=== PATIENT | male | born 1940 | race Caucasian/White ===

== ENCOUNTER → 2016-09-12 | Outpatient (CLI) | payer OTHER, BC ==
[~2016-09-12] MED LIST: ALBUAER19 INH; AMLO-110 PO; ATEN50TA8 PO; DUTA0.5C PO; SULF1TAB92 PO; TAMS0.4C38 PO
== END | disposition home or self-care (01) ==
LOC: C.RC 09:34
PROVIDERS: ATTEND Internal Medicine
DX: J44.9 Chronic obstructive pulmonary disease, unspecified (principal); R06.00 Dyspnea, unspecified

== ENCOUNTER 2019-12-26 13:04 | Inpatient (IN) ==
[~2019-12-26 13:04] MED LIST changes: -ALBUAER19 INH; -AMLO-110 PO; -ATEN50TA8 PO; -DUTA0.5C PO; +OPTIRAY 320 125ml IV PRN; -SULF1TAB92 PO; -TAMS0.4C38 PO
--- NOTE | 2019-12-26 13:06 | Emergency Department Note ---
Impression & Plan Brain TIA, COPD with hypoxia, Stenosis of both internal carotid arteries ED Provider Note NAME: EDNA BRANHAM AGE: 79 SEX: M : 1940 ARRIVES VIA: Ambulance INFORMANT: Patient, ED PROVIDER(S): Ángel Grijalva MD Chief Complaint: Confusion, left-sided deficits HPI: I did receive a medical command call prehospital due to the concern for change in mentation as well as left-sided facial droop. The patient was having difficulty with follow commands and paramedics did think that the patient did have some left upper extremity left lower extremity weakness. The patient did have some associated dysarthria. The patient was mildly hypoxic and placed on oxygen. Last known well was approximately 1140. The patient currently denies any chest pains or shortness of breath. No recent concern for COVID. The patient does use oxygen at home. The patient feels as though his speech is appropriate. Patient believes his symptoms have improved since earlier. They are no longer as persistent. Patient last smoked 3 to 4 years ago. ROS: See HPI for pertinent positives and negatives. A total of 10 systems were reviewed and otherwise negative. Past medical history: See below Surgical history: See below Social history: See below Physical Exam: GENERAL: Well appearing, well nourished, NAD, non-toxic. EYE EXAM: Normal conjunctiva. PERRL, no anisocoria and EOM's grossly intact w/o pain. NECK: Supple, no nuchal rigidity, no adenopathy, non-tender. No signs of meningismus. LUNGS: Clear to auscultation. Normal chest wall mechanics. HEART: NSR, no MRG. ABDOMEN: Abdomen soft, non-tender, normo-active bowel sounds, no masses, no rebound or guarding. BACK: No CVA TTP. SKIN: No rashes and no bruising. UPPER EXTREMITIES: Upper extremities are grossly normal. LOWER EXTREMITIES: Grossly normal, no edema. NEURO EXAM: A&O x3, cranial nerves II-XII grossly intact, normal speech, moves all 4 extremities on command w/o issue. Good finger to nose, no drift, no sensory deficits. Differential diagnoses: Infection, dehydration, metabolic abnormality, hypo/hyperglycemia, electrolyte disturbance, anemia, hypoxia, cardiac sources, intracerebral event, toxicologic, neurologic, as well as other pathologies. Course: Patient was seen and evaluated the bedside. Full history physical exam was performed. EKG: Indication: CVA symptoms Atrial sensed V paced rhythm, rate of 66, left axis deviation, left bundle branch block pattern. Imaging Studies: Radiology results as stated below per my review in the radiologist's interpretation: HEAD CT NONCONTRAST CT DOSE: HISTORY: Stroke symptoms. Left-sided facial droop. TECHNIQUE: Multiaxial CT images of the head were performed without the use of intravenous contrast. Automated exposure control was utilized for this study. A dose lowering technique was utilized adhering to the principles of ALARA. Comparison: None. Findings: The paranasal sinuses and mastoid air cells are clear. The calvarium and skull base are intact. There is no mass, hematoma, midline shift, acute infarct. White matter hypodensity is nonspecific but suggestive of microvascular ischemic change. The ventricles and sulci demonstrate mild age-related involutional changes. 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 Impression: No acute intracranial abnormality. 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 ACT 112: Negative or not required by law. Electronically signed by: Gene Grider M.D. 12/26/2019 1:18 PM Dictated: 12/26/19 1315 Transcribed: 12/26/19 1315 HEAD & NECK CTA HISTORY: Left-sided facial droop. Stroke evaluation TECHNIQUE: Multiaxial CT images of the head were performed following the intravenous administration of contrast to evaluate the major cerebral vessels. Multiaxial CT images of the neck were also performed following the intravenous administration of contrast to evaluate the major cervical vessels. Maximum intensity projection images were also obtained. A dose lowering technique was utilized adhering to the principles of ALARA. COMPARISON: None. FINDINGS: The bilateral distal vertebral arteries and basilar artery are widely patent. Persistent right posterior circulation considered to be a normal variant. The bilateral MCAs and test lab technician are patent. Focal 2 cm segment of diminished perfusion/narrowing within the mid right A2 segment best seen on image 94. However, no vascular occlusion identified. The left ACAs widely patent. Suggestion of a 2 mm aneurysm at the left supraclinoid ICA. The major dural venous sinuses appear patent. Focal area of 60% stenosis seen within the left carotid siphon best seen on image 53. The aortic arch and proximal great vessels are widely patent. Bilateral vertebral arteries and bilateral common carotid arteries are patent. Left-sided pacemaker wires are noted. Advanced emphysema. Severe right and moderate left plaque within the bilateral carotid bifurcations. There is a focal area of high- grade/critical stenosis of greater than 90% within the proximal right internal carotid artery/bulb. This is best seen on image 224. There is also a focal intraluminal soft plaque within the proximal right internal carotid artery which measures 4 mm. The mid to distal right internal carotid artery is patent. Focal area of 75% stenosis within the proximal left internal carotid artery/carotid bulb. This is best seen image 222. The mid to distal left internal carotid artery is patent. IMPRESSION: 1. Focal 2 cm segment of diminished perfusion/narrowing within the mid right A2. However, no vascular occlusion identified. 2. Focal area of 60% stenosis within the left carotid siphon. 3. 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 4. There is a focal area of high-grade/critical stenosis of greater than 90% within the proximal right internal carotid artery/bulb. There is an associated focal intraluminal soft plaque within the proximal right internal carotid artery which measures 4 mm. 5. Focal area of 75% stenosis at the proximal left internal carotid artery/carotid bulb. ACT 112: Negative or not required by law. Electronically signed by: Gene Grider M.D. 12/26/2019 1:31 PM Dictated: 12/26/19 1319 Transcribed: 12/26/19 1319 Cardiac monitoring: An order was placed for continuous cardiac monitoring. The monitor shows a rate of 68 with paced rhythm. MDM: Patient does present with concern for left-sided deficits. They have since resolved upon presentation. The patient's initial CT the head did show some old left infarct. The patient CT angios of the head neck do show an area of decreased perfusion at the right A2 but there is no vascular occlusion identified. The patient also does have evidence of stenosis at the left carotid possible 2 mm aneurysm of the left supraclinoid ICA as well as 90% proximal internal carotid bulb artery stenosis. Patient was placed on a small amount of oxygen given that the patient does have COPD does use oxygen at home and was in the high 80s. I did speak with tele-stroke even as the patient symptoms had resolved the patient does have some high-grade stenosis as well as some diminished perfusion and narrowing at the right A2 segment. Dr. Pulido telestroke neurology at [facility] was stating that the A2 segment would likely be too distal for any endovascular intervention. Discussed that there would need to be discussion about risk benefits of any sort of intervention with the patient's right ICA stenosis. She also recommended an aspirin and Plavix load which were ordered. He did receive this. I did speak the on-call hospitalist Dr. Neff and I spoke with Marisol Rowland. Patient was admitted to the [facility] service. Critical Care: I have personally spent 50 minutes of critical care time in direct management of this patient. This includes bedside care, interpretation of diagnostic studies, and testing, discussion with consultants, patient, and family members, and other require inpatient management activities. This 50 minutes is in excess of all separately billable procedures. Past Med/Surg History Medical History BPH (benign prostatic hyperplasia) Complete heart block (Acute) s/p dual-chamber pacemaker. (2/2 lyme disease). COPD (chronic obstructive pulmonary disease) Hx of Lyme disease Hypertension Pacemaker 2014 ([employer]) SECONDARY TO COMPLETE HEART BLOCK/SSS; LAST CHECK 02/04/18 Psoriasis Surgical History Hx of colonoscopy S/P cardiac pacemaker procedure 2014 ([employer]) SECONDARY TO COMPLETE HEART BLOCK/SSS; LAST CHECK 02/04/18 Social History Preferred Language: Yoruba Communication Ability: Effective Senior Mechanical Technician Required: No Beliefs That Will Affect Care: None Current Living Situation: Spouse Feels Safe at Home: Yes Smoking Status: Former smoker Cigarettes Per Day: 20 ; Hx Alcohol Use: No Hx Substance Use: No Allergies Allergies Allergy/AdvReac Type Severity Reaction Status Date / Time No Known Allergies Allergy Verified 12/26/19 13:43 Home Meds Home Medications Medication Instructions Recorded Confirmed amlodipine [Norvasc] 5 mg PO QAM 03/20/18 12/26/19 atenolol [Tenormin] 50 mg PO QAM 03/20/18 12/26/19 Previous Rx's Medication Instructions Recorded dutasteride 0.5 mg capsule 0.5 mg PO QPM #90 cap 02/01/19 tamsulosin 0.4 mg capsule 0.4 mg PO QPM #90 cap 11/01/19 Results & Data (ED) Vital Signs Vital Signs - 24 hr 12/26/19 13:26 12/26/19 13:27 12/26/19 13:32 Temperature 36.6 C Temperature Source Oral Pulse Rate 70 68 Pulse Rate from SpO2 Sensor 68 Pulse Rhythm Regular Pulse Strength Normal Respiratory Rate 22 Respiratory Effort / Characteristics Non-Labored Spontaneous Respiratory Depth Normal Respiratory Pattern Regular Blood Pressure 138/86 169/84 H Blood Pressure Mean 103 126 Pulse Oximetry 88 L 95 98 Oxygen Delivery Method Room Air Nasal Cannula Nasal Cannula Nasal Cannula Oxygen Flow Rate 0 1 1 Sepsis Recent Fever Within 48 Hours No Sepsis New/Unexplained Change in Mental Status No Sepsis Action Taken by Nursing No Action Required Oxygen Flow Rate - Titration 1 Pulse Oximetry Post Tiitration 97 12/26/19 13:46 12/26/19 14:02 12/26/19 14:16 Temperature Temperature Source Pulse Rate 67 67 66 Pulse Rate from SpO2 Sensor 67 67 66 Pulse Rhythm Pulse Strength Respiratory Rate Respiratory Effort / Characteristics Respiratory Depth Respiratory Pattern Blood Pressure 144/87 H 167/74 H 175/77 H Blood Pressure Mean 120 112 83 Pulse Oximetry 97 96 96 Oxygen Delivery Method Nasal Cannula Nasal Cannula Nasal Cannula Oxygen Flow Rate 1 1 1 Sepsis Recent Fever Within 48 Hours Sepsis New/Unexplained Change in Mental Status Sepsis Action Taken by Nursing Oxygen Flow Rate - Titration Pulse Oximetry Post Tiitration 12/26/19 14:31 Temperature Temperature Source Pulse Rate 66 Pulse Rate from SpO2 Sensor 67 Pulse Rhythm Pulse Strength Respiratory Rate 24 Respiratory Effort / Characteristics Respiratory Depth Respiratory Pattern Blood Pressure 175/83 H Blood Pressure Mean 119 Pulse Oximetry 97 Oxygen Delivery Method Nasal Cannula Oxygen Flow Rate 1 Sepsis Recent Fever Within 48 Hours Sepsis New/Unexplained Change in Mental Status Sepsis Action Taken by Nursing Oxygen Flow Rate - Titration Pulse Oximetry Post Tiitration Home Medications Current Medication List: was personally reviewed by me Laboratory Data Attestation: I reviewed the patient's lab results. Result diagrams: 12/26/19 13:26 12/26/19 13:26 Lab Results 12/26/19 12/26/19 12/26/19 Range/Units 13:25 13:26 13:26 WBC 9.18 (4.8-10.8) K/uL RBC 4.54 L (4.7-6.1) M/uL Hgb 14.3 (14.0-18.0) g/dL Hct 42.8 (42-52) % MCV 94.3 (80-100) fL MCH 31.5 (25-34) pg MCHC 33.4 (32-36) g/dL RDW Std Deviation 50.1 H (36.4-46.3) fL RDW Coeff of Anni 14.6 H (11.5-14.5) % Plt Count 232 (130-400) K/uL MPV 9.8 (7.4-10.4) fL Immature Gran % (Auto) 0.1 % Neut % (Auto) 75.2 % Lymph % (Auto) 7.0 % Pike % (Auto) 16.4 % Eos % (Auto) 1.1 % Baso % (Auto) 0.2 % Neut # (Auto) 6.90 H (1.4-6.5) K/uL Lymph # (Auto) 0.64 L (1.2-3.4) K/uL Pike # (Auto) 1.51 H (0.11-0.59) K/uL Eos # (Auto) 0.10 (0-0.5) K/uL Baso # (Auto) 0.02 (0-0.2) K/uL Immature Gran # (Auto) 0.01 (0.00-0.02) K/uL PT (9.0-12.0) Seconds INR (0.9-1.1) APTT (21.0-31.0) Seconds PTT Ratio Sodium (136-145) mmol/L Potassium (3.5-5.1) mmol/L Chloride (98-107) mmol/L Carbon Dioxide (21-32) mmol/L Anion Gap (3-11) BUN (7-18) mg/dl Creatinine (0.6-1.4) mg/dl Est Cr Clr Drug Dosing ml/min Est GFR ( Amer) Est GFR (Non-Af Amer) BUN/Creatinine Ratio (10-20) Glucose (70-99) mg/dl POC Glucose 98 (70-99) mg/dl Calcium (8.5-10.1) mg/dl Magnesium (1.8-2.4) mg/dl Total Bilirubin (0.2-1) mg/dl AST (15-37) U/L ALT (12-78) U/L Alkaline Phosphatase (45-117) U/L Troponin I (0-0.045) ng/ml Total Protein (6.4-8.2) gm/dl Albumin (3.4-5.0) gm/dl Globulin (2.5-4.0) gm/dl Albumin/Globulin Ratio (0.9-2) Blood Type O Positive Antibody Screen NEGATIVE 12/26/19 12/26/19 Range/Units 13:26 13:26 WBC (4.8-10.8) K/uL RBC (4.7-6.1) M/uL Hgb (14.0-18.0) g/dL Hct (42-52) % MCV (80-100) fL MCH (25-34) pg MCHC (32-36) g/dL RDW Std Deviation (36.4-46.3) fL RDW Coeff of Anni (11.5-14.5) % Plt Count (130-400) K/uL MPV (7.4-10.4) fL Immature Gran % (Auto) % Neut % (Auto) % Lymph % (Auto) % Pike % (Auto) % Eos % (Auto) % Baso % (Auto) % Neut # (Auto) (1.4-6.5) K/uL Lymph # (Auto) (1.2-3.4) K/uL Pike # (Auto) (0.11-0.59) K/uL Eos # (Auto) (0-0.5) K/uL Baso # (Auto) (0-0.2) K/uL Immature Gran # (Auto) (0.00-0.02) K/uL PT 11.0 (9.0-12.0) Seconds INR 1.0 (0.9-1.1) APTT 31.4 H (21.0-31.0) Seconds PTT Ratio 1.1 Sodium 133 L (136-145) mmol/L Potassium 5.0 (3.5-5.1) mmol/L Chloride 96 L (98-107) mmol/L Carbon Dioxide 30 (21-32) mmol/L Anion Gap 7.0 (3-11) BUN 22 H (7-18) mg/dl Creatinine 1.30 (0.6-1.4) mg/dl Est Cr Clr Drug Dosing 39.8 ml/min Est GFR ( Amer) 59.3 Est GFR (Non-Af Amer) 51.2 BUN/Creatinine Ratio 17.2 (10-20) Glucose 106 H (70-99) mg/dl POC Glucose (70-99) mg/dl Calcium 8.9 (8.5-10.1) mg/dl Magnesium 2.1 (1.8-2.4) mg/dl Total Bilirubin 1.3 H (0.2-1) mg/dl AST 21 (15-37) U/L ALT 15 (12-78) U/L Alkaline Phosphatase 88 (45-117) U/L Troponin I 0.034 (0-0.045) ng/ml Total Protein 7.0 (6.4-8.2) gm/dl Albumin 3.2 L (3.4-5.0) gm/dl Globulin 3.8 (2.5-4.0) gm/dl Albumin/Globulin Ratio 0.9 (0.9-2) Blood Type Antibody Screen Administered Medications Ioversol (Optiray 320 125ml) 118 ml IV ONCE PRN PRN Reason: Interaction Checking Stop: 12/30/19 13:03 Last Admin: 12/26/19 13:05 Dose: 118 ml Documented by: [id number] Discontinued Medications Aspirin (Aspirin) 324 mg PO NOW STA Stop: 12/26/19 14:03 Last Admin: 12/26/19 14:13 Dose: 324 mg Documented by: [id number] Clopidogrel Bisulfate (Plavix) 300 mg PO NOW STA Stop: 12/26/19 14:03 Last Admin: 12/26/19 14:13 Dose: 300 mg Documented by: [id number] Discharge Plan Visit Data Chief Complaint: Stroke Alert Stated Complaint: Stroke Alert ED Provider: Ángel Grijalva Discharge Problem: Brain TIA, COPD with hypoxia, Stenosis of both internal carotid arteries Forms Stand Alone Forms: [employer] [facility] Prescriptions Prescriptions: No Action tamsulosin [Flomax] 0.4 mg capsule 0.4 mg PO QPM Qty: 90 RF: 3 dutasteride [Avodart] 0.5 mg capsule 0.5 mg PO QPM Qty: 90 RF: 3 amlodipine [Norvasc] 5 mg Tablet 5 mg PO QAM RF: 0 atenolol [Tenormin] 50 mg Tablet 50 mg PO QAM RF: 0
--- NOTE | 2019-12-26 13:20 | CT Scan Report ---
HEAD CT NONCONTRAST CT DOSE: HISTORY: Stroke symptoms. Left-sided facial droop. TECHNIQUE: Multiaxial CT images of the head were performed without the use of intravenous contrast. A utomated exposure control was utilized for this study. A dose lowering technique was utilized adheri ng to the principles of ALARA. Comparison: None. Findings: The paranasal sinuses and mastoid air cells are clear. The calvarium and skull base are int act. There is no mass, hematoma, midline shift, acute infarct. White matter hypodensity is nonspecifi c but suggestive of microvascular ischemic change. The ventricles and sulci demonstrate mild age-rela josé miguel involutional changes. 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 Impression: No acute intracranial abnormality. 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 ACT 112: Negative or not required by law. Electronically signed by: Gene Grider M.D. 12/26/2019 1:18 PM
--- NOTE | 2019-12-26 13:32 | CT Scan Report ---
HEAD & NECK CTA HISTORY: Left-sided facial droop. Stroke evaluation TECHNIQUE: Multiaxial CT images of the head were performed following the intravenous administration o f contrast to evaluate the major cerebral vessels. Multiaxial CT images of the neck were also perform ed following the intravenous administration of contrast to evaluate the major cervical vessels. Maxim um intensity projection images were also obtained. A dose lowering technique was utilized adhering to the principles of ALARA. COMPARISON: None. FINDINGS: The bilateral distal vertebral arteries and basilar artery are widely patent. Persistent right sample prep technician ior circulation considered to be a normal variant. The bilateral MCAs and die cutter operator are patent. Foca l 2 cm segment of diminished perfusion/narrowing within the mid right A2 segment best seen on image 9 4. However, no vascular occlusion identified. The left ACAs widely patent. Suggestion of a 2 mm aneur ysm at the left supraclinoid ICA. The major dural venous sinuses appear patent. Focal area of 60% jacy nosis seen within the left carotid siphon best seen on image 53. The aortic arch and proximal great vessels are widely patent. Bilateral vertebral arteries and bila teral common carotid arteries are patent. Left-sided pacemaker wires are noted. Advanced emphysema. S evere right and moderate left plaque within the bilateral carotid bifurcations. There is a focal area of high-grade/critical stenosis of greater than 90% within the proximal right internal carotid arter y/bulb. This is best seen on image 224. There is also a focal intraluminal soft plaque within the pro ximal right internal carotid artery which measures 4 mm. The mid to distal right internal carotid art smiley is patent. Focal area of 75% stenosis within the proximal left internal carotid artery/carotid bu lb. This is best seen image 222. The mid to distal left internal carotid artery is patent. IMPRESSION: 1. Focal 2 cm segment of diminished perfusion/narrowing within the mid right A2. However, no vascular occlusion identified. 2. Focal area of 60% stenosis within the left carotid siphon. 3. 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 4. There is a focal area of high-grade/critical stenosis of greater than 90% within the proximal righ t internal carotid artery/bulb. There is an associated focal intraluminal soft plaque within the prox imal right internal carotid artery which measures 4 mm. 5. Focal area of 75% stenosis at the proximal left internal carotid artery/carotid bulb. ACT 112: Negative or not required by law. Electronically signed by: Gene Grider M.D. 12/26/2019 1:31 PM
--- NOTE | 2019-12-26 13:32 | CT Scan Report ---
HEAD & NECK CTA HISTORY: Left-sided facial droop. Stroke evaluation TECHNIQUE: Multiaxial CT images of the head were performed following the intravenous administration o f contrast to evaluate the major cerebral vessels. Multiaxial CT images of the neck were also perform ed following the intravenous administration of contrast to evaluate the major cervical vessels. Maxim um intensity projection images were also obtained. A dose lowering technique was utilized adhering to the principles of ALARA. COMPARISON: None. FINDINGS: The bilateral distal vertebral arteries and basilar artery are widely patent. Persistent right manager of selection and assessment ior circulation considered to be a normal variant. The bilateral MCAs and customer care associate are patent. Foca l 2 cm segment of diminished perfusion/narrowing within the mid right A2 segment best seen on image 9 4. However, no vascular occlusion identified. The left ACAs widely patent. Suggestion of a 2 mm aneur ysm at the left supraclinoid ICA. The major dural venous sinuses appear patent. Focal area of 60% jacy nosis seen within the left carotid siphon best seen on image 53. The aortic arch and proximal great vessels are widely patent. Bilateral vertebral arteries and bila teral common carotid arteries are patent. Left-sided pacemaker wires are noted. Advanced emphysema. S evere right and moderate left plaque within the bilateral carotid bifurcations. There is a focal area of high-grade/critical stenosis of greater than 90% within the proximal right internal carotid arter y/bulb. This is best seen on image 224. There is also a focal intraluminal soft plaque within the pro ximal right internal carotid artery which measures 4 mm. The mid to distal right internal carotid art smiley is patent. Focal area of 75% stenosis within the proximal left internal carotid artery/carotid bu lb. This is best seen image 222. The mid to distal left internal carotid artery is patent. IMPRESSION: 1. Focal 2 cm segment of diminished perfusion/narrowing within the mid right A2. However, no vascular occlusion identified. 2. Focal area of 60% stenosis within the left carotid siphon. 3. 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 4. There is a focal area of high-grade/critical stenosis of greater than 90% within the proximal righ t internal carotid artery/bulb. There is an associated focal intraluminal soft plaque within the prox imal right internal carotid artery which measures 4 mm. 5. Focal area of 75% stenosis at the proximal left internal carotid artery/carotid bulb. ACT 112: Negative or not required by law. Electronically signed by: Gene Grider M.D. 12/26/2019 1:31 PM
[2019-12-26 13:38] LABS: Basophils # (auto) 0.02 K/uL (0-0.2); Basophils % (auto) 0.2 %; Eosinophils % (auto) 1.1 %; Hematocrit (blood only) 42.8 % (42-52); Hemoglobin 14.3 g/dL (14.0-18.0); Immature Granulocytes # (auto) 0.01 K/uL (0.00-0.02); Immature Granulocytes % (auto) 0.1 %; Lymphocytes # (auto) 0.64 K/uL (1.2-3.4); Mean Corpuscular Hemoglobin 31.5 pg (25-34); Mean Corpuscular Hgb Conc 33.4 g/dL (32-36); Mean Corpuscular Volume 94.3 fL (80-100); Mean Platelet Volume 9.8 fL (7.4-10.4); Monocytes # (auto) 1.51 K/uL (0.11-0.59); Monocytes % (auto) 16.4 %; Neutrophils % (auto) 75.2 %; Platelet Count 232 K/uL (130-400); RDW Coefficient of Variation 14.6 % (11.5-14.5); RDW Standard Deviation 50.1 fL (36.4-46.3); Red Blood Count 4.54 M/uL (4.7-6.1); White Blood Count 9.18 K/uL (4.8-10.8)
[2019-12-26 13:51] LABS: Partial Thromboplastin Ratio 1.1; Partial Thromboplastin Time 31.4 Seconds (21.0-31.0)
[2019-12-26 13:57] LABS: Albumin Level 3.2 gm/dl (3.4-5.0); BUN Creatinine Ratio 17.2 (10-20); Calcium 8.9 mg/dl (8.5-10.1); Creatinine Clr Calc Pharmacy 39.8 ml/min; Est GFR (African American) 59.3; Est GFR (Non-African American) 51.2; Magnesium 2.1 mg/dl (1.8-2.4)
[2019-12-26 14:01] LABS: Albumin Globulin Ratio 0.9 (0.9-2); Bilirubin,Total 1.3 mg/dl (0.2-1); Globulin 3.8 gm/dl (2.5-4.0); Troponin I 0.034 ng/ml (0-0.045)
[2019-12-26] MEDS ORDERED: ASPIRIN CHEW 324 MG PO STA (14:02)
[2019-12-26] MEDS ORDERED: CLOPIDOGREL BISULFATE 300 MG TAB PO STA (14:02)
[2019-12-26] MEDS ORDERED: MAGNESIUM HYDROXIDE SUSP 30 ML UDC PO PRN (14:38)
[2019-12-26] MEDS ORDERED: POLYETHYLENE (MIRALAX) 17 GM PACK PO PRN (14:38)
[2019-12-26] MEDS ORDERED: ALUMINUM/MAGNESIUM SUSP 30 ML UDC PO PRN (14:38)
[2019-12-26] MEDS ORDERED: ACETAMINOPHEN 325 MG TAB PO PRN (14:38)
[2019-12-26] MEDS ORDERED: ONDANSETRON INJ 2 MG/ML 2 ML VIAL IV PRN (14:38)
[2019-12-26] MEDS ORDERED: SODIUM CHLORIDE 0.9% 1000ML 1,000 ML IV SCH (15:00)
--- NOTE | 2019-12-26 15:51 | History & Physical Report ---
Date of Service December 26, 2019 Assessment & Plan (1) Brain TIA: This is an 79-year-old male with PMH of hypertension, CKD 3, COPD, chronic respiratory failure with hypoxia requiring oxygen at bedtime, BPH and other medical problems listed below who presents with strokelike symptoms beginning yesterday. -Left-sided weakness and dysarthria that have since resolved -CT head without acute intracranial abnormality. CTA head/neck with focal area of high-grade/critical stenosis of greater than 90% within the proximal R ICA/bulb, focal intraluminal soft plaque within the proximal R ICA which measures 4 mm and focal area of 75% stenosis at the proximal left internal carotid artery/carotid bulb -Echo with bubble study pending, pacemaker interrogation pending -Initiated dual antiplatelet therapy with aspirin and Plavix. Initiating statin as well -Neuro checks, PT, OT, speech therapy evaluations -Routine neurology consult (2) Stenosis of both internal carotid arteries: CTA head and neck with evidence of high-grade stenosis of 90% in R ICA and 75% stenosis in L ICA -Routine consult for vascular surgery in case of future intervention (3) COPD with hypoxia: Continue Symbicort, supplemental O2 at bedtime and as needed during day- patient unsure about home oxygen amount, titrate as needed (4) HTN (hypertension): Allow for permissive hypertension for cerebral perfusion in setting of possible ischemic event -Intervene for BP greater than 220/110 -Holding home amlodipine and atenolol for now (5) 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 S/p pacemaker placement (6) BPH (benign prostatic hyperplasia): Continue Avodart. Holding tamsulosin due to possible s/e of hypotension (7) CKD (chronic kidney disease), stage III: Kidney function at baseline. Monitor with daily BMP DVT Ppx: SQ heparin Code status: FULL PCP: Beatriz Dispo: Admit to med tele. Plan to return home once medically stable. Patient seen in collaboration with Dr. Villegas. Please see addendum. History of Present Illness Primary Care Provider: Tyrel Henderson MD This is an 79-year-old male with PMH of hypertension, CKD 3, COPD, chronic respiratory failure with hypoxia requiring oxygen at bedtime, BPH and other medical problems listed below who presents with strokelike symptoms beginning yesterday. Patient reports feeling weak and lightheaded yesterday afternoon and lowered himself to the ground. Required 's help to get him in the pad and she noted that his left side seemed weaker than the right at that time. Symptoms resolved and patient felt that he was in normal state of health this morning. Ate breakfast and ambulated without issue. Then around 11:45 AM, patient noted left-sided weakness and instability, leaning onto dining room chair before falling onto the carpeted ground on his side. Son noted left-sided facial droop at this time along with left-sided weakness. Also noticed slight slurring of speech. No issue swallowing. EMS was called and patient was brought in as a stroke alert. Symptoms seem to resolve in route to ED. Margaret tele-stroke was consulted who recommend dual antiplatelet therapy and further work-up. Allergies Allergy/AdvReac Type Severity Reaction Status Date / Time No Known Allergies Allergy Verified 12/26/19 13:43 Home Medications Home Medications Medication Instructions Recorded Confirmed Type amlodipine [Norvasc] 5 mg PO QAM 03/20/18 12/26/19 History atenolol [Tenormin] 50 mg PO QAM 03/20/18 12/26/19 History dutasteride 0.5 mg capsule 0.5 mg PO QPM #90 cap 02/01/19 12/26/19 Rx tamsulosin 0.4 mg capsule 0.4 mg PO QPM #90 cap 11/01/19 12/26/19 Rx Past Med/Surg History Medical History BPH (benign prostatic hyperplasia) CKD (chronic kidney disease), stage III Complete heart block (Acute) s/p dual-chamber pacemaker. (2/2 lyme disease). COPD (chronic obstructive pulmonary disease) Hx of Lyme disease Hypertension Pacemaker 2014 ([employer]) SECONDARY TO COMPLETE HEART BLOCK/SSS; LAST CHECK 02/04/18 Psoriasis Surgical History Hx of colonoscopy S/P cardiac pacemaker procedure 2014 ([employer]) SECONDARY TO COMPLETE HEART BLOCK/SSS; LAST CHECK 02/04/18 Family History Other Cancer Social History Preferred Language: Nigerian Communication Ability: Effective Histology Technician Required: No Beliefs That Will Affect Care: None marital status: Current Living Situation: Spouse Other Information That Helps Us Care for You: No Feels Safe at Home: Yes Safety Concerns: Feels Safe At This Time Smoking Status: Former smoker Tobacco Type: cigarettes ; Cigarettes Per Day: 1 ; Do You Dip or Chew Tobacco: No ; Second Hand Exposure: No ; Tobacco Cessation Education Requested by Patient: No Hx Alcohol Use: No Hx Substance Use: No Review of Systems Review of Systems: At least ten systems reviewed and negative except as noted in the HPI. Physical Exam Physical Exam: General Appearance: WD/WN, vitals as above, chronically ill appearing, sitting up in bed, pleasant, conversing easily Head: normocephalic, atraumatic Eyes: normal inspection, PERRL, conjunctivae normal, anicteric sclerae ENT: external ear and nose normal, oropharynx normal Neck: trachea midline, no thyromegaly, normal visual inspection Respiratory: normal respiratory effort, lungs clear to auscultation, no wheeze, rales, rhonchi. Normal insp/exp effort, no accessory muscle use Cardiovascular: regular rate, rhythm, no murmur, normal peripheral pulses. Vessels: no JVD or carotid bruit Chest: normal inspection of chest Abdomen/GI: normal bowel sounds, soft, nontender, no hepatosplenomegaly Extremities/Musculoskeletal: no cyanosis or clubbing, extremities motor strength 5/5 Neurologic: PERRL, EOMI, accommodation nl, ? small L sided facial droop, no dysarthria, CN's II-XI intact bilaterally and moves all extremities, slow unsteady gait Psychiatric: A+Ox3, anxious Skin: no rashes, normal color, warm/dry. + L arm skin tear, bandaged Results & Data Results & Data ([facility]) Vital Signs (Past 12 Hours) Vital Signs Temp Pulse Resp BP Pulse Ox 12/26/19 14:31 66 24 175/83 H 97 12/26/19 14:16 66 175/77 H 96 12/26/19 14:02 67 167/74 H 96 12/26/19 13:46 67 144/87 H 97 12/26/19 13:32 68 169/84 H 98 12/26/19 13:27 36.6 C 70 22 138/86 95 12/26/19 13:26 88 L Laboratory Results Short CBC 12/26/19 Range/Units 13:26 WBC 9.18 (4.8-10.8) K/uL Hgb 14.3 (14.0-18.0) g/dL Hct 42.8 (42-52) % Plt Count 232 (130-400) K/uL BMP 12/26/19 13:26 Sodium 133 L Potassium 5.0 Chloride 96 L Carbon Dioxide 30 BUN 22 H Creatinine 1.30 Glucose 106 H Calcium 8.9 Cardiac Enzymes 12/26/19 Range/Units 13:26 Troponin I 0.034 (0-0.045) ng/ml Liver Function 12/26/19 Range/Units 13:26 Total Bilirubin 1.3 H (0.2-1) mg/dl AST 21 (15-37) U/L ALT 15 (12-78) U/L Alkaline Phosphatase 88 (45-117) U/L Albumin 3.2 L (3.4-5.0) gm/dl Diagnostic Findings CT head: Impression: No acute intracranial abnormality. 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 CTA head: IMPRESSION: 1. Focal 2 cm segment of diminished perfusion/narrowing within the mid right A2. However, no vascular occlusion identified. 2. Focal area of 60% stenosis within the left carotid siphon. 3. 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 4. There is a focal area of high-grade/critical stenosis of greater than 90% within the proximal right internal carotid artery/bulb. There is an associated focal intraluminal soft plaque within the proximal right internal carotid artery which measures 4 mm. 5. Focal area of 75% stenosis at the proximal left internal carotid artery/carotid bulb. CTA neck: IMPRESSION: 1. Focal 2 cm segment of diminished perfusion/narrowing within the mid right A2. However, no vascular occlusion identified. 2. Focal area of 60% stenosis within the left carotid siphon. 3. 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 4. There is a focal area of high-grade/critical stenosis of greater than 90% within the proximal right internal carotid artery/bulb. There is an associated focal intraluminal soft plaque within the proximal right internal carotid artery which measures 4 mm. 5. Focal area of 75% stenosis at the proximal left internal carotid artery/carotid bulb. ECG Findings: + paced rhythm and + prolonged QT Code Status & VTE Plan VTE Prophylaxis Plan VTE Prophylaxis will be ordered: Yes Supervising Physician Co-Signing Physician Notes ATTENDING ADDENDUM : pt seen and examined , care co-ordinated with Marisol Rowland PA-C this is a 79 yo Male presented with brief episode of left sided weakness , left facial droop dysarthia symptoms has resolved after arrival to ER 'stroke alert ' was called , pt is not a candidate for tPA -symptoms has resolved CTA of neck shows carotid artery disease MRI of brain could no be done , as pt has a pacemaker recommends Dual antiplatelets with Aspirin /Plavix pt is admitted to tele floor added statin neurology eval requested ECHO for complete stroke work up vascular surgery consult for recommendation of carotid artery disease with stroke like symptoms please refer to further documentation by Marisol WISE- for discussion of other chronic issues Sugey villegas MD
[2019-12-26] MEDS ORDERED: PHARMACIST DISCHARGE MED REC CONSULT PRN (16:34)
[2019-12-26] MEDS: ATORVASTATIN 40 MG TAB PO SCH (17:05)
--- NOTE | 2019-12-26 20:40 | Electrocardiogram Report ---
Test Reason : Blood Pressure : / mmHG Vent. Rate : 066 BPM Atrial Rate : 066 BPM P-R Int : 216 ms QRS Dur : 116 ms QT Int : 450 ms P-R-T Axes : 080 -83 079 degrees QTc Int : 471 ms Poor data quality, interpretation may be adversely affected Atrial-sensed ventricular-paced rhythm with prolonged AV conduction Abnormal ECG When compared with ECG of 26-JUL-2014 16:19, Vent. rate has increased BY 6 BPM Confirmed by Bronson Hernandez ([id number]) on 12/26/2019 8:39:51 PM Referred By: REFERRED SELF Confirmed By:Larry Hernandez
[2019-12-26] MEDS: HEPARIN SOD 5,000 UNIT/0.5 ML VIAL SQ SCH (20:45)
[2019-12-26] MEDS: DUTASTERIDE: ORDER AWAITING ACTION SCH (23:25)
[2019-12-27] MEDS: HEPARIN SOD 5,000 UNIT/0.5 ML VIAL SQ SCH ×3 (05:47→21:53)
[2019-12-27 06:15] LABS: Hematocrit (blood only) 44.3 % (42-52); Hemoglobin 14.5 g/dL (14.0-18.0); Mean Corpuscular Hemoglobin 31.3 pg (25-34); Mean Corpuscular Hgb Conc 32.7 g/dL (32-36); Mean Corpuscular Volume 95.7 fL (80-100); Mean Platelet Volume 10.1 fL (7.4-10.4); Platelet Count 247 K/uL (130-400); RDW Coefficient of Variation 14.8 % (11.5-14.5); Red Blood Count 4.63 M/uL (4.7-6.1); White Blood Count 8.56 K/uL (4.8-10.8)
[2019-12-27 06:59] LABS: BUN Creatinine Ratio 22.2 (10-20); Calcium 8.4 mg/dl (8.5-10.1); Creatinine Clr Calc Pharmacy 40.8 ml/min; Est GFR (African American) 66.7; Est GFR (Non-African American) 57.5; Potassium 4.2 mmol/L (3.5-5.1)
[2019-12-27 07:27] LABS: Estimated Average Glucose 126 mg/dl
[2019-12-27] MEDS: DUTASTERIDE: ORDER AWAITING ACTION SCH ×2 (07:41→15:47)
[2019-12-27] MEDS: ASPIRIN 81 MG ECTAB PO SCH (07:41)
[2019-12-27] MEDS: ATORVASTATIN 40 MG TAB PO SCH (07:41)
[2019-12-27] MEDS: CLOPIDOGREL BISULFATE 75 MG TAB PO SCH (07:41)
--- NOTE | 2019-12-27 07:46 | Hospitalist Progress Note ---
Date of Service December 27, 2019 Assessment & Plan (1) Brain TIA: This is an 79-year-old male with PMH of hypertension, CKD III, COPD, chronic respiratory failure with hypoxia requiring oxygen at bedtime, BPH and other medical problems listed below who presents with strokelike symptoms beginning yesterday. -Left-sided weakness and dysarthria that have since resolved -CT head without acute intracranial abnormality. CTA head/neck with focal area of high-grade/critical stenosis of greater than 90% within the proximal R ICA/bulb, focal intraluminal soft plaque within the proximal R ICA which measures 4 mm and focal area of 75% stenosis at the proximal left internal carotid artery/carotid bulb -Echo with bubble study pending, pacemaker interrogation pending -Continue dual antiplatelet therapy with aspirin and Plavix. Initiating statin as well -Neuro checks, PT, OT, speech therapy evaluations -Routine neurology consult (2) Stenosis of both internal carotid arteries: CTA head and neck with evidence of high-grade stenosis of 90% in R ICA and 75% stenosis in L ICA -Seen by vascular surgery in case of future intervention today with tentative plans for R CEA on Friday -Plan to continue dual antiplatelet therapy (3) COPD with hypoxia: Continue Symbicort, supplemental O2 at bedtime and as needed during day- patient unsure about home oxygen amount, titrate as needed (4) HTN (hypertension): Allow for permissive hypertension for cerebral perfusion in setting of possible ischemic event -Intervene for BP greater than 220/110 -Holding home amlodipine and atenolol for now (5) 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 S/p pacemaker placement (6) BPH (benign prostatic hyperplasia): Continue Avodart. Holding tamsulosin due to possible s/e of hypotension (7) CKD (chronic kidney disease), stage III: Kidney function at baseline. Monitor with daily BMP DVT Ppx: SQ heparin Code status: FULL PCP: Beatriz Dispo: Admit to [facility]. Plan to return home once medically stable. Patient seen in collaboration with Dr. Hong. Please see addendum. Admission and Anticipated Discharge Date Admission Date: December 26, 2019 Supervising Physician Co-Signing Physician Notes ROS-No Headache, No Visual Changes, No Nausea, No Vomiting, No Fever, No Chills, No Neck Pain or Stiffness, No Chest Pain, No Palpitations, No SOB, No JOHNSON, No Cough, No Sputum, No Wheezing, No Abdominal Pain, No Diarrhea, No Hematemesis, No Hemoptysis, No Unexpected Weight Loss, No Flank pain, No Melena, No Hematochezia, No Frequency, No Urgency, No Burning, No Hematuria, No Rashes, No Diaphoresis. Appetite is Normal Physical Exam Gen-AAO x 3, NAD, Afebrile Head-NCAT, EOMI, PERRLA, Anicteric Sclera, No Posterior Pharyngeal Erythema Neck-Supple, No JVD, No Thyromegaly, No Masses, No LAD, No Bruits Lungs-Clear to Auscultation Bilaterally, No Rales, No Rhonchi, No Wheezing, No Crepitus Chest-No S4, +S1, +S2, No S3, No Murmurs, No Rubs, No Gallops, No Ectopy Abdomen-Soft, Bowel Sounds Present, Non Tender, Non Distended, No Hepatomegaly, No Splenomegaly, No Palpable Masses, No Rebound, No Rigidity, No Guarding Musculoskeletal-Full Range of Motion Bilaterally, No CVAT Extremities-No Cyanosis, No Clubbing, No Edema Nuero-Cranial Nerves II-XII grossly intact, Motor WNL, DTRs WNL, Strength WNL, Non Focal Psych-Normal Mood Subjective Seen and examined in 252-1. Feeling well today. Denies any left sided weakness or dysarthria. No fever, chills, headache, lightheadedness, visual changes, chest pain, SOB, nausea, vomiting, abdominal pain, dysuria, diarrhea or constipation. Review of Systems Review of Systems: At least ten systems reviewed and negative except as noted in the HPI. Physical Exam Physical Exam: General Appearance: WD/WN, vitals as above, chronically ill appearing, sitting up in bed, pleasant, conversing easily Head: normocephalic, atraumatic Eyes: normal inspection, PERRL, conjunctivae normal, anicteric sclerae ENT: external ear and nose normal, oropharynx normal Neck: trachea midline, no thyromegaly, normal visual inspection Respiratory: normal respiratory effort, lungs clear to auscultation, no wheeze, rales, rhonchi. Normal insp/exp effort, no accessory muscle use Cardiovascular: regular rate, rhythm, no murmur, normal peripheral pulses. Vessels: no JVD or carotid bruit Chest: normal inspection of chest Abdomen/GI: normal bowel sounds, soft, nontender, no hepatosplenomegaly Extremities/Musculoskeletal: no cyanosis or clubbing, extremities motor strength 5/5 Neurologic: PERRL, EOMI, accommodation nl, no dysarthria, CN's II-XI intact bilaterally and moves all extremities, slow unsteady gait Psychiatric: A+Ox3, anxious Skin: no rashes, normal color, warm/dry. + L arm skin tear, bandaged Results & Data Results & Data ([facility]) Vital Signs (Past 12 Hours) Vital Signs Temp Pulse Pulse Resp BP Pulse Ox 12/27/19 07:41 36.7 C 76 18 174/76 H 94 12/27/19 04:00 36.5 C 70 18 161/84 H 95 12/27/19 00:44 77 12/26/19 22:00 36.6 C 78 20 132/74 98 Laboratory Results Short CBC 12/26/19 12/27/19 Range/Units 13:26 05:28 WBC 9.18 8.56 (4.8-10.8) K/uL Hgb 14.3 14.5 (14.0-18.0) g/dL Hct 42.8 44.3 (42-52) % Plt Count 232 247 (130-400) K/uL BMP 12/26/19 12/27/19 13:26 05:28 Sodium 133 L 137 Potassium 5.0 4.2 D Chloride 96 L 103 Carbon Dioxide 30 28 BUN 22 H 26 H Creatinine 1.30 1.18 Glucose 106 H 81 Calcium 8.9 8.4 L Cardiac Enzymes 12/26/19 Range/Units 13:26 Troponin I 0.034 (0-0.045) ng/ml Liver Function 12/26/19 Range/Units 13:26 Total Bilirubin 1.3 H (0.2-1) mg/dl AST 21 (15-37) U/L ALT 15 (12-78) U/L Alkaline Phosphatase 88 (45-117) U/L Albumin 3.2 L (3.4-5.0) gm/dl
--- NOTE | 2019-12-27 09:48 | Consultation ---
Date of Consultation December 27, 2019 Assessment & Plan (1) Stenosis of both internal carotid arteries: Pt with high grade stenosis of BL ICA, right worse than left. Pt also seen by Dr Mercedes today. Unsure whether symptomatic, since pt denies unilateral sx, however, his consistently indicated L sided weakness after the falls at home per previous notes. All sx resolved presently and pt is noted to be somewhat frail and would have some increased risk of complications d/t severe COPD. Will make decision regarding appropriateness for R CEA after eval by neurology, but tentatively planning for R CEA on FRIDAY. Patient was seen, examined, and chart reviewed. Agree with exam and treatment plan of the Vascular PA. History of Present Illness Reason for Consultation: Bl ICA stenosis, R hemispheric TIA Attending Physician: Vel Hong DO History of Present Illness 79 yo m with multiple medical problems, including CKD, BPH, COPD on oxygen, sick sinus syndrome s/p pacemaker, HTN, admitted with L sided weakness/possible TIA, seen in consultation today for BL ICA stenosis noted on neck CTA. Pt states he had 2 episodes of falling at home d/t BL leg weakness over approx 24 hrs, and his family made him come to ED. Per previous notes, his indicated the pt had slight weakness of L side of body after his first fall, but was significantly weaker on L after second fall. She also noted some dysarthria. Pt himself does not remember this and describes his weakness as being both legs and that they felt a little numb, but this all resolved. Pt denies similar episodes in past. Deneis ROY, recent illness, dizziness, chest pain, palpitations, SOb more than usual, abd pain, N/V, rest pain, claudication, other complaints. CTA neck demonstrates 99% stenosis of R ICA and 80% stenosis of l ICA. Allergies Allergy/AdvReac Type Severity Reaction Status Date / Time No Known Allergies Allergy Verified 12/26/19 13:43 Home Medications Home Medications Medication Instructions Recorded Confirmed Type amlodipine [Norvasc] 5 mg PO QAM 03/20/18 12/26/19 History atenolol [Tenormin] 50 mg PO QAM 03/20/18 12/26/19 History dutasteride 0.5 mg capsule 0.5 mg PO QPM #90 cap 02/01/19 12/26/19 Rx tamsulosin 0.4 mg capsule 0.4 mg PO QPM #90 cap 11/01/19 12/26/19 Rx Patient History Medical History BPH (benign prostatic hyperplasia) CKD (chronic kidney disease), stage III Complete heart block (Acute) s/p dual-chamber pacemaker. (2/2 lyme disease). COPD (chronic obstructive pulmonary disease) Hx of Lyme disease Hypertension Pacemaker 2014 ([employer]) SECONDARY TO COMPLETE HEART BLOCK/SSS; LAST CHECK 02/04/18 Psoriasis Surgical History Hx of colonoscopy S/P cardiac pacemaker procedure 2014 ([employer]) SECONDARY TO COMPLETE HEART BLOCK/SSS; LAST CHECK 02/04/18 Family History Other Cancer Social History Preferred Language: Puerto Rican Communication Ability: Effective Head Swamper Required: No Beliefs That Will Affect Care: None marital status: Current Living Situation: Spouse Other Information That Helps Us Care for You: No Feels Safe at Home: Yes Safety Concerns: Feels Safe At This Time Smoking Status: Former smoker Tobacco Type: cigarettes ; Cigarettes Per Day: 1 ; Do You Dip or Chew Tobacco: No ; Second Hand Exposure: No ; Tobacco Cessation Education Requested by Patient: No Hx Alcohol Use: No Hx Substance Use: No Review of Systems Review of Systems: All systems reviewed & are unremarkable except as noted in HPI & below Physical Exam Constitutional: WD/WN, vitals as above + frail appearing, cooperative and comfortable; not in distress Eyes: PERRL, conjunctivae normal, anicteric sclerae ENMT: Ears: no hearing impairment and no external ear abnormality Nose: no external nose abnormality Neck: normal visual inspection Respiratory: able to speak in complete sentences Auscultation: + diminished lung sounds and + wheezes Cardiovascular: Rate/Rhythm: regular rate and regular rhythm Vessels: femoral pulses present, posterior tibial pulses present (RLE nonpalpable, LLE +1), dorsalis pedis pulses present (Nonpalpable BLE), brachial pulses present and radial pulses present; + abnormal peripheral pulses Extremities: normal capillary refill; no edema Gastrointestinal (Abdomen): normal bowel sounds, soft, nontender, no hepatosplenomegaly Musculoskeletal: no cyanosis or clubbing, extremities motor strength 5/5 Skin: no rashes, warm and dry Neurologic: moves all extremities and awake; no focal motor deficits and not confused Psychiatric: A+Ox3, euthymic affect Results & Data Vital Signs (Past 12 Hours) Vital Signs Temp Pulse Pulse Resp BP Pulse Ox 12/27/19 07:41 36.7 C 76 18 174/76 H 94 12/27/19 04:00 36.5 C 70 18 161/84 H 95 12/27/19 00:44 77 12/26/19 22:00 36.6 C 78 20 132/74 98
[2019-12-27 10:31] LABS: Appearance Urine Clear (Clear); Bilirubin Urine Negative (Negative); Blood Urine Negative (Negative); Color Urine Yellow; Glucose Urine UA Negative (Negative); Ketones Urine 1+ (Negative); Leukocyte Esterase Urine Negative (Negative); Nitrite Urine Negative (Negative); Protein Urine Negative (Negative); Specific Gravity Urine 1.034 (1.000-1.030); Urobilinogen Urine Negative (Negative)
--- NOTE | 2019-12-27 10:48 | XCELERA ---
[id number]
[2019-12-27] MEDS: FLUTICASONE/VILANTEROL 100/25MCG 14 PUFFS/INHALER INH SCH (15:46)
--- NOTE | 2019-12-27 22:33 | Consultation Report ---
DATE OF CONSULTATION: 12/27/2019 HISTORY OF PRESENT ILLNESS: The patient is an 79-year-old right-handed male who was in his usual state of health. He had 2 episodes, one on Friday and Friday, he stood up and felt bilateral lower extremity weakness and fell without injury. He felt this might be related to low blood oxygen, although he does not routinely use oxygen. He may have been mildly pale at that time. He felt markedly improved relatively rapidly and returned to normal in 2 or 3 hours. The following day, he had a similar episode where he stood quickly, felt bilateral lower extremity weakness, fell to the floor and was thought to have a left facial droop, and by the report of the medical record, he has right-sided weakness. Symptoms lasted less than a half an hour. The patient has a permanent pacemaker and cannot have MRI imaging. CT showed no acute abnormality. CT white matter hypodensity is nonspecific but consistent with microvascular ischemic changes. 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 CTA of head and neck, which I reviewed, showed a focal 2 cm segment of diminished perfusion in the right A2 segment. No occlusion was noted. Focal area of 60% stenosis in the left carotid siphon, possible 2 mm aneurysm in the left supraclinoid ICA. High-grade critical stenosis of greater than 90% within the proximal right internal carotid artery bulb. There is an associated focal intraluminal soft plaque within the proximal right internal carotid, which measures 4 mm. 75% stenosis in the proximal left internal carotid bulb. Echocardiogram revealed a technically difficult study, mild left ventricular hypertrophy. Sigmoid septum. EF of 60%-65%, no regional wall motion abnormalities, mild mitral regurg, trace tricuspid regurg. Atrial size is normal. Interatrial septum is intact with no evidence of ASD. Great vessels; no obvious dissection. EKG: Atrial-sensed ventricular-paced rhythm with prolonged AV conduction. White count, H and H, platelet count were unremarkable. PT, PTT unremarkable. Sodium 133, BUN 22/1.3, glucose 106. Hemoglobin A1c 6, total bilirubin 1.3, LDL 131. 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 ALLERGIES: None. HOME MEDICINES: Amlodipine, atenolol, dutasteride/tamsulosin. PAST SURGICAL HISTORY: Pacemaker. FAMILY HISTORY: Cancer. No history of stroke. SOCIAL HISTORY: Former smoker, does not drink alcohol. PHYSICAL EXAMINATION: VITAL SIGNS: On admission, blood pressure has been mildly elevated. Most recent 36.5, 77, 20, no right/left confusion are noted. No neglect or denial is noted. Naming is adequate. The patient is oriented. NECK: No carotid bruits are noted. HEART: No heart murmurs appreciable. Heart has regular rate and rhythm. NEUROLOGIC: Pupils are equal, round and reactive to light. Optic nerves are difficult to visualize. There are normal jeffrey. There is no visual extinction. No facial asymmetry. Speech and language are normal. Tongue is midline. Motor 5/5, no drift. Normal rapid alternating movements. Symmetric reflexes. Downgoing toes. [id number]-[id number] is tremulous. Vbjc-au-wust is normal. Intact light touch bilaterally and temperature bilaterally. No double simultaneous extinction. IMPRESSION AND PLAN: 1. This patient noted with standing 2 episodes, the first of which included generalized weakness, the second of which included left hemiparesis. The differential includes a primary transient ischemic attack affecting the right internal carotid or hypoperfusion related to orthostasis with selective stenosis of the right internal carotid artery. By history, the right internal carotid artery stenosis of greater than 90% is symptomatic. Antiplatelet therapy, dual unlesscontraindicated by possible vascular surgery, for 21 days with aspirin and Plavix and then aspirin alone. Statin with goal LDL of 70 or less. Evaluation of mild elevation of blood sugar. Consider orthostatic blood pressures and Zio patch as an outpatient. 2. 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 Recommend vascular surgery consultation as an outpatient. We will follow with you. NITZA
[2019-12-28] MEDS: DUTASTERIDE: ORDER AWAITING ACTION SCH ×4 (00:14→22:07)
[2019-12-28] MEDS: HEPARIN SOD 5,000 UNIT/0.5 ML VIAL SQ SCH ×3 (05:36→22:07)
[2019-12-28 06:10] LABS: Hematocrit (blood only) 39.2 % (42-52); Hemoglobin 13.1 g/dL (14.0-18.0); Mean Corpuscular Hemoglobin 31.5 pg (25-34); Mean Corpuscular Hgb Conc 33.4 g/dL (32-36); Mean Corpuscular Volume 94.2 fL (80-100); Mean Platelet Volume 10.1 fL (7.4-10.4); Platelet Count 211 K/uL (130-400); RDW Coefficient of Variation 14.5 % (11.5-14.5); RDW Standard Deviation 49.7 fL (36.4-46.3); Red Blood Count 4.16 M/uL (4.7-6.1); White Blood Count 7.51 K/uL (4.8-10.8)
[2019-12-28 06:49] LABS: BUN Creatinine Ratio 24.2 (10-20); Calcium 8.7 mg/dl (8.5-10.1); Creatinine Clr Calc Pharmacy 49.1 ml/min; Est GFR (African American) 83.5; Potassium 4.2 mmol/L (3.5-5.1)
[2019-12-28] MEDS: ASPIRIN 81 MG ECTAB PO SCH (07:24)
[2019-12-28] MEDS: CLOPIDOGREL BISULFATE 75 MG TAB PO SCH (07:24)
[2019-12-28] MEDS: ATORVASTATIN 40 MG TAB PO SCH (07:24)
[2019-12-28] MEDS: FLUTICASONE/VILANTEROL 100/25MCG 14 PUFFS/INHALER INH SCH (07:24)
--- NOTE | 2019-12-28 09:54 | Hospitalist Progress Note ---
Date of Service December 28, 2019 Assessment & Plan (1) Brain TIA: This is an 79-year-old male with PMH of hypertension, CKD III, COPD, chronic respiratory failure with hypoxia requiring oxygen at bedtime, BPH and other medical problems listed below who presents with strokelike symptoms beginning yesterday. -Left-sided weakness and dysarthria that have since resolved -CT head without acute intracranial abnormality. CTA head/neck with focal area of high-grade/critical stenosis of greater than 90% within the proximal R ICA/bulb, focal intraluminal soft plaque within the proximal R ICA which measures 4 mm and focal area of 75% stenosis at the proximal left internal carotid artery/carotid bulb -Echo with bubble study pending, pacemaker interrogation pending -Continue dual antiplatelet therapy with aspirin and Plavix. Initiating statin as well -Neuro checks, PT, OT, speech therapy evaluations -Routine neurology consult (2) Stenosis of both internal carotid arteries: CTA head and neck with evidence of high-grade stenosis of 90% in R ICA and 75% stenosis in L ICA -Seen by vascular surgery, tentative plans for R CEA on Thursday 12/28 -Plan to continue dual antiplatelet therapy (3) COPD with hypoxia: Continue Symbicort, supplemental O2 at bedtime and as needed during day- patient unsure about home oxygen amount, titrate as needed (4) HTN (hypertension): Allow for permissive hypertension for cerebral perfusion in setting of possible ischemic event -Intervene for BP greater than 220/110 -Holding home amlodipine and atenolol for now (5) 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 S/p pacemaker placement (6) BPH (benign prostatic hyperplasia): Continue Avodart. Holding tamsulosin due to possible s/e of hypotension (7) CKD (chronic kidney disease), stage III: Kidney function at baseline. Monitor with daily BMP DVT Ppx: SQ heparin Code status: FULL PCP: Beatriz Dispo: tele. Plan to return home once medically stable. ROS-No Headache, No Visual Changes, No Nausea, No Vomiting, No Fever, No Chills, No Neck Pain or Stiffness, No Chest Pain, No Palpitations, No SOB, No JOHNSON, No Cough, No Sputum, No Wheezing, No Abdominal Pain, No Diarrhea, No Hematemesis, No Hemoptysis, No Unexpected Weight Loss, No Flank pain, No Melena, No Hematochezia, No Frequency, No Urgency, No Burning, No Hematuria, No Rashes, No Diaphoresis. Appetite is Normal Physical Exam Gen-AAO x 3, NAD, Afebrile Head-NCAT, EOMI, PERRLA, Anicteric Sclera, No Posterior Pharyngeal Erythema Neck-Supple, No JVD, No Thyromegaly, No Masses, No LAD, +Bruit Lungs-Clear to Auscultation Bilaterally, No Rales, No Rhonchi, No Wheezing, No Crepitus Chest-No S4, +S1, +S2, No S3, No Murmurs, No Rubs, No Gallops, No Ectopy Abdomen-Soft, Bowel Sounds Present, Non Tender, Non Distended, No Hepatomegaly, No Splenomegaly, No Palpable Masses, No Rebound, No Rigidity, No Guarding Musculoskeletal-Full Range of Motion Bilaterally, No CVAT Extremities-No Cyanosis, No Clubbing, No Edema Nuero-Cranial Nerves II-XII grossly intact, Motor WNL, DTRs WNL, Strength WNL, Non Focal Psych-Normal Mood Admission and Anticipated Discharge Date Admission Date: December 26, 2019 Results & Data Results & Data ([facility]) Vital Signs (Past 12 Hours) Vital Signs Temp Pulse Resp BP Pulse Ox 12/28/19 07:00 36.7 C 85 16 144/75 H 91 12/28/19 03:28 36.4 C L 77 18 146/74 H 94 12/27/19 23:00 36.5 C 74 20 125/67 92
--- NOTE | 2019-12-28 10:06 | Anesthesiology Consultation ---
Date of Service December 28, 2019 Assessment & Plan (1) Encounter for pre-operative examination: COVID assessment: Travel/history reviewed. The patient is low risk. Routine COVID preop testing was not performed. 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 Surgery Operation Date: 12/29/19 10:00 Proposed Procedures p Right Carotid Endarterectomy - Gregorio Mercedes MD Height/Weight Height: 5 ft 6 in Weight: 57.6 kg Allergies Allergy/AdvReac Type Severity Reaction Status Date / Time No Known Allergies Allergy Verified 12/26/19 13:43 Medications Home Medications Medication Instructions Recorded Confirmed Last Taken amlodipine [Norvasc] 5 mg PO QAM 03/20/18 12/26/19 12/26/19 atenolol [Tenormin] 50 mg PO QAM 03/20/18 12/26/19 12/26/19 dutasteride 0.5 mg capsule 0.5 mg PO QPM #90 cap 02/01/19 12/26/19 12/25/19 tamsulosin 0.4 mg capsule 0.4 mg PO QPM #90 cap 11/01/19 12/26/19 12/25/19 Active Medications Generic Name Dose Route Start Last Admin Trade Name Freq PRN Reason Stop Dose Admin Aspirin 81 mg 12/27/19 09:00 12/28/19 07:24 Ecotrin Ectab PO 01/26/20 08:59 81 mg QAM TRESSA Administration Atorvastatin Calcium 40 mg 12/26/19 16:34 12/28/19 07:24 Lipitor PO 01/25/20 16:33 40 mg QAM TRESSA Administration Clopidogrel Bisulfate 75 mg 12/27/19 09:00 12/28/19 07:24 Plavix PO 01/26/20 08:59 75 mg QAM TRESSA Administration Fluticasone/Vilanterol 1 puffs 12/27/19 16:00 12/28/19 07:24 Breo Ellipta 100/25 Mcg Inh INH 01/26/20 15:59 1 puffs DAILY TRESSA Administration Heparin Sodium (Porcine) 5,000 units 12/26/19 22:00 12/28/19 05:36 Heparin Sodium (Porcine) SQ 01/25/20 21:59 5,000 units Q8 TRESSA Administration Miscellaneous 1 ea 12/27/19 00:00 12/28/19 07:24 Order Awaiting Action N/A 01/26/20 00:00 Not Given QS TRESSA Past Medical History Medical History BPH (benign prostatic hyperplasia) CKD (chronic kidney disease), stage III Complete heart block (Acute) s/p dual-chamber pacemaker. (2/2 lyme disease). COPD (chronic obstructive pulmonary disease) Hx of Lyme disease Hypertension Pacemaker 2014 ([employer]) SECONDARY TO COMPLETE HEART BLOCK/SSS; LAST CHECK 02/04/18 Psoriasis Past Family History Family History Other Cancer Past Surgical History Surgical History Hx of colonoscopy S/P cardiac pacemaker procedure 2014 ([employer]) SECONDARY TO COMPLETE HEART BLOCK/SSS; LAST CHECK 02/04/18 Social History Smoking Status: Former smoker tobacco type: cigarettes Smoking cigarettes per day: 1 Do You Dip or Chew Tobacco: No Hx Alcohol Use: No Hx Substance Use: No substance use type: does not use Physical Exam Vital Signs Last Vital Signs Temp 98.1 F 12/28/19 07:00 Pulse 85 12/28/19 07:00 Resp 16 12/28/19 07:00 BP 144/75 H 12/28/19 07:00 Pulse Ox 91 12/28/19 07:00 Testing Laboratory Results 12/28/19 05:11 12/28/19 05:11 PT 11.0 Seconds (9.0-12.0) 12/26/19 13:26 INR 1.0 (0.9-1.1) 12/26/19 13:26 APTT 31.4 Seconds (21.0-31.0) H 12/26/19 13:26 Hemoglobin A1c 6.0 % (4.5-5.6) H 12/26/19 13:26 Urine Color Yellow 12/27/19 10:20 Urine Appearance Clear (Clear) 12/27/19 10:20 Urine pH 5.0 (4.5-7.5) 12/27/19 10:20 Ur Specific [place] 1.034 (1.000-1.030) H 12/27/19 10:20 Urine Protein Negative (Negative) 12/27/19 10:20 Urine Glucose (UA) Negative (Negative) 12/27/19 10:20 Urine Ketones 1+ (Negative) H 12/27/19 10:20 Urine Nitrite Negative (Negative) 12/27/19 10:20 Ur Leukocyte Esterase Negative (Negative) 12/27/19 10:20 Blood Type O Positive 12/26/19 13:26 Antibody Screen NEGATIVE 12/26/19 13:26 Electrocardiogram Date: 12/26/19 Atrial-sensed ventricular-paced rhythm with prolonged AV conduction, rate 66 bpm Abnormal ECG When compared with ECG of 26-JUL-2014 16:19, Vent. rate has increased BY 6 BPM Confirmed by Bronson Hernandez ([id number]) on 12/26/2019 8:39:51 PM Chest X-Ray Date: 12/07/18 FINDINGS: PA and lateral chest radiographs are compared to study dated 10/31/2016. A 2-lead cardiac pacemaker is unchanged in position and partially up stairs the left apex. The heart is mildly enlarged and there is atherosclerotic calcification of the thoracic aorta. The pulmonary vasculature is noncongested. Emphysema and chronic interstitial thickening are similar to previous. No airspace consolidation or pleural effusion is identified. There is bibasilar scarring/atelectasis. There is an indeterminant 1.5 mm density projecting over the lower thoracic spine on the lateral view. There is no pneumothorax. The skeletal structures are osteopenic. The bony thorax appears intact. IMPRESSION: 1. Cardiomegaly and cardiac pacemaker. There is no radiographic evidence of congestive failure. 2. Emphysema. 3. There is an indeterminant 1.5 cm nodular density projecting over the lower thoracic spinal on the lateral view. This could represent artifact/superimposed shadows. Correlation with a dedicated chest CT is recommended for further assessment and to exclude underlying pulmonary lesion. Echocardiogram Date: 12/27/19 Compared with 07/25/2014 study, probably no significant change LV is normal in size Mild concentric LVH The basal septum is thickened and angulated consistent with sigmoid septum EF 60-65% LV systolic function is normal No regional wall motion abnormalities There is mild MR There is trace TR RVSP is normal Other Testing Neck CTA 12/26/19 FINDINGS: The bilateral distal vertebral arteries and basilar artery are widely patent. Persistent right posterior circulation considered to be a normal variant. The bilateral MCAs and industrial energy engineer are patent. Focal 2 cm segment of diminished perfusion/narrowing within the mid right A2 segment best seen on image 94. However, no vascular occlusion identified. The left ACAs widely patent. Suggestion of a 2 mm aneurysm at the left supraclinoid ICA. The major dural venous sinuses appear patent. Focal area of 60% stenosis seen within the left carotid siphon best seen on image 53. The aortic arch and proximal great vessels are widely patent. Bilateral vertebral arteries and bilateral common carotid arteries are patent. Left-sided pacemaker wires are noted. Advanced emphysema. Severe right and moderate left plaque within the bilateral carotid bifurcations. There is a focal area of high- grade/critical stenosis of greater than 90% within the proximal right internal carotid artery/bulb. This is best seen on image 224. There is also a focal intraluminal soft plaque within the proximal right internal carotid artery which measures 4 mm. The mid to distal right internal carotid artery is patent. Focal area of 75% stenosis within the proximal left internal carotid artery/carotid bulb. This is best seen image 222. The mid to distal left internal carotid artery is patent. IMPRESSION: 1. Focal 2 cm segment of diminished perfusion/narrowing within the mid right A2. However, no vascular occlusion identified. 2. Focal area of 60% stenosis within the left carotid siphon. 3. 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 4. There is a focal area of high-grade/critical stenosis of greater than 90% within the proximal right internal carotid artery/bulb. There is an associated focal intraluminal soft plaque within the proximal right internal carotid artery which measures 4 mm. 5. Focal area of 75% stenosis at the proximal left internal carotid artery/carotid bulb.
--- NOTE | 2019-12-28 10:35 | Surgery Progress Note ---
Date of Service December 28, 2019 Assessment & Plan (1) Symptomatic stenosis of right carotid artery: This point recommended right carotid endarterectomy. I have discussed the risks options and benefits of the procedure with the patient. The patient understands the risks options and benefits and agrees to the procedure. This will be done tomorrow around 11 AM. Subjective Patient without complaints. He denies any weakness or sensory deficits in his upper or lower extremities. Physical Exam Constitutional: WD/WN, vitals as above Neurologic: No changes in neuro exam. He has normal motor function of the upper and lower extremities. Results & Data Vital Signs (Past 12 Hours) Vital Signs Temp Pulse Resp BP Pulse Ox 12/28/19 07:00 36.7 C 85 16 144/75 H 91 12/28/19 03:28 36.4 C L 77 18 146/74 H 94 12/27/19 23:00 36.5 C 74 20 125/67 92
--- NOTE | 2019-12-28 17:35 | Progress Notes ---
DATE: 12/28/2019 SUBJECTIVE: I am seeing the patient in followup of an episode of generalized weakness and then an episode of left hemiparesis. His CTA of the head and neck showed a 90% or greater stenosis of the right internal carotid, a 75% stenosis of the left internal carotid and a possible 2 mm aneurysm of the left supraclinoid ICA. The patient has not had any recurrent events. He is scheduled to have a right carotid surgery tomorrow. PHYSICAL EXAMINATION: VITAL SIGNS: 36.5 _131/67, 88, 91%. NEUROLOGIC: The patient is awake and alert, normal speech and language. Affect appropriate. No right/left confusion. Normal visual spatial relationships. Normal extraocular motility, visual jeffrey and facial symmetry. Symmetric strength in the upper and lowers. [id number]-gr-kwpy is tremulous. [id number]-[id number] is normal. IMPRESSION: 1. Symptomatic right internal carotid stenosis. Agree with Vascular Surgery intervention provided. The patient has appropriate Cardiology consultation. Antiplatelet therapy at present per Vascular Surgery. Risk factor modification including treatment with statin with a goal LDL of 70 or less. 2. 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 PLAN: Recommend Vascular Interventional Neurosurgery consultation post discharge. Likely they will recommend followup CT periodically and no intervention due to small size. I explained this to the patient. NITZA
[2019-12-28] MEDS ORDERED: LORazepam 0.5 MG TAB PO STA (22:41)
[2019-12-29] MEDS: HEPARIN SOD 5,000 UNIT/0.5 ML VIAL SQ SCH ×3 (05:38→21:02)
[2019-12-29] MEDS ORDERED: CEFAZOLIN 1000MG 1,000 MG/7.5 ML SYR IV SCH (06:00)
[2019-12-29] MEDS: DUTASTERIDE: ORDER AWAITING ACTION SCH ×2 (07:33→16:46)
[2019-12-29] MEDS: FLUTICASONE/VILANTEROL 100/25MCG 14 PUFFS/INHALER INH SCH (07:34)
[2019-12-29] MEDS: ASPIRIN 81 MG ECTAB PO SCH (07:35)
[2019-12-29] MEDS: ATORVASTATIN 40 MG TAB PO SCH (07:35)
[2019-12-29] MEDS: CLOPIDOGREL BISULFATE 75 MG TAB PO SCH (07:35)
[2019-12-29 08:28] LABS: Hematocrit (blood only) 43.3 % (42-52); Hemoglobin 14.2 g/dL (14.0-18.0); Mean Corpuscular Hemoglobin 31.2 pg (25-34); Mean Corpuscular Hgb Conc 32.8 g/dL (32-36); Mean Corpuscular Volume 95.2 fL (80-100); Mean Platelet Volume 9.8 fL (7.4-10.4); Platelet Count 264 K/uL (130-400); RDW Coefficient of Variation 14.4 % (11.5-14.5); RDW Standard Deviation 50.1 fL (36.4-46.3); Red Blood Count 4.55 M/uL (4.7-6.1); White Blood Count 9.78 K/uL (4.8-10.8)
[2019-12-29 08:50] LABS: Prothrombin Time 10.7 Seconds (9.0-12.0)
[2019-12-29 09:03] LABS: BUN Creatinine Ratio 17.9 (10-20); Creatinine Clr Calc Pharmacy 41.1 ml/min; Est GFR (African American) 69.5; Potassium 3.9 mmol/L (3.5-5.1)
[2019-12-29] MEDS ORDERED: ONDANSETRON INJ 2 MG/ML 2 ML VIAL IV PRN ×2 (11:51→17:56)
[2019-12-29] MEDS ORDERED: fentaNYL citrate 100 MCG/2 ML VIAL IV PRN (11:51)
[2019-12-29] MEDS ORDERED: FLUMAZENIL 0.1 MG/1 ML 10 ML VIAL IV PRN (11:51)
[2019-12-29] MEDS ORDERED: NALOXONE HCL 0.4 MG/1 ML VIAL/CARP IV PRN (11:51)
[2019-12-29] MEDS ORDERED: ePHEDrine sulfate 50 MG/ML AMP IV PRN (11:51)
[2019-12-29] MEDS ORDERED: LABETALOL HCL IV 5 MG/ML 20ML IV PRN (11:51)
[2019-12-29] MEDS ORDERED: PROMETHAZINE HCL 12.5 MG in SODIUM CHLORIDE 0.9% 50 ML IV PRN (11:51)
[2019-12-29] MEDS ORDERED: ATROPINE SULFATE 0.1 MG/ML 10ML SYR IV PRN (11:51)
--- NOTE | 2019-12-29 12:18 | History & Physical Bridge Note ---
Date of Service December 29, 2019 History & Physical Bridge Note Patient for a right carotid endarterectomy today. I have discussed the risks options and benefits of the procedure with the patient. The patient understands the risks options and benefits and agrees to the procedure. I have examined the patient, reviewed the History & Physical and in the interval since the performance of the History & Physical I have noted the following changes of clinical significance: no changes noted
[2019-12-29] MEDS ORDERED: EPINEPHrine INJ 1 MG/ML AMP ONE (12:24)
[2019-12-29] MEDS ORDERED: HEPARIN (PORCINE) 1000 UNIT/ML 10 ML (CATH LAB USE ONLY) ONE (12:24)
[2019-12-29] MEDS ORDERED: THROMBIN FOR SOLN 20000 UNIT KIT ONE (12:25)
[2019-12-29] MEDS ORDERED: BUPIVACAINE 0.5 % 5 MG/1 ML MPF 30ML VIAL ONE (12:25)
[2019-12-29] MEDS ORDERED: LIDOCAINE HCL 1% 20 ML VIAL ONE (12:25)
[2019-12-29] MEDS ORDERED: CEFAZOLIN 250 MG/ML 1 GM VIAL ONE (12:25)
[2019-12-29] MEDS ORDERED: GELATIN SPONGE SZ 100 ONE (12:25)
[2019-12-29] MEDS ORDERED: ONDANSETRON INJ 2 MG/ML 2 ML VIAL ONE (12:29)
[2019-12-29] MEDS ORDERED: LIDOCAINE HCL 2% 2 ML VIAL/AMP(20MG/ML) INFIL ONE (12:29)
[2019-12-29] MEDS ORDERED: fentaNYL citrate 100 MCG/2 ML VIAL ONE ×2 (12:29→15:35)
[2019-12-29] MEDS ORDERED: PROPOFOL IV EMULSION 10 MG/ML 20 ML VIAL IV ONE (12:29)
[2019-12-29] MEDS ORDERED: CISATRACURIUM BESYLATE IV SOLN 2 MG/ML 10 ML VIAL IV ONE (12:29)
[2019-12-29] MEDS ORDERED: PHENYLEPHRINE HCL 10 MG/ML VIAL ONE (12:29)
--- NOTE | 2019-12-29 14:41 | Hospitalist Progress Note ---
Date of Service December 29, 2019 Assessment & Plan (1) Brain TIA: This is an 79-year-old male with PMH of hypertension, CKD III, COPD, chronic respiratory failure with hypoxia requiring oxygen at bedtime, BPH and other medical problems listed below who presents with strokelike symptoms beginning day prior to admission. -Left-sided weakness and dysarthria that have since resolved -CT head without acute intracranial abnormality. CTA head/neck with focal area of high-grade/critical stenosis of greater than 90% within the proximal R ICA/bulb, focal intraluminal soft plaque within the proximal R ICA which measures 4 mm and focal area of 75% stenosis at the proximal left internal carotid artery/carotid bulb -Echo with bubble study ordered, no ASD. pacemaker interrogation ordered -Continue dual antiplatelet therapy with aspirin and Plavix. Initiating statin as well -Neuro checks, PT, OT, speech therapy evaluations -Routine neurology consult - Per neuro: 1. Symptomatic right internal carotid stenosis. Agree with Vascular Surgery intervention provided. Antiplatelet therapy, dual for 21 days with aspirin and Plavix and then aspirin alone. Statin with goal LDL of 70 or less. Consider Zio patch as an outpatient. Antiplatelet therapy at present per Vascular Surgery. Risk factor modification including treatment with statin with a goal LDL of 70 or less. 2. 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 Recommend Vascular Interventional Neurosurgery consultation post discharge. Likely they will recommend followup CT periodically and no intervention due to small size. (2) Stenosis of both internal carotid arteries: CTA head and neck with evidence of high-grade stenosis of 90% in R ICA and 75% stenosis in L ICA -Seen by vascular surgery, now s/p R CEA on 12/29/[address] 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 S/p pacemaker placement (6) BPH (benign prostatic hyperplasia): Continue Avodart. Holding tamsulosin due to possible s/e of hypotension (7) CKD (chronic kidney disease), stage III: Kidney function at baseline. Monitor with daily BMP DVT Ppx: SQ heparin Code status: FULL PCP: Beatriz Dispo: ICU. Plan to likely return home once medically stable. Admission and Anticipated Discharge Date Admission Date: December 26, 2019 Subjective Pt seen after R CEA today. He is lying in bed in NAD. Denies any chest pain, or shortness of breath, nausea, abd. pain. Has some R neck pain. Review of Systems Review of Systems: All systems reviewed & are unremarkable except as noted in HPI & below Constitutional: no fever and no chills Respiratory: no cough and no dyspnea Cardiovascular: no chest pain and no palpitations Gastrointestinal: no abdominal pain and no vomiting Physical Exam Physical Exam: General Appearance: WD/WN, frail elderly male lying in bed, in NAD Head: normocephalic, atraumatic Eyes: normal inspection, PERRL, conjunctivae normal, anicteric sclerae ENT: external ear and nose normal, oropharynx normal Neck: R surg. incision w/ ecchymosis Respiratory: normal respiratory effort, lungs clear to auscultation, no wheeze, rales, rhonchi. Normal insp/exp effort, no accessory muscle use Cardiovascular: regular rate, rhythm, no murmur, normal peripheral pulses Chest: normal inspection of chest Abdomen/GI: normal bowel sounds, soft, nontender, nondistended Extremities/Musculoskeletal: no cyanosis or clubbing, extremities motor strength 5/5 Neurologic: awake and alert, answers most questions appropriately, PERRL, EOMI, no dysarthria, moves all extremities Skin: no rashes, normal color, warm/dry. + L arm skin tear, bandaged Results & Data Results & Data ([facility]) Vital Signs (Past 12 Hours) Vital Signs Temp Pulse Pulse Resp BP Pulse Ox 12/29/19 11:16 36.9 C 90 18 154/91 H 94 12/29/19 08:00 60 12/29/19 07:37 36.8 C 72 20 152/73 H 96 12/29/19 04:00 36.8 C 66 18 127/67 96 Laboratory Results 12/29/19 12/29/19 12/29/19 Range/Units 08:09 08:09 08:09 WBC 9.78 (4.8-10.8) K/uL RBC 4.55 L (4.7-6.1) M/uL Hgb 14.2 (14.0-18.0) g/dL Hct 43.3 (42-52) % MCV 95.2 (80-100) fL MCH 31.2 (25-34) pg MCHC 32.8 (32-36) g/dL RDW Std Deviation 50.1 H (36.4-46.3) fL RDW Coeff of Anni 14.4 (11.5-14.5) % Plt Count 264 (130-400) K/uL MPV 9.8 (7.4-10.4) fL PT 10.7 (9.0-12.0) Seconds INR 1.0 (0.9-1.1) Sodium 136 (136-145) mmol/L Potassium 3.9 (3.5-5.1) mmol/L Chloride 101 (98-107) mmol/L Carbon Dioxide 29 (21-32) mmol/L Anion Gap 6.0 (3-11) BUN 20 H (7-18) mg/dl Creatinine 1.14 (0.6-1.4) mg/dl Est Cr Clr Drug Dosing 41.1 ml/min Est GFR ( Amer) 69.5 Est GFR (Non-Af Amer) 60.0 BUN/Creatinine Ratio 17.9 (10-20) Glucose 92 (70-99) mg/dl Calcium 9.0 (8.5-10.1) mg/dl Medications Administered Current Inpatient Medications Acetaminophen (Tylenol) 650 mg PO Q4H PRN PRN Reason: Pain or Fever Stop: 01/25/20 14:37 Al Hydrox/Mg Hydrox/Simethicone (Maalox) 15 ml PO Q4H PRN PRN Reason: Dyspepsia Stop: 01/25/20 14:37 Aspirin (Ecotrin Ectab) 81 mg PO [facility] Stop: 01/26/20 08:59 Last Admin: 12/29/19 07:35 Dose: 81 mg Documented by: Atorvastatin Calcium (Lipitor) 40 mg PO [facility] Stop: 01/25/20 16:33 Last Admin: 12/29/19 07:35 Dose: 40 mg Documented by: Atropine Sulfate (Atropine Sulfate) 0.5 mg IV Q1M PRN PRN Reason: PACU Use-HR<40 &/or Bradycardi Stop: 12/29/19 19:51 Clopidogrel Bisulfate (Plavix) 75 mg PO QAM TRESSA Stop: 01/26/20 08:59 Last Admin: 12/29/19 07:35 Dose: 75 mg Documented by: Ephedrine Sulfate (Ephedrine Sulfate) 5 mg IV Q5M PRN PRN Reason: PACU Use Only-SBP<90 mmHg Stop: 12/29/19 19:51 Fentanyl Citrate (Fentanyl Citrate) 25 mcg IV Q5M PRN PRN Reason: PACU Use Only-Pain Stop: 12/29/19 19:51 Flumazenil (Romazicon) 0.2 mg IV Q2M PRN PRN Reason: PACU Use Only-Benzo Reversal Stop: 12/29/19 19:51 Fluticasone/Vilanterol (Breo Ellipta 100/25 Mcg Inh) 1 puffs INH DAILY [facility] Stop: 01/26/20 15:59 Last Admin: 12/29/19 07:34 Dose: 1 puffs Documented by: Heparin Sodium (Porcine) (Heparin Sodium (Porcine)) 5,000 units SQ Q8 TRESSA Stop: 01/25/20 21:59 Last Admin: 12/29/19 05:38 Dose: Not Given Documented by: Cefazolin Sodium (Ancef 1000mg) 1,000 mg in 7.5 mls @ 2.5 mls/min IV PREOP TRESSA; Protocol Stop: 12/30/19 05:59 Last Admin: 12/29/19 13:10 Dose: 2.5 mls/min Documented by: Promethazine HCl 12.5 mg/ (Sodium Chloride) 50.5 mls @ 204 mls/hr IV ONCE PRN PRN Reason: PACU Use Only-Nausea/Vomiting Stop: 12/29/19 19:51 Labetalol HCl (Normodyne) 5 mg IV Q5M PRN PRN Reason: PACU Use-SBP>160 or DBP>100 Stop: 12/29/19 19:52 Magnesium Hydroxide (Milk Of Magnesia) 30 ml PO Q12H PRN PRN Reason: Constipation Stop: 01/25/20 14:37 Miscellaneous (Order Awaiting Action) 1 ea N/A QS [facility] Stop: 01/26/20 00:00 Last Admin: 12/29/19 07:33 Dose: Not Given Documented by: Miscellaneous Information (Pharmacist Discharge Med Rec Consult) 1 ea N/A UD PRN PRN Reason: Consult Stop: 01/25/20 16:33 Naloxone HCl (Narcan) 0.2 mg IV Q2M PRN PRN Reason: PACU Use Only-Opiate Reversal Stop: 12/29/19 19:51 Ondansetron HCl (Zofran) 4 mg IV Q6H PRN PRN Reason: Nausea Stop: 01/25/20 14:37 Ondansetron HCl (Zofran) 4 mg IV ONCE PRN PRN Reason: PACU Use Only-Nausea/Vomiting Stop: 12/29/19 19:51 Polyethylene Glycol (Miralax Powder Packet) 17 gm PO DAILY PRN PRN Reason: Constipation Stop: 01/25/20 14:37
[2019-12-29] MEDS ORDERED: HEPARIN SOD (PORCINE) 1000 UNIT/ML 10 ML VIAL ONE (14:49)
[2019-12-29] MEDS ORDERED: GLYCOPYRROLATE 0.2 MG/ML VIAL ONE (14:56)
[2019-12-29] MEDS ORDERED: NEOSTIGMINE METHYLSULFATE 5 MG/5 ML SYR ONE (14:56)
[2019-12-29] MEDS ORDERED: PROTAMINE SULFATE 10 MG/ML 5 ML VIAL ONE (15:52)
--- NOTE | 2019-12-29 16:12 | Operative Report ---
Post Operative Report Pre & Post Diagnosis Operation Date: 12/29/19 10:00 Pre-Op Diagnosis: Symptomatic stenosis of right carotid artery Post-Op Diagnosis: Symptomatic stenosis of right carotid artery I identified the patient and participated in the time-out.: Yes Procedure Operation Date: 12/29/19 10:00 Actual Procedures p Right Carotid Endarterectomy with Patch(Right) - Gregorio Mercedes MD Surgeon Gregorio Mercedes MD Pododermatologist MD Tanika Delacruz,PAC Estimated Blood Loss 250 Findings Consistent with Post-Op Diagnosis Specimens plaque Anesthesia Type General Complications none Disposition Accompanied Patient To Recovery: No Disposition: Recovery Room Indications This is an 79 year old male with severe stenosis of the right internal carotid artery with a recent TIA. R CEA was recommended. I have discussed the risks options and benefits of the procedure with the patient. The patient understands the risks options and benefits and agrees to the procedure. Description of Procedure The patient was taken to the operating room and placed in supine position. After general anesthesia was accomplished the right side of the neck was prepped and draped in a sterile manner. The patient was identified and a timeout performed. A longitudinal neck incision was then made coursing along the medial border of the sternocleidomastoid muscle. The incision was taken down through the platysmal layer. The facial vein was identified, ligated, and divided. The common carotid artery was then seen. It was dissected free down to the omohyoid muscle. The dissection was carried upward until the external carotid artery and superior thyroid artery was seen. The superior thyroid artery was slung with a 2-0 silk suture. The external carotid was slung with a red rubber vessel loop. Next the dissection was carried up along the internal carotid artery. This was carried upward to beyond the area of narrowing. The hypoglossal nerve was seen and preserved. The patient was heparinized. After adequate heparinization was accomplished, the internal, external, and common carotid arteries were clamped. A longitudinal arteriotomy was started on the common carotid artery and extended upward along the internal carotid artery to a point beyond the area of narrowing. There was fresh cloth with intraplaque hemorrhage into the plaque of the internal carotid artery origin causing approximately >95% narrowing. A Doppler shunt was then placed in the internal, followed by the common carotid artery and held in place with Iker clamps. There was good back bleeding seen from the internal carotid artery. The endarterectomy was then started in the appropriate plane on the common carotid artery. This was carried upward and the external carotid was everted and endarterectomized. The endarterectomy was then carried up along the internal carotid artery till a nice feathering breakoff point was accomplished beyond the end of the plaque. The endarterectomy was then carried down further on the common carotid artery. At end of the arteriotomy, the plaque was then transected. Under loop magnification, all loose debris and flaps werer removed. There is no distal flap seen at the end of the endarterectomy site. The arteriotomy then closed using an Accuseal patch and a running CV 6 [place] suture. This was done in the usual vascular fashion. Prior to completing the closure, the doppler shunt was removed and the internal and common carotid arteries were reclamped. Backbleeding and forward bleeding was allowed to occur. The flow surface was irrigated with heparinized saline. The final few sutures were then placed and securely tied. Clamps were then removed off the external and common carotid arteries. The clamp was then removed the internal carotid artery. Good distal flow was seen. Adequate hemostasis was seen of the patch. The wound was inspected and adequate hemostasis was obtained. The wound was irrigated with antibiotic solution. It was then closed with a running 3-0 Vicryl suture for the platysmal layer and a 4-0 subcuticular Vicryl suture for the skin edges. Dermabond was used for dressing. The patient left the operation room in satisfactory condition and tolerated the procedure well. All needle and sponge counts were correct at the end of the procedure. Jodi Levine Pac assisted due to lack of resident availability and was necessary for prepping, draping, retraction, wound closure defects, subQ and skin closure and was necessary for the case. I attest to the content of the Intraoperative Record and any orders documented therein. Any exceptions are noted below.
--- NOTE | 2019-12-29 17:32 | Anesthesiology Progress Note ---
Date of Service December 29, 2019 Anesthesia Post Procedure Vital Signs Vital Signs: Temp Pulse Pulse Pulse Resp BP Pulse Ox 12/29/19 17:25 85 16 125/60 95 12/29/19 17:15 86 18 120/77 95 12/29/19 17:05 85 20 119/74 98 12/29/19 16:55 97 H 16 136/86 98 12/29/19 16:48 36 C L 105 H 18 136/108 H 94 12/29/19 11:16 36.9 C 90 18 154/91 H 94 12/29/19 08:00 60 12/29/19 07:37 36.8 C 72 20 152/73 H 96 12/29/19 04:00 36.8 C 66 18 127/67 96 12/28/19 23:52 36.9 C 89 18 161/77 H 97 12/28/19 22:20 89 12/28/19 19:14 37.2 C 78 20 129/69 97 Transfer of Care Handoff Completed per policy Notes Mental Status: alert / awake / arousable Patient Amnestic to Procedure: Yes Nausea / Vomiting: adequately controlled Pain: adequately controlled Airway Patency, RR, SpO2: stable & adequate BP & HR: stable & adequate Hydration State: stable & adequate Anesthetic Complications: no major complications apparent
[2019-12-29] MEDS ORDERED: OXYCODONE/ACETAMINOPHEN 5mg/325mg TAB PO PRN (17:56)
[2019-12-29] MEDS: D5W AND 1/2NSS 1,000 ML IV SCH (18:32)
[2019-12-29] MEDS: MoRPHine SULFATE 4 MG/ML 1 ML CARP\\VIAL IV PRN ×2 (18:32→22:49)
[2019-12-29 19:23] LABS: Basophils # (auto) 0.01 K/uL (0-0.2); Basophils % (auto) 0.1 %; Eosinophils # (auto) 0.05 K/uL (0-0.5); Eosinophils % (auto) 0.4 %; Hemoglobin 11.2 g/dL (14.0-18.0); Immature Granulocytes # (auto) 0.03 K/uL (0.00-0.02); Immature Granulocytes % (auto) 0.2 %; Lymphocytes # (auto) 1.11 K/uL (1.2-3.4); Lymphocytes % (auto) 8.7 %; Mean Corpuscular Hemoglobin 31.1 pg (25-34); Mean Corpuscular Hgb Conc 32.9 g/dL (32-36); Mean Corpuscular Volume 94.4 fL (80-100); Mean Platelet Volume 9.4 fL (7.4-10.4); Monocytes # (auto) 0.88 K/uL (0.11-0.59); Monocytes % (auto) 6.9 %; Neutrophils # (auto) 10.69 K/uL (1.4-6.5); Neutrophils % (auto) 83.7 %; Platelet Count 224 K/uL (130-400); RDW Coefficient of Variation 14.3 % (11.5-14.5); RDW Standard Deviation 49.5 fL (36.4-46.3); White Blood Count 12.77 K/uL (4.8-10.8)
--- NOTE | 2019-12-29 19:36 | Critical Care Consultation ---
Date of Consultation December 29, 2019 Assessment & Plan (1) Admitted to intensive care unit: Reason Critically Ill: 79-year-old male status post RIGHT-sided carotid endarterectomy requiring close hemodynamic monitoring status post surgical intervention. NEURO - * CAM ICU: NEGATIVE * Recent TIA * Monitor closely for any neurological changes status post carotid endarterectomy. CARDIAC/VASCULAR - * Coronary artery disease, hypertension, complete heart block * Continue home medications as tolerated. * Monitor on telemetry. RESPIRATORY - * COPD: * Home nebs as needed. GI/NUTRITION - * AHA diet. * Progress diet as tolerated. RENAL/LYTES - * CKD 3 with no significant electrolyte derangements. - * History of BPH. ENDO - * No history of diabetes or thyroid disease. * BSGs per unit protocol. ISS --> gtt per unit policy. HEME - * Stable H&H. ID - * No concerns for infectious ideology at this point. LINES/IV ACCESS - * PIVs x2 DVT PROPHYLAXIS - * Will defer to vascular surgery. Appears to be on DAPT status post TIA. * SCDs Thank you for allowing us to participate in the care of this patient. Please refer to my attending physician's documentation for any further recommendations. (2) S/P carotid endarterectomy: (3) Symptomatic stenosis of right carotid artery: (4) CKD (chronic kidney disease), stage III: (5) Stenosis of both internal carotid arteries: (6) COPD with hypoxia: (7) Brain TIA: (8) HTN (hypertension): History of Present Illness Attending Physician: Karlo Baldwin MD History of Present Illness Patient is an 79-year-old male with a significant past medical history of complete heart block status post pacemaker placement, hypertension, COPD, BPH, and CKD 3. Patient presented to the emergency department after a fall with LEFT-sided hemiparesis. Patient had complete resolve symptoms. He was admitted to this facility where he was found to have bilateral carotid stenosis RIGHT greater than left. He underwent evaluation by vascular surgery and felt appropriate for LEFT carotid endarterectomy. He had an uneventful surgical intervention yesterday with minimal EBL. Upon evaluation in the ICU, the patient is awake, alert, and oriented. He complains of some mild discomfort to the site of the incision. Otherwise, he denies any headaches, dizziness, lightheadedness, blurry vision, double vision, slurred speech, facial droop, unilateral weakness/numbness, chest pain, palpitations, shortness of breath, nausea, or vomiting. Allergies Allergy/AdvReac Type Severity Reaction Status Date / Time No Known Allergies Allergy Verified 12/26/19 13:43 Home Medications Home Medications Medication Instructions Recorded Confirmed Type amlodipine [Norvasc] 5 mg PO QAM 03/20/18 12/26/19 History atenolol [Tenormin] 50 mg PO QAM 03/20/18 12/26/19 History dutasteride 0.5 mg capsule 0.5 mg PO QPM #90 cap 02/01/19 12/26/19 Rx tamsulosin 0.4 mg capsule 0.4 mg PO QPM #90 cap 11/01/19 12/26/19 Rx Patient History Medical History BPH (benign prostatic hyperplasia) CKD (chronic kidney disease), stage III Complete heart block (Acute) s/p dual-chamber pacemaker. (2/2 lyme disease). COPD (chronic obstructive pulmonary disease) Hx of Lyme disease Hypertension Pacemaker 2014 ([employer]) SECONDARY TO COMPLETE HEART BLOCK/SSS; Psoriasis Surgical History Hx of colonoscopy S/P cardiac pacemaker procedure 2014 ([employer]) SECONDARY TO COMPLETE HEART BLOCK/SSS; LAST CHECK 02/04/18 Family History Other Cancer Social History Preferred Language: French Communication Ability: Effective Painter Spray Required: No Beliefs That Will Affect Care: None marital status: Current Living Situation: Spouse Other Information That Helps Us Care for You: No Feels Safe at Home: Yes Safety Concerns: Feels Safe At This Time Smoking Status: Former smoker (AGES 20-77) Tobacco Type: cigarettes ; Cigarettes Per Day: 20 ; Do You Dip or Chew Tobacco: No ; Second Hand Exposure: No ; Tobacco Cessation Education Requested by Patient: No Hx Alcohol Use: No Hx Substance Use: No Review of Systems Review of Systems: A complete 10 point review of systems was reviewed with the patient with pertinent positives and negatives as per history of present illness. All else were negative. Physical Exam Physical Exam: VITAL SIGNS - Vital signs and nursing notes were reviewed. GENERAL - 79-year-old male appearing his stated age who is in no acute distress. Communicates well with provider and answers questions appropriately. SKIN - Without rashes. HEAD - NC/AT. EYES - PERRL with EOMI bilaterally. Sclera anicteric. Palpebral conjunctiva pink and moist with no injection noted. EARS - No deformities of external structures noted on gross examination bilaterally. NOSE - Midline and without cyanosis. No epistaxis or purulent drainage noted. MOUTH/OROPHARYNX - Without perioral cyanosis. Buccal mucosa pink and moist and without leukoplakia. Tongue midline with equal elevation of palate bilaterally. NECK - Neck with FROM. Surgical incision site noted to the RIGHT sided neck. No edema or hematoma appreciated. LUNGS - Chest wall symmetric without accessory muscle use, intercostals retractions, or central cyanosis. Normal vesicular breath sounds CTA B/L. No wheezes, rales, or rhonchi appreciated. CARDIAC - RRR with S1/S2. No murmur, rubs, or gallops appreciated. ABDOMEN - Abdominal contour flat without pulsations or visible masses. BS normoactive all four quadrants. No tenderness, palpable masses, hepatosplenomegaly, or ascites noted. EXTREMITIES - No clubbing or peripheral cyanosis. No pretibial edema present. +3/5 radial and dorsalis pedis pulses palpated throughout. +5/5 strength noted in UE/LE bilaterally. NEUROLOGIC - Cranial nerves II through XII grossly intact. Sensory intact to light touch throughout. PSYCH - A&Ox3 and cooperates fully with examiner. Pt is very pleasant and interacts well with examiner. Results & Data Results & Data ([facility]) Vital Signs (Past 12 Hours) Vital Signs Temp Pulse Pulse Pulse Resp BP BP 12/29/19 19:01 97 H 21 12/29/19 19:00 103 H 17 117/67 12/29/19 18:45 96 H 20 123/63 12/29/19 18:31 36.4 C L 92 H 15 12/29/19 18:30 92 H 17 116/54 L 12/29/19 18:16 87 19 12/29/19 18:15 36.5 C 88 20 119/55 L 12/29/19 18:01 86 18 12/29/19 18:00 36.4 C L 86 14 123/56 L 12/29/19 17:54 84 21 126/57 L 12/29/19 17:46 36.4 C L 115/56 L 12/29/19 17:35 36.4 C L 83 15 125/64 12/29/19 17:25 85 16 125/60 12/29/19 17:15 86 18 120/77 12/29/19 17:05 85 20 119/74 12/29/19 16:55 97 H 16 136/86 12/29/19 16:48 36 C L 105 H 18 136/108 H 12/29/19 11:16 36.9 C 90 18 154/91 H 12/29/19 10:45 98 H 12/29/19 10:30 99 H 12/29/19 10:15 99 H 12/29/19 10:00 100 H 12/29/19 09:45 91 H 12/29/19 09:30 99 H 12/29/19 09:15 97 H 12/29/19 09:00 97 H 12/29/19 08:45 94 H 12/29/19 08:30 99 H 12/29/19 08:15 94 H 12/29/19 08:00 123 H 12/29/19 07:45 108 H 12/29/19 07:37 36.8 C 72 20 152/73 H Pulse Ox 12/29/19 19:01 92 12/29/19 19:00 93 12/29/19 18:45 93 12/29/19 18:31 92 12/29/19 18:30 92 12/29/19 18:16 94 12/29/19 18:15 94 12/29/19 18:01 93 12/29/19 18:00 93 12/29/19 17:54 92 12/29/19 17:46 91 12/29/19 17:35 96 12/29/19 17:25 95 12/29/19 17:15 95 12/29/19 17:05 98 12/29/19 16:55 98 12/29/19 16:48 94 12/29/19 11:16 94 12/29/19 10:45 12/29/19 10:30 12/29/19 10:15 12/29/19 10:00 12/29/19 09:45 12/29/19 09:30 12/29/19 09:15 12/29/19 09:00 12/29/19 08:45 12/29/19 08:30 12/29/19 08:15 12/29/19 08:00 12/29/19 07:45 12/29/19 07:37 96 Coding Level of Care Code 45787 Inpt Consult Level 5 Diagnoses Admitted to intensive care unit Z78.9 S/P carotid endarterectomy Z98.890 Symptomatic stenosis of right carotid artery I65.21 CKD (chronic kidney disease), stage III N18.3 Stenosis of both internal carotid arteries I65.23 COPD with hypoxia J44.9; R09.02 Brain TIA G45.9 HTN (hypertension) I10 Time Spent (min) 35
[2019-12-29] MEDS: CEFAZOLIN 1000MG 1,000 MG/7.5 ML SYR IV SCH (21:02)
[2019-12-30] MEDS: DUTASTERIDE: ORDER AWAITING ACTION SCH ×2 (00:52→10:23)
[2019-12-30] MEDS: D5W AND 1/2NSS 1,000 ML IV SCH (03:32)
[2019-12-30 04:44] LABS: Basophils # (auto) 0.02 K/uL (0-0.2); Basophils % (auto) 0.2 %; Eosinophils # (auto) 0.11 K/uL (0-0.5); Eosinophils % (auto) 1.3 %; Hematocrit (blood only) 31.8 % (42-52); Hemoglobin 10.7 g/dL (14.0-18.0); Immature Granulocytes # (auto) 0.01 K/uL (0.00-0.02); Immature Granulocytes % (auto) 0.1 %; Lymphocytes # (auto) 0.47 K/uL (1.2-3.4); Lymphocytes % (auto) 5.7 %; Mean Corpuscular Hemoglobin 31.8 pg (25-34); Mean Corpuscular Hgb Conc 33.6 g/dL (32-36); Mean Corpuscular Volume 94.4 fL (80-100); Mean Platelet Volume 9.9 fL (7.4-10.4); Monocytes # (auto) 1.57 K/uL (0.11-0.59); Neutrophils # (auto) 6.09 K/uL (1.4-6.5); Neutrophils % (auto) 73.7 %; Platelet Count 226 K/uL (130-400); RDW Coefficient of Variation 14.4 % (11.5-14.5); RDW Standard Deviation 49.7 fL (36.4-46.3); Red Blood Count 3.37 M/uL (4.7-6.1); White Blood Count 8.27 K/uL (4.8-10.8)
[2019-12-30 05:12] LABS: BUN Creatinine Ratio 15.7 (10-20); Creatinine Clr Calc Pharmacy 41.5 ml/min; Est GFR (African American) 70.3; Est GFR (Non-African American) 60.6; Magnesium 1.7 mg/dl (1.8-2.4); Phosphorus 2.8 mg/dl (2.5-4.9)
[2019-12-30] MEDS: CEFAZOLIN 1000MG 1,000 MG/7.5 ML SYR IV SCH (06:05)
[2019-12-30] MEDS: HEPARIN SOD 5,000 UNIT/0.5 ML VIAL SQ SCH ×3 (06:06→20:39)
[2019-12-30] MEDS ORDERED: MAGNESIUM SULFATE / D5W 1 GM/100 ML BAG IV ONE (06:15)
--- NOTE | 2019-12-30 06:24 | Hospitalist Progress Note ---
Date of Service December 30, 2019 Assessment & Plan (1) Brain TIA: This is an 79-year-old male with PMH of hypertension, CKD III, COPD, chronic respiratory failure with hypoxia requiring oxygen at bedtime, BPH and other medical problems listed below who presents with strokelike symptoms beginning day prior to admission. -Left-sided weakness and dysarthria that have since resolved -CT head without acute intracranial abnormality. CTA head/neck with focal area of high-grade/critical stenosis of greater than 90% within the proximal R ICA/bulb, focal intraluminal soft plaque within the proximal R ICA which measures 4 mm and focal area of 75% stenosis at the proximal left internal carotid artery/carotid bulb -Echo with bubble study ordered, no ASD. pacemaker interrogation ordered -Continue dual antiplatelet therapy with aspirin and Plavix. Initiating statin as well -Neuro checks, PT, OT, speech therapy evaluations -Routine neurology consult - Per neuro: 1. Symptomatic right internal carotid stenosis. Agree with Vascular Surgery intervention provided. Antiplatelet therapy, dual for 21 days with aspirin and Plavix and then aspirin alone. Statin with goal LDL of 70 or less. Consider Zio patch as an outpatient. Antiplatelet therapy at present per Vascular Surgery. Risk factor modification including treatment with statin with a goal LDL of 70 or less. 2. 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 Recommend Vascular Interventional Neurosurgery consultation post discharge. Likely they will recommend followup CT periodically and no intervention due to small size. (2) Stenosis of both internal carotid arteries: CTA head and neck with evidence of high-grade stenosis of 90% in R ICA and 75% stenosis in L ICA -Seen by vascular surgery, now s/p R CEA on 12/29/[address] 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 S/p pacemaker placement (6) BPH (benign prostatic hyperplasia): Continue Avodart. Holding tamsulosin due to possible s/e of hypotension - resume on dc (7) CKD (chronic kidney disease), stage III: Kidney function at baseline. Monitor with daily BMP DVT Ppx: SQ heparin Code status: FULL PCP: Beatriz Dispo: ICU. Plan to likely return home once medically stable. Admission and Anticipated Discharge Date Admission Date: December 26, 2019 Subjective Patient is postoperative day 1 from a right carotid endarterectomy. He has no complaints other than some tenderness over the right side of his neck. He has no difficulty swallowing. He denies any neuro deficits. He is currently comfortable, denies any fevers, chills, chest pain, shortness of breath, abdominal pain, nausea or vomiting. Using supplemental oxygen 2 to 3 L. Contacted patient's , she states he is on chronic supplemental oxygen at home for several years due to COPD. She is not sure how much he is using at home. Per pulmonary/critical care recommendations, patient was switched from atenolol to metoprolol. PT OT pending. Review of Systems Review of Systems: All systems reviewed & are unremarkable except as noted in HPI & below Constitutional: no fever and no chills Respiratory: no cough and no dyspnea Cardiovascular: no chest pain and no palpitations Gastrointestinal: no abdominal pain, no nausea and no vomiting Physical Exam Physical Exam: General Appearance: WD/WN, frail elderly male lying in bed, in NAD, on 2-3L of suppl O2 Head: normocephalic, atraumatic Eyes: normal inspection, PERRL, conjunctivae normal, anicteric sclerae ENT: external ear and nose normal, oropharynx normal Neck: R surg. incision w/ ecchymosis Respiratory: normal respiratory effort, lungs clear to auscultation, no wheeze, rales, rhonchi. Normal insp/exp effort, no accessory muscle use Cardiovascular: regular rate, rhythm, no murmur, normal peripheral pulses Chest: normal inspection of chest Abdomen/GI: normal bowel sounds, soft, nontender, nondistended Extremities/Musculoskeletal: no cyanosis or clubbing, extremities motor strength 5/5 Neurologic: awake and alert, answers most questions appropriately, PERRL, EOMI, no dysarthria, moves all extremities Skin: no rashes, normal color, warm/dry. + L arm skin tear, bandaged Results & Data Results & Data ([facility]) Vital Signs (Past 12 Hours) Vital Signs Temp Pulse Resp BP Pulse Ox 12/30/19 03:00 87 23 99 12/30/19 02:01 73 13 12/30/19 02:00 69 13 104/57 L 12/30/19 01:00 72 12 103/51 L 12/30/19 00:02 74 14 12/30/19 00:00 74 12 99/54 L 12/29/19 23:01 84 15 12/29/19 23:00 81 15 118/58 L 12/29/19 22:01 82 16 96 12/29/19 22:00 79 15 107/56 L 96 12/29/19 21:01 92 H 20 106/60 93 12/29/19 21:00 90 17 94 12/29/19 20:30 101 H 22 94 12/29/19 20:01 104 H 18 119/58 L 91 12/29/19 20:00 99 H 25 H 92 12/29/19 19:45 105 H 23 94 12/29/19 19:31 105 H 27 H 126/59 L 92 12/29/19 19:30 105 H 28 H 93 12/29/19 19:15 100 H 16 128/75 91 12/29/19 19:01 97 H 21 92 12/29/19 19:00 103 H 17 117/67 93 12/29/19 18:45 96 H 20 123/63 93 12/29/19 18:31 36.4 C L 92 H 15 92 12/29/19 18:30 92 H 17 116/54 L 92 Laboratory Results 12/30/19 12/30/19 12/29/19 Range/Units 04:19 04:19 19:25 WBC 8.27 (4.8-10.8) K/uL RBC 3.37 L (4.7-6.1) M/uL Hgb 10.7 L (14.0-18.0) g/dL Hct 31.8 L (42-52) % MCV 94.4 (80-100) fL MCH 31.8 (25-34) pg MCHC 33.6 (32-36) g/dL RDW Std Deviation 49.7 H (36.4-46.3) fL RDW Coeff of Anni 14.4 (11.5-14.5) % Plt Count 226 (130-400) K/uL MPV 9.9 (7.4-10.4) fL Immature Gran % (Auto) 0.1 Neut % (Auto) 73.7 Lymph % (Auto) 5.7 Montague % (Auto) 19.0 Eos % (Auto) 1.3 Baso % (Auto) 0.2 Neut # (Auto) 6.09 Lymph # (Auto) 0.47 L [place] # (Auto) 1.57 H Eos # (Auto) 0.11 Baso # (Auto) 0.02 Immature Gran # (Auto) 0.01 Absolute Nucleated RBC Nucleated RBC % (auto) Neutrophils % (Manual) Band Neutrophils % Lymphocytes % (Manual) Prolymphocyte % Reactive Lymphs % (Man) Monocytes % (Manual) Eosinophils % (Manual) Basophils % (Manual) Metamyelocytes % (Man) Myelocytes % (Man) Promyelocytes % (Man) Blast Cells % (Manual) Plasma Cell % (Manual) Other Cells % Nucleated RBC % Neutrophils # (Manual) Band Neutrophils # Total Absolute Neuts Lymphocytes # (Manual) Prolymphocyte # Reactive Lymphs # Total Abs Lymphocytes Monocytes # (Manual) Eosinophils # (Manual) Basophils # (Manual) Metamyelocytes # (Man) Myelocytes # (Manual) Promyelocytes # (Man) Blast Cells # (Man) Plasma Cell # (Manual) Other Cells # Nucleated RBCs # (Man) Hypersegmented Neuts Hyposegmented Neuts Hypogranular Neuts Large Granular Lymphs # Lrg Granular Lymphs Hairy Cells Smudge Cells Toxic Granulation Toxic Vacuolation Dohle Bodies Delvin Rods Platelet Estimate Hypogranular Platelets Clumped Platelets Giant Platelets Platelet Satelliting RBC Morphology Polychromasia Hypochromasia Poikilocytosis Basophilic Stippling Anisocytosis Microcytosis Macrocytosis Spherocytes Pappenheimer Bodies Sickle Cells Target Cells Tear Drop Cells Ovalocytes Stomatocytes Coelho-Winston Bodies Echinocytes Acanthocytes (Spur) Rouleaux RBC Agglutinates Schistocytes RBC Morph Comment Sezary Cell PT (9.0-12.0) Seconds INR (0.9-1.1) Activ Coag Time Kaolin (94-140) SECONDS Sodium 136 (136-145) mmol/L Potassium 4.0 (3.5-5.1) mmol/L Chloride 105 (98-107) mmol/L Carbon Dioxide 29 (21-32) mmol/L Anion Gap 2.0 L (3-11) BUN 18 (7-18) mg/dl Creatinine 1.13 (0.6-1.4) mg/dl Est Cr Clr Drug Dosing 41.5 ml/min Est GFR ( Amer) 70.3 Est GFR (Non-Af Amer) 60.6 BUN/Creatinine Ratio 15.7 (10-20) Glucose 96 (70-99) mg/dl POC Glucose 155 H (70-99) mg/dl Calcium 8.0 L (8.5-10.1) mg/dl Phosphorus 2.8 (2.5-4.9) mg/dl Magnesium 1.7 L (1.8-2.4) mg/dl 12/29/19 12/29/19 12/29/19 Range/Units 19:10 18:08 15:43 WBC 12.77 H Cancelled (4.8-10.8) K/uL RBC 3.60 L Cancelled (4.7-6.1) M/uL Hgb 11.2 L D Cancelled (14.0-18.0) g/dL Hct 34.0 L Cancelled (42-52) % MCV 94.4 Cancelled (80-100) fL MCH 31.1 Cancelled (25-34) pg MCHC 32.9 Cancelled (32-36) g/dL RDW Std Deviation 49.5 H Cancelled (36.4-46.3) fL RDW Coeff of Anni 14.3 Cancelled (11.5-14.5) % Plt Count 224 Cancelled (130-400) K/uL MPV 9.4 Cancelled (7.4-10.4) fL Immature Gran % (Auto) 0.2 Cancelled Neut % (Auto) 83.7 Cancelled Lymph % (Auto) 8.7 Cancelled Montague % (Auto) 6.9 Cancelled Eos % (Auto) 0.4 Cancelled Baso % (Auto) 0.1 Cancelled Neut # (Auto) 10.69 H Cancelled Lymph # (Auto) 1.11 L Cancelled [place] # (Auto) 0.88 H Cancelled Eos # (Auto) 0.05 Cancelled Baso # (Auto) 0.01 Cancelled Immature Gran # (Auto) 0.03 H Cancelled Absolute Nucleated RBC Cancelled Nucleated RBC % (auto) Cancelled Neutrophils % (Manual) Cancelled Band Neutrophils % Cancelled Lymphocytes % (Manual) Cancelled Prolymphocyte % Cancelled Reactive Lymphs % (Man) Cancelled Monocytes % (Manual) Cancelled Eosinophils % (Manual) Cancelled Basophils % (Manual) Cancelled Metamyelocytes % (Man) Cancelled Myelocytes % (Man) Cancelled Promyelocytes % (Man) Cancelled Blast Cells % (Manual) Cancelled Plasma Cell % (Manual) Cancelled Other Cells % Cancelled Nucleated RBC % Cancelled Neutrophils # (Manual) Cancelled Band Neutrophils # Cancelled Total Absolute Neuts Cancelled Lymphocytes # (Manual) Cancelled Prolymphocyte # Cancelled Reactive Lymphs # Cancelled Total Abs Lymphocytes Cancelled Monocytes # (Manual) Cancelled Eosinophils # (Manual) Cancelled Basophils # (Manual) Cancelled Metamyelocytes # (Man) Cancelled Myelocytes # (Manual) Cancelled Promyelocytes # (Man) Cancelled Blast Cells # (Man) Cancelled Plasma Cell # (Manual) Cancelled Other Cells # Cancelled Nucleated RBCs # (Man) Cancelled Hypersegmented Neuts Cancelled Hyposegmented Neuts Cancelled Hypogranular Neuts Cancelled Large Granular Lymphs Cancelled # Lrg Granular Lymphs Cancelled Hairy Cells Cancelled Smudge Cells Cancelled Toxic Granulation Cancelled Toxic Vacuolation Cancelled Dohle Bodies Cancelled Delvin Rods Cancelled Platelet Estimate Cancelled Hypogranular Platelets Cancelled Clumped Platelets Cancelled Giant Platelets Cancelled Platelet Satelliting Cancelled RBC Morphology Cancelled Polychromasia Cancelled Hypochromasia Cancelled Poikilocytosis Cancelled Basophilic Stippling Cancelled Anisocytosis Cancelled Microcytosis Cancelled Macrocytosis Cancelled Spherocytes Cancelled Pappenheimer Bodies Cancelled Sickle Cells Cancelled Target Cells Cancelled Tear Drop Cells Cancelled Ovalocytes Cancelled Stomatocytes Cancelled Coelho-Winston Bodies Cancelled Echinocytes Cancelled Acanthocytes (Spur) Cancelled Rouleaux Cancelled RBC Agglutinates Cancelled Schistocytes Cancelled RBC Morph Comment Cancelled Sezary Cell Cancelled PT (9.0-12.0) Seconds INR (0.9-1.1) Activ Coag Time Kaolin 153 H (94-140) SECONDS Sodium (136-145) mmol/L Potassium (3.5-5.1) mmol/L Chloride (98-107) mmol/L Carbon Dioxide (21-32) mmol/L Anion Gap (3-11) BUN (7-18) mg/dl Creatinine (0.6-1.4) mg/dl Est Cr Clr Drug Dosing ml/min Est GFR ( Amer) Est GFR (Non-Af Amer) BUN/Creatinine Ratio (10-20) Glucose (70-99) mg/dl POC Glucose (70-99) mg/dl Calcium (8.5-10.1) mg/dl Phosphorus (2.5-4.9) mg/dl Magnesium (1.8-2.4) mg/dl 12/29/19 12/29/19 12/29/19 Range/Units 08:09 08:09 08:09 WBC 9.78 (4.8-10.8) K/uL RBC 4.55 L (4.7-6.1) M/uL Hgb 14.2 (14.0-18.0) g/dL Hct 43.3 (42-52) % MCV 95.2 (80-100) fL MCH 31.2 (25-34) pg MCHC 32.8 (32-36) g/dL RDW Std Deviation 50.1 H (36.4-46.3) fL RDW Coeff of Anni 14.4 (11.5-14.5) % Plt Count 264 (130-400) K/uL MPV 9.8 (7.4-10.4) fL Immature Gran % (Auto) Neut % (Auto) Lymph % (Auto) [place] % (Auto) Eos % (Auto) Baso % (Auto) Neut # (Auto) Lymph # (Auto) [place] # (Auto) Eos # (Auto) Baso # (Auto) Immature Gran # (Auto) Absolute Nucleated RBC Nucleated RBC % (auto) Neutrophils % (Manual) Band Neutrophils % Lymphocytes % (Manual) Prolymphocyte % Reactive Lymphs % (Man) Monocytes % (Manual) Eosinophils % (Manual) Basophils % (Manual) Metamyelocytes % (Man) Myelocytes % (Man) Promyelocytes % (Man) Blast Cells % (Manual) Plasma Cell % (Manual) Other Cells % Nucleated RBC % Neutrophils # (Manual) Band Neutrophils # Total Absolute Neuts Lymphocytes # (Manual) Prolymphocyte # Reactive Lymphs # Total Abs Lymphocytes Monocytes # (Manual) Eosinophils # (Manual) Basophils # (Manual) Metamyelocytes # (Man) Myelocytes # (Manual) Promyelocytes # (Man) Blast Cells # (Man) Plasma Cell # (Manual) Other Cells # Nucleated RBCs # (Man) Hypersegmented Neuts Hyposegmented Neuts Hypogranular Neuts Large Granular Lymphs # Lrg Granular Lymphs Hairy Cells Smudge Cells Toxic Granulation Toxic Vacuolation Dohle Bodies Delvin Rods Platelet Estimate Hypogranular Platelets Clumped Platelets Giant Platelets Platelet Satelliting RBC Morphology Polychromasia Hypochromasia Poikilocytosis Basophilic Stippling Anisocytosis Microcytosis Macrocytosis Spherocytes Pappenheimer Bodies Sickle Cells Target Cells Tear Drop Cells Ovalocytes Stomatocytes Coelho-Winston Bodies Echinocytes Acanthocytes (Spur) Rouleaux RBC Agglutinates Schistocytes RBC Morph Comment Sezary Cell PT 10.7 (9.0-12.0) Seconds INR 1.0 (0.9-1.1) Activ Coag Time Kaolin (94-140) SECONDS Sodium 136 (136-145) mmol/L Potassium 3.9 (3.5-5.1) mmol/L Chloride 101 (98-107) mmol/L Carbon Dioxide 29 (21-32) mmol/L Anion Gap 6.0 (3-11) BUN 20 H (7-18) mg/dl Creatinine 1.14 (0.6-1.4) mg/dl Est Cr Clr Drug Dosing 41.1 ml/min Est GFR ( Amer) 69.5 Est GFR (Non-Af Amer) 60.0 BUN/Creatinine Ratio 17.9 (10-20) Glucose 92 (70-99) mg/dl POC Glucose (70-99) mg/dl Calcium 9.0 (8.5-10.1) mg/dl Phosphorus (2.5-4.9) mg/dl Magnesium (1.8-2.4) mg/dl Medications Administered Current Inpatient Medications Acetaminophen (Tylenol) 650 mg PO Q4H PRN PRN Reason: Pain or Fever Stop: 01/25/20 14:37 Al Hydrox/Mg Hydrox/Simethicone (Maalox) 15 ml PO Q4H PRN PRN Reason: Dyspepsia Stop: 01/25/20 14:37 Aspir[facility]) [facility] Stop: 01/26/20 08:59 Last Admin: 12/29/19 07:35 Dose: 81 mg Documented by: Atorvastatin Calcium (Lipitor) 40 mg PO QAM [facility] Stop: 01/25/20 16:33 Last Admin: 12/29/19 07:35 Dose: 40 mg Documented by: Clopidogrel [facility]ate (Plavix) [facility] [place] Stop: 01/26/20 08:59 Last Admin: 12/29/19 07:35 Dose: 75 mg Documented by: Fluticasone/Vilanterol (Breo Ellipta 100/25 Mcg Inh) 1 puffs INH DAILY [facility] Stop: 01/26/20 15:59 Last Admin: 12/29/19 07:34 Dose: 1 puffs Documented by: Heparin Sodium (Porcine) (Heparin Sodium (Porcine)) 5,000 units SQ Q8 [facility] Stop: 01/25/20 21:59 Last Admin: 12/30/19 06:06 Dose: 5,000 units Documented by: Dextrose/Sodium Chloride (D5w And 1/2nss) 1,000 mls @ 125 mls/hr IV .Q8H [facility] Stop: 01/28/20 17:55 Last Admin: 12/30/19 03:32 Dose: Not Given Documented by: Magnesium Sulfate/Dextrose (Magnesium Sulfate / D5w) 1 gm in 100 mls @ 50 ml s/hr IV ONE ONE Stop: 12/30/19 08:14 Magnesium Hydroxide (Milk Of Magnesia) 30 ml PO Q12H PRN PRN Reason: Constipation Stop: 01/25/20 14:37 Miscellaneous (Order Awaiting Action) 1 ea N/A QS [facility] Stop: 01/26/20 00:00 Last Admin: 12/30/19 00:52 Dose: Not Given Documented by: Miscellaneous Information (Pharmacist Discharge Med Rec Consult) 1 ea N/A UD PRN PRN Reason: Consult Stop: 01/25/20 16:33 Morphine Sulfate (Morphine Sulfate) 1 - 4 mg IV Q2H PRN PRN Reason: Severe Pain Stop: 01/12/20 17:55 Last Admin: 12/29/19 22:49 Dose: 2 mg Documented by: Ondansetron HCl (Zofran) 4 mg IV Q6H PRN PRN Reason: Nausea Stop: 01/25/20 14:37 Ondansetron HCl (Zofran) 4 mg IV ONE PRN PRN Reason: Nausea And Vomiting Stop: 01/28/20 17:55 Oxycodone/Acetaminophen (Percocet 5mg/325mg) 1 - 2 tab PO Q4H PRN PRN Reason: Moderate Pain Stop: 01/12/20 17:55 Last Admin: 12/29/19 21:00 Dose: 2 tab Documented by: Polyethylene Glycol (Miralax Powder Packet) 17 gm PO DAILY PRN PRN Reason: Constipation Stop: 01/25/20 14:37
--- NOTE | 2019-12-30 07:49 | Critical Care Progress Note ---
Date of Service December 30, 2019 Assessment & Plan (1) S/P carotid endarterectomy: Impression: 79-year-old male with symptomatic carotid stenosis status post carotid endarterectomy. He is doing well and being monitored in the ICU postoperatively. Recommendations: 1. Status post carotid endarterectomy: Management per vascular surgery. Currently on aspirin and Plavix. 2. Anemia: Slight drop in hemoglobin and hematocrit this morning. No signs of active bleeding. He is not symptomatic from this. Continue to monitor. No indication for transfusion currently. 3. COPD with hypoxemia: Continue supplemental oxygen titrated to keep saturations at or above 88%. He is not bronchospastic currently. Continue Breo and needed bronchodilators. 4. Chronic kidney disease: Serum creatinine is stable at baseline levels. Continue to follow. Electrolytes and acid-base status are adequate. 5. BPH: Continue outpatient medications. 6. Hypertension: Can likely restart his Norvasc and atenolol soon but will discuss with vascular surgery. He is slightly tachycardic which may reflect wit hdrawal from the atenolol. Given his chronic kidney disease, atenolol may not be an optimal medication will transition to metoprolol and start at 12.5 mg p.o. twice daily Disposition per vascular surgery. We will sign off once the patient leaves the ICU. (2) Admitted to intensive care unit: (3) CKD (chronic kidney disease), stage III: (4) COPD with hypoxia: Admission and Anticipated Discharge Date Admission Date: December 26, 2019 Subjective Patient seen and examined. EMR reviewed. Discussed with critical care RONAL overnight. Patient is doing well this morning. He sitting up in a chair eating breakfast. He does not report any chest pain palpitations or new neurological symptoms. He has some slight discomfort in his neck whenever he coughs but otherwise is doing well. Review of Systems Review of Systems: All systems reviewed & are unremarkable except as noted in HPI & below Physical Exam Constitutional: WD/WN, vitals as above Neck: trachea midline, no thyromegaly Respiratory: normal respiratory effort, lungs clear to auscultation Cardiovascular: RRR, no murmur, no edema Gastrointestinal (Abdomen): normal bowel sounds, soft, nontender, no hepatosplenomegaly Musculoskeletal: Extremities: extremities normal to inspection Skin: no rashes, warm and dry Neurologic: Nonfocal exam Lymphatic: no cervical lymphadenopathy Results & Data Results & Data ([facility]) Vital Signs (Past 12 Hours) Vital Signs Pulse Resp BP Pulse Ox 12/30/19 06:00 99 H 22 12/30/19 05:00 83 16 12/30/19 04:01 94 H 17 12/30/19 04:00 95 H 19 126/68 12/30/19 03:00 87 23 99 12/30/19 02:01 73 13 12/30/19 02:00 69 13 104/57 L 12/30/19 01:00 72 12 103/51 L 12/30/19 00:02 74 14 12/30/19 00:00 74 12 99/54 L 12/29/19 23:01 84 15 12/29/19 23:00 81 15 118/58 L 12/29/19 22:01 82 16 96 12/29/19 22:00 79 15 107/56 L 96 12/29/19 21:01 92 H 20 106/60 93 12/29/19 21:00 90 17 94 12/29/19 20:30 101 H 22 94 12/29/19 20:01 104 H 18 119/58 L 91 12/29/19 20:00 99 H 25 H 92 12/29/19 19:45 105 H 23 94 Laboratory Results 12/30/19 04:19 12/30/19 04:19 Diagnostic Findings No new imaging Coding Level of Care Code 91430 Subseq Hosp Care Lvl 3 Diagnoses S/P carotid endarterectomy Z98.890 Admitted to intensive care unit Z78.9 CKD (chronic kidney disease), stage III N18.3 COPD with hypoxia J44.9; R09.02 Time Spent (min) 36
[2019-12-30] MEDS: ATORVASTATIN 40 MG TAB PO SCH (08:20)
[2019-12-30] MEDS: FLUTICASONE/VILANTEROL 100/25MCG 14 PUFFS/INHALER INH SCH (08:20)
[2019-12-30] MEDS: CLOPIDOGREL BISULFATE 75 MG TAB PO SCH (08:20)
[2019-12-30] MEDS: ASPIRIN 81 MG ECTAB PO SCH (08:20)
[2019-12-30] MEDS ORDERED: METOPROLOL TARTRATE 25 MG TAB PO SCH (09:00)
[2019-12-30] MEDS ORDERED: ALBUT/IPRATROP 3MG/0.5MG NEB 3 ML VIAL NEB STA (11:17)
--- NOTE | 2019-12-30 13:13 | Surgery Progress Note ---
Date of Service December 30, 2019 Assessment & Plan (1) S/P carotid endarterectomy: Patient is doing well postoperatively. He has no neurological deficits. The incision is dry and clean. At this point he will continue his aspirin and Plavix. He can be discharged when cleared by the medical service for his pulmonary status. He will be transferred to PCU today. Subjective Patient is postoperative day 1 from a right carotid endarterectomy. He has no complaints other than some tenderness over the right side of his neck. He has no difficulty swallowing. He denies any neuro deficits. Physical Exam Constitutional: WD/WN, vitals as above ENMT: Tongue is midline Skin: + incision (Dry and clean with no hematoma) Neurologic: Intact motor and sensory function Psychiatric: Orientation: alert and oriented x 3 Results & Data Vital Signs (Past 12 Hours) Vital Signs Temp Pulse Pulse Resp BP Pulse Ox 12/30/19 12:05 98 H 12/30/19 12:00 89 22 122/63 91 12/30/19 11:23 95 H 16 99 12/30/19 11:15 102 H 23 155/86 H 94 12/30/19 11:10 96 12/30/19 11:00 77 L 12/30/19 10:00 98 H 18 137/70 93 12/30/19 09:00 93 H 14 141/70 H 93 12/30/19 08:41 110 H 24 152/71 H 91 12/30/19 08:00 36.7 C 106 H 23 89 L 12/30/19 06:00 99 H 22 12/30/19 05:00 83 16 12/30/19 04:01 94 H 17 12/30/19 04:00 95 H 19 126/68 12/30/19 03:00 87 23 99 12/30/19 02:01 73 13 12/30/19 02:00 69 13 104/57 L
[2019-12-30] MEDS: AMLODIPINE BESYLATE 5 MG TAB PO SCH (16:34)
--- NOTE | 2019-12-30 16:49 | Progress Notes ---
DATE: 12/30/2019 SUBJECTIVE: I am seeing Mr. Castillo in followup of a right hemisphere transient ischemic attack. He had greater than 95% stenosis of the right internal carotid and underwent an uncomplicated right carotid endarterectomy yesterday. He has not had any new neurologic symptoms. PHYSICAL EXAMINATION: VITAL SIGNS: 134/70, 102, 22, 36.7. GENERAL: The patient is awake and alert. NEUROLOGIC: Speech is mildly hoarse, but not dysarthric. There is normal extraocular motility, facial symmetry. There is no drift and equal lower extremity strength. Mild tremor with intention. IMPRESSION: 1. Right hemisphere transient ischemic attack. The patient is status post right carotid endarterectomy. Antiplatelet therapy per vascular surgery. 2. Left internal carotid stenosis of approximately 75%. Vascular surgery will follow that. The patient should be referred to me for followup post discharge.
[2019-12-30] MEDS ORDERED: LORazepam 0.5 MG TAB PO STA (20:28)
[2019-12-30] MEDS ORDERED: MELATONIN 3 MG TAB PO PRN (20:32)
[2019-12-30] MEDS ORDERED: LORazepam 0.5 MG TAB ONE (20:33)
[2019-12-30] MEDS: TAMSULOSIN HCL 0.4 MG CAP PO SCH (20:39)
[2019-12-30] MEDS: METOPROLOL TARTRATE 25 MG TAB PO SCH (20:39)
[2019-12-30] MEDS: FINASTERIDE 5 MG TAB PO SCH (20:40)
[2019-12-31] MEDS ORDERED: METOPROLOL TARTRATE 1 MG/ML VIAL IV PRN
[2019-12-31] MEDS: HEPARIN SOD 5,000 UNIT/0.5 ML VIAL SQ SCH ×3 (06:27→20:15)
[2019-12-31 06:43] LABS: Hematocrit (blood only) 31.7 % (42-52); Hemoglobin 10.6 g/dL (14.0-18.0); Mean Corpuscular Hemoglobin 31.6 pg (25-34); Mean Corpuscular Hgb Conc 33.4 g/dL (32-36); Mean Corpuscular Volume 94.6 fL (80-100); Platelet Count 238 K/uL (130-400); RDW Coefficient of Variation 14.4 % (11.5-14.5); RDW Standard Deviation 49.5 fL (36.4-46.3); Red Blood Count 3.35 M/uL (4.7-6.1); White Blood Count 12.51 K/uL (4.8-10.8)
[2019-12-31 07:17] LABS: BUN Creatinine Ratio 14.5 (10-20); Calcium 8.8 mg/dl (8.5-10.1); Est GFR (African American) 51.1; Est GFR (Non-African American) 44.1; Magnesium 2.1 mg/dl (1.8-2.4); Potassium 4.3 mmol/L (3.5-5.1)
[2019-12-31 07:18] LABS: Phosphorus 2.6 mg/dl (2.5-4.9)
--- NOTE | 2019-12-31 07:40 | Hospitalist Progress Note ---
Date of Service December 31, 2019 Assessment & Plan (1) Brain TIA: This is an 79-year-old male with PMH of hypertension, CKD III, COPD, chronic respiratory failure with hypoxia requiring oxygen at bedtime, BPH and other medical problems listed below who presents with strokelike symptoms beginning day prior to admission. -Left-sided weakness and dysarthria that have since resolved -CT head without acute intracranial abnormality. CTA head/neck with focal area of high-grade/critical stenosis of greater than 90% within the proximal R ICA/bulb, focal intraluminal soft plaque within the proximal R ICA which measures 4 mm and focal area of 75% stenosis at the proximal left internal carotid artery/carotid bulb -Echo with bubble study ordered, no ASD. pacemaker interrogation ordered -Continue dual antiplatelet therapy with aspirin and Plavix. Initiating statin as well -Neuro checks, PT, OT, speech therapy evaluations -Routine neurology consult - Per neuro: 1. Symptomatic right internal carotid stenosis. Agree with Vascular Surgery intervention provided. Antiplatelet therapy, dual for 21 days with aspirin and Plavix and then aspirin alone. Statin with goal LDL of 70 or less. Consider Zio patch as an outpatient. Antiplatelet therapy at present per Vascular Surgery. Risk factor modification including treatment with statin with a goal LDL of 70 or less. 2. 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 Recommend Vascular Interventional Neurosurgery consultation post discharge. Likely they will recommend followup CT periodically and no intervention due to small size. (2) Stenosis of both internal carotid arteries: CTA head and neck with evidence of high-grade stenosis of 90% in R ICA and 75% stenosis in L ICA -Seen by vascular surgery, now s/p R CEA on 12/29/[address] Mercedes -Plan to continue dual antiplatelet therapy (3) COPD with hypoxia: Continue Symbicort, supplemental O2 at bedtime and as needed during day- patient states he has been using suppl. of O2 via [place] for past several years (4) HTN (hypertension): Allow for permissive hypertension for cerebral perfusion in setting of possible ischemic event -Intervene for BP greater than 220/110 -Holding home amlodipine and atenolol on admission -Patient in ICU care after surgery, per critical care/primary recommendation, atenolol was switched to metoprolol -Amlodipine restarted due to hypertension HUDSON due to urinary retention Creatinine today 1.47 Patient retaining 600 to 800 cc for urine - Retention likely secondary to anesthesia, pain meds in the setting of BPH -Straight cath as needed, continue to monitor (5) 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 S/p pacemaker placement (6) BPH (benign prostatic hyperplasia): Continue Avodart. Cont. tamsulosin - resume on dc (7) CKD (chronic kidney disease), stage III: Kidney function at baseline. Monitor with daily BMP DVT Ppx: SQ heparin Code status: FULL PCP: [place] Dispo: Plan to likely return home once medically stable. Admission and Anticipated Discharge Date Admission Date: December 26, 2019 Subjective Patient is postoperative day 2 from a right carotid endarterectomy. PT OT evaluations, patient is safe to return home after discharge. Contacted patient's yesterday, she states pt is on chronic supplemental oxygen at home for several years due to COPD. She is not sure how much he is using at home. Per pulmonary/critical care recommendations, patient was switched from atenolol to metoprolol. Creatinine elevated today at 1.47, will give 500 cc of IV fluid, encourage p.o.fluid intake, will recheck BMP in the afternoon Discussed with nursing staff, patient retaining urine, 600 to 800 cc this AM. Required straight cath this a.m. Review of Systems Review of Systems: All systems reviewed & are unremarkable except as noted in HPI & below Constitutional: no fever and no chills Respiratory: no cough and no dyspnea Cardiovascular: no chest pain and no palpitations Gastrointestinal: no abdominal pain, no nausea and no vomiting Genitourinary: + difficulty urinating Physical Exam Physical Exam: General Appearance: WD/WN, frail elderly male lying in bed, in NAD, on 3 liters of O2 via [place] Head: normocephalic, atraumatic Eyes: normal inspection, PERRL, conjunctivae normal, anicteric sclerae ENT: external ear and nose normal, oropharynx normal Neck: R surg. incision w/ ecchymosis Respiratory: normal respiratory effort, lungs clear to auscultation, no wheeze, rales, rhonchi. Normal insp/exp effort, no accessory muscle use Cardiovascular: regular rate, rhythm, no murmur, normal peripheral pulses Chest: normal inspection of chest Abdomen/GI: normal bowel sounds, soft, nontender, nondistended Extremities/Musculoskeletal: no cyanosis or clubbing, extremities motor strength 5/5 Neurologic: awake and alert, answers most questions appropriately, PERRL, EOMI, no dysarthria, moves all extremities Skin: no rashes, normal color, warm/dry. + L arm skin tear, bandaged Results & Data Results & Data ([facility]) Vital Signs (Past 12 Hours) Vital Signs Temp Pulse Resp BP Pulse Ox 12/31/19 07:25 36.5 C 116 H 20 151/72 H 93 12/31/19 04:10 36.6 C 96 H 19 135/57 L 94 12/30/19 23:48 36.5 C 87 19 175/74 H 94 Laboratory Results 12/31/19 12/31/19 12/29/19 Range/Units 06:24 06:24 16:00 WBC 12.51 H (4.8-10.8) K/uL RBC 3.35 L (4.7-6.1) M/uL Hgb 10.6 L (14.0-18.0) g/dL Hct 31.7 L (42-52) % MCV 94.6 (80-100) fL MCH 31.6 (25-34) pg MCHC 33.4 (32-36) g/dL RDW Std Deviation 49.5 H (36.4-46.3) fL RDW Coeff of Anni 14.4 (11.5-14.5) % Plt Count 238 (130-400) K/uL MPV 10.0 (7.4-10.4) fL Sodium 136 (136-145) mmol/L Potassium 4.3 (3.5-5.1) mmol/L Chloride 104 (98-107) mmol/L Carbon Dioxide 28 (21-32) mmol/L Anion Gap 4.0 (3-11) BUN 21 H (7-18) mg/dl Creatinine 1.47 H D (0.6-1.4) mg/dl Est Cr Clr Drug Dosing 33.0 ml/min Est GFR ( Amer) 51.1 Est GFR (Non-Af Amer) 44.1 BUN/Creatinine Ratio 14.5 (10-20) Glucose 106 H (70-99) mg/dl Calcium 8.8 (8.5-10.1) mg/dl Phosphorus 2.6 (2.5-4.9) mg/dl Magnesium 2.1 (1.8-2.4) mg/dl Nasal Screen MRSA (PCR) Negative (Negative) Medications Administered Current Inpatient Medications Acetaminophen (Tylenol) 650 mg PO Q4H PRN PRN Reason: Pain or Fever Stop: 01/25/20 14:37 Last Admin: 12/30/19 08:18 Dose: 650 mg Documented by: Al Hydrox/Mg Hydrox/Simethicone (Maalox) 15 ml PO Q4H PRN PRN Reason: Dyspepsia Stop: 01/25/20 14:37 Amlodipine Besylate (Norvasc) 2.5 mg PO QAM [facility] Stop: 01/29/20 16:59 Last Admin: 12/30/19 16:34 Dose: 2.5 mg Documented by: Aspirin (Ecotrin Ectab) 81 mg PO QAM [facility] Stop: 01/26/20 08:59 Last Admin: 12/30/19 08:20 Dose: 81 mg Documented by: Atorvastatin Calcium (Lipitor) 40 mg PO QAM [facility] Stop: 01/25/20 16:33 Last Admin: 12/30/19 08:20 Dose: 40 mg Documented by: Clopidogrel Bisulfate (Plavix) 75 mg PO QAM [facility] Stop: 01/26/20 08:59 Last Admin: 12/30/19 08:20 Dose: 75 mg Documented by: Finasteride (Proscar) 5 mg PO HS [facility] Stop: 01/29/20 20:59 Last Admin: 12/30/19 20:40 Dose: 5 mg Documented by: Fluticasone/Vilanterol (Breo Ellipta 100/25 Mcg Inh) 1 puffs INH DAILY [facility] Stop: 01/26/20 15:59 Last Admin: 12/30/19 08:20 Dose: 1 puffs Documented by: Heparin Sodium (Porcine) (Heparin Sodium (Porcine)) 5,000 units SQ Q8 [facility] Stop: 01/25/20 21:59 Last Admin: 12/31/19 06:27 Dose: Not Given Documented by: Magnesium Hydroxide (Milk Of Magnesia) 30 ml PO Q12H PRN PRN Reason: Constipation Stop: 01/25/20 14:37 Melatonin (Melatonin) 3 mg PO HS PRN PRN Reason: Sleep Stop: 01/29/20 20:31 Metoprolol Tartrate (Lopressor) 2.5 mg IV Q4 PRN PRN Reason: see instructions Stop: 01/30/20 00:00 Metoprolol Tartrate (Lopressor) 12.5 mg PO BID TRESSA Stop: 01/29/20 20:29 Last Admin: 12/30/19 20:39 Dose: 12.5 mg Documented by: Miscellaneous Information (Pharmacist Discharge Med Rec Consult) 1 ea N/A UD PRN PRN Reason: Consult Stop: 01/25/20 16:33 Morphine Sulfate (Morphine Sulfate) 1 - 4 mg IV Q2H PRN PRN Reason: Severe Pain Stop: 01/12/20 17:55 Last Admin: 12/29/19 22:49 Dose: 2 mg Documented by: Ondansetron HCl (Zofran) 4 mg IV Q6H PRN PRN Reason: Nausea Stop: 01/25/20 14:37 Ondansetron HCl (Zofran) 4 mg IV ONE PRN PRN Reason: Nausea And Vomiting Stop: 01/28/20 17:55 Oxycodone/Acetaminophen (Percocet 5mg/325mg) 1 - 2 tab PO Q4H PRN PRN Reason: Moderate Pain Stop: 01/12/20 17:55 Last Admin: 12/29/19 21:00 Dose: 2 tab Documented by: Polyethylene Glycol (Miralax Powder Packet) 17 gm PO DAILY PRN PRN Reason: Constipation Stop: 01/25/20 14:37 Tamsulosin HCl (Flomax) 0.4 mg PO HS TRESSA Stop: 01/29/20 20:59 Last Admin: 12/30/19 20:39 Dose: 0.4 mg Documented by:
[2019-12-31] MEDS ORDERED: SODIUM CHLORIDE 0.9% 500 ML IV SCH (08:00)
[2019-12-31] MEDS: FLUTICASONE/VILANTEROL 100/25MCG 14 PUFFS/INHALER INH SCH (08:26)
[2019-12-31] MEDS: AMLODIPINE BESYLATE 5 MG TAB PO SCH (08:26)
[2019-12-31] MEDS: CLOPIDOGREL BISULFATE 75 MG TAB PO SCH (08:27)
[2019-12-31] MEDS: ASPIRIN 81 MG ECTAB PO SCH (08:27)
[2019-12-31] MEDS: METOPROLOL TARTRATE 25 MG TAB PO SCH ×2 (08:27→20:15)
[2019-12-31] MEDS: ATORVASTATIN 40 MG TAB PO SCH (08:28)
[2019-12-31 15:21] LABS: BUN Creatinine Ratio 14.8 (10-20); Calcium 8.4 mg/dl (8.5-10.1); Creatinine Clr Calc Pharmacy 39.8 ml/min; Est GFR (Non-African American) 55.3; Potassium 4.2 mmol/L (3.5-5.1)
[2019-12-31] MEDS: FINASTERIDE 5 MG TAB PO SCH (20:15)
[2019-12-31] MEDS: TAMSULOSIN HCL 0.4 MG CAP PO SCH (20:15)
[2020-01-01] MEDS: HEPARIN SOD 5,000 UNIT/0.5 ML VIAL SQ SCH (06:16)
[2020-01-01 06:34] LABS: BUN Creatinine Ratio 18.1 (10-20); Calcium 8.2 mg/dl (8.5-10.1); Creatinine Clr Calc Pharmacy 48.5 ml/min; Est GFR (African American) 82.4; Est GFR (Non-African American) 71.1; Potassium 4.1 mmol/L (3.5-5.1)
--- NOTE | 2020-01-01 07:53 | Hospitalist Progress Note ---
Date of Service January 01, 2020 Assessment & Plan (1) Brain TIA: This is an 79-year-old male with PMH of hypertension, CKD III, COPD, chronic respiratory failure with hypoxia requiring oxygen at bedtime, BPH and other medical problems listed below who presents with strokelike symptoms beginning day prior to admission. -Left-sided weakness and dysarthria that have since resolved -CT head without acute intracranial abnormality. CTA head/neck with focal area of high-grade/critical stenosis of greater than 90% within the proximal R ICA/bulb, focal intraluminal soft plaque within the proximal R ICA which measures 4 mm and focal area of 75% stenosis at the proximal left internal carotid artery/carotid bulb -Echo with bubble study ordered, no ASD. pacemaker interrogation obtained -Continue dual antiplatelet therapy with aspirin and Plavix. Initiating statin a s well -Neuro checks, PT, OT, speech therapy evaluations -Routine neurology consult - Per neuro: 1. Symptomatic right internal carotid stenosis. Agree with Vascular Surgery intervention provided. Antiplatelet therapy, dual for 21 days with aspirin and Plavix and then aspirin alone. Statin with goal LDL of 70 or less. Consider Zio patch as an outpatient. Antiplatelet therapy at present per Vascular Surgery. Risk factor modification including treatment with statin with a goal LDL of 70 or less. 2. 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 Recommend Vascular Interventional Neurosurgery consultation post discharge. Likely they will recommend followup CT periodically and no intervention due to small size. (2) Stenosis of both internal carotid arteries: CTA head and neck with evidence of high-grade stenosis of 90% in R ICA and 75% stenosis in L ICA -Seen by vascular surgery, now s/p R CEA on 12/29/[address] Mercedes -Plan to continue dual antiplatelet therapy (3) COPD with hypoxia: Continue Symbicort, supplemental O2 at bedtime and as needed during day- patient states he has been using suppl. of O2 via [place] for past several years (but does not have a portable oxygen/his portable oxygen is old) -2 step study done, patient will get a prescription for supplemental oxygen, 2 L/min via [place], with portability (4) HTN (hypertension): Allow for permissive hypertension for cerebral perfusion in setting of possible ischemic event -Intervene for BP greater than 220/110 -Holding home amlodipine and atenolol on admission -Patient in ICU care after surgery for 24 hrs, per critical care/primary recommendation, atenolol was switched to metoprolol -Amlodipine restarted due to hypertension HUDSON due to urinary retention Creatinine was 1.47, now resolved Patient retaining 600 to 800 cc for urine - Retention likely secondary to anesthesia, pain meds in the setting of BPH -Straight cath as needed, continue to monitor -Zepeda catheter placed yesterday afternoon -patient will be discharged with Zepeda catheter, will need voiding trial as outpatient (5) 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 S/p pacemaker placement (6) BPH (benign prostatic hyperplasia): Continue Avodart. Cont. tamsulosin - resume on dc (7) CKD (chronic kidney disease), stage III: Kidney function at baseline. Monitor with daily BMP DVT Ppx: SQ heparin Code status: FULL PCP: Beatriz Dispo: Plan to dc home. Admission and Anticipated Discharge Date Admission Date: December 26, 2019 Subjective Patient is postoperative day 3 from a right carotid endarterectomy. PT OT evaluations, patient is safe to return home after discharge. Per pulmonary/critical care recommendations, patient was switched from atenolol to metoprolol. Creatinine elevated at 1.47 yesterday, and patient was retaining urine, 600 to 800 cc. Zepeda catheter was placed in the afternoon. Creatinine normalized. Patient is using O2 at home, at night, and as needed during the day. Notified by nursing staff that patient does not have a portable O2. We will obtain a 2 step test now. Review of Systems Review of Systems: All systems reviewed & are unremarkable except as noted in HPI & below Constitutional: no fever and no chills Respiratory: no cough and no dyspnea Cardiovascular: no chest pain and no palpitations Gastrointestinal: no abdominal pain, no nausea and no vomiting Physical Exam Physical Exam: General Appearance: WD/WN, frail elderly male lying in bed, in NAD, on 3 liters of O2 via [place] Head: normocephalic, atraumatic Eyes: normal inspection, PERRL, conjunctivae normal, anicteric sclerae ENT: external ear and nose normal, oropharynx normal Neck: R surg. incision w/ ecchymosis Respiratory: normal respiratory effort, lungs clear to auscultation, no wheeze, rales, rhonchi. Normal insp/exp effort, no accessory muscle use Cardiovascular: regular but slightly tachycardic HR 100, no murmur, normal peripheral pulses Chest: normal inspection of chest Abdomen/GI: normal bowel sounds, soft, nontender, nondistended : Catheter inserted, drains blood-tinged urine Extremities/Musculoskeletal: no cyanosis or clubbing, extremities motor strength 5/5 Neurologic: awake and alert, answers most questions appropriately, PERRL, EOMI, no dysarthria, moves all extremities Skin: no rashes, normal color, warm/dry. + L arm skin tear, bandaged Results & Data Results & Data ([facility]) Vital Signs (Past 12 Hours) Vital Signs Temp Pulse Resp BP Pulse Ox 01/01/20 04:29 36.9 C 102 H 16 167/72 H 97 12/31/19 23:20 36.3 C L 87 20 152/72 H 96
[2020-01-01] MEDS: CLOPIDOGREL BISULFATE 75 MG TAB PO SCH (08:36)
[2020-01-01] MEDS: ATORVASTATIN 40 MG TAB PO SCH (08:37)
[2020-01-01] MEDS: FLUTICASONE/VILANTEROL 100/25MCG 14 PUFFS/INHALER INH SCH (08:37)
[2020-01-01] MEDS: ASPIRIN 81 MG ECTAB PO SCH (08:37)
[2020-01-01] MEDS ORDERED: AMLODIPINE BESYLATE 5 MG TAB PO SCH (09:00)
[2020-01-01] MEDS ORDERED: METOPROLOL TARTRATE 25 MG TAB PO SCH (09:00)
--- NOTE | 2020-01-01 11:38 | Discharge Summary ---
Date of Service January 01, 2020 Admission HPI Per Admitting Provider This is an 79-year-old male with PMH of hypertension, CKD 3, COPD, chronic respiratory failure with hypoxia requiring oxygen at bedtime, BPH and other medical problems listed below who presents with strokelike symptoms beginning yesterday. Patient reports feeling weak and lightheaded yesterday afternoon and lowered himself to the ground. Required 's help to get him in the pad and she noted that his left side seemed weaker than the right at that time. Symptoms resolved and patient felt that he was in normal state of health this morning. Ate breakfast and ambulated without issue. Then around 11:45 AM, patient noted left-sided weakness and instability, leaning onto dining room chair before falling onto the carpeted ground on his side. Son noted left-sided facial droop at this time along with left-sided weakness. Also noticed slight slurring of speech. No issue swallowing. EMS was called and patient was brought in as a stroke alert. Symptoms seem to resolve in route to ED. [facility] tele-stroke was consulted who recommend dual antiplatelet therapy and further work-up. Admission Exam Per Admitting Provider General Appearance: WD/WN, vitals as above, chronically ill appearing, sitting up in bed, pleasant, conversing easily Head: normocephalic, atraumatic Eyes: normal inspection, PERRL, conjunctivae normal, anicteric sclerae ENT: external ear and nose normal, oropharynx normal Neck: trachea midline, no thyromegaly, normal visual inspection Respiratory: normal respiratory effort, lungs clear to auscultation, no wheeze, rales, rhonchi. Normal insp/exp effort, no accessory muscle use Cardiovascular: regular rate, rhythm, no murmur, normal peripheral pulses. Vessels: no JVD or carotid bruit Chest: normal inspection of chest Abdomen/GI: normal bowel sounds, soft, nontender, no hepatosplenomegaly Extremities/Musculoskeletal: no cyanosis or clubbing, extremities motor strength 5/5 Neurologic: PERRL, EOMI, accommodation nl, ? small L sided facial droop, no dysarthria, CN's II-XI intact bilaterally and moves all extremities, slow unsteady gait Psychiatric: A+Ox3, anxious Skin: no rashes, normal color, warm/dry. + L arm skin tear, bandaged Principal Diagnosis Right hemispheric TIA Symptomatic carotid stenosis, now status post right HUDSON due to urinary retention, now with Zepeda catheter Chronic respiratory failure with hypoxia, due to COPD, patient requires continuous supplemental O2 Discharge Exam Vital signs: Temperature 36.9 c, blood pressure 154/88, pulse 76, respirations 18 General Appearance: WD/WN, frail elderly male lying in bed, in NAD, on 2 liters of O2 via NC Head: normocephalic, atraumatic Eyes: normal inspection, PERRL, conjunctivae normal, anicteric sclerae ENT: external ear and nose normal, oropharynx normal Neck: R surg. incision w/ ecchymosis Respiratory: normal respiratory effort, lungs clear to auscultation, no wheeze, rales, rhonchi. Normal insp/exp effort, no accessory muscle use Cardiovascular: RRR no murmur, normal peripheral pulses Chest: normal inspection of chest Abdomen/GI: normal bowel sounds, soft, nontender, nondistended : Catheter inserted, drains blood-tinged urine Extremities/Musculoskeletal: no cyanosis or clubbing, extremities motor strength 5/5 Neurologic: awake and alert, answers most questions appropriately, PERRL, EOMI, no dysarthria, moves all extremities Skin: no rashes, normal color, warm/dry. + L arm skin tear, bandaged Discharge Data Allergies Allergy/AdvReac Type Severity Reaction Status Date / Time No Known Allergies Allergy Verified 12/26/19 13:43 Consultations 12/26/19 14:19 ED Decision to Admit Stat 12/26/19 14:38 Consult Neurology Routine 12/26/19 14:40 Consult Case Management - Discharge Planning Routine 12/26/19 16:34 Consult Case Management - Discharge Planning Routine Consult Vascular Surgery Routine 12/29/19 17:56 Consult Rehabilitation Engineer Routine Procedures Performed Operation Date: 12/29/19 10:00 Actual Procedures p Right Carotid Endarterectomy with Patch(Right) - Gregorio Mercedes MD Ordered Studies 12/26/19 13:01 CT angio head w con Stat CT angio neck with con Stat IMPRESSION: 1. Focal 2 cm segment of diminished perfusion/narrowing within the mid right A2. However, no vascular occlusion identified. 2. Focal area of 60% stenosis within the left carotid siphon. 3. 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 4. There is a focal area of high-grade/critical stenosis of greater than 90% within the proximal right internal carotid artery/bulb. There is an associated focal intraluminal soft plaque within the proximal right internal carotid artery which measures 4 mm. 5. Focal area of 75% stenosis at the proximal left internal carotid artery/carotid bulb. CT head/brain wo con Stat Impression: No acute intracranial abnormality. 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 Hospital Course (1) Brain TIA: This is an 79-year-old male with PMH of hypertension, CKD III, COPD, chronic respiratory failure with hypoxia requiring oxygen at bedtime, BPH and other medical problems listed below who presents with strokelike symptoms beginning day prior to admission. -Left-sided weakness and dysarthria that have since resolved -CT head without acute intracranial abnormality. CTA head/neck with focal area of high-grade/critical stenosis of greater than 90% within the proximal R ICA/bulb, focal intraluminal soft plaque within the proximal R ICA which measures 4 mm and focal area of 75% stenosis at the proximal left internal carotid artery/carotid bulb -Echo with bubble study ordered, no ASD. pacemaker interrogation obtained -Continue dual antiplatelet therapy with aspirin and Plavix. Initiating statin a s well -Neuro checks, PT, OT, speech therapy evaluations -Routine neurology consult - Per neuro: 1. Symptomatic right internal carotid stenosis. Agree with Vascular Surgery intervention provided. Antiplatelet therapy, dual for 21 days with aspirin and Plavix and then aspirin alone. Statin with goal LDL of 70 or less. Consider Zio patch as an outpatient. Antiplatelet therapy at present per Vascular Surgery. Risk factor modification including treatment with statin with a goal LDL of 70 or less. 2. 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 Recommend Vascular Interventional Neurosurgery consultation post discharge. Likely they will recommend followup CT periodically and no intervention due to small size. (2) Stenosis of both internal carotid arteries: CTA head and neck with evidence of high-grade stenosis of 90% in R ICA and 75% stenosis in L ICA -Seen by vascular surgery, now s/p R CEA on 12/29/[address] Mercedes -Plan to continue dual antiplatelet therapy (3) COPD with hypoxia: Continue Symbicort, supplemental O2 at bedtime and as needed during day- patient states he has been using suppl. of O2 via NC for past several years (but does not have a portable oxygen/his portable oxygen is old) -2 step study done, patient will get a prescription for supplemental oxygen, 2 L/min via NC, with portability (4) HTN (hypertension): Allow for permissive hypertension for cerebral perfusion in setting of possible ischemic event -Intervene for BP greater than 220/110 -Holding home amlodipine and atenolol on admission -Patient in ICU care after surgery for 24 hrs, per critical care/primary recommendation, atenolol was switched to metoprolol -Amlodipine restarted due to hypertension HUDSON due to urinary retention Creatinine was 1.47, now resolved Patient retaining 600 to 800 cc for urine - Retention likely secondary to anesthesia, pain meds in the setting of BPH -Straight cath as needed, continue to monitor -Zepeda catheter placed yesterday afternoon -patient will be discharged with Zepeda catheter, will need voiding trial as outpatient (5) 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 S/p pacemaker placement (6) BPH (benign prostatic hyperplasia): Continue Avodart. Cont. tamsulosin - resume on dc (7) CKD (chronic kidney disease), stage III: Kidney function at baseline. Monitor with daily BMP DVT Ppx: SQ heparin Code status: FULL PCP: Beatriz Dispo: Plan to dc home. Total Time Total Time Spent Total Time Spent (In Minutes): 40 Total Time Includes: Examination of the Patient, Discharge Planning and Medication Reconciliation Discharge Plan Discharge Items Patient Disposition: Home - Self-Care Reason For Visit: STROKE LIKE SYMPTOMS/ TIA Discharge Diagnosis: Right hemispheric TIA Symptomatic carotid stenosis, now status post right carotid endarterectomy HUDSON due to urinary retention, now with Zepeda catheter Chronic respiratory failure with hypoxia, due to COPD, patient requires continuous supplemental O2 Activity: Per Instructions section Non-emergency contact: Primary Care Provider and Surgeon Call non-emergency contact if: you have any medication questions and your symptoms worsen Follow-up/Referrals: Tyrel Henderson MD [Primary Care Provider] - Diet: Heart Healthy Diet Texture: Easy to Chew Addtl Attending Provider Instructions: Follow-up with primary care doctor within 1 week. Take aspirin and Plavix for next 20 days, then continue only taking aspirin. Start taking atorvastatin. Continue taking amlodipine. It was recommended that atenolol is switched to metoprolol. Therefore stop atenolol, and take metoprolol 25 mg twice a day instead. Discussed this with your primary care provider. For pain you can take Tylenol 1000 mg 3 times a day, max daily dose 3000 mg. You will need voiding trial, removing Zepeda catheter as outpatient. If you have any questions regarding your surgery, or any issues with your incision, increased pain, swelling or bleeding or any unexpected drainage, contact Dr. Mercedes's office. Make sure you keep your incision dry and clean and follow-up with Dr. Mercedes as was discussed. Their office number is [phone] or [phone]. You need to use supplemental continuous oxygen, 2 L/min. Your goal saturation rate is 88-92%. You can check this with pulse oximeter. 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 Pending Studies at Discharge: No Stand-Alone Forms: Medications to Prevent Stroke, My [facility] [employer], Smoking Cessation Medications and DC Order Prescriptions: New clopidogrel 75 mg Tablet 75 mg PO QAM 20 Days Qty: 20 RF: 0 atorvastatin 40 mg Tablet 40 mg PO QAM 30 Days Qty: 30 RF: 0 metoprolol tartrate 25 mg Tablet 25 mg PO BID 30 Days Qty: 60 RF: 0 aspirin 81 mg Tablet,Delayed Release (Dr/Ec) 81 mg PO QAM 30 Days Qty: 30 RF: 0 acetaminophen 325 mg Tablet 650 mg PO Q4H PRN (Reason: pain) Qty: 20 RF: 0 Continued tamsulosin [Flomax] 0.4 mg capsule 0.4 mg PO QPM Qty: 90 RF: 3 dutasteride [Avodart] 0.5 mg capsule 0.5 mg PO QPM Qty: 90 RF: 3 amlodipine [Norvasc] 5 mg Tablet 5 mg PO QAM RF: 0 Discontinued atenolol [Tenormin] 50 mg Tablet 50 mg PO QAM RF: 0 Discharge Orders: Discharge Order (Routine); Ordered 01/01/20 Ordered By: Karlo Baldwin Admission Data Admit Date/Time: 12/26/19 14:38 Attending Provider: Karlo Baldwin Admit Provider: Sugey Villegas Primary Care Provider: Tyrel Henderson Other Providers: Vel Hong ; Sugey Villegas ; Bridget Maria ; Anuel Monteiro ; Bridget Valdes ; Gregorio Vences ; Gregorio Mercedes ; Bairon Hopper ; Jared Shaw ; Claude Martell ; Bill Luis ; Jose Lezama ; Barrie Negron ; Ja Sandoval
[2020-01-01] MEDS ORDERED: STROKE PATIENT DISCHARGE STA (11:53)
--- NOTE | 2020-01-01 12:01 | Pharmacy Report ---
Pharmacist Stroke Counseling - Date of Service January 01, 2020 - Scope: Pharmacy has been consulted to provide medication discharge counseling for this patient admitted with transient ischemic attack as per the Pharmacist Discharge Counseling for Stroke Patients Protocol. - Medications on Discharge: Home Medications Medication Instructions Recorded Confirmed amlodipine [Norvasc] 5 mg PO QAM 03/20/18 12/26/19 New Rx's Medication Instructions Recorded dutasteride 0.5 mg capsule 0.5 mg PO QPM #90 cap 02/01/19 tamsulosin 0.4 mg capsule 0.4 mg PO QPM #90 cap 11/01/19 aspirin 81 mg PO QAM 30 Days #30 tab 01/01/20 atorvastatin 40 mg PO QAM 30 Days #30 tab 01/01/20 clopidogrel 75 mg PO QAM 20 Days #20 tab 01/01/20 metoprolol tartrate 25 mg PO BID 30 Days #60 tab 01/01/20 - Action: The above medications, specifically ones for stroke treatment/prophylaxis, have been reviewed in detail with the patient and/or patient sales representative(s) prior to discharge. This includes indication, common adverse reactions, drug interactions, and medication administration. Medication counseling has been employed using the teach-back method to ensure understanding. - Outcome: The patient and/or patient sales representative(s) have demonstrated understanding of the medications. Additional comments: *Pt seemed confused and thought I was calling from [facility] after I told him I was a pharmacist from the hospital. *He asked if he should continue his Symbicort. I explained that it was not on the list of medications on discharge however he should ask his doctor. I also told him he should never stop any medication before talking to his doctor. Thank you for allowing pharmacy to be involved in the care of this patient. Please call [phone] with any additional questions
== END 2020-01-01 14:00 | disposition home or self-care (01) | DRG 38 ==
LOC: ED 13:04 → 2W 14:38 → SUATTDRO 14:38 → 2W 16:00 → 1E 12-29 16:04 → 2S 12-30 17:50

== ENCOUNTER 2023-09-23 10:41 | Inpatient (IN) ==
--- NOTE | 2023-09-23 10:55 | Emergency Department Note ---
Impression & Plan Edema, Cellulitis, HUDSON (acute kidney injury), Anemia ED Provider Note NAME: EDNA BRANHAM AGE: 83 SEX: M : 1940 ARRIVES VIA: Ambulance INFORMANT: Patient ED PROVIDER(S): Keenan Leary DO CHIEF COMPLAINT: swelling and redness of the left upper and left lower extremity HPI: Patient is an 83-year-old male with a past medical history of sick sinus syndrome, COPD, TIA, pacemaker, hypertension and complete heart block who presents to the ER for swelling and redness of his left lower extremity as well as his left upper extremity. This been going on for the past 5 days. He notes it is painful. He notes it has become red and erythematous. He thought it was psoriasis but does not believe that that is the case anymore. No dysuria, urgency, or frequency. No chest pain or shortness of breath. Chronically on 2 L nasal cannula. He has never had this before. ADDITIONAL HISTORY OBTAINED: Per HPI Chronic Medical/Social Conditions Affecting Care: Per HPI PAST MEDICAL HISTORY:See Below PAST SURGICAL HISTORY:See Below FAMILY HISTORY:See Below SOCIAL HISTORY:See Below HOME MEDICATIONS:See Below ALLERGIES:See Below VITALS:See Below PHYSICAL EXAMINATION: GENERAL: Sitting up in bed, alert, well appearing, well nourished, no distress, non-toxic EYE EXAM: normal conjunctiva. OROPHARYNX: no exudate, no erythema, lips, buccal mucosa, and tongue normal and mucous membranes are moist NECK: supple, no nuchal rigidity, no adenopathy, non-tender LUNGS: Clear to auscultation. Normal chest wall mechanics HEART: no murmurs, S1 normal and S2 normal ABDOMEN: abdomen soft, non-tender, normo-active bowel sounds, no masses, no rebound or guarding. UPPER EXTREMITIES: Erythema circumferentially of the left hand throughout the left forearm. Radial pulses 2 out of 4 bilaterally. LOWER EXTREMITIES: Left calf significantly larger than right calf with pitting edema and erythema tracking up to left thigh with multiple scratch uhghes and excoriation DP 2 out of 4.. NEURO EXAM: Normal sensorium, cranial nerves II-XII grossly intact, normal speech, no gross weakness of arms, no gross weakness of legs. MEDICAL DECISION MAKING: Patient is a 3-year-old male who presents ER for above-stated complaint. IV was established blood work is obtained. Labs show no significant leukocytosis. Mild anemia 12. Platelets were unremarkable. BMP with a mild HUDSON at 1.4. LFTs bilirubin was unremarkable. Troponin was negative. Lipase was normal. Patient had edema of the left upper and left lower extremity. Duplexes were negative. Patient was given IV Rocephin updated bedside discussed with the hospitalist admitted for further workup. Consults/Care Managements Discussions: Per MDM Triage Nursing notes reviewed. Limited review of prior medical records performed Vital Signs: reviewed and remarkable for no significant abnormalities chronically on 2 L nasal cannula Differential diagnosis: Cellulitis, abscess, MRSA infection, DVT, necrotizing fasciitis, dermatitis, drug eruption, allergic reaction, as well as other pathologies. ER treatment provided: See below Diagnostics interpreted by me include EKG and cardiac monitoring as listed below: -Cardiac Monitoring: An order was placed for continuous cardiac monitoring. The monitor shows a rate of 80 with 80 rhythm. -ECG: none -Laboratory studies:Interpreted by me as stated above in MDM and shown below. Imaging studies: Xrays: As interpreted by me: Portable AP upright 1 view of the chest shows no focal infiltrate CTs show: none Venous Doppler of the left upper and left lower extremity was unremarkable Procedures:none Critical Care: None Past Med/Surg History Medical History (Updated 09/23/23 @ 17:11 by Keenan Leary DO) Asymptomatic bilateral carotid artery stenosis AAA (abdominal aortic aneurysm) without rupture Urinary symptom or sign Chronic respiratory failure with hypoxia Pulmonary nodule seen on imaging study Stable 1 cm solid right lower lobe pulmonary nodule as well as stable indeterminate solid lobulated 19 mm anterior mediastinal soft tissue mass Urinary retention CKD (chronic kidney disease), stage III Dyspnea on exertion Patient chronically on supplemental oxygen Emphysema lung BPH (benign prostatic hyperplasia) Psoriasis COPD (chronic obstructive pulmonary disease) Hx of Lyme disease Pacemaker 2015 ([employer]) SECONDARY TO COMPLETE HEART BLOCK/SSS; Hypertension 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 Beliefs That Will Affect Care: None marital status: Current Living Situation: Spouse current occupational status: retired How many Children do You have: 2 How many Children do You have Comment: one son lives close and is able to assist with care, other son not involved Feels Safe at Home: Yes Diet: regular during the past year weight has: remained stable Assistive Devices: Glasses Allergies Allergies Allergy/AdvReac Type Severity Reaction Status Date / Time No Known Allergies Allergy Verified 09/23/23 14:24 Home Meds Home Medications Medication Instructions Recorded Confirmed amlodipine 5 mg tablet (Norvasc) 5 mg PO QAM 03/20/18 09/23/23 atorvastatin 40 mg tablet 40 mg PO QAM 10/22/22 09/23/23 guselkumab 100 mg/mL subcutaneous 100 mg subcut UD 10/22/22 09/23/23 syringe (Tremfya) losartan 25 mg tablet 25 mg PO QAM 10/22/22 09/23/23 albuterol sulfate 90 mcg/actuation 1 inh inhalation QID PRN Shortness 09/23/23 09/23/23 aerosol inhaler Of Breath Or Wheezing dutasteride 0.5 mg capsule 0.5 mg PO QPM 09/23/23 09/23/23 (Avodart) tamsulosin 0.4 mg capsule (Flomax) 0.4 mg PO QPM 09/23/23 09/23/23 Results & Data (ED) Vital Signs Vital Signs - 24 hr 09/23/23 11:03 09/23/23 11:03 09/23/23 12:11 Temperature 36.9 C Temperature Source Oral Pulse Rate 95 H 98 H Pulse Rate [Apical] Pulse Rhythm [Apical] Pulse Strength [Apical] Respiratory Rate 16 Respiratory Effort / Characteristics Respiratory Depth Respiratory Pattern Blood Pressure 114/95 Blood Pressure [Right Arm] Blood Pressure Mean 101 Blood Pressure Mean [Right Arm] Pulse Oximetry 96 97 Oxygen Delivery Method Nasal Cannula Room Air Oxygen Flow Rate 2 Sepsis Recent Fever Within 48 Hours No Sepsis New/Unexplained Change in Mental Status No Sepsis Action Taken by Nursing No Action Required 09/23/23 12:53 Temperature Temperature Source Pulse Rate Pulse Rate [Apical] 87 Pulse Rhythm [Apical] Regular Pulse Strength [Apical] Normal Respiratory Rate 19 Respiratory Effort / Characteristics Non-Labored Spontaneous Respiratory Depth Normal Respiratory Pattern Regular Blood Pressure Blood Pressure [Right Arm] 110/70 Blood Pressure Mean Blood Pressure Mean [Right Arm] 83 Pulse Oximetry 96 Oxygen Delivery Method Nasal Cannula Oxygen Flow Rate 2 Sepsis Recent Fever Within 48 Hours Sepsis New/Unexplained Change in Mental Status Sepsis Action Taken by Nursing Laboratory Data 09/23/23 11:00 09/23/23 11:00 Lab Results 09/23/23 Range/Units 11:00 WBC 8.92 (4.8-10.8) K/ul RBC 3.87 L (4.70-6.10) M/uL Hgb 12.0 L (14.0-18.0) g/dl Hct 37.9 L (42.0-52.0) % MCV 97.9 (80.0-100.0) fL MCH 31.0 (25.0-34.0) pg MCHC 31.7 L (32.0-36.0) g/dL RDW Std Deviation 52.4 H (36.4-46.3) fL RDW Coeff of Anni 14.6 H (11.5-14.5) % Plt Count 193 (130-400) K/uL MPV 10.5 (9.4-12.4) fL Immature Gran % (Auto) 0.3 % Neut % (Auto) 82.0 % Lymph % (Auto) 5.3 % [place] % (Auto) 11.1 % Eos % (Auto) 1.1 % Baso % (Auto) 0.2 % Neut # (Auto) 7.31 H (1.40-6.50) K/uL Lymph # (Auto) 0.47 L (1.20-3.40) K/uL [place] # (Auto) 0.99 H (0.11-0.59) K/uL Eos # (Auto) 0.10 (0.00-0.50) K/uL Baso # (Auto) 0.02 (0.00-0.20) K/uL Immature Gran # (Auto) 0.03 (0.01-0.20) K/uL Sodium 138 (136-145) mmol/L Potassium 4.6 (3.5-5.1) mmol/L Chloride 100 (98-107) mmol/L Carbon Dioxide 32 (21-32) mmol/L Anion Gap 6 (3-11) BUN 19 (6-23) mg/dl Creatinine 1.43 H (0.6-1.4) mg/dl Est Cr Clr Drug Dosing Not Reportable Est GFR ( Amer) 51.4 ml/min Est GFR (Non-Af Amer) 44.3 ml/min BUN/Creatinine Ratio 13.3 (10-20) Glucose 117 H (70-99(Fasting)) mg/dl Calcium 9.4 (8.6-10.3) mg/dl Total Bilirubin 1.1 H (0.2-1.0) mg/dl AST 17 (13-39) U/L ALT 7 (7-52) U/L Alkaline Phosphatase 88 (34-104) U/L Troponin I High Sens 13.8 (0-20) pg/ml B-Natriuretic Peptide 89 (0-100) pg/ml Total Protein 7.4 (6.0-8.3) gm/dl Albumin 4.1 (3.4-5.0) gm/dl Globulin 3.3 (2.5-4.0) gm/dl Albumin/Globulin Ratio 1.2 (0.9-2) Lipase 4 L (11-82) U/L Administered Medications Discontinued Medications Acetaminophen (Acetaminophen 500 Mg Tab) 1,000 mg PO ONE STA Stop: 09/23/23 15:01 Last Admin: 09/23/23 15:19 Dose: 1,000 mg Documented By: JENNIFER Ceftriaxone Sodium (Rocephin) 2,000 mg in 50 mls @ 100 mls/hr IV NOW STA Stop: 09/23/23 13:49 Last Infusion: 09/23/23 14:05 Dose: Infused Documented By: Admin: 09/23/23 13:32 Dose: 100 mls/hr Documented By: JENNIFER Tramadol HCl (Tramadol Hcl 50 Mg Tablet) 50 mg PO NOW STA Stop: 09/23/23 14:56 Last Admin: 09/23/23 15:19 Dose: 50 mg Documented By: JENNIFER Imaging Data Radiologist's Impression: Chest X-Ray 09/23/23 10:54 XR chest 1V portable CLINICAL HISTORY: Chest pain, nonspecific TECHNIQUE: Single frontal radiograph of the chest was obtained. Comparison: Comparison is made to chest radiograph 12/07/2018 FINDINGS: An implanted pacemaker is seen. Calcified aortic knob is seen. Emphysema is seen. Blunting of the left costophrenic angle is seen. IMPRESSION: Emphysema. Possible trace left pleural effusion. ACT 112: Negative or not required by law. Electronically signed by: Thaddeus Khoury M.D. 09/23/2023 11:39 AM Venous Doppler Study 09/23/23 10:54 US venous doppler LE LT CLINICAL HISTORY: swelling TECHNIQUE: Left lower extremity real-time compression venous ultrasound with Color Doppler imaging. Utilizing real-time ultrasonic imaging multiple real time high-resolution ultrasonic images with compression and noncompression maneuvers of the deep venous system in addition to color doppler imaging were performed from the common femoral vein through the proximal calf veins. COMPARISON: None available at the time of this dictation. FINDINGS/IMPRESSION: Currently there is normal compressibility of the deep venous system from the common femoral vein through the proximal calf veins. No superficial venous thrombosis is identified. Left groin lymph node measures 4.4 x 1.2 x 2.2 cm. It contains a benign-appearing fatty hilum. ACT 112: Negative or not required by law. Electronically signed by: Thaddeus Khoury M.D. 09/23/2023 1:03 PM Extremity Venous Study 09/23/23 10:55 LEFT UPPER EXTREMITY VENOUS DOPPLER ULTRASOUND CLINICAL HISTORY: Left upper extremity swelling. COMPARISON STUDY: No previous studies for comparison. TECHNIQUE: Sonography of the venous system of the left upper extremity was performed. FINDINGS: The left internal jugular, subclavian, axillary, brachial, radial, ulnar, cephalic and basilic veins were patent. No venous thrombus within the left upper extremity was noted. IMPRESSION: No venous thrombus within the left upper extremity. ACT 112: Negative or not required by law. Electronically signed by: Abdullahi Alvarez M.D. 09/23/2023 1:02 PM Discharge Plan Visit Data Chief Complaint: Swelling/Edema to Extremity ED Provider: Keenan Leary Discharge Problem: Edema, Cellulitis, HUDSON (acute kidney injury), Anemia Patient Disposition: Admitted As Inpatient Discharge Instructions Interventions: ED Discharge Assessment Last Done: 09/23/23 16:02 Discharge Problem: Edema Qualifiers: Edema type: unspecified Qualified Code(s): R60.9 - Edema, unspecified Cellulitis Qualifiers: Site of cellulitis: unspecified site Qualified Code(s): L03.90 - Cellulitis, unspecified Anemia Qualifiers: Anemia type: unspecified type Qualified Code(s): D64.9 - Anemia, unspecified
--- NOTE | 2023-09-23 11:41 | XRay Report ---
XR chest 1V portable CLINICAL HISTORY: Chest pain, nonspecific TECHNIQUE: Single frontal radiograph of the chest was obtained. Comparison: Comparison is made to chest radiograph 12/07/2018 FINDINGS: An implanted pacemaker is seen. Calcified aortic knob is seen. Emphysema is seen. Blunting of the lef t costophrenic angle is seen. IMPRESSION: Emphysema. Possible trace left pleural effusion. ACT 112: Negative or not required by law. Electronically signed by: Thaddeus Khoury M.D. 09/23/2023 11:39 AM
[2023-09-23 11:56] LABS: Basophils # (auto) 0.02 K/uL (0.00-0.20); Basophils % (auto) 0.2 %; Eosinophils % (auto) 1.1 %; Hematocrit (blood only) 37.9 % (42.0-52.0); Immature Granulocytes # (auto) 0.03 K/uL (0.01-0.20); Immature Granulocytes % (auto) 0.3 %; Lymphocytes # (auto) 0.47 K/uL (1.20-3.40); Lymphocytes % (auto) 5.3 %; Mean Corpuscular Hgb Conc 31.7 g/dL (32.0-36.0); Mean Corpuscular Volume 97.9 fL (80.0-100.0); Mean Platelet Volume 10.5 fL (9.4-12.4); Monocytes # (auto) 0.99 K/uL (0.11-0.59); Monocytes % (auto) 11.1 %; Neutrophils # (auto) 7.31 K/uL (1.40-6.50); Platelet Count 193 K/uL (130-400); RDW Coefficient of Variation 14.6 % (11.5-14.5); RDW Standard Deviation 52.4 fL (36.4-46.3); Red Blood Count 3.87 M/uL (4.70-6.10); White Blood Count 8.92 K/ul (4.8-10.8)
[2023-09-23 11:58] LABS: Alanine Aminotransferase 7 U/L (7-52); Albumin Globulin Ratio 1.2 (0.9-2); Albumin Level 4.1 gm/dl (3.4-5.0); Alkaline Phosphatase 88 U/L (34-104); Anion Gap 6 (3-11); Aspartate Aminotransferase 17 U/L (13-39); BUN Creatinine Ratio 13.3 (10-20); Bilirubin,Total 1.1 mg/dl (0.2-1.0); Blood Urea Nitrogen 19 mg/dl (6-23); Calcium 9.4 mg/dl (8.6-10.3); Carbon Dioxide 32 mmol/L (21-32); Chloride 100 mmol/L (98-107); Est GFR (African American) 51.4 ml/min; Est GFR (Non-African American) 44.3 ml/min; Globulin 3.3 gm/dl (2.5-4.0); Glucose 117 mg/dl (70-99(Fasting)); Lipase 4 U/L (11-82); Potassium 4.6 mmol/L (3.5-5.1); Sodium 138 mmol/L (136-145); Total Protein 7.4 gm/dl (6.0-8.3)
[2023-09-23 12:02] LABS: Troponin I High Sensitivity 13.8 pg/ml (0-20)
--- NOTE | 2023-09-23 13:04 | Ultrasound Report ---
LEFT UPPER EXTREMITY VENOUS DOPPLER ULTRASOUND CLINICAL HISTORY: Left upper extremity swelling. COMPARISON STUDY: No previous studies for comparison. TECHNIQUE: Sonography of the venous system of the left upper extremity was performed. FINDINGS: The left internal jugular, subclavian, axillary, brachial, radial, ulnar, cephalic and basi lic veins were patent. No venous thrombus within the left upper extremity was noted. IMPRESSION: No venous thrombus within the left upper extremity. ACT 112: Negative or not required by law. Electronically signed by: Abdullahi Alvarez M.D. 09/23/2023 1:02 PM
--- NOTE | 2023-09-23 13:05 | Ultrasound Report ---
US venous doppler LE LT CLINICAL HISTORY: swelling TECHNIQUE: Left lower extremity real-time compression venous ultrasound with Color Doppler imaging. U tilizing real-time ultrasonic imaging multiple real time high-resolution ultrasonic images with compr ession and noncompression maneuvers of the deep venous system in addition to color doppler imaging we re performed from the common femoral vein through the proximal calf veins. COMPARISON: None available at the time of this dictation. FINDINGS/IMPRESSION: Currently there is normal compressibility of the deep venous system from the common femoral vein thro ugh the proximal calf veins. No superficial venous thrombosis is identified. Left groin lymph node measures 4.4 x 1.2 x 2.2 cm. It contains a benign-appearing fatty hilum. ACT 112: Negative or not required by law. Electronically signed by: Thaddeus Khoury M.D. 09/23/2023 1:03 PM
--- NOTE | 2023-09-23 13:24 | Electrocardiogram Report ---
Test Reason : Blood Pressure : / mmHG Vent. Rate : 093 BPM Atrial Rate : 093 BPM P-R Int : 122 ms QRS Dur : 114 ms QT Int : 388 ms P-R-T Axes : 064 -58 102 degrees QTc Int : 482 ms Sinus rhythm with frequent AV dual-paced rhythm and Premature supraventricular complexes RSR' or QR pattern in V1 suggests right ventricular conduction delay Left anterior fascicular block Anteroseptal infarct , age undetermined Abnormal ECG When compared with ECG of 26-DEC-2019 13:17, Premature supraventricular complexes are now Present Vent. rate has increased BY 27 BPM Confirmed by Mathew Alarcon ([id number]) on 09/23/2023 1:24:00 PM Referred By: REFERRED SELF Confirmed By:Mathew Alarcon
[2023-09-23] MEDS: cefTRIAXone SODIUM 2,000 MG/50 ML BAG IV STA (13:32)
--- NOTE | 2023-09-23 14:27 | History & Physical Report ---
Date of Service September 23, 2023 Assessment & Plan (1) Cellulitis: Plan: Cont Rocephin and supportive pain control with Tylenol and tramadol. He has a rash that appears suspicious of a possible reaction, however, he denies any reason for this and reports no med changes at all. Denies OTC supplements, etc. He did take 's amoxicillin, however, that was just this morning. A reaction is possible, but less likely giving the timing that he is reporting. For now, cont the abx and monitor clinical improvement. (2) Psoriasis: Plan: chronic, significant plaques are present on hands, feet and extensor surfaces. Patient is on an interleukin inhibitor as outpatient per his photographic lithographer. He is due for his next infusion soon. Will cont efforts to treat superimposed cellulitis with abx and add topical clobetasol to extensor surface plaques twice daily. Recommend close followup with dermatology for further evaluation and additional treatments. Cont supportive care efforts/pain control efforts. (3) HUDSON (acute kidney injury): Plan: Uncertain cause, will hold losartan and give 2 bags IVF overnight . Repeat BMP in am. (4) Chronic respiratory failure with hypoxia: Plan: chronic, stable. Has underlying COPD. Cont supplemental oxygen which is at his baseline and albuterol PRN (5) Emphysema lung: Plan: chronic, would refer to PCP to consider starting regular inhaler therapy. stable. (6) Pulmonary nodule seen on imaging study: Plan: followup with imaging after discharge to ensure stability. (7) Cardiac pacemaker: Plan: per history (8) CKD (chronic kidney disease), stage III: Plan: chronic, stable. Cont to monitor BMP and renally dose all medications as needed. Avoid contrast as able. (9) BPH (benign prostatic hyperplasia): Plan: chronic, stable. Cont flomax and Avodart per home regimen. (10) HTN (hypertension): Plan: chronic, at goal. Hold losartan for now given elevated creatinine. Heparin Full Code Dispo-to floor. Can go home when pain in his feet resolves and he is back to ambulating at his baseline. I spent a total [id number] coordinating, documenting, and providing care for this patient excluding time spent in the performance of separately billed services Swetha Quiñones DO [facility] of Present Illness Chief Complaint: swelling/edema to extremity Primary Care Provider: Tyrel Henderson MD 83 yo M presents with acute left upper and lower extremity swelling and redness ongoing for the past 5 days. It is painful. He has a known history of psoriasis. He reports taking some of his 's amoxicillin this morning, and has no history of reactions to PCN in the past. He has a macular rash extending up into the medial left thigh and what appears to be a superimposed cellulitis on top of chronic psoriatic changes to the LLE and the LUE. He also has erythematous right foot with the beginning of what appears to be a rash and erythematous changes to his right hand with scaling. Denies dysuria, increased urinary frequency, chest pain, SOB. Denies fevers or chills. He is chronically on 2LPM nasal canula. Started on Rocephin in the ER. No evidence of sepsis. He is very uncomfortable because of the leg pain and reports that he is unable to stand on the leg which prompted his presentation today. Allergies Allergy/AdvReac Type Severity Reaction Status Date / Time No Known Allergies Allergy Verified 09/23/23 14:24 Home Medications Medication Instructions Recorded Confirmed Type amlodipine 5 mg tablet (Norvasc) 5 mg PO QAM 03/20/18 09/23/23 History atorvastatin 40 mg tablet 40 mg PO QAM 10/22/22 09/23/23 History guselkumab 100 mg/mL subcutaneous 100 mg subcut UD 10/22/22 09/23/23 History syringe (Tremfya) losartan 25 mg tablet 25 mg PO QAM 10/22/22 09/23/23 History albuterol sulfate 90 mcg/actuation 1 inh inhalation QID PRN Shortness 09/23/23 09/23/23 History aerosol inhaler Of Breath Or Wheezing dutasteride 0.5 mg capsule 0.5 mg PO QPM 09/23/23 09/23/23 History (Avodart) tamsulosin 0.4 mg capsule (Flomax) 0.4 mg PO QPM 09/23/23 09/23/23 History Past Med/Surg History Medical History Asymptomatic bilateral carotid artery stenosis AAA (abdominal aortic aneurysm) without rupture Urinary symptom or sign Chronic respiratory failure with hypoxia Pulmonary nodule seen on imaging study Stable 1 cm solid right lower lobe pulmonary nodule as well as stable indeterminate solid lobulated 19 mm anterior mediastinal soft tissue mass Urinary retention CKD (chronic kidney disease), stage III Dyspnea on exertion Patient chronically on supplemental oxygen Emphysema lung BPH (benign prostatic hyperplasia) Psoriasis COPD (chronic obstructive pulmonary disease) Hx of Lyme disease Pacemaker 2014 ([employer]) SECONDARY TO COMPLETE HEART BLOCK/SSS; Hypertension 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 Surgical History S/P cardiac pacemaker procedure 2014 ([employer]) SECONDARY TO COMPLETE HEART BLOCK/SSS; LAST CHECK 02/04/18 Hx of colonoscopy Family History Other Cancer Social History Smoking Status: Former smoker Tobacco Type: Cigarettes Age Started Using Tobacco: 18; Age Quit Using Tobacco: 75; packs per day: 1; Second Hand Exposure: No; Do You Dip or Chew Tobacco: No; Hx Alcohol Use: No Hx Substance Use: No Preferred Language: Mongolian Communication Ability: Effective Visual Impairment: No Limitations Hearing Ability: Normal Bodily Injury Adjuster Required: No Beliefs That Will Affect Care: None marital status: Current Living Situation: Spouse current occupational status: retired How many Children do You have: 2 How many Children do You have Comment: one son lives close and is able to assist with care, other son not involved Feels Safe at Home: Yes Diet: regular during the past year weight has: remained stable Assistive Devices: Denture - Upper, Denture - Lower and Oxygen - at Night Physical Exam Physical Exam: CONSTITUTIONAL: thin, elderly, vitals as above, generally appears uncomfor table. EYES: periorbital erythema is present, normal conjunctivae, no scleral icterus ENT: external ear and nose normal, MMM NECK: trachea midline RESPIRATORY: clear to auscultation bilaterally, no crackles, rales or wheezes, normal respiratory effort CARDIOVASCULAR: regular rate and rhythm, S1 and 2 heard without murmurs, gallops or rubs, no JVD, no peripheral edema CHEST: inspection of chest was normal GASTROINTESTINAL: soft, nontender, ND, no guarding MUSCULOSKELETAL: strength 5/5 throughout, head is normocephalic and atraumatic SKIN: warm and dry, scaly erythematous plaques on most extremity extensor surfaces and there is more severe confluent erythema on the distal LLE and distal LUE. THere is severe erythema and psoriatic involvement of the hands. There is a petechial rash extending up in to the medial thigh. LLE is very painful to touch. No swelling is present. There is warmth to LLE>RLE and LUE>RUE. NEUROLOGIC: CN 2-12 grossly intact, no sensory deficit, normal cognition, normal speech, no tremor PSYCHIATRIC: alert cooperative and oriented to person, place and time. Results & Data Results & Data Vital Signs (Past 12 Hours) Vital Signs Temp Pulse Pulse Resp BP BP Pulse Ox 09/23/23 12:53 87 19 110/70 96 09/23/23 12:11 97 09/23/23 11:03 98 H 09/23/23 11:03 36.9 C 95 H 16 114/95 96 O2 Del Method O2 Flow Rate 09/23/23 12:53 Nasal Cannula 2 09/23/23 12:11 Room Air 09/23/23 11:03 09/23/23 11:03 Nasal Cannula 2 Laboratory Results Short CBC 09/23/23 Range/Units 11:00 WBC 8.92 (4.8-10.8) K/ul Hgb 12.0 L (14.0-18.0) g/dl Hct 37.9 L (42.0-52.0) % Plt Count 193 (130-400) K/uL BMP 09/23/23 11:00 Sodium 138 Potassium 4.6 Chloride 100 Carbon Dioxide 32 BUN 19 Creatinine 1.43 H Glucose 117 H Calcium 9.4 Liver Function 09/23/23 Range/Units 11:00 Total Bilirubin 1.1 H (0.2-1.0) mg/dl AST 17 (13-39) U/L ALT 7 (7-52) U/L Alkaline Phosphatase 88 (34-104) U/L Albumin 4.1 (3.4-5.0) gm/dl Diagnostic Findings Chest X-Ray 09/23/23 10:54 XR chest 1V portable CLINICAL HISTORY: Chest pain, nonspecific TECHNIQUE: Single frontal radiograph of the chest was obtained. Comparison: Comparison is made to chest radiograph 12/07/2018 FINDINGS: An implanted pacemaker is seen. Calcified aortic knob is seen. Emphysema is seen. Blunting of the left costophrenic angle is seen. IMPRESSION: Emphysema. Possible trace left pleural effusion. ACT 112: Negative or not required by law. Electronically signed by: Thaddeus Khoury M.D. 09/23/2023 11:39 AM Venous Doppler Study 09/23/23 10:54 US venous doppler LE LT CLINICAL HISTORY: swelling TECHNIQUE: Left lower extremity real-time compression venous ultrasound with Color Doppler imaging. Utilizing real-time ultrasonic imaging multiple real time high-resolution ultrasonic images with compression and noncompression maneuvers of the deep venous system in addition to color doppler imaging were performed from the common femoral vein through the proximal calf veins. COMPARISON: None available at the time of this dictation. FINDINGS/IMPRESSION: Currently there is normal compressibility of the deep venous system from the common femoral vein through the proximal calf veins. No superficial venous thrombosis is identified. Left groin lymph node measures 4.4 x 1.2 x 2.2 cm. It contains a benign-appearing fatty hilum. ACT 112: Negative or not required by law. Electronically signed by: Thaddeus Khoury M.D. 09/23/2023 1:03 PM Extremity Venous Study 09/23/23 10:55 LEFT UPPER EXTREMITY VENOUS DOPPLER ULTRASOUND CLINICAL HISTORY: Left upper extremity swelling. COMPARISON STUDY: No previous studies for comparison. TECHNIQUE: Sonography of the venous system of the left upper extremity was performed. FINDINGS: The left internal jugular, subclavian, axillary, brachial, radial, ulnar, cephalic and basilic veins were patent. No venous thrombus within the left upper extremity was noted. IMPRESSION: No venous thrombus within the left upper extremity. ACT 112: Negative or not required by law. Electronically signed by: Abdullahi Alvarez M.D. 09/23/2023 1:02 PM Code Status & VTE Plan VTE Prophylaxis Plan VTE Prophylaxis will be ordered: Yes (10) HTN (hypertension) Hypertension type: essential hypertension Qualified Code(s): I10 - Essential (primary) hypertension
[2023-09-23] MEDS: ACETAMINOPHEN 500 MG TAB PO STA (15:19)
[2023-09-23] MEDS: traMADol HCL 50 MG TABLET PO STA (15:19)
[2023-09-23] MEDS ORDERED: ALBUTEROL HFA 8 GM INHALER INH PRN (16:36)
[2023-09-23] MEDS: SODIUM CHLORIDE 0.9% 1,000 ML IV SCH (18:26)
--- OUTSIDE RECORDS SUMMARY | 2023-09-23 19:47 | External Medical Summary | Summary of Care ---
Author Name Unknown Organization [facility] Address [address] [place] [address] Phone [phone] Care Team Providers Care Manager Of Pmo Name Role Phone Tyrel Henderson MD Primary Care Provider [phone]- [phone] Reason for Visit * Reason Onset Date Comments Advice 09/15/2023 Encounter Details Date Type Department Care Team (Late st Contact Info) Description 09/15/2023 Telephone Access Center, [address] *DO NOT REMOVE THIS DEPARTMENT* [place] [phone] Services, Scheduling [address] [place] [address] Advice Allergies No known active allergiesdocumented as of this encounter (statuses as of 09/17/2023) Medications Medication Sig Dispensed Refills Start Date End Date Status dutasteride (AVODART) 0.5 MG Capsule Take 1 Capsule by mouth in the morning. 0 11/08/2016 Active tamsulosin (FLOMAX) 0.4 MG Capsule Take 1 Capsule by mouth in the morning. 0 11/08/2016 Active Aspirin 81 MG Oral Tablet Delayed Release Take 1 Tablet by mouth in the morning. 0 Active Breztri Aerosphere 160-9-4.8 MCG/ACT Inhalation Aerosol (Pvvuodd-Ylbbmlxcupr-X ormoterol) Inhale by mouth. 0 Active levoFLOXacin 500 MG Oral Tablet (Levaquin) Take 1 Tablet by mouth daily. Rescue Kit 10 Tablet 3 07/11/2021 Active Atorvastatin Calcium 40 MG Oral Tablet (Lipitor) Take 1 Tablet by mouth in the morning. 90 Tablet 3 09/20/2022 Active Losartan Potassium 25 MG Oral Tablet (Cozaar) Take 1 Tablet by mouth in the morning. 90 Tablet 3 09/20/2022 Active amLODIPine Besylate 10 MG Oral Tablet (Norvasc) take 1 tablet by mouth once daily 90 Tablet 2 01/23/2023 Active Albuterol Sulfate HFA 108 (90 Base) MCG/ACT Inhalation Aerosol SolutionIndications:CO PD, group C, by GOLD 2017 classification ([facility]) Inhale 2 Puffs by mouth every 4 hours as needed for Wheezing or Dyspnea. 18 g 5 06/11/2023 Active Tremfya 100 MG/ML Subcutaneous Solution Prefilled Syringe (Guselkumab)Indication s:Psoriasis INJECT 1 SYRINGE UNDER THE SKIN EVERY 8 WEEKS. 1 mL 3 08/27/2023 Active documented as of this encounter (statuses as of 09/17/2023) Active Problems Problem Noted Date Diagnosed Date Chronic kidney disease, stage 3a 10/07/2022 Overview: Per CKD protocol Benign hypertension with stage 3a chronic kidney disease 09/09/2022 Overview: Per CKD protocol Psoriasis 02/13/2021 Pulmonary emphysema 02/13/2021 Asymptomatic bilateral carotid artery stenosis 0 02/13/2021 Abdominal aortic aneurysm (AAA) without rupture 02/13/2021 COPD, group C, by GOLD 2017 classification 01/09 Overview: Per COPD GOLD Classification Pulmonary nodule 01/21/2019 HTN, goal below 140/90 12/04/2016 BPH with obstruction/lower urinary tract symptom s 12/04/2016 S/P placement of cardiac pacemaker 12/04/2016 documented as of this encounter (statuses as of 09/17/2023) Resolved Problems Problem Noted Date Diagnosed Date Resolved Date Complete heart block 03/06/2018 019 Benign hypertension with chr onic kidney disease, stage III 07/28/2017 09/11/2022 Overview: Per CKD protocol Kidney disease, chronic, sta ge III (GFR 30-59 ml/min) 07/28/2017 02/14/2018 COPD, severity to be determined 12/04/2016 01/13/2020 Overview: Per COPD GOLD Classification H/o Lyme disease 12/04/2016 12/10/2016 documented as of this encounter (statuses as of 09/17/2023) Immunizations Name Administration Dates Next Due COVID-19 mRNA, LNP-s, No Pre serve, 2-Dose Series (Pfizer) 05/30/2021,09/08/2020,08/18/2020 Pneumococcal Conjugate Vacc, 13 Valent (Prevnar) 04/01/2017 Pneumococcal Polysaccharide PPV23 (Pneumovax) 02/23/2015 Season Influenza, Quad, PF, Adjuvanted, 65+ Yrs, IM (FLUAD) 04/22/2022,04/09/2021 Seasonal Influenza, PF, 6 M & above, IM , (FluLaval or Fluzone) 04/01/2017 Seasonal Influenza, Quadriva lent Hd (Fluzone Hd) 04/03/2023 Seasonal Influenza, Quadriva lent Hd, 65+ Yrs 03/15/2020 Seasonal Influenza, Quadriva lent, No Preserve, IM 03/05/2018 TD - Tetanus/Diptheria (ADULT) 02/23/2015 Zoster Vaccine Recombinant (Shingrix) 04/09/2021 ,02/06/2021 documented as of this encounter Social History Tobacco Use Types Packs/Day Years Used Date Smoking Tobacco: Former Smokeless Tobacco: Never Alcohol Use Standard Drinks/Week Comments No 0 (1 standard drink = 0.6 oz pur e alcohol) PHQ-2 Answer Date Recorded PHQ Adult Total Score 0 04/03/2023 Hunger Vital Sign Answer Date Recorded Worried About Running Out of Food in the Last Ye ar Never true 07/28/2019 Ran Out of Food in the Last Year Never true 07/28/2019 Sex and Gender Information Value Date Recorded Sex Assigned at Not on file Gender Identity Not on file Sexual Orientation Straight 05/17/2020 10 :27 AM EST Job Start Date Occupation Industry Not on file Not on file Not on file documented as of this encounter Miscellaneous Notes * Telephone Encounter - Tracy Vinson LPN - 09/15/2023 2:45 PM EDT Spoke to patient, there was a mis-communication on patient's end and insurance company end. Everything is straightened out and medication is being shipped out. He will indeed have the $5 co-pay. * Telephone Encounter - Kaylyn Gonzales OSA - 09/15/2023 10:26 AM EDT Pt's Michaelle calling about the Tremfya, pt got a prior-approval from the insurance about the costs for this. Michaelle is stating pt used to pay $5 for this. Pt would like to speak to someone about this. [facility] is the Pharmacy. Please assist. Cassie miranda documented in this encounter Plan of Treatment Upcoming Encounters Date Type Department Care Team (Late st Contact Info) Description 09/29/2023 8:00 AM EDT Laboratory Laboratory, [place] [address] [place] [phone] [facility] [address], [place] [id number] 10/03/2023 9:20 AM EDT Office Visit [facility], [place] [address] [place] [address] Tyrel Henderson MD [address], [place] [phone] 02/23/2024 9:00 AM EDT Office Visit Dermatology [place] [facility] [place] [address] [facility] [place] [address] Damien Jordan MD [address] [place] [address] Health Maintenance Due Date Last Done Comments Albumin/Creatinine Ratio 02/27/1958 Alpha-1 Antitrypsin 02/27/1958 DTaP,Tdap,and Td Vaccines (1 - Tdap) 02/24/2015 02/23/2015 *COPD SEVERITY VERIFIED BY PFT 12/08/2016 CKD PHOS USE SMARTSET 66500 08/20/202208/01, 02/13/2021, 01/21/2019, Additional history exists COVID-19 Vaccine ( season) 2023 05/30/2021, 09/08/2020, 08/18/2020 AAA Monitoring 07/09/2023 07/09/2022 CKD HGB USE SMARTSET 51967 08/29/202308/28, 08/27/2021, 08/27/2021, Additional history exists Depression Screening 04/03/2024 04/03/2023 O2 ASSESSMENT COMPLETED IN PAST YEAR FOR COPD 04/03/2024 04/03/2023 Pneumococcal Vaccine: 65+ Years Completed 04/01/2017, 02/23/2015 Zoster Vaccines Completed 04/09/2021, 02/06/2021 Influenza Vaccine (FLU shot) Completed 10/2022, 04/22/2022, 04/09/2021, Additional history exists GARDASIL-HPV IMMUNIZATION SERIES Aged Out No longer eligible based on patient's age to complete this topic Hepatitis B Aged Out No longer eligi ble based on patient's age to complete this topic MENINGOCOCCAL (MENACTRA/MENVEO) Aged Out No longer eligible based on patient's age to complete this topic documented as of this encounter Medical Devices Not on filedocumented as of this encounter Care Teams Manager Of Pmo Relationship Specialty Start Date End Date Tyrel Henderson MD [address] [place] [address] PCP - General Family Medicine 01/20/18 documented as of this encounter
--- OUTSIDE RECORDS SUMMARY | 2023-09-23 19:47 | External Medical Summary | Summary of Care ---
Author Name Unknown Organization [facility] Address [address] [facility] [place] [address] Phone [phone] Care Team Providers Care Lockstitch Pocket Setter Name Role Phone Tyrel Henderson MD Primary Care Provider [phone]- [phone] Reason for Visit * Reason Onset Date Comments Precert Approved 08/29/2023 Diomedes Encounter Details Date Type Department Care Team (Late st Contact Info) Description 08/29/2023 Telephone Dermatology [facility] [address] [place] [address] Damien Jordan MD [address] [place] [address] Precert Approved (Diomedes) Allergies No known active allergiesdocumented as of this encounter (statuses as of 09/04/2023) Medications Medication Sig Dispensed Refills Start Date [...] Active Breztri Aerosphere 160-9-4.8 MCG/ACT Inhalation Aerosol (Jpffzlu-Wvjmdfmaytj-Q ormoterol) Inhale by mouth. 0 Active levoFLOXacin [...] PD, group C, by GOLD 2017 classification ([facility]) Inhale 2 Puffs by mouth every 4 hours as needed for Wheezing or Dyspnea. 18 g 5 06/11/2023 Active Tremfya 100 MG/ML Subcutaneous Solution Prefilled Syringe (Guselkumab)Indication s:Psoriasis INJECT 1 SYRINGE UNDER THE SKIN EVERY 8 WEEKS. 1 mL 3 08/27/2023 Active documented as of this encounter (statuses as of 09/04/2023) Active Problems Problem Noted Date Diagnosed Date [...] as of this encounter (statuses as of 09/04/2023) Resolved Problems Problem Noted Date Diagnosed Date [...] as of this encounter (statuses as of 09/04/2023) Immunizations Name Administration Dates Next Due COVID-19 [...] encounter Miscellaneous Notes * Telephone Encounter - KarelTracy LPN - 08/29/2023 2:25 PM EST Dermatology Pre-Cert Request Medication/Disease State Information: Medication: Guselkumab (Tremfya) Maintenance 100mg/ml Syringe - 100mg every 8 weeks (Day Supply: 1mL per 56 day supply) Diagnosis (including ICD-10): Psoriasis - Psoriasis, unspecified L40.9 Site of Care: specialty medication - route to [id number]. Referral to pharmacist for: No Pharmacist involvement needed See corresponding visit note(s) for additional supporting clinical information. Office Information: Prescriber: Damien Jordan MD documented in this encounter Plan of Treatment Upcoming Encounters Date Type Department Care Team (Late st Contact Info) Description 09/29/2023 8:00 AM EDT Laboratory Laboratory, [place] [address] [place] [address] [facility] Laboratory [facility] [address] [place], [place] [phone] 10/03/2023 9:20 AM EDT Office Visit [facility] [address] [place] [address] Tyrel Henderson MD [address] [place] [address] 02/23/2024 9:00 AM EDT Office Visit Dermatology [facility] [address] [place] [address] Damien Jordan MD [address] [place] [address] Health Maintenance Due Date Last Done Comments Albumin/Creatinine Ratio [birth year]/27/1958 Alpha-1 Antitrypsin 02/27/1958 DTaP,Tdap,and Td Vaccines (1 - Tdap) 02/24/2015 02/23/2015 *COPD SEVERITY VERIFIED BY PFT 12/08/2016 CKD PHOS USE SMARTSET [id number] 08/20/2022 02/06/2021, 02/13/2021, 01/21/2019, Additional history exists COVID-19 Vaccine ( season) 2023 05/30/2021, 09/08/2020, 08/18/2020 AAA Monitoring 07/09/2023 07/09/2022 CKD HGB USE SMARTSET 37125 08/29/202308/28, 08/27/2021, 08/27/2021, Additional history exists Depression [...] filedocumented as of this encounter Care Teams Lockstitch Pocket Setter Relationship Specialty Start Date End Date Tyrel Henderson MD [address] [place], [place] [phone] PCP - General Family Medicine 01/20/18 documented as of this encounter
--- OUTSIDE RECORDS SUMMARY | 2023-09-23 19:48 | External Medical Summary | Summary of Care ---
Author Name Unknown Organization [facility] Address [address] [facility] [place] [address] Phone [phone] Care Team Providers Care Casing Soaker Name Role Phone Tyrel Henderson MD Primary Care Provider [phone]- [phone] Reason for Visit * Reason Onset Date Comments Precert Future 08/29/2023 Tremfya Encounter Details Date Type Department Care Team (Late st Contact Info) Description 08/29/2023 Telephone Dermatology [facility] [place] [address] [place] [address] Damien Jordan MD [address] [place] [address] Precert Future (Tremyuri) Allergies No known active allergiesdocumented as of [...] Active Breztri Aerosphere 160-9-4.8 MCG/ACT Inhalation Aerosol (Eazjvnf-Oywilcbhqbw-J ormoterol) Inhale by mouth. 0 Active levoFLOXacin [...] PD, group C, by GOLD 2017 classification ([facility]) Inhale 2 Puffs by mouth every [...] of Care: specialty medication - route to [id number]. Referral to pharmacist for: No Pharmacist involvement needed See corresponding visit note(s) for additional supporting clinical information. Office Information: Prescriber: Damien Jordan MD documented in this encounter Plan of Treatment Upcoming Encounters Date Type Department Care Team (Late st Contact Info) Description 09/29/2023 8:00 AM EDT Laboratory Laboratory, [place] [address] [place] [address] [facility] [address], [place] [phone] 10/03/2023 9:20 AM EDT Office Visit [facility] [address] [place] [address] Tyrel Henderson MD [address] [place] [address] 02/23/2024 9:00 AM EDT Office Visit Dermatology [facility] [address] [place] [address] Damien Jordan MD [address] [place] [address] Health Maintenance Due Date Last Done Comments Albumin/Creatinine Ratio 02[birth year]27/1958 Alpha-1 Antitrypsin 02/27/1958 DTaP,Tdap,and Td Vaccines (1 - Tdap) 02/24/2015 02/23/2015 *COPD SEVERITY VERIFIED BY PFT 12/08/2016 CKD PHOS USE SMARTSET [id number] 08/20/2022 02/06/2021, 02/13/2021, 01/21/2019, Additional history exists COVID-19 Vaccine ( season) 2023 05/30/2021, 09/08/2020, 08/18/2020 AAA Monitoring 07/09/2023 07/09/2022 CKD HGB USE SMARTSET 67568 08/29/202308/28, 08/27/2021, 08/27/2021, Additional history exists Depression [...] filedocumented as of this encounter Care Teams Casing Soaker Relationship Specialty Start Date End Date Tyrel Henderson MD [address], [place] [phone] PCP - General Family Medicine 01/20/18 documented as of this encounter
--- OUTSIDE RECORDS SUMMARY | 2023-09-23 19:48 | External Medical Summary | Summary of Care ---
Author Name Unknown Organization [facility] Address [address] [place] [address] Phone [phone] Care Team Providers Care Captain Of Guards Name Role Phone Tyrel Henderson MD Primary Care Provider [phone] Reason for Visit * Reason Onset Date Comments Precert Future 08/29/2023 Tremfya Encounter Details Date Type Department Care Team (Late st Contact Info) Description 08/29/2023 Telephone Dermatology [facility] [place] [address] [place] [address] Damien Jordan MD [address] [place] [address] Precert Future (Tremyuri) Allergies No known active allergiesdocumented as of this encounter (statuses as of 09/03/2023) Medications Medication Sig Dispensed Refills Start Date [...] Active Breztri Aerosphere 160-9-4.8 MCG/ACT Inhalation Aerosol (Qhvarnz-Jakfsnppmxx-P ormoterol) Inhale by mouth. 0 Active levoFLOXacin [...] PD, group C, by GOLD 2017 classification ([facility]) Inhale 2 Puffs by mouth every 4 hours as needed for Wheezing or Dyspnea. 18 g 5 06/11/2023 Active Tremfya 100 MG/ML Subcutaneous Solution Prefilled Syringe (Guselkumab)Indication s:Psoriasis INJECT 1 SYRINGE UNDER THE SKIN EVERY 8 WEEKS. 1 mL 3 08/27/2023 Active documented as of this encounter (statuses as of 09/03/2023) Active Problems Problem Noted Date Diagnosed Date [...] as of this encounter (statuses as of 09/03/2023) Resolved Problems Problem Noted Date Diagnosed Date [...] as of this encounter (statuses as of 09/03/2023) Immunizations Name Administration Dates Next Due COVID-19 [...] of Care: specialty medication - route to [id number]. Referral to pharmacist for: No Pharmacist involvement needed See corresponding visit note(s) for additional supporting clinical information. Office Information: Prescriber: Damien Jordan MD documented in this encounter Plan of Treatment Upcoming Encounters Date Type Department Care Team (Late st Contact Info) Description 09/29/2023 8:00 AM EDT Laboratory Laboratory, [place] [address] [place] [address] [facility] Laboratory [facility] [address], [place] [id number] 10/03/2023 9:20 AM EDT Office Visit [facility] [address] [place] [address] Tyrel Henderson MD [address] [place] [address] 02/23/2024 9:00 AM EDT Office Visit Dermatology [facility] [address] [place] [address] Damien Jordan MD [address] [place] [address] Health Maintenance Due Date Last Done Comments Albumin/Creatinine Ratio 02/27/1958 Alpha-1 Antitrypsin 02/27/1958 DTaP,Tdap,and Td Vaccines (1 - Tdap) 02/24/2015 02/23/2015 *COPD SEVERITY VERIFIED BY PFT 12/08/2016 CKD PHOS USE SMARTSET 18891 08/20/2022 02/06/2021, 02/13/2021, 01/21/2019, Additional history exists COVID-19 Vaccine ( season) 2023 05/30/2021, 09/08/2020, 08/18/2020 AAA Monitoring 07/09/2023 07/09/2022 CKD HGB USE SMARTSET 22576 08/29/202308/28, 08/27/2021, 08/27/2021, Additional history exists Depression [...] filedocumented as of this encounter Care Teams Captain Of Guards Relationship Specialty Start Date End Date Tyrel Henderson MD [address], [place] [id number] PCP - General Family Medicine 01/20/18 documented as of this encounter
[2023-09-23] MEDS: traMADol HCL 50 MG TABLET PO PRN (19:52)
[2023-09-23] MEDS: HEPARIN SOD 5,000 UNIT/0.5 ML VIAL SQ SCH (19:57)
[2023-09-23] MEDS: TAMSULOSIN HCL 0.4 MG CAP PO SCH (19:57)
[2023-09-23] MEDS: FINASTERIDE 5 MG TAB PO SCH (19:57)
[2023-09-23] MEDS: CLOBETASOL PROPIONATE 0.05% OINT 15 GM TUBE EXT SCH (19:57)
[2023-09-23] MEDS: ACETAMINOPHEN 500 MG TAB PO SCH (23:11)
[2023-09-24 03:51] LABS: Hematocrit (blood only) 32.5 % (42.0-52.0); Hemoglobin 10.4 g/dl (14.0-18.0); Mean Corpuscular Hemoglobin 31.2 pg (25.0-34.0); Mean Corpuscular Volume 97.6 fL (80.0-100.0); Mean Platelet Volume 10.2 fL (9.4-12.4); Platelet Count 169 K/uL (130-400); RDW Coefficient of Variation 14.4 % (11.5-14.5); RDW Standard Deviation 51.6 fL (36.4-46.3); Red Blood Count 3.33 M/uL (4.70-6.10); White Blood Count 7.81 K/ul (4.8-10.8)
[2023-09-24 04:07] LABS: BUN Creatinine Ratio 14.1 (10-20); Calcium 8.5 mg/dl (8.6-10.3); Creatinine Clr Calc Pharmacy 29.6 ml/min; Est GFR (African American) 48.9 ml/min; Est GFR (Non-African American) 42.2 ml/min; Potassium 4.3 mmol/L (3.5-5.1)
[2023-09-24] MEDS: amLODIPine BESYLATE 5 MG TAB PO SCH (08:15)
[2023-09-24] MEDS: ATORVASTATIN 40 MG TAB PO SCH (08:15)
[2023-09-24] MEDS: DOXYCYCLINE HYCLATE 100 MG CAP PO SCH (08:50)
[2023-09-24] MEDS: cefTRIAXone SODIUM 1,000 MG in DEXTROSE 5 % MINI-B 50 ML IV SCH (12:31)
[2023-09-24] MEDS ORDERED: POLYETHYLENE (MIRALAX) 17 GM PACK PO PRN (14:07)
--- NOTE | 2023-09-24 14:39 | Hospitalist Progress Note ---
Date of Service September 24, 2023 Assessment & Plan (1) Cellulitis: Plan: Left lower extremity cellulitis Left upper extremity cellulitis In setting of psoriasis --Left LE Venous Doppler:Currently there is normal compressibility of the deep venous system from the common femoral vein through the proximal calf veins. No superficial venous thrombosis is identified. Left groin lymph node measures 4.4 x 1.2 x 2.2 cm. It contains a benign-appearing fatty hilum. --Left UE Doppler:No venous thrombus within the left upper extremity. -- Continue Rocephin, doxycycline Pain control (2) Psoriasis: Plan: chronic, significant psoriasis on interleukin inhibitor as outpatient Follows with dermatology as outpatient Added topical clobetasol Needs follow-up with dermatology as outpatient (3) HUDSON (acute kidney injury): Plan: HUDSON on CKD III Received IV fluids Avoid nephrotoxic agents as able Monitor renal function (4) Chronic respiratory failure with hypoxia: Plan: Chronic COPD Chronic oxygen dependency--2 L at baseline Continue supplemental oxygen as needed Added nebs as mildly wheezing noted on exam (5) Emphysema lung: Plan: Will benefit from adding maintenance inhalers on discharge (6) Pulmonary nodule seen on imaging study: Plan: followup with imaging after discharge to ensure stability. (7) Cardiac pacemaker: Plan: per history (8) CKD (chronic kidney disease), stage III: Plan: Management as above (9) BPH (benign prostatic hyperplasia): Plan: chronic, stable Continue Flomax and Avodart (10) HTN (hypertension): Plan: BP stable Resume losartan as able Monitor BP DVT Px: Heparin SQ Code Status Full Code Admission and Anticipated Discharge Date Admission Date: September 23, 2023 Subjective Patient is seen and examined at bedside States having left lower extremity pain Denies any chest pain, dyspnea, dizziness, nausea, vomiting, abdominal pain Discussed with patient's son at bedside No other complaints Review of Systems Review of Systems: All systems reviewed & are unremarkable except as noted in Subjective Physical Exam Physical Exam: Physical Exam: Vitals signs as noted above General Appearance: Thin, frail, elderly, chronically appearing, no apparent distress Head: normocephalic, Atraumatic Eyes: normal inspection, EOMI Neck: supple, Trachea midline Respiratory/Chest: Decreased breath sounds, scattered wheezes, No accessory muscle use Cardiovascular: S1, S2, No murmur, +Pacer Abdomen/GI:Soft, Non tender, Bowel sounds present Extremities/Musculoskeletal:normal inspection, left upper extremity, left lower extremity edematous, erythema, warm Neurologic/Psych:AAOX3, grossly no focal neurological deficits Skin: normal color, warm, +Psoriasis Results & Data Results & Data Vital Signs (Past 12 Hours) Vital Signs Temp Pulse Pulse Resp BP Pulse Ox O2 Del Method 09/24/23 11:14 36.5 C 83 17 139/66 95 Nasal Cannula 09/24/23 10:17 80 09/24/23 10:00 Nasal Cannula 09/24/23 08:25 36.4 C L 83 17 141/64 H 97 Room Air 09/24/23 03:08 36.6 C 88 20 156/61 H 96 Nasal Cannula O2 Flow Rate 09/24/23 11:14 09/24/23 10:17 09/24/23 10:00 09/24/23 08:25 09/24/23 03:08 2 Laboratory Results Short CBC 09/24/23 Range/Units 03:14 WBC 7.81 (4.8-10.8) K/ul Hgb 10.4 L (14.0-18.0) g/dl Hct 32.5 L (42.0-52.0) % Plt Count 169 (130-400) K/uL BMP 09/24/23 03:14 Sodium 138 Potassium 4.3 Chloride 104 Carbon Dioxide 30 BUN 21 Creatinine 1.49 H Glucose 86 Calcium 8.5 L (10) HTN (hypertension) Hypertension type: essential hypertension Qualified Code(s): I10 - Essential (primary) hypertension
[2023-09-24] MEDS: ALBUT/IPRATROP 3MG/0.5MG NEB 3 ML VIAL NEB SCH (15:12)
[2023-09-24] MEDS: DOCUSATE SODIUM 100 MG CAP PO SCH (16:03)
[2023-09-24] MEDS ORDERED: LORazepam 1 MG/1 ML SYR ED Inj Use IV STA (21:03)
[2023-09-24] MEDS: LORazepam 0.25 MG in SYRINGE 0.125 ML IV STA (21:40)
--- NOTE | 2023-09-24 21:51 | CT Scan Report ---
Exam(s): CT HEAD Without Contrast EXAM: CT Head Without Intravenous Contrast CLINICAL HISTORY: Reason for exam: cva? left sided weakness. TECHNIQUE: Axial computed tomography images of the head/brain without intravenous contrast. CTDI is 45.18 mGy and DLP is 774.27 mGy-cm. Automated exposure control was utilized for the study. A dose lowering technique was utilized adhering to the principles of ALARA. COMPARISON: 12/18/2019. FINDINGS: Brain: No acute hemorrhage or abnormal extra-axial fluid collection. No acute stroke redemonstrated old left basal ganglion shepard radiata infarct. Mild supratentorial periventricular and subcortical white matter changes. Age-appropriate generalized atrophy. Ventricles: No hydrocephalus. No midline shift. Bones/joints: Unremarkable. No acute fracture. Soft tissues: Unremarkable. Sinuses: Unremarkable as visualized. No acute sinusitis. IMPRESSION: No acute abnormality. 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 Non-specific white matter changes, most commonly seen with small vessel disease. Communications: Call Doctor Stroke Electronically signed by: Kan Abreu M.D. 09/24/23 21:50 PM
--- NOTE | 2023-09-24 22:04 | CT Scan Report ---
Exam(s): CTA HEAD With Contrast IV Amt: 115 ml optiray 350 EXAM: CT Angiography Head With Intravenous Contrast CLINICAL HISTORY: Reason for exam: cva. TECHNIQUE: Axial computed tomographic angiography images of the head with intravenous contrast. CTDI is 45.18 mGy and DLP is 774.27 mGy-cm. Automated exposure control was utilized for the study. A dose lowering technique was utilized adhering to the principles of ALARA. 3D and MIP reconstructed images were created and reviewed. CONTRAST: Patient received 115 ml optiray 350 of IV contrast COMPARISON: CT head 09/24/2023. FINDINGS: Study is limited by patient motion. Right internal carotid artery: Mild calcified plaque at the cavernous internal carotid artery with intact distal runoff. No aneurysm.. Right anterior cerebral artery: Unremarkable. No occlusion or significant stenosis. No aneurysm. Right middle cerebral artery: Unremarkable. No occlusion or significant stenosis. No aneurysm. 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 No aneurysm. Right vertebral artery: Minimal calcified plaque. Dominant.. Left internal carotid artery: Mild calcified plaque at the cavernous internal carotid artery with intact distal runoff. No aneurysm.. Left anterior cerebral artery: Unremarkable. No occlusion or significant stenosis. No aneurysm. Left middle cerebral artery: Unremarkable. No occlusion or significant stenosis. No aneurysm. Left posterior cerebral artery: Unremarkable. No occlusion or significant stenosis. No aneurysm. Left vertebral artery: Unremarkable as visualized. Basilar artery: Unremarkable. No occlusion or significant stenosis. No aneurysm. IMPRESSION: No large vessel occlusion. Communications: Call Doctor Stroke Electronically signed by: Kan Abreu M.D. 09/24/23 22:03 PM
--- NOTE | 2023-09-24 22:24 | CT Scan Report ---
Exam(s): CTA NECK With Contrast IV Amt: 115 ml optiray 350 EXAM: CT Angiography Neck With Intravenous Contrast CLINICAL HISTORY: Reason for exam: cva. TECHNIQUE: Routine carotid CT angiography protocol was performed with intravenous contrast. NASCET criteria using the distal ICAs for comparison were used for evaluation of stenoses. CTDI is 12.16 mGy and DLP is 429.31 mGy-cm. Automated exposure control was utilized for the study. A dose lowering technique was utilized adhering to the principles of ALARA. 3D and MIP reconstructed images were created and reviewed. CONTRAST: Patient received 115 ml optiray 350 of IV contrast COMPARISON: None. FINDINGS: Study is limited by patient motion. VASCULATURE: Right common carotid artery: Mild calcified plaque in the mid common carotid artery. Noncalcified plaque moderate stenosis just proximal to the carotid bulb. No dissection. Right internal carotid artery: Moderate noncalcified plaque at the right carotid bulb and proximal internal carotid artery without a hemodynamically significant stenosis. No dissection. Right external carotid artery: Unremarkable. No occlusion. Right vertebral artery: Dominant. No occlusion or significant stenosis. No dissection. Left common carotid artery: Mild distal calcified plaque. No occlusion or significant stenosis. No dissection. Left internal carotid artery: Moderate calcified plaque at the left carotid bulb without a hemodynamically significant stenosis. No dissection. Left external carotid artery: Unremarkable. No occlusion. Left vertebral artery: Unremarkable. No occlusion or significant stenosis. No dissection. NECK: Bones/joints: Unremarkable. No acute fracture. Soft tissues: Unremarkable. Lung apices: Diffuse emphysematous changes. CAROTID STENOSIS REFERENCE USING NASCET CRITERIA: % ICA stenosis = (1 - narrowest ICA diameter/diameter of distal cervical ICA) x 100. Mild - <50% stenosis. Moderate - 50-69% stenosis. Severe - 70-94% stenosis. Near occlusion - 95-99% stenosis. Occluded - 100% stenosis. IMPRESSION: Study is limited by patient motion. Bilateral distal common carotid bulb stenosis without a hemodynamically significant stenosis. Communications: Call Doctor Stroke Electronically signed by: Kan Abreu M.D. 09/24/23 22:23 PM
[2023-09-24] MEDS: LORazepam 1 MG/1 ML SYR ED Inj Use ONE (22:28)
[2023-09-25 00:21] LABS: HCO3 ABG 32 mmol/L (19-24); Oxygen Saturation ABG 96.2 % (90-95); PCO2 ABG 64 mmHg (35-46); PO2 ABG 80 mmHg (80-95); pH ABG 7.31 (7.35-7.45)
[2023-09-25 00:44] LABS: Allen Test Pos (Pos)
[2023-09-25] MEDS: OLANZapine 10 MG/2.1 ML SDV IM STA (01:59)
[2023-09-25] MEDS: SODIUM CHLORIDE 0.9% 1,000 ML IV SCH (03:53)
[2023-09-25 05:07] LABS: Hematocrit (blood only) 32.3 % (42.0-52.0); Hemoglobin 10.2 g/dl (14.0-18.0); Mean Corpuscular Hgb Conc 31.6 g/dL (32.0-36.0); Mean Corpuscular Volume 98.2 fL (80.0-100.0); Mean Platelet Volume 10.3 fL (9.4-12.4); Platelet Count 179 K/uL (130-400); RDW Coefficient of Variation 14.6 % (11.5-14.5); RDW Standard Deviation 53.7 fL (36.4-46.3); Red Blood Count 3.29 M/uL (4.70-6.10); White Blood Count 6.52 K/ul (4.8-10.8)
[2023-09-25 05:18] LABS: BUN Creatinine Ratio 17.1 (10-20); Calcium 8.5 mg/dl (8.6-10.3); Creatinine Clr Calc Pharmacy 30.2 ml/min; Est GFR (African American) 50.1 ml/min; Est GFR (Non-African American) 43.2 ml/min; Magnesium 1.8 mg/dl (1.7-2.4); Potassium 4.2 mmol/L (3.5-5.1)
[2023-09-25 07:20] LABS: Base Excess ABG 2.6 mEq/L (-9-1.8); HCO3 ABG 30 mmol/L (19-24); Oxygen Saturation ABG 98.4 % (90-95); PCO2 ABG 55 mmHg (35-46); PO2 ABG 102 mmHg (80-95); pH ABG 7.34 (7.35-7.45)
[2023-09-25 07:22] LABS: Allen Test Pos (Pos)
--- NOTE | 2023-09-25 08:14 | Communication Note ---
Date of Service: September 24, 2023 Initially code purple was called as patient was confused and seemed neglecting his left side and code stroke alert was called around 9pm. Last well known was around 7:30pm. Prior to that he seems was alert and oriented and ambulating with walker. In the cT scan location patient was agitated and was refusing scan. A dose of iv Ativan 0.5mg given. In ct scan patient was talking and knows that I was [facility] doctor. No Dyarhtria noted. No obvious facial droop noted. He was able to lift his left extremities on command. He also did finger nose test of left upper extremity. CT head and cta head and neck no acute findings. Was Evaluated by [facility] . [facility] also felt mostly encephalopathy and advised workup for toxic encephalopathy and also to avoid hypotension as CTA neck showed some carotid stenosis. Later required a dose of Zyprexa and mitts for agitation. ABg showed PH 7.32. Placed on bipap. repeat abg in am ph 7.34. notified in am , and she is going to come to hospital in few hours.Am providers notified.
[2023-09-25] MEDS: DOXYCYCLINE HYCLATE 100 MG in DEXTROSE 5% MINI-B 100 ML IV SCH (08:29)
[2023-09-25] MEDS: LABETALOL HCL IV 5 MG/ML 20ML IV PRN (10:46)
[2023-09-25 10:53] LABS: Base Excess VBG 5.3 mEq/L; HCO3 VBG 32 mmol/L; Oxygen Saturation VBG 79.2 %; PCO2 VBG 54 mmHg (38-50); PO2 VBG 44 mmHg; pH VBG 7.38 (7.36-7.41)
--- NOTE | 2023-09-25 15:11 | Hospitalist Progress Note ---
Date of Service September 25, 2023 Assessment & Plan (1) Cellulitis: Plan: Left lower extremity cellulitis Left upper extremity cellulitis In setting of psoriasis --Left LE Venous Doppler:Currently there is normal compressibility of the deep venous system from the common femoral vein through the proximal calf veins. No superficial venous thrombosis is identified. Left groin lymph node measures 4.4 x 1.2 x 2.2 cm. It contains a benign-appearing fatty hilum. --Left UE Doppler:No venous thrombus within the left upper extremity. -- Continue Rocephin, doxycycline Pain control -- Continue local wound care (2) Psoriasis: Plan: chronic, significant psoriasis on interleukin inhibitor as outpatient Follows with dermatology as outpatient Added topical clobetasol Needs follow-up with dermatology as outpatient (3) HUDSON (acute kidney injury): Plan: HUDSON on CKD III Unclear baseline Cr--likely new baseline Cr stable Received IV fluids Avoid nephrotoxic agents as able Monitor renal function (4) Chronic respiratory failure with hypoxia: Plan: Chronic COPD Chronic oxygen dependency--2 L at baseline Continue supplemental oxygen as needed Continue nebs Acute metabolic encephalopathy Acute on chronic respiratory failure with hypoxia, hypercarbia --CT head:No acute abnormality.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 Non-specific white matter changes, most commonly seen with small vessel disease. --Head CTA:No large vessel occlusion. --Neck CTA:Study is limited by patient motion.Bilateral distal common carotid bulb stenosis without a hemodynamically significant stenosis. -- Continue aspirin, Lipitor Continue BiPAP at bedtime to help with hypercarbia Will benefit from sleep study as outpatient Reorient frequently to minimize delirium PAD Was scheduled to see vascular surgery Dr. Mercedes as outpatient Continue Lipitor And aspirin (5) Emphysema lung: Plan: Will benefit from adding maintenance inhalers on discharge (6) Pulmonary nodule seen on imaging study: Plan: followup with imaging after discharge to ensure stability. (7) Cardiac pacemaker: Plan: per history (8) CKD (chronic kidney disease), stage III: Plan: Management as above (9) BPH (benign prostatic hyperplasia): Plan: chronic, stable Continue Flomax and Avodart (10) HTN (hypertension): Plan: Hypertensive urgency Likely situational Continue amlodipine Resume losartan IV labetalol as needed Monitor DVT Px: Heparin SQ Code Status Full Code Admission and Anticipated Discharge Date Admission Date: September 23, 2023 Subjective Patient is seen and examined at bedside Patient is confused and agitated overnight and stroke alert was called, CT showed no signs of acute CVA Noted hypercarbia on blood work. Placed on BiPAP overnight Patient is oriented x 3 this morning Discussed with patient's at bedside States having left leg pain but otherwise no other complaints Denies any chest pain, dyspnea, dizziness, nausea, vomiting, abdominal pain BP elevated today Review of Systems Review of Systems: All systems reviewed & are unremarkable except as noted in Subjective Physical Exam Physical Exam: Physical Exam: Vitals signs as noted above General Appearance: Thin, frail, elderly, chronically appearing, no apparent distress Head: normocephalic, Atraumatic Eyes: normal inspection, EOMI Neck: supple, Trachea midline Respiratory/Chest: Decreased breath sounds, CTA, No accessory muscle use Cardiovascular: S1, S2, No murmur, +Pacer Abdomen/GI:Soft, Non tender, Bowel sounds present Extremities/Musculoskeletal:normal inspection, left upper extremity, left lower extremity edematous, erythema, warm Neurologic/Psych:AAOX3, grossly no focal neurological deficits Skin: normal color, warm, +Psoriasis Results & Data Results & Data Vital Signs (Past 12 Hours) Vital Signs Temp Pulse Pulse Resp BP BP Pulse Ox 09/25/23 12:00 95 H 23 94 09/25/23 11:07 100 H 17 95 09/25/23 11:06 80 20 97 09/25/23 11:06 129/62 09/25/23 11:06 74 203/170 H 09/25/23 11:04 84 20 203/170 H 95 09/25/23 11:00 84 18 87 L 09/25/23 10:54 09/25/23 10:46 112 H 190/77 H 09/25/23 10:00 153/130 H 09/25/23 10:00 98 H 19 95 09/25/23 09:25 160/117 H 09/25/23 09:25 95 H 17 09/25/23 09:00 54 L 09/25/23 08:00 99 H 09/25/23 07:53 37.2 C 94 H 16 156/70 H 94 09/25/23 07:36 88 09/25/23 07:30 86 15 96 09/25/23 07:30 89 15 96 09/25/23 07:29 09/25/23 07:00 75 09/25/23 06:00 89 1 L 09/25/23 05:00 88 0 L 09/25/23 04:45 74 14 92 09/25/23 04:00 74 97 09/25/23 03:47 37.1 C 79 18 131/61 99 O2 Del Method FiO2 09/25/23 12:00 09/25/23 11:07 Nasal Cannula 09/25/23 11:06 09/25/23 11:06 09/25/23 11:06 09/25/23 11:04 Room Air 09/25/23 11:00 09/25/23 10:54 BiPAP 40 09/25/23 10:46 09/25/23 10:00 09/25/23 10:00 09/25/23 09:25 09/25/23 09:25 09/25/23 09:00 09/25/23 08:00 09/25/23 07:53 BiPAP 09/25/23 07:36 09/25/23 07:30 40 09/25/23 07:30 BiPAP 40 09/25/23 07:29 BiPAP 09/25/23 07:00 09/25/23 06:00 09/25/23 05:00 09/25/23 04:45 40 09/25/23 04:00 09/25/23 03:47 CPAP Laboratory Results Short CBC 09/25/23 Range/Units 03:50 WBC 6.52 (4.8-10.8) K/ul Hgb 10.2 L (14.0-18.0) g/dl Hct 32.3 L (42.0-52.0) % Plt Count 179 (130-400) K/uL BMP 09/25/23 03:50 Sodium 138 Potassium 4.2 Chloride 104 Carbon Dioxide 30 BUN 25 H Creatinine 1.46 H Glucose 108 H Calcium 8.5 L (10) HTN (hypertension) Hypertension type: essential hypertension Qualified Code(s): I10 - Essential (primary) hypertension
--- NOTE | 2023-09-25 15:12 | Communication Note ---
Date of Service: September 25, 2023 Noted to develop urinary retention today Placed on Zepeda catheter Continue Flomax, Avodart Bladder scan as needed Follows with urology as outpatient Voiding trial prior to discharge
[2023-09-25] MEDS: ACETAMINOPHEN 1,000 MG/100 ML VIAL IV PRN (22:32)
[2023-09-26] MEDS ORDERED: LORazepam 1 MG/1 ML SYR ED Inj Use IV STA (02:08)
[2023-09-26] MEDS: LORazepam 0.5 MG in SYRINGE 0.25 ML IV STA (02:18)
[2023-09-26 04:29] LABS: Base Excess VBG 7.2 mEq/L; HCO3 VBG 33 mmol/L; Oxygen Saturation VBG 87.1 %; PCO2 VBG 51 mmHg (38-50); PO2 VBG 51 mmHg; pH VBG 7.42 (7.36-7.41)
[2023-09-26 04:36] LABS: Hematocrit (blood only) 35.9 % (42.0-52.0); Hemoglobin 11.3 g/dl (14.0-18.0); Mean Corpuscular Hemoglobin 30.4 pg (25.0-34.0); Mean Corpuscular Hgb Conc 31.5 g/dL (32.0-36.0); Mean Corpuscular Volume 96.5 fL (80.0-100.0); Mean Platelet Volume 9.8 fL (9.4-12.4); Platelet Count 179 K/uL (130-400); RDW Coefficient of Variation 14.6 % (11.5-14.5); RDW Standard Deviation 52.1 fL (36.4-46.3); Red Blood Count 3.72 M/uL (4.70-6.10); White Blood Count 7.25 K/ul (4.8-10.8)
[2023-09-26 04:55] LABS: BUN Creatinine Ratio 15.6 (10-20); Calcium 8.8 mg/dl (8.6-10.3); Creatinine Clr Calc Pharmacy 27.7 ml/min; Est GFR (African American) 44.9 ml/min; Est GFR (Non-African American) 38.7 ml/min; Magnesium 1.7 mg/dl (1.7-2.4); Potassium 4.2 mmol/L (3.5-5.1)
[2023-09-26] MEDS: LOSARTAN POTASSIUM 25 MG TAB PO SCH (07:56)
[2023-09-26] MEDS: ASPIRIN 81 MG ECTAB PO SCH (07:57)
[2023-09-26] MEDS ORDERED: OLANZapine 10 MG/2.1 ML SDV IM PRN (10:01)
--- NOTE | 2023-09-26 12:59 | Hospitalist Progress Note ---
Date of Service September 26, 2023 Assessment & Plan (1) Cellulitis: Plan: Left lower extremity cellulitis Left upper extremity cellulitis In setting of psoriasis Patient presented with lower extremity swelling and redness for 5 days History of psoriasis. --Left LE Venous Doppler:Currently there is normal compressibility of the deep venous system from the common femoral vein through the proximal calf veins. No superficial venous thrombosis is identified. Left groin lymph node measures 4.4 x 1.2 x 2.2 cm. It contains a benign-appearing fatty hilum. --Left UE Doppler:No venous thrombus within the left upper extremity. --Improving with antibiotics with decreased redness/swelling. Continue ceftriaxone and doxycycline; plan to treat for 7 to 10 days Wound care consulted for wounds on his left lower extremity Toxic encephalopathy Delirium In setting of cellulitis Stroke ruled out Patient appeared to be confused and delirious since 09/23. Code stroke alert was called; CTA head, CTA head and neck did not show any acute findings Evaluated by neurology; felt that mostly symptoms were related with encephalopathy Continue to treat underlying infection with antibiotics as above Will start trial of Zyprexa 2.5 mg at night Reorientation One-to-one observation (2) Psoriasis: Plan: chronic, significant psoriasis on interleukin inhibitor as outpatient Follows with dermatology as outpatient Added topical clobetasol Needs follow-up with dermatology as outpatient (3) HUDSON (acute kidney injury): Plan: HUDSON on CKD III Unclear baseline Cr--likely new baseline Cr stable Received IV fluids Avoid nephrotoxic agents as able Monitor renal function Acute urine retention Patient had urinary retention on 09/24; status post Zepeda placement Plan to continue Zepeda for the time being Trial of void once patient's mentation is back to baseline. (4) Chronic respiratory failure with hypoxia: Plan: Chronic COPD Chronic oxygen dependency--2 L at baseline Continue supplemental oxygen as needed Continue nebs PAD Was scheduled to see vascular surgery Dr. Mercedes as outpatient Continue Lipitor And aspirin (5) Emphysema lung: Plan: On albuterol as needed He will need outpatient follow-up (6) Cardiac pacemaker: Plan: per history Continue telemonitoring (7) CKD (chronic kidney disease), stage III: Plan: Management as above (8) BPH (benign prostatic hyperplasia): Plan: chronic, stable Continue Flomax and Avodart Currently has urinary retention; status post Zepeda's placement (9) HTN (hypertension): Plan: Hypertensive urgency Likely situational Continue amlodipine Resume losartan DVT Px: Heparin SQ Code Status Full Code Discussed with patient's at bedside. Updated; answer questions/queries. Time spent evaluating patient, direct bedside care, chart review, placing orders, interpretation of diagnostic studies, discussion with consultants, patient, and family members, as well as other required patient management activities is 50 minutes Please note the above document was generated using voice recognition software. It may contain grammatical, syntax or spelling errors. Any formal questions or concerns about the content, text or information contained within the body of this dictation should be directly addressed to the provider for clarification Admission and Anticipated Discharge Date Admission Date: September 23, 2023 Subjective Patient seen and examined at bedside. He continues to be delirious; he is oriented to self. Not oriented to time or place. Vitals are stable; saturating well in room air His spouse is also at bedside Review of Systems Review of Systems: Unobtainable due to cognitive status Physical Exam Physical Exam: Constitutional: Awake, agitated. Oriented to self. Respiratory: Bilateral vesicular breath sound Cardiovascular: RRR, no murmur, no edema Vessels: no JVD or carotid bruit Chest: normal inspection of chest Abdomen: normal bowel sounds, soft, nontender, no hepatosplenomegaly Musculoskeletal: Redness and swelling present in left upper and lower extremity. Lower extremity with scratch hughes. Skin: no rashes, warm and dry normal turgor Neurologic: PERRL, EOMI, accommodation nl, no face palsy, no dysarthria CN's II- XI intact bilaterally and moves all extremities Psychiatric: A+Ox3, euthymic affect Results & Data Results & Data Vital Signs (Past 12 Hours) Vital Signs Temp Pulse Pulse Resp BP BP Pulse Ox 09/26/23 12:00 36.6 C 85 16 161/75 H 94 09/26/23 10:59 76 18 95 09/26/23 08:00 09/26/23 08:00 09/26/23 07:24 94 H 20 94 09/26/23 07:00 36.6 C 55 L 20 167/90 H 94 09/26/23 06:10 98 H 29 H 09/26/23 06:00 102 H 20 86 L 09/26/23 05:50 89 30 H 95 03/29/24 05:40 85 19 96 09/26/23 05:30 93 H 29 H 94 09/26/23 05:20 66 22 92 09/26/23 05:10 103 H 15 85 L 09/26/23 05:00 85 30 H 94 09/26/23 04:50 92 H 25 H 91 09/26/23 04:40 89 21 09/26/23 04:30 97 H 25 H 92 09/26/23 04:20 98 H 20 96 09/26/23 04:10 105 H 26 H 84 L 09/26/23 04:00 99 H 29 H 95 09/26/23 03:50 88 27 H 100 09/26/23 03:47 36.8 C 09/26/23 03:45 94 H 28 H 97 09/26/23 03:45 142/87 H 09/26/23 03:45 142/87 H 09/26/23 03:40 95 H 19 97 09/26/23 03:30 93 H 22 95 09/26/23 03:20 98 H 28 H 100 09/26/23 03:10 90 24 98 09/26/23 03:00 87 18 100 09/26/23 02:50 83 20 100 09/26/23 02:40 86 29 H 94 09/26/23 02:30 88 17 99 09/26/23 02:20 55 L 26 H 96 09/26/23 02:10 63 17 95 09/26/23 02:00 106 H 20 99 09/26/23 01:50 95 H 19 75 L 09/26/23 01:40 88 27 H 96 09/26/23 01:30 85 22 98 09/26/23 01:20 81 23 100 09/26/23 01:10 94 H 18 96 09/26/23 01:00 85 26 H 98 Pulse Ox O2 Del Method O2 Del Method O2 Flow Rate O2 Flow Rate 09/26/23 12:00 Room Air 09/26/23 10:59 Nasal Cannula 4 09/26/23 08:00 Nasal Cannula 3 09/26/23 08:00 93 Nasal Cannula 3 09/26/23 07:24 Nasal Cannula 4 09/26/23 07:00 Nasal Cannula 3 09/26/23 06:10 09/26/23 06:00 09/26/23 05:50 09/26/23 05:40 09/26/23 05:30 09/26/23 05:20 09/26/23 05:10 09/26/23 05:00 09/26/23 04:50 09/26/23 04:40 09/26/23 04:30 09/26/23 04:20 09/26/23 04:10 09/26/23 04:00 09/26/23 03:50 09/26/23 03:47 09/26/23 03:45 09/26/23 03:45 09/26/23 03:45 09/26/23 03:40 09/26/23 03:30 09/26/23 03:20 09/26/23 03:10 09/26/23 03:00 09/26/23 02:50 09/26/23 02:40 09/26/23 02:30 09/26/23 02:20 09/26/23 02:10 09/26/23 02:00 09/26/23 01:50 09/26/23 01:40 09/26/23 01:30 09/26/23 01:20 09/26/23 01:10 09/26/23 01:00 (9) HTN (hypertension) Hypertension type: essential hypertension Qualified Code(s): I10 - Essential (primary) hypertension
[2023-09-26] MEDS: OLANZAPINE 2.5 MG TAB PO SCH (20:22)
[2023-09-26] MEDS: DOXYCYCLINE HYCLATE 100 MG CAP PO SCH (20:22)
[2023-09-27 04:51] LABS: Basophils # (auto) 0.03 K/uL (0.00-0.20); Basophils % (auto) 0.5 %; Eosinophils # (auto) 0.06 K/uL (0.00-0.50); Eosinophils % (auto) 0.9 %; Hematocrit (blood only) 35.4 % (42.0-52.0); Hemoglobin 11.3 g/dl (14.0-18.0); Immature Granulocytes # (auto) 0.03 K/uL (0.01-0.20); Immature Granulocytes % (auto) 0.5 %; Lymphocytes # (auto) 0.82 K/uL (1.20-3.40); Lymphocytes % (auto) 12.7 %; Mean Corpuscular Hemoglobin 30.9 pg (25.0-34.0); Mean Corpuscular Hgb Conc 31.9 g/dL (32.0-36.0); Mean Corpuscular Volume 96.7 fL (80.0-100.0); Mean Platelet Volume 9.9 fL (9.4-12.4); Monocytes # (auto) 0.76 K/uL (0.11-0.59); Monocytes % (auto) 11.8 %; Neutrophils # (auto) 4.74 K/uL (1.40-6.50); Neutrophils % (auto) 73.6 %; Platelet Count 199 K/uL (130-400); RDW Coefficient of Variation 14.6 % (11.5-14.5); RDW Standard Deviation 52.6 fL (36.4-46.3); Red Blood Count 3.66 M/uL (4.70-6.10); White Blood Count 6.44 K/ul (4.8-10.8)
[2023-09-27 05:11] LABS: BUN Creatinine Ratio 17.3 (10-20); Creatinine Clr Calc Pharmacy 32.3 ml/min; Est GFR (African American) 56.1 ml/min; Est GFR (Non-African American) 48.4 ml/min; Potassium 4.6 mmol/L (3.5-5.1)
--- NOTE | 2023-09-27 12:31 | Hospitalist Progress Note ---
Date of Service September 27, 2023 Assessment & Plan (1) Cellulitis: Plan: Left lower extremity cellulitis Left upper extremity cellulitis In setting of psoriasis Patient presented with lower extremity swelling and redness for 5 days History of psoriasis. --Left LE Venous Doppler:Currently there is normal compressibility of the deep venous system from the common femoral vein through the proximal calf veins. No superficial venous thrombosis is identified. Left groin lymph node measures 4.4 x 1.2 x 2.2 cm. It contains a benign-appearing fatty hilum. --Left UE Doppler:No venous thrombus within the left upper extremity. --Improving with antibiotics with decreased redness/swelling. Continue ceftriaxone and doxycycline; plan to treat for 7 to 10 days Continue wound care Toxic encephalopathy Delirium In setting of cellulitis Stroke ruled out Patient appeared to be confused and delirious since 09/23. Code stroke alert was called; CTA head, CTA head and neck did not show any acute findings Evaluated by neurology; felt that mostly symptoms were related with encephalopathy Continue to treat underlying infection with antibiotics as above Started on trial of Zyprexa 2.5 mg at night. Condition improved on 09/26. Delirium precautions (2) Psoriasis: Plan: chronic, significant psoriasis on interleukin inhibitor as outpatient Follows with dermatology as outpatient Added topical clobetasol Needs follow-up with dermatology as outpatient (3) HUDSON (acute kidney injury): Plan: HUDSON on CKD III Unclear baseline Cr--likely new baseline Cr stable Received IV fluids Avoid nephrotoxic agents as able Monitor renal function Acute urine retention Patient had urinary retention on 09/24; status post Zepeda placement Plan to continue Zepeda for the time being Trial of void tomorrow a.m. (4) Chronic respiratory failure with hypoxia: Plan: Chronic COPD Chronic oxygen dependency--2 L at baseline Continue supplemental oxygen as needed Continue nebs PAD Was scheduled to see vascular surgery Dr. Mercedes as outpatient Continue Lipitor And aspirin (5) Emphysema lung: Plan: On albuterol as needed He will need outpatient follow-up (6) Cardiac pacemaker: Plan: per history Continue telemonitoring (7) CKD (chronic kidney disease), stage III: Plan: Management as above (8) BPH (benign prostatic hyperplasia): Plan: chronic, stable Continue Flomax and Avodart Currently has urinary retention; status post Zepeda's placement (9) HTN (hypertension): Plan: Hypertensive urgency Likely situational Continue amlodipine Resume losartan DVT Px: Heparin SQ Code Status Full Code Discussed with patient's at bedside on 09/26. Updated; answer questions/queries. DispositionPT OT eval recommends rehab; case management on board. Possible discharge in next few days Time spent evaluating patient, direct bedside care, chart review, placing orders, interpretation of diagnostic studies, discussion with consultants, patient, and family members, as well as other required patient management activities is 50 minutes Please note the above document was generated using voice recognition software. It may contain grammatical, syntax or spelling errors. Any formal questions or concerns about the content, text or information contained within the body of this dictation should be directly addressed to the provider for clarification Admission and Anticipated Discharge Date Admission Date: September 23, 2023 Subjective Patient seen and examined at bedside. He is sitting up on the bed; not in distress. He is eating breakfast. He is able to follow simple commands. His mentation is better compared to yesterday; oriented to self and place. Overnight, he pulled out the Zepeda causing mild hematuria. Resolved in AM. Review of Systems Review of Systems: All systems reviewed & are unremarkable except as noted in Subjective Physical Exam Physical Exam: Constitutional: Awake, alert, oriented to self and place. Respiratory: Bilateral vesicular breath sound Cardiovascular: RRR, no murmur, no edema Vessels: no JVD or carotid bruit Chest: normal inspection of chest Abdomen: normal bowel sounds, soft, nontender, no hepatosplenomegaly Musculoskeletal: Redness and swelling present in left upper and lower extremity. Lower extremity with scratch hughes. Skin: no rashes, warm and dry normal turgor Neurologic: PERRL, EOMI, accommodation nl, no face palsy, no dysarthria CN's II- XI intact bilaterally and moves all extremities Psychiatric: A+Ox3, euthymic affect Results & Data Results & Data Vital Signs (Past 12 Hours) Vital Signs Temp Pulse Pulse Resp BP Pulse Ox Pulse Ox 09/27/23 12:08 90 18 96 09/27/23 11:48 37.2 C 09/27/23 11:40 106 H 22 94 09/27/23 11:40 111/49 L 09/27/23 11:39 89 L 09/27/23 10:00 99 H 98 09/27/23 08:26 92 09/27/23 08:00 118 H 23 96 09/27/23 08:00 09/27/23 07:52 37.1 C 09/27/23 07:33 100 H 20 90 09/27/23 07:33 154/86 H 09/27/23 07:19 84 09/27/23 07:18 92 H 18 94 09/27/23 07:00 94 H 22 09/27/23 06:00 76 27 H 09/27/23 05:00 90 24 09/27/23 04:23 96 H 25 H 09/27/23 04:23 157/76 H 09/27/23 04:00 81 18 09/27/23 04:00 37.0 C 18 94 09/27/23 03:00 82 18 09/27/23 02:00 93 H 17 09/27/23 01:00 77 18 91 09/27/23 00:57 141/75 H 09/27/23 00:57 90 29 H 09/27/23 00:52 87 25 H 95 O2 Del Method O2 Del Method O2 Flow Rate O2 Flow Rate FiO2 09/27/23 12:08 Nasal Cannula 2 09/27/23 11:48 09/27/23 11:40 Nasal Cannula 2 09/27/23 11:40 09/27/23 11:39 09/27/23 10:00 09/27/23 08:26 Nasal Cannula 2 09/27/23 08:00 09/27/23 08:00 Nasal Cannula 2 09/27/23 07:52 09/27/23 07:33 Nasal Cannula 2 09/27/23 07:33 09/27/23 07:19 09/27/23 07:18 Nasal Cannula 4 09/27/23 07:00 09/27/23 06:00 09/27/23 05:00 09/27/23 04:23 09/27/23 04:23 09/27/23 04:00 09/27/23 04:00 Nasal Cannula 4 09/27/23 03:00 09/27/23 02:00 09/27/23 01:00 09/27/23 00:57 09/27/23 00:57 09/27/23 00:52 40 (9) HTN (hypertension) Hypertension type: essential hypertension Qualified Code(s): I10 - Essential (primary) hypertension
[2023-09-27] MEDS: COUGH DROP (SUGAR FREE) LOZ 24 LOZ/1 BOX BUCCAL PRN (13:50)
[2023-09-28 04:29] LABS: Basophils # (auto) 0.02 K/uL (0.00-0.20); Basophils % (auto) 0.3 %; Eosinophils # (auto) 0.26 K/uL (0.00-0.50); Eosinophils % (auto) 3.7 %; Hematocrit (blood only) 33.7 % (42.0-52.0); Hemoglobin 11.1 g/dl (14.0-18.0); Immature Granulocytes # (auto) 0.02 K/uL (0.01-0.20); Immature Granulocytes % (auto) 0.3 %; Lymphocytes # (auto) 0.99 K/uL (1.20-3.40); Lymphocytes % (auto) 14.2 %; Mean Corpuscular Hemoglobin 30.7 pg (25.0-34.0); Mean Corpuscular Hgb Conc 32.9 g/dL (32.0-36.0); Mean Corpuscular Volume 93.4 fL (80.0-100.0); Mean Platelet Volume 9.8 fL (9.4-12.4); Monocytes # (auto) 0.94 K/uL (0.11-0.59); Monocytes % (auto) 13.5 %; Neutrophils # (auto) 4.74 K/uL (1.40-6.50); Platelet Count 202 K/uL (130-400); RDW Coefficient of Variation 14.6 % (11.5-14.5); RDW Standard Deviation 50.4 fL (36.4-46.3); Red Blood Count 3.61 M/uL (4.70-6.10); White Blood Count 6.97 K/ul (4.8-10.8)
[2023-09-28 04:41] LABS: BUN Creatinine Ratio 23.1 (10-20); Calcium 8.8 mg/dl (8.6-10.3); Creatinine Clr Calc Pharmacy 29.9 ml/min; Est GFR (African American) 51.4 ml/min; Est GFR (Non-African American) 44.3 ml/min; Potassium 4.1 mmol/L (3.5-5.1)
--- NOTE | 2023-09-28 10:27 | Hospitalist Progress Note ---
Date of Service September 28, 2023 Assessment & Plan (1) Cellulitis: Plan: Left lower extremity cellulitis Left upper extremity cellulitis In setting of psoriasis Patient presented with lower extremity swelling and redness for 5 days History of psoriasis. --Left LE Venous Doppler:Currently there is normal compressibility of the deep venous system from the common femoral vein through the proximal calf veins. No superficial venous thrombosis is identified. Left groin lymph node measures 4.4 x 1.2 x 2.2 cm. It contains a benign-appearing fatty hilum. --Left UE Doppler:No venous thrombus within the left upper extremity. --Improving with antibiotics with decreased redness/swelling. Continue ceftriaxone and doxycycline; plan to treat for 7 to 10 days Continue wound care Toxic encephalopathy, resolved. Delirium In setting of cellulitis Stroke ruled out Patient appeared to be confused and delirious since 09/23. Code stroke alert was called; CTA head, CTA head and neck did not show any acute findings Evaluated by neurology; felt that mostly symptoms were related with encephalopathy Continue to treat underlying infection with antibiotics as above Started on trial of Zyprexa 2.5 mg at night. Condition improved on 09/26. Delirium precautions (2) Psoriasis: Plan: chronic, significant psoriasis on interleukin inhibitor as outpatient Follows with dermatology as outpatient Added topical clobetasol Needs follow-up with dermatology as outpatient (3) HUDSON (acute kidney injury): Plan: HUDSON on CKD III Unclear baseline Cr--likely new baseline Cr stable Received IV fluids Avoid nephrotoxic agents as able Monitor renal function Acute urine retention Patient had urinary retention on 09/24; status post Zepeda placement Trial of void unsuccessful on 09/26 History of urinary retention in the past requiring Zepeda placement. Zepeda placed again on 09/27; will need to follow-up with urologist as outpatient for removal of Zepeda. (4) Chronic respiratory failure with hypoxia: Plan: Chronic COPD Chronic oxygen dependency--2 L at baseline Continue supplemental oxygen as needed Continue nebs PAD Was scheduled to see vascular surgery Dr. Mercedes as outpatient Continue Lipitor And aspirin (5) Emphysema lung: Plan: On albuterol as needed He will need outpatient follow-up (6) Cardiac pacemaker: Plan: per history Continue telemonitoring (7) CKD (chronic kidney disease), stage III: Plan: Management as above (8) BPH (benign prostatic hyperplasia): Plan: chronic, stable Continue Flomax and Avodart Currently has urinary retention; status post Zepeda's placement (9) HTN (hypertension): Plan: Hypertensive urgency Likely situational Continue amlodipine Resume losartan DVT Px: Heparin SQ Code Status Full Code Discussed with patient's son at bedside on 09/26. Updated; answer questions/queries. DispositionPT OT harsh recommends rehab; case management on board. Possible discharge in next few days Please note the above document was generated using voice recognition software. It may contain grammatical, syntax or spelling errors. Any formal questions or concerns about the content, text or information contained within the body of this dictation should be directly addressed to the provider for clarification Admission and Anticipated Discharge Date Admission Date: September 23, 2023 Subjective Patient seen and examined at bedside. Comfortable; not in distress. Denies fever, chills, chest pain, shortness of breath, abdominal pain or urinary symptoms. No significant overnight events He required straight catheterization overnight for urinary retention Review of Systems Review of Systems: All systems reviewed & are unremarkable except as noted in Subjective Physical Exam Physical Exam: Constitutional: Awake, alert, oriented to self and place. Respiratory: Bilateral vesicular breath sound Cardiovascular: RRR, no murmur, no edema Vessels: no JVD or carotid bruit Chest: normal inspection of chest Abdomen: normal bowel sounds, soft, nontender, no hepatosplenomegaly Musculoskeletal: Redness and swelling present in left upper and lower extremity. Lower extremity with scratch hughes. Skin: no rashes, warm and dry normal turgor Neurologic: PERRL, EOMI, accommodation nl, no face palsy, no dysarthria CN's II- XI intact bilaterally and moves all extremities Psychiatric: A+Ox3, euthymic affect Results & Data Results & Data Vital Signs (Past 12 Hours) Vital Signs Temp Pulse Pulse Resp BP Pulse Ox O2 Del Method 09/28/23 10:00 92 H 26 H 98 09/28/23 08:00 36.4 C L 09/28/23 08:00 90 09/28/23 08:00 109 H 22 95 Nasal Cannula 09/28/23 07:34 88 18 97 Nasal Cannula 09/28/23 06:56 141/75 H 09/28/23 06:56 91 H 21 97 09/28/23 06:00 84 28 H 90 09/28/23 04:00 81 27 H 09/28/23 03:46 90 09/28/23 03:45 36.7 C 90 19 140/76 92 Nasal Cannula 09/27/23 23:45 86 09/27/23 23:00 96 H 32 H 95 O2 Flow Rate 09/28/23 10:00 09/28/23 08:00 09/28/23 08:00 09/28/23 08:00 2 09/28/23 07:34 4 09/28/23 06:56 09/28/23 06:56 09/28/23 06:00 09/28/23 04:00 09/28/23 03:46 09/28/23 03:45 4 09/27/23 23:45 09/27/23 23:00 (9) HTN (hypertension) Hypertension type: essential hypertension Qualified Code(s): I10 - Essential (primary) hypertension
[2023-09-29 07:47] LABS: Basophils # (auto) 0.04 K/uL (0.00-0.20); Basophils % (auto) 0.5 %; Eosinophils # (auto) 0.54 K/uL (0.00-0.50); Hematocrit (blood only) 33.4 % (42.0-52.0); Hemoglobin 10.9 g/dl (14.0-18.0); Immature Granulocytes # (auto) 0.02 K/uL (0.01-0.20); Immature Granulocytes % (auto) 0.3 %; Lymphocytes # (auto) 1.01 K/uL (1.20-3.40); Lymphocytes % (auto) 13.1 %; Mean Corpuscular Hemoglobin 31.2 pg (25.0-34.0); Mean Corpuscular Hgb Conc 32.6 g/dL (32.0-36.0); Mean Corpuscular Volume 95.7 fL (80.0-100.0); Mean Platelet Volume 9.8 fL (9.4-12.4); Monocytes # (auto) 1.09 K/uL (0.11-0.59); Monocytes % (auto) 14.1 %; Neutrophils # (auto) 5.01 K/uL (1.40-6.50); Platelet Count 217 K/uL (130-400); RDW Coefficient of Variation 15.1 % (11.5-14.5); RDW Standard Deviation 52.5 fL (36.4-46.3); Red Blood Count 3.49 M/uL (4.70-6.10); White Blood Count 7.71 K/ul (4.8-10.8)
[2023-09-29 08:01] LABS: BUN Creatinine Ratio 22.4 (10-20); Calcium 8.9 mg/dl (8.6-10.3); Creatinine Clr Calc Pharmacy 33.7 ml/min; Est GFR (African American) 60.5 ml/min; Est GFR (Non-African American) 52.2 ml/min; Potassium 4.4 mmol/L (3.5-5.1)
[2023-09-29] MEDS ORDERED: ALBUT/IPRATROP 3MG/0.5MG NEB 3 ML VIAL NEB PRN (11:08)
--- NOTE | 2023-09-29 12:40 | Discharge Summary ---
Date of Service September 29, 2023 Admission HPI Per Admitting Provider 83 yo M presents with acute left upper and lower extremity swelling and redness ongoing for the past 5 days. It is painful. He has a known history of psoriasis. He reports taking some of his 's amoxicillin this morning, and has no history of reactions to PCN in the past. He has a macular rash extending up into the medial left thigh and what appears to be a superimposed cellulitis on top of chronic psoriatic changes to the LLE and the LUE. He also has erythematous right foot with the beginning of what appears to be a rash and erythematous changes to his right hand with scaling. Denies dysuria, increased urinary frequency, chest pain, SOB. Denies fevers or chills. He is chronically on 2LPM nasal canula. Started on Rocephin in the ER. No evidence of sepsis. He is very uncomfortable because of the leg pain and reports that he is unable to stand on the leg which prompted his presentation today. Admission Exam Per Admitting Provider CONSTITUTIONAL: thin, elderly, vitals as above, generally appears uncomfortable. EYES: periorbital erythema is present, normal conjunctivae, no scleral icterus ENT: external ear and nose normal, MMM NECK: trachea midline RESPIRATORY: clear to auscultation bilaterally, no crackles, rales or wheezes, normal respiratory effort CARDIOVASCULAR: regular rate and rhythm, S1 and 2 heard without murmurs, gallops or rubs, no JVD, no peripheral edema CHEST: inspection of chest was normal GASTROINTESTINAL: soft, nontender, ND, no guarding MUSCULOSKELETAL: strength 5/5 throughout, head is normocephalic and atraumatic SKIN: warm and dry, scaly erythematous plaques on most extremity extensor surfaces and there is more severe confluent erythema on the distal LLE and distal LUE. THere is severe erythema and psoriatic involvement of the hands. There is a petechial rash extending up in to the medial thigh. LLE is very painful to touch. No swelling is present. There is warmth to LLE>RLE and LUE>RUE. NEUROLOGIC: CN 2-12 grossly intact, no sensory deficit, normal cognition, normal speech, no tremor PSYCHIATRIC: alert cooperative and oriented to person, place and time. Principal Diagnosis Left lower extremity cellulitis Left upper extremity cellulitis In setting of psoriasis Discharge Exam Constitutional: Awake, alert, oriented to self and place. Respiratory: Bilateral vesicular breath sound Cardiovascular: RRR, no murmur, no edema Vessels: no JVD or carotid bruit Chest: normal inspection of chest Abdomen: normal bowel sounds, soft, nontender, no hepatosplenomegaly Musculoskeletal: Redness and swelling present in left upper and lower extremity. Lower extremity with scratch hughes. Skin: no rashes, warm and dry normal turgor Neurologic: PERRL, EOMI, accommodation nl, no face palsy, no dysarthria CN's II- XI intact bilaterally and moves all extremities Psychiatric: A+Ox3, euthymic affect Discharge Data Allergies Allergy/AdvReac Type Severity Reaction Status Date / Time No Known Allergies Allergy Verified 09/23/23 14:24 Consultations 09/23/23 13:24 ED Decision to Admit Stat Ordered Studies 09/23/23 10:54 US venous doppler LE LT Stat 09/23/23 10:55 US venous doppler UE LT Stat 09/24/23 21:01 CT head/brain wo con Stat CTA head w con [CT angio head w con] Stat CTA neck with con [CT angio neck with con] Stat Hospital Course (1) Cellulitis: Left lower extremity cellulitis Left upper extremity cellulitis In setting of psoriasis Patient presented with lower extremity swelling and redness for 5 days History of psoriasis. --Left LE Venous Doppler:Currently there is normal compressibility of the deep venous system from the common femoral vein through the proximal calf veins. No superficial venous thrombosis is identified. Left groin lymph node measures 4.4 x 1.2 x 2.2 cm. It contains a benign-appearing fatty hilum. --Left UE Doppler:No venous thrombus within the left upper extremity. Treated with IV antibiotics during the hospitalization Discharged on oral antibiotic Continue wound care at rehab Toxic encephalopathy, resolved. Delirium In setting of cellulitis Stroke ruled out Patient appeared to be confused and delirious since 09/23. Code stroke alert was called; CTA head, CTA head and neck did not show any acute findings Evaluated by neurology; felt that mostly symptoms were related with encephalopathy Started on trial of Zyprexa 2.5 mg at night. Condition improved on 09/26. Patient was at baseline mentation at discharge. (2) Psoriasis: chronic, significant psoriasis on interleukin inhibitor as outpatient Patient was due for Tremfya injection on 09/28/2022. Discussion was done with patient's outpatient interior design assistant. He recommended to hold off on the injection for the time being. (3) HUDSON (acute kidney injury): HUDSON on CKD III Resolved with IV hydration Acute urine retention Patient had urinary retention on 09/24; status post Zepeda placement Trial of void unsuccessful on 09/26 History of urinary retention in the past requiring Zepeda placement. Zepeda placed again on 09/27; Follow-up with urologist in 7 to 10 days for removal of Zepeda and trial of void If Zepeda cannot be removed; it needs to be exchanged every 28 days. (4) Chronic respiratory failure with hypoxia: Chronic COPD Chronic oxygen dependency--2 L at baseline Continue supplemental oxygen as needed Continue nebs PAD Was scheduled to see vascular surgery Dr. Mercedes as outpatient Continue Lipitor And aspirin (5) Emphysema lung: On albuterol as needed He will need outpatient follow-up (6) Cardiac pacemaker: per history Continue telemonitoring (7) CKD (chronic kidney disease), stage III: Management as above (8) BPH (benign prostatic hyperplasia): chronic, stable Continue Flomax and Avodart Currently has urinary retention; status post Zepeda's placement (9) HTN (hypertension): Continue home meds Discussed with patient's son at discharge. Patient discharged to [facility] acute rehab Please note the above document was generated using voice recognition software. It may contain grammatical, syntax or spelling errors. Any formal questions or concerns about the content, text or information contained within the body of this dictation should be directly addressed to the provider for clarification Total Time Total Time Spent Total Time Spent (In Minutes): 45 Total Time Includes: Examination of the Patient, Discharge Planning, Medication Reconciliation, Communication With Other Providers and Other Discharge Plan Discharge Items Patient Disposition: Transfer Inpatient Rehab Fac Reason For Visit: CELLULITIS Discharge Diagnosis: Left lower extremity cellulitis Left upper extremity cellulitis Delirium Activity: Resume your previous activity Non-emergency contact: Primary Care Provider Call non-emergency contact if: you have any medication questions Follow-up/Referrals: Tyrel Henderson MD [Primary Care Provider] - Diet: Regular Addtl Attending Provider Instructions: You were admitted to the hospital due to cellulitis in your left upper and lower extremity. You are treated with antibiotics during the hospitalization. To complete the antibiotic course, you are prescribed Augmentin and doxycycline to be taken for 4 more days. You had hospital-acquired delirium during the hospitalization. You also underwent a stroke workup which was negative. You are prescribed aspirin to be taken once daily. You are started on Zyprexa 2.5 mg at night to help with agitation. It can be stopped in about a week time after you get home. Discussion was done with your interior design assistant regarding administrating Tremfya. Your interior design assistant recommended to hold off on the injection until you are bett er. You need to follow-up with your urologist for trial of void in 7 to 10 days for urinary retention Please follow-up with your primary care doctor after discharge. Pending Studies at Discharge: No Stand-Alone Forms: My [facility] Skilled Items Patient informed of condition?: Yes DNR: No Discharge Level of Care: Acute rehab Communicable Disease: No Discharge Prognosis: Stable Lines: None Urinary Catheter: Yes Medications and DC Order Prescriptions: New doxycycline hyclate 100 mg Capsule 100 mg PO BID 4 Days Qty: 8 0RF olanzapine 2.5 mg Tablet 2.5 mg PO HS 7 Days Qty: 7 0RF aspirin 81 mg Tablet,Delayed Release (Dr/Ec) 81 mg PO QAM 30 Days Qty: 30 0RF amoxicillin-pot clavulanate 875-125 mg tablet 1 tab PO BID 4 Days Qty: 8 0RF Continued atorvastatin 40 mg tablet 40 mg PO QAM losartan 25 mg tablet 25 mg PO QAM Tremfya 100 mg/mL syringe 100 mg subcut UD Rx Instructions: EVERY 55 DAYS amlodipine [Norvasc] 5 mg Tablet 5 mg PO QAM tamsulosin [Flomax] 0.4 mg capsule 0.4 mg PO QPM albuterol sulfate 90 mcg/actuation Hfa Aerosol Inhaler 1 inh INHALATION QID PRN (Reason: Shortness Of Breath Or Wheezing) dutasteride [Avodart] 0.5 mg capsule 0.5 mg PO QPM Discharge Orders: Discharge Order (Routine); Ordered 09/29/23 Ordered By: Vipul Pathak Admission Data Admit Date/Time: 09/23/23 13:44 Attending Provider: Vipul Pathak Admit Provider: Swetha Quiñones Primary Care Provider: Tyrel Henderson Other Providers: Swetha Quiñones; [facility]
== END 2023-09-29 17:03 | DRG 602 ==
LOC: ED 10:41 → SUATTDRO 13:44 → 2W 13:44 → 1E 09-25 09:15 → 2E 09-28 14:32

== ENCOUNTER 2023-10-05 16:28 | Inpatient (IN) ==
--- OUTSIDE RECORDS SUMMARY | 2023-10-05 16:35 | External Medical Summary ---
Author Name Unknown Address Unknown Organization [id number]:[facility] [place] [id number] Laboratory Report Ordering Provider Test Date Status KRYSTYNA RUBI 09/30/2023 06:49:28 Final Observation Date Value Abnormality Reference (Units ) Status WBC, Total 09/30/2023 06:49:28 8.06 4.00-10.8 0 (K/uL) Final RBC 09/30/2023 06:49:28 3.49 4.50-5.25 (M/uL) Final Hemoglobin 09/30/2023 06:49:28 10.8 Below low normal 14 .0-16.8 (g/dL) Final HCT 09/30/2023 06:49:28 35.1 Below low normal 40. 0-48.4 (%) Final MCV 09/30/2023 06:49:28 100.6 82.0-99.5 (fL) Final MCH 09/30/2023 06:49:28 30.9 27.0-34.0 (pg) Final MCHC 09/30/2023 06:49:28 30.8 32.0-36.0 (g/dL) Final RDW 09/30/2023 06:49:28 15.4 11.5-15.5 (%) Final Platelets 09/30/2023 06:49:28 236 140-400 (K /uL) Final MPV 09/30/2023 06:49:28 10.0 6.6-11.1 ( fL) Final Performing Location [facility] [place] [id number]
--- NOTE | 2023-10-05 16:47 | Emergency Department Note ---
Impression & Plan Acute hypoxemic respiratory failure, Acute respiratory acidosis, Shortness of breath, Infection due to parainfluenza virus 3 ED Provider Note HISTORY OF PRESENT ILLNESS: Patient is an 83-year-old male presenting with progressively worsening shortness of breath. Patient has been at [facility] for rehab and today has been more short of breath than normal. He reports he has a history of COPD and wears supplemental oxygen as needed., He has not been wearing any at [facility] per the patient. He states that today all of a sudden he became significantly short of breath. He was hypoxic on room air at [facility] and they called 911. On EMS arrival, he was on 6 L nasal cannula and saturating 85%. EMS gave the patient a DuoNeb treatment and started the patient on 10 L nonrebreather. On arrival to the ER, the patient reports acute onset of his shortness of breath. Denies any chest pain. Denies any DVT or PE history. He is not on any anticoagulation. ROS: as above PHYSICAL EXAM: Constitutional: Patient appears in mild distress. HENT: Head: Normocephalic and atraumatic. Eyes: EOMI, PERRL Mouth/Throat: Mucous membranes moist. Neck: Trachea midline. Neck supple. Cardiovascular: Tachycardic with paced rhythm. No murmurs, rubs or gallops. Intact distal pulses. Pulmonary/Chest: Tachypenic. Patient is hypoxic to 70% on 6 L nasal cannula. He has coarse breath sounds bilaterally. Decreased breath sounds in the bilateral lung bases. Abdominal: Abdomen soft, no tenderness, rebound or guarding. Musculoskeletal: No edema, tenderness or deformity noted. Skin: Warm and dry. No rash, erythema, pallor or cyanosis Psychiatric: Appropriate mood and affect for situation. Neurological: Alert and keenly responsive. CN II-XII grossly intact, moving all extremities equally and fully. MDM: - Vitals signs showed hypertension, hypoxia, tachycardia and tachypnea - History obtained via patient and EMS. History as above. - Chronic conditions affecting care: HTN; complete heart block (s/p pacemaker); CKD stage III; BPH; COPD - Differential diagnoses include, but are not limited to: Congestive heart failure; acute coronary syndrome; COPD/asthma exacerbation; pulmonary edema; pulmonary embolism; pneumonia; pneumothorax; viral syndrome - Order placed for continuous cardiac monitoring. At this time, monitor showed rate of 101 bpm with paced rhythm, per my interpretation. - External medical records reviewed. Discharge summary dated 09/29/2023 was reviewed. Patient was admitted to the hospital for left upper and left lower extremity cellulitis. - EKG interpreted by myself showed paced rhythm. Rate 102 bpm. QT 386. No acute ischemic changes. - Laboratory workup interpreted by myself showed normal WBC; hyperkalemia (K 5.3); elevated BUN (34); hypermagnesemia (Mg 2.5); stable creatinine; normal troponin; normal procalcitonin - Blood cultures obtained - VBG shows profound respiratory acidosis, with pH 7.19 and PCO2 97. - UA negative for infection - Viral respiratory panel positive for parainfluenza type 3 virus. - CXR negative for pneumonia, per my interpretation - Son presents to bedside. Reports that patient is DNR/DNI. He showed a copy of the patient's living will that does support that the patient would not want any life-saving interventions such as CPR or intubation. I again clarified this with the son at bedside and stated that the patient is critically ill and intubation would potentially save his life or extend his life, and son reports that his mother (patient's ) and him are in agreement and want to support the patient's living will that was completed about 2 years ago. I discussed that the patient had full CODE STATUS during his last admission and currently at [facility], but son reports that "no one ever asked us what his wishes were. He does not want those things done." - CT PE ordered to assess for pulmonary embolism, given patient's profound hypoxia and acute shortness of breath and recent hospitalization. However, the patient is critically ill and I do not feel he would tolerate laying flat for CT scan at this time, despite being on significant BiPAP pressure support. Will empirically start the patient on heparin gtt. - Discussion was had with immigration case worker about patient's case and need for admission - Hospitalist consulted for admission - [facility]. I have personally spent 49 minutes of critical care time in the direct management of this patient. This includes bedside care, interpretation of diagnostic studies, and testing, discussion with consultants, patient, and family members, and other required patient management activities. This 49 minutes is in excess of all separately billable procedures. ASSESSMENT AND PLAN: Diagnosis: acute hypoxic respiratory failure; acute respiratory acidosis; infection due to parainfluenza virus 3; shortness of breath Plan: admit Past Med/Surg History Medical History Asymptomatic bilateral carotid artery stenosis AAA (abdominal aortic aneurysm) without rupture Urinary symptom or sign Chronic respiratory failure with hypoxia Pulmonary nodule seen on imaging study Stable 1 cm solid right lower lobe pulmonary nodule as well as stable indeterminate solid lobulated 19 mm anterior mediastinal soft tissue mass Urinary retention CKD (chronic kidney disease), stage III Dyspnea on exertion Patient chronically on supplemental oxygen Emphysema lung BPH (benign prostatic hyperplasia) Psoriasis COPD (chronic obstructive pulmonary disease) Hx of Lyme disease Pacemaker 2014 ([employer]) SECONDARY TO COMPLETE HEART BLOCK/SSS; Hypertension Complete heart block s/p dual-chamber pacemaker. (/ lyme disease). Surgical History S/P cardiac pacemaker procedure 2014 ([employer]) SECONDARY TO COMPLETE HEART BLOCK/SSS; LAST CHECK 02/04/18 Hx of colonoscopy Family History Other Cancer Social History Smoking Status: Unknown if ever smoked Tobacco Type: Cigarettes Age Started Using Tobacco: 18; Age Quit Using Tobacco: 75; packs per day: 1; Second Hand Exposure: No; Do You Dip or Chew Tobacco: No; Hx Alcohol Use: No Hx Substance Use: No Preferred Language: [place] Communication Ability: Effective Visual Impairment: No Limitations Hearing Ability: Normal [place] Operator Required: No Beliefs That Will Affect Care: None marital status: Current Living Situation: Spouse current occupational status: retired How many Children do You have: 2 How many Children do You have Comment: one son lives close and is able to assist with care, other son not involved Feels Safe at Home: Yes Diet: regular during the past year weight has: remained stable Assistive Devices: Walker and Other Allergies Allergies Allergy/AdvReac Type Severity Reaction Status Date / Time No Known Allergies Allergy Verified 10/05/23 18:07 Home Meds Home Medications Medication Instructions Recorded Confirmed amlodipine 5 mg tablet (Norvasc) 5 mg PO QAM 03/20/18 10/05/23 atorvastatin 40 mg tablet 40 mg PO QAM 10/22/22 10/05/23 losartan 25 mg tablet 25 mg PO QAM 10/22/22 10/05/23 albuterol sulfate 90 mcg/actuation 1 inh inhalation QID PRN Shortness 09/23/23 10/05/23 aerosol inhaler Of Breath Or Wheezing dutasteride 0.5 mg capsule 0.5 mg PO QPM 09/23/23 10/05/23 (Avodart) tamsulosin 0.4 mg capsule (Flomax) 0.4 mg PO HS 09/23/23 10/05/23 acetaminophen 325 mg tablet 650 mg PO Q4H PRN Pain 10/05/23 10/05/23 (Tylenol) ammonium lactate 12 % lotion 1 applic topical Q12H 10/05/23 10/05/23 bisacodyl 10 mg rectal suppository 10 mg WI DAILY PRN Constipation 10/05/23 10/05/23 clobetasol 0.05 % topical cream 1 applic topical DAILY 10/05/23 10/05/23 docusate sodium 100 mg capsule 100 mg PO BID 10/05/23 10/05/23 heparin (porcine) 5,000 unit/mL 5,000 unit subcut Q12H 10/05/23 10/05/23 injection solution ipratropium 0.5 mg-albuterol 3 mg 3 ml inhalation Q4H PRN Shortness 10/05/23 10/05/23 (2.5 mg base)/3 mL nebulization Of Breath Or Wheezing soln magnesium hydroxide 400 mg/5 mL 30 ml PO DAILY PRN Constipation 10/05/23 10/05/23 oral suspension (Milk of Magnesia) melatonin 3 mg tablet 3 mg PO HS PRN Insomnia 10/05/23 10/05/23 ondansetron HCl 4 mg tablet 4 mg PO Q4H PRN NAUSEA/VOMITING 10/05/23 10/05/23 polyethylene glycol 3350 17 17 g PO QDL PRN Constipation 10/05/23 10/05/23 gram/dose oral powder (Miralax) sennosides 8.6 mg-docusate sodium 1 tab-cap PO QDL PRN Constipation 10/05/23 10/05/23 50 mg tablet (Senokot-S) sodium chloride 7 % for 4 ml inhalation BID 10/05/23 10/05/23 nebulization (Hyper-Jose Eduardo) Previous Rx's Medication Instructions Recorded aspirin 81 mg tablet,delayed 81 mg PO QAM 30 days #30 tabs 09/29/23 release olanzapine 2.5 mg tablet 2.5 mg PO HS 7 days #7 tabs 09/29/23 Results & Data (ED) Vital Signs Vital Signs - 24 hr 10/05/23 16:31 10/05/23 16:36 10/05/23 16:40 Temperature 37.4 C Temperature Source Rectal Pulse Rate 101 H 105 H 102 H Pulse Rate from SpO2 Sensor 109 H 102 H Pulse Rhythm Regular Pulse Strength Normal Respiratory Rate 30 H 36 H 34 H Respiratory Effort / Characteristics Labored Respiratory Depth Normal Respiratory Pattern Blood Pressure 150/74 H Blood Pressure Mean 99 Blood Pressure Position Sitting Pulse Oximetry 90 80 L 92 Oxygen Delivery Method Room Air Room Air Non-rebreather Oxygen Flow Rate 15 Fraction of Inspired Oxygen Sepsis Recent Fever Within 48 Hours No Sepsis New/Unexplained Change in Mental Status N/A Sepsis Action Taken by Nursing Physician Notified Pulse Oximetry Post Tiitration 10/05/23 16:43 10/05/23 16:45 10/05/23 16:50 Temperature Temperature Source Pulse Rate 104 H 99 H Pulse Rate from SpO2 Sensor 99 H Pulse Rhythm Pulse Strength Respiratory Rate 40 H Respiratory Effort / Characteristics Accessory Muscle Use Labored Respiratory Depth Respiratory Pattern Rapid/Shallow Blood Pressure 141/62 H Blood Pressure Mean 88 Blood Pressure Position Pulse Oximetry 100 Oxygen Delivery Method BiPAP BiPAP Oxygen Flow Rate Fraction of Inspired Oxygen Sepsis Recent Fever Within 48 Hours Sepsis New/Unexplained Change in Mental Status Sepsis Action Taken by Nursing Pulse Oximetry Post Tiitration 10/05/23 16:55 10/05/23 17:00 10/05/23 17:00 Temperature Temperature Source Pulse Rate 93 H 96 H Pulse Rate from SpO2 Sensor 93 H Pulse Rhythm Pulse Strength Respiratory Rate 37 H 36 H Respiratory Effort / Characteristics Spontaneous Short of Breath Respiratory Depth Shallow Respiratory Pattern Tachypnea Blood Pressure 139/70 Blood Pressure Mean 93 Blood Pressure Position Pulse Oximetry 80 L 99 93 Oxygen Delivery Method BiPAP BiPAP Oxygen Flow Rate Fraction of Inspired Oxygen 35 Sepsis Recent Fever Within 48 Hours Sepsis New/Unexplained Change in Mental Status Sepsis Action Taken by Nursing Pulse Oximetry Post Tiitration 90 10/05/23 17:15 10/05/23 17:31 10/05/23 17:45 Temperature Temperature Source Pulse Rate 91 H 98 H 88 Pulse Rate from SpO2 Sensor 90 93 H 88 Pulse Rhythm Pulse Strength Respiratory Rate 36 H 28 H 34 H Respiratory Effort / Characteristics Respiratory Depth Respiratory Pattern Blood Pressure 140/61 117/71 122/54 L Blood Pressure Mean 87 86 76 Blood Pressure Position Pulse Oximetry 89 L 89 L 97 Oxygen Delivery Method BiPAP BiPAP BiPAP Oxygen Flow Rate Fraction of Inspired Oxygen Sepsis Recent Fever Within 48 Hours Sepsis New/Unexplained Change in Mental Status Sepsis Action Taken by Nursing Pulse Oximetry Post Tiitration 10/05/23 17:49 10/05/23 18:00 10/05/23 18:15 Temperature Temperature Source Pulse Rate 82 84 Pulse Rate from SpO2 Sensor 84 83 Pulse Rhythm Pulse Strength Respiratory Rate 20 20 Respiratory Effort / Characteristics Respiratory Depth Respiratory Pattern Blood Pressure 95/48 L 88/46 L Blood Pressure Mean 63 60 Blood Pressure Position Pulse Oximetry 94 91 Oxygen Delivery Method BiPAP BiPAP Oxygen Flow Rate Fraction of Inspired Oxygen 50 Sepsis Recent Fever Within 48 Hours Sepsis New/Unexplained Change in Mental Status Sepsis Action Taken by Nursing Pulse Oximetry Post Tiitration 10/05/23 18:31 10/05/23 18:45 10/05/23 19:00 Temperature Temperature Source Pulse Rate 85 86 88 Pulse Rate from SpO2 Sensor 87 87 84 Pulse Rhythm Pulse Strength Respiratory Rate 26 H 34 H 30 H Respiratory Effort / Characteristics Respiratory Depth Respiratory Pattern Blood Pressure 153/64 H 147/63 H 127/60 Blood Pressure Mean 93 91 82 Blood Pressure Position Pulse Oximetry 97 95 95 Oxygen Delivery Method BiPAP BiPAP BiPAP Oxygen Flow Rate Fraction of Inspired Oxygen Sepsis Recent Fever Within 48 Hours Sepsis New/Unexplained Change in Mental Status Sepsis Action Taken by Nursing Pulse Oximetry Post Tiitration 10/05/23 19:16 10/05/23 19:30 Temperature Temperature Source Pulse Rate 89 90 Pulse Rate from SpO2 Sensor 89 90 Pulse Rhythm Pulse Strength Respiratory Rate 38 H 34 H Respiratory Effort / Characteristics Respiratory Depth Respiratory Pattern Blood Pressure 133/63 160/67 H Blood Pressure Mean 86 98 Blood Pressure Position Pulse Oximetry 87 L 93 Oxygen Delivery Method BiPAP BiPAP Oxygen Flow Rate Fraction of Inspired Oxygen Sepsis Recent Fever Within 48 Hours Sepsis New/Unexplained Change in Mental Status Sepsis Action Taken by Nursing Pulse Oximetry Post Tiitration Laboratory Data 10/05/23 16:51 10/05/23 16:51 Lab Results 04/01/2010/05/23 10/05/23 Range/Units 16:51 16:56 17:01 WBC 5.88 (4.8-10.8) K/ul RBC 3.59 L (4.70-6.10) M/uL Hgb 11.0 L (14.0-18.0) g/dl Hct 37.3 L (42.0-52.0) % MCV 103.9 H (80.0-100.0) fL MCH 30.6 (25.0-34.0) pg MCHC 29.5 L (32.0-36.0) g/dL RDW Std Deviation 58.8 H (36.4-46.3) fL RDW Coeff of Anni 15.5 H (11.5-14.5) % Plt Count 300 (130-400) K/uL MPV 10.0 (9.4-12.4) fL Immature Gran % (Auto) 0.3 % Neut % (Auto) 92.5 % Lymph % (Auto) 4.3 % Elliott % (Auto) 2.4 % Eos % (Auto) 0.0 % Baso % (Auto) 0.5 % Neut # (Auto) 5.44 (1.40-6.50) K/uL Lymph # (Auto) 0.25 L (1.20-3.40) K/uL Elliott # (Auto) 0.14 (0.11-0.59) K/uL Eos # (Auto) 0.00 (0.00-0.50) K/uL Baso # (Auto) 0.03 (0.00-0.20) K/uL Immature Gran # (Auto) 0.02 (0.01-0.20) K/uL Basophilic Stippling Occasional Stomatocytes 1+ VBG pH (7.36-7.41) VBG pCO2 (38-50) mmHg VBG pO2 mmHg VBG HCO3 mmol/L VBG O2 Saturation % VBG Base Excess mEq/L Sodium 136 (136-145) mmol/L Potassium 5.3 H (3.5-5.1) mmol/L Chloride 97 L (98-107) mmol/L Carbon Dioxide 35 H (21-32) mmol/L Anion Gap 4 (3-11) BUN 34 H (6-23) mg/dl Creatinine 1.28 (0.6-1.4) mg/dl Est Cr Clr Drug Dosing Not Reportable Est GFR ( Amer) 58.8 ml/min Est GFR (Non-Af Amer) 50.7 ml/min BUN/Creatinine Ratio 26.6 H (10-20) Glucose 185 H (70-99(Fasting)) mg/dl Lactate 1.4 (0.4-2.0) mmol/L Calcium 9.7 (8.6-10.3) mg/dl Magnesium 2.5 H (1.7-2.4) mg/dl Total Bilirubin 0.7 (0.2-1.0) mg/dl Direct Bilirubin 0.2 (0-0.2) mg/dl AST 17 (13-39) U/L ALT 9 (7-52) U/L Alkaline Phosphatase 79 (34-104) U/L Troponin I High Sens 16.4 (0-20) pg/ml Total Protein 7.7 (6.0-8.3) gm/dl Albumin 3.8 (3.4-5.0) gm/dl Procalcitonin 0.13 (0-0.5) ng/ml Urine Color Yellow Urine Appearance Cloudy A (Clear) Urine pH 5.0 (4.5-7.5) Ur Specific [place] 1.016 (1.000-1.030) Urine Protein 1+ H (Negative) Urine Glucose (UA) Negative (Negative) Urine Ketones Negative (Negative) Urine Blood 1+ H (Negative) Urine Nitrite Negative (Negative) Urine Bilirubin Negative (Negative) Urine Urobilinogen Negative (Negative) Ur Leukocyte Esterase Negative (Negative) Urine WBC (Auto) 1-5 (0-5) /hpf Urine RBC (Auto) 0-4 (0-4) /hpf U Hyaline Cast (Auto) 1-5 (0-5) /lpf U Epithel Cells (Auto) >30 H (0-5) /lpf Urine Bacteria (Auto) Negative (Negative) Granular Casts 1-5 H (0) /lpf Urine Yeast Not Reportable Adenovirus (PCR) Not Detected (NotDetected) B. pertussis DNA (PCR) Not Detected (NotDetected) B.parapertussis DNA PCR Not Detected (NotDetected) C. pneumoniae DNA (PCR) Not Detected (NotDetected) Coronavirus OC43 (PCR) Not Detected (NotDetected) Coronavirus HKU1 (PCR) Not Detected (NotDetected) Coronavirus 229E (PCR) Not Detected (NotDetected) SARS-CoV-2 (PCR) Not Detected (NotDetected) Coronavirus NL63 (PCR) Not Detected (NotDetected) Human Metapneumovir PCR Not Detected (NotDetected) Influenza Type A (PCR) Not Detected (NotDetected) Influenza Type B (PCR) Not Detected (NotDetected) M. pneumoniae (PCR) Not Detected (NotDetected) Parainfluenza 1 (PCR) Not Detected (NotDetected) Parainfluenza 2 (PCR) Not Detected (NotDetected) Parainfluenza 3 (PCR) DETECTED A (NotDetected) Parainfluenza 4 (PCR) Not Detected (NotDetected) RSV (PCR) Not Detected (NotDetected) Entero/Rhino (PCR) Not Detected (NotDetected) 10/05/23 Range/Units 17:25 WBC (4.8-10.8) K/ul RBC (4.70-6.10) M/uL Hgb (14.0-18.0) g/dl Hct (42.0-52.0) % MCV (80.0-100.0) fL MCH (25.0-34.0) pg MCHC (32.0-36.0) g/dL RDW Std Deviation (36.4-46.3) fL RDW Coeff of Anni (11.5-14.5) % Plt Count (130-400) K/uL MPV (9.4-12.4) fL Immature Gran % (Auto) % Neut % (Auto) % Lymph % (Auto) % Elliott % (Auto) % Eos % (Auto) % Baso % (Auto) % Neut # (Auto) (1.40-6.50) K/uL Lymph # (Auto) (1.20-3.40) K/uL Elliott # (Auto) (0.11-0.59) K/uL Eos # (Auto) (0.00-0.50) K/uL Baso # (Auto) (0.00-0.20) K/uL Immature Gran # (Auto) (0.01-0.20) K/uL Basophilic Stippling Stomatocytes VBG pH 7.19 L (7.36-7.41) VBG pCO2 97 H (38-50) mmHg VBG pO2 42 mmHg VBG HCO3 37 mmol/L VBG O2 Saturation 62.4 % VBG Base Excess 5.3 mEq/L Sodium (136-145) mmol/L Potassium (3.5-5.1) mmol/L Chloride (98-107) mmol/L Carbon Dioxide (21-32) mmol/L Anion Gap (3-11) BUN (6-23) mg/dl Creatinine (0.6-1.4) mg/dl Est Cr Clr Drug Dosing Est GFR ( Amer) ml/min Est GFR (Non-Af Amer) ml/min BUN/Creatinine Ratio (10-20) Glucose (70-99(Fasting)) mg/dl Lactate (0.4-2.0) mmol/L Calcium (8.6-10.3) mg/dl Magnesium (1.7-2.4) mg/dl Total Bilirubin (0.2-1.0) mg/dl Direct Bilirubin (0-0.2) mg/dl AST (13-39) U/L ALT (7-52) U/L Alkaline Phosphatase (34-104) U/L Troponin I High Sens (0-20) pg/ml Total Protein (6.0-8.3) gm/dl Albumin (3.4-5.0) gm/dl Procalcitonin (0-0.5) ng/ml Urine Color Urine Appearance (Clear) Urine pH (4.5-7.5) Ur Specific [place] (1.000-1.030) Urine Protein (Negative) Urine Glucose (UA) (Negative) Urine Ketones (Negative) Urine Blood (Negative) Urine Nitrite (Negative) Urine Bilirubin (Negative) Urine Urobilinogen (Negative) Ur Leukocyte Esterase (Negative) Urine WBC (Auto) (0-5) /hpf Urine RBC (Auto) (0-4) /hpf U Hyaline Cast (Auto) (0-5) /lpf U Epithel Cells (Auto) (0-5) /lpf Urine Bacteria (Auto) (Negative) Granular Casts (0) /lpf Urine Yeast Adenovirus (PCR) (NotDetected) B. pertussis DNA (PCR) (NotDetected) B.parapertussis DNA PCR (NotDetected) C. pneumoniae DNA (PCR) (NotDetected) Coronavirus OC43 (PCR) (NotDetected) Coronavirus HKU1 (PCR) (NotDetected) Coronavirus 229E (PCR) (NotDetected) SARS-CoV-2 (PCR) (NotDetected) Coronavirus NL63 (PCR) (NotDetected) Human Metapneumovir PCR (NotDetected) Influenza Type A (PCR) (NotDetected) Influenza Type B (PCR) (NotDetected) M. pneumoniae (PCR) (NotDetected) Parainfluenza 1 (PCR) (NotDetected) Parainfluenza 2 (PCR) (NotDetected) Parainfluenza 3 (PCR) (NotDetected) Parainfluenza 4 (PCR) (NotDetected) RSV (PCR) (NotDetected) Entero/Rhino (PCR) (NotDetected) Administered Medications Discontinued Medications Magnesium Sulfate/Dextrose (Magnesium Sulfate / D5w) 1 gm in 100 mls @ 100 mls/hr IV Q1H [facility] Stop: 10/05/23 18:42 Last Infusion: 10/05/23 18:04 Dose: Infused Documented By: [facility] Admin: 10/05/23 17:04 Dose: 100 mls/hr Documented By: [facility] Infusion: 10/05/23 17:03 Dose: Infused Documented By: [facility] Admin: 10/05/23 17:02 Dose: 100 mls/hr Documented By: [facility] Magnesium Sulfate/Dextrose (Magnesium Sulfate 1gm / D5w Bag) Confirm Administered Dose 2 gm IV .STK-MED ONE Stop: 10/05/23 16:41 Last Admin: 10/05/23 17:04 Dose: Not Given Documented By: [facility] Methylprednisolone (Methylprednisolone 125 Mg/2 Ml Vial) Confirm Administered Dose 125 mg .ROUTE .STK-MED ONE Stop: 10/05/23 16:41 Last Admin: 10/05/23 17:04 Dose: Not Given Documented By: [facility] Methylprednisolone (Methylprednisolone 125 Mg/2 Ml Vial) 125 mg IV NOW STA Stop: 10/05/23 16:44 Last Admin: 10/05/23 17:02 Dose: 125 mg Documented By: [facility] Imaging Data Radiologist's Impression: Chest X-Ray 10/05/23 16:43 XR chest 1V portable CLINICAL HISTORY: Sepsis TECHNIQUE: Single frontal radiograph of the chest was obtained. Comparison: Comparison is made to chest radiograph 09/23/2023 FINDINGS: An implanted pacemaker is seen. Cardiomegaly is noted. Reticular interstitial opacities are seen. Blunting of the left costophrenic angle is seen. IMPRESSION: No evidence of pneumonia. Likely small left pleural effusion. ACT 112: Negative or not required by law. Electronically signed by: Thaddeus Khoury M.D. 10/05/2023 6:08 PM Discharge Plan Visit Data Chief Complaint: Shortness of Breath/Dyspnea ED Provider: Fern Mayen Discharge Problem: Acute hypoxemic respiratory failure, Acute respiratory acidosis, Shortness of breath, Infection due to parainfluenza virus 3 Forms Stand Alone Forms: My [facility] Prescriptions Prescriptions: No Action atorvastatin 40 mg tablet 40 mg PO QAM losartan 25 mg tablet 25 mg PO QAM amlodipine [Norvasc] 5 mg Tablet 5 mg PO QAM tamsulosin [Flomax] 0.4 mg capsule 0.4 mg PO HS albuterol sulfate 90 mcg/actuation Hfa Aerosol Inhaler 1 inh INHALATION QID PRN (Reason: Shortness Of Breath Or Wheezing) dutasteride [Avodart] 0.5 mg capsule 0.5 mg PO QPM olanzapine 2.5 mg Tablet 2.5 mg PO HS 7 Days Qty: 7 0RF aspirin 81 mg Tablet,Delayed Release (Dr/Ec) 81 mg PO QAM 30 Days Qty: 30 0RF acetaminophen [Tylenol] 325 mg Tablet 650 mg PO Q4H PRN (Reason: Pain) ipratropium-albuterol 0.5 mg-3 mg(2.5 mg base)/3 mL Solution For Nebulization 3 ml INHALATION Q4H PRN (Reason: Shortness Of Breath Or Wheezing) ammonium lactate 12 % Lotion 1 applic TOPICAL Q12H Rx Instructions: APPLY TO BILATERAL FEET ondansetron HCl [Zofran] 4 mg Tablet 4 mg PO Q4H PRN (Reason: NAUSEA/VOMITING) sennosides-docusate sodium [Senokot-S] 8.6-50 mg Tablet 1 tab-cap PO QDL PRN (Reason: Constipation) clobetasol 0.05 % Cream 1 applic TOPICAL DAILY melatonin 3 mg Tablet 3 mg PO HS PRN (Reason: Insomnia) magnesium hydroxide [Milk of Magnesia] 400 mg/5 mL Suspension 30 ml PO DAILY PRN (Reason: Constipation) bisacodyl 10 mg Suppository 10 mg WI DAILY PRN (Reason: Constipation) docusate sodium 100 mg Capsule 100 mg PO BID polyethylene glycol 3350 [Miralax] 17 gram/dose Powder 17 g PO QDL PRN (Reason: Constipation) heparin (porcine) 5,000 unit/mL Solution 5,000 unit SUBCUT Q12H sodium chloride [Hyper-Jose Eduardo] 7 % Solution For Nebulization 4 ml INHALATION BID Referrals Referrals: Tyrel Henderson MD [Primary Care Provider] -
[2023-10-05] MEDS: methylPREDNISolone 125 MG/2 ML VIAL IV STA (17:02)
[2023-10-05] MEDS: MAGNESIUM SULFATE / D5W 1 GM/100 ML BAG IV SCH (17:02)
[2023-10-05] MEDS: MAGNESIUM SULFATE 1GM / D5W BAG IV ONE (17:04)
[2023-10-05] MEDS: methylPREDNISolone 125 MG/2 ML VIAL ONE (17:04)
[2023-10-05 17:19] LABS: Hematocrit (blood only) 37.3 % (42.0-52.0); Mean Corpuscular Hemoglobin 30.6 pg (25.0-34.0); Mean Corpuscular Hgb Conc 29.5 g/dL (32.0-36.0); Mean Corpuscular Volume 103.9 fL (80.0-100.0); Platelet Count 300 K/uL (130-400); RDW Coefficient of Variation 15.5 % (11.5-14.5); RDW Standard Deviation 58.8 fL (36.4-46.3); Red Blood Count 3.59 M/uL (4.70-6.10); White Blood Count 5.88 K/ul (4.8-10.8)
[2023-10-05 17:21] LABS: Appearance Urine Cloudy (Clear); Bacteria Urine Automated Negative (Negative); Bilirubin Urine Negative (Negative); Blood Urine 1+ (Negative); Color Urine Yellow; Epithelial Cell Urine Auto >30 /lpf (0-5); Glucose Urine UA Negative (Negative); Ketones Urine Negative (Negative); Leukocyte Esterase Urine Negative (Negative); Nitrite Urine Negative (Negative); Protein Urine 1+ (Negative); Specific Gravity Urine 1.016 (1.000-1.030); Urobilinogen Urine Negative (Negative)
[2023-10-05 17:31] LABS: RBC Urine Automated 0-4 /hpf (0-4)
[2023-10-05 17:35] LABS: Base Excess VBG 5.3 mEq/L; HCO3 VBG 37 mmol/L; Oxygen Saturation VBG 62.4 %; PCO2 VBG 97 mmHg (38-50); PO2 VBG 42 mmHg; pH VBG 7.19 (7.36-7.41)
[2023-10-05 17:36] LABS: Alanine Aminotransferase 9 U/L (7-52); Albumin Level 3.8 gm/dl (3.4-5.0); Alkaline Phosphatase 79 U/L (34-104); Anion Gap 4 (3-11); Aspartate Aminotransferase 17 U/L (13-39); BUN Creatinine Ratio 26.6 (10-20); Bilirubin Direct 0.2 mg/dl (0-0.2); Bilirubin,Total 0.7 mg/dl (0.2-1.0); Blood Urea Nitrogen 34 mg/dl (6-23); Calcium 9.7 mg/dl (8.6-10.3); Carbon Dioxide 35 mmol/L (21-32); Chloride 97 mmol/L (98-107); Est GFR (African American) 58.8 ml/min; Est GFR (Non-African American) 50.7 ml/min; Glucose 185 mg/dl (70-99(Fasting)); Magnesium 2.5 mg/dl (1.7-2.4); Potassium 5.3 mmol/L (3.5-5.1); Sodium 136 mmol/L (136-145); Total Protein 7.7 gm/dl (6.0-8.3)
[2023-10-05 17:38] LABS: Basophilic Stippling Occasional; Basophils # (auto) 0.03 K/uL (0.00-0.20); Basophils % (auto) 0.5 %; Immature Granulocytes # (auto) 0.02 K/uL (0.01-0.20); Immature Granulocytes % (auto) 0.3 %; Lymphocytes # (auto) 0.25 K/uL (1.20-3.40); Lymphocytes % (auto) 4.3 %; Monocytes # (auto) 0.14 K/uL (0.11-0.59); Monocytes % (auto) 2.4 %; Neutrophils # (auto) 5.44 K/uL (1.40-6.50); Neutrophils % (auto) 92.5 %; Stomatocytes 1+
[2023-10-05 17:41] LABS: Troponin I High Sensitivity 16.4 pg/ml (0-20)
[2023-10-05 18:01] LABS: Adenovirus PCR Not Detected (NotDetected); Bordetella parapertussis PCR Not Detected (NotDetected); Bordetella pertussis PCR Not Detected (NotDetected); Chlamydia pneumoniae PCR Not Detected (NotDetected); Coronavirus 229E PCR Not Detected (NotDetected); Coronavirus CoV-2 (COVID19)PCR Not Detected (NotDetected); Coronavirus HKU1 PCR Not Detected (NotDetected); Coronavirus NL63 PCR Not Detected (NotDetected); Coronavirus OC43PCR Not Detected (NotDetected); Human Metapneumovirus PCR Not Detected (NotDetected); Influenza A PCR Not Detected (NotDetected); Influenza B PCR Not Detected (NotDetected); Mycoplasma pneumoniae PCR Not Detected (NotDetected); Parainfluenza Virus 1 PCR Not Detected (NotDetected); Parainfluenza Virus 2 PCR Not Detected (NotDetected); Parainfluenza Virus 3 PCR DETECTED (NotDetected); Parainfluenza Virus 4 PCR Not Detected (NotDetected); Respiratory Syncytial VirusPCR Not Detected (NotDetected); Rhinovirus/Enterovirus PCR Not Detected (NotDetected)
--- NOTE | 2023-10-05 18:09 | XRay Report ---
XR chest 1V portable CLINICAL HISTORY: Sepsis TECHNIQUE: Single frontal radiograph of the chest was obtained. Comparison: Comparison is made to chest radiograph 09/23/2023 FINDINGS: An implanted pacemaker is seen. Cardiomegaly is noted. Reticular interstitial opacities are seen. [place]le[place]ane nting of the left costophrenic angle is seen. IMPRESSION: No evidence of pneumonia. Likely small left pleural effusion. ACT 112: Negative or not required by law. Electronically signed by: Thaddeus Khoury M.D. 10/05/2023 6:08 PM
[2023-10-05] MEDS: ALBUT/IPRATROP 3MG/0.5MG NEB 3 ML VIAL NEB STA (19:49)
[2023-10-05 19:55] LABS: Partial Thromboplastin Ratio 1.1; Partial Thromboplastin Time 31 Seconds (21-31)
[2023-10-05 20:00] LABS: Estimated Average Glucose 123 mg/dl; Hemoglobin A1C 5.9 % (4.5-5.6)
[2023-10-05] MEDS: HEPARIN SODIUM/DEXTROSE 25,000 UNITS/500 ML BAG IV SCH (20:09)
[2023-10-05 20:16] LABS: Base Excess ABG 7.1 mEq/L (-9-1.8); HCO3 ABG 39 mmol/L (19-24); Oxygen Saturation ABG 98.3 % (90-95); PCO2 ABG 103 mmHg (35-46); PO2 ABG 116 mmHg (80-95)
[2023-10-05 20:23] LABS: Allen Test Pos (Pos)
--- NOTE | 2023-10-05 20:34 | History & Physical Report ---
Date of Service October 05, 2023 Assessment & Plan (1) Acute on chronic respiratory failure with hypoxia and hypercapnia: Plan: chronic respiratory failure secondary to COPD on home O2, Secondary to COPD exacerbation secondary to parainfluenza illness Rule out PE Hyperkalemia secondary to illness, home losartan contributory complete heart block status post PPM PVD status post surgery hypertension, erratic BP noted at the ER hyperlipidemia, as per records BPH, on Flomax chronic anemia, hemoglobin at baseline Hyperglycemia likely prediabetes, hemoglobin A1c of 6 from 2019 past tobacco abuse ICU Continue BiPAP for now with adjusted settings Recheck ABG Nebs RTC Supportive management for patient's viral illness CT chest PE study, DC IV heparin initiated at the ER if CT chest negative for PE NSS, regular insulin for hyperkalemia, hold losartan for now Update hemoglobin A1c DVT prophylaxis. Heparin Full code as per discussion with patient Ms. Michaelle Castillo. She requests updates from providers through [phone]. Total critical care time was 45 minutes. Text document was generated using [employer] voice recognition software. It may contain grammatical or spelling errors. Kindly contact undersigned for clarification of any documentation item in question. History of Present Illness Chief Complaint: Low oxygen as per records Primary Care Provider: Tyrel Henderson MD History obtained from patient, family, and records. Limited history from patient secondary to disorientation. Medical history significant for complete heart block status post PPM, PVD status post surgery, hypertension, hyperlipidemia, chronic respiratory failure secondary to COPD on home O2, BPH, chronic anemia (baseline hemoglobin 10-11), past tobacco abuse. Last confinement 2 weeks ago for LLE cellulitis in the setting of psoriasis status post antibiotic Rx. Patient also started on Zyprexa for delirium during confinement. Patient discharged to [facility] facility. Patient noted to have congestion symptoms yesterday. Scheduled discharge to home was deferred. Patient noted to have worsening hypoxemia, wheezing and confusion at rehab facility today. Chest pain as per patient complaint. O2 sats 80s. Worsening symptoms despite steroid and neb treatment administration at rehab facility. O2 sats 80s upon arrival at the ER. BiPAP and IV heparin for presumptive PE initiated at the ER. Medical History as above Surgical History : PPM, hernia repair, thromboendarterectomy Family History : Cancer Personal/Social history : Past tobacco abuse, no EtOH intake Allergies Allergy/AdvReac Type Severity Reaction Status Date / Time No Known Allergies Allergy Verified 10/05/23 18:07 Home Medications Medication Instructions Recorded Confirmed Type amlodipine 5 mg tablet (Norvasc) 5 mg PO QAM 03/20/18 10/05/23 History atorvastatin 40 mg tablet 40 mg PO QAM 10/22/22 10/05/23 History losartan 25 mg tablet 25 mg PO QAM 10/22/22 10/05/23 History albuterol sulfate 90 mcg/actuation 1 inh inhalation QID PRN Shortness 09/23/23 10/05/23 History aerosol inhaler Of Breath Or Wheezing dutasteride 0.5 mg capsule 0.5 mg PO QPM 09/23/23 10/05/23 History (Avodart) tamsulosin 0.4 mg capsule (Flomax) 0.4 mg PO HS 09/23/23 10/05/23 History aspirin 81 mg tablet,delayed 81 mg PO QAM 30 days #30 tabs 09/29/23 10/05/23 Rx release olanzapine 2.5 mg tablet 2.5 mg PO HS 7 days #7 tabs 09/29/23 10/05/23 Rx acetaminophen 325 mg tablet 650 mg PO Q4H PRN Pain 10/05/23 10/05/23 History (Tylenol) ammonium lactate 12 % lotion 1 applic topical Q12H 10/05/23 10/05/23 History bisacodyl 10 mg rectal suppository 10 mg DE DAILY PRN Constipation 10/05/23 10/05/23 History clobetasol 0.05 % topical cream 1 applic topical DAILY 10/05/23 10/05/23 History docusate sodium 100 mg capsule 100 mg PO BID 10/05/23 10/05/23 History heparin (porcine) 5,000 unit/mL 5,000 unit subcut Q12H 10/05/23 10/05/23 History injection solution ipratropium 0.5 mg-albuterol 3 mg 3 ml inhalation Q4H PRN Shortness 10/05/23 10/05/23 History (2.5 mg base)/3 mL nebulization Of Breath Or Wheezing soln magnesium hydroxide 400 mg/5 mL 30 ml PO DAILY PRN Constipation 10/05/23 10/05/23 History oral suspension (Milk of Magnesia) melatonin 3 mg tablet 3 mg PO HS PRN Insomnia 10/05/23 10/05/23 History ondansetron HCl 4 mg tablet 4 mg PO Q4H PRN NAUSEA/VOMITING 10/05/23 10/05/23 History polyethylene glycol 3350 17 17 g PO QDL PRN Constipation 10/05/23 10/05/23 History gram/dose oral powder (Miralax) sennosides 8.6 mg-docusate sodium 1 tab-cap PO QDL PRN Constipation 10/05/23 10/05/23 History 50 mg tablet (Senokot-S) sodium chloride 7 % for 4 ml inhalation BID 10/05/23 10/05/23 History nebulization (Hyper-Jose Eduardo) Past Med/Surg History Medical History (Updated 10/06/23 @ 02:55 by RAEGAN Urrutia) HTN (hypertension) Asymptomatic bilateral carotid artery stenosis AAA (abdominal aortic aneurysm) without rupture Urinary symptom or sign Chronic respiratory failure with hypoxia Pulmonary nodule seen on imaging study Stable 1 cm solid right lower lobe pulmonary nodule as well as stable indeterminate solid lobulated 19 mm anterior mediastinal soft tissue mass Urinary retention CKD (chronic kidney disease), stage III Dyspnea on exertion Patient chronically on supplemental oxygen Emphysema lung BPH (benign prostatic hyperplasia) Psoriasis COPD (chronic obstructive pulmonary disease) Hx of Lyme disease Pacemaker 2014 ([employer]) SECONDARY TO COMPLETE HEART BLOCK/SSS; Hypertension 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 Surgical History S/P cardiac pacemaker procedure 2014 ([employer]) SECONDARY TO COMPLETE HEART BLOCK/SSS; LAST CHECK 02/04/18 Hx of colonoscopy Family History Other Cancer Social History Smoking Status: Former smoker Tobacco Type: Cigarettes Age Started Using Tobacco: 18; Age Quit Using Tobacco: 75; packs per day: 1; Second Hand Exposure: No; Do You Dip or Chew Tobacco: No; Hx Alcohol Use: No Hx Substance Use: No Preferred Language: Greenlandic Communication Ability: Effective Visual Impairment: No Limitations Hearing Ability: Normal Enrollment Management Vice President Required: No Beliefs That Will Affect Care: None marital status: Current Living Situation: Rehab current occupational status: retired How many Children do You have: 2 How many Children do You have Comment: one son lives close and is able to assist with care, other son not involved Feels Safe at Home: Yes Diet: regular during the past year weight has: remained stable Assistive Devices: Denture - Upper and Denture - Lower Review of Systems Review of Systems: Could not be reliably obtained secondary to disorientation Physical Exam Physical Exam: GENERAL: Disoriented, minimal respiratory distress SKIN: Pallor, warm HEENT: Pale palpebral conjunctivae, no ptosis, dry buccal mucosa, BiPAP in place NECK : Supple, no tenderness CHEST : Decreased breath sounds, scattered expiratory wheezes, no tenderness HEART : RRR, no obvious murmurs ABDOMEN: no distention, nontender EXTREMITIES : No LE swelling/tenderness, no other conspicuous deformities noted NEUROLOGIC : Disoriented, no facial asymmetry, gait and stance not assessed Results & Data Results & Data Vital Signs (Past 12 Hours) Vital Signs Temp Pulse Pulse Resp BP Pulse Ox O2 Del Method 10/05/23 20:30 82 28 H 123/56 L 97 BiPAP 10/05/23 20:15 89 44 H 144/64 H 96 BiPAP 10/05/23 20:00 92 H 34 H 144/101 H 97 BiPAP 10/05/23 19:49 88 16 96 10/05/23 19:49 88 16 96 BiPAP 10/05/23 19:45 84 34 H 123/70 95 BiPAP 10/05/23 19:30 90 34 H 160/67 H 93 BiPAP 10/05/23 19:16 89 38 H 133/63 87 L BiPAP 10/05/23 19:00 88 30 H 127/60 95 BiPAP 10/05/23 18:45 86 34 H 147/63 H 95 BiPAP 10/05/23 18:31 85 26 H 153/64 H 97 BiPAP 10/05/23 18:15 84 20 88/46 L 91 BiPAP 10/05/23 18:00 82 20 95/48 L 94 BiPAP 10/05/23 17:49 10/05/23 17:45 88 34 H 122/54 L 97 BiPAP 10/05/23 17:31 98 H 28 H 117/71 89 L BiPAP 10/05/23 17:15 91 H 36 H 140/61 89 L BiPAP 10/05/23 17:00 96 H 36 H 139/70 93 BiPAP 10/05/23 17:00 93 H 37 H 99 10/05/23 16:55 80 L BiPAP 10/05/23 16:50 99 H 40 H 141/62 H 100 BiPAP 10/05/23 16:45 104 H 10/05/23 16:43 BiPAP 10/05/23 16:40 102 H 34 H 92 Non-rebreather 10/05/23 16:36 105 H 36 H 80 L Room Air 10/05/23 16:31 37.4 C 101 H 30 H 150/74 H 90 Room Air O2 Flow Rate FiO2 10/05/23 20:30 10/05/23 20:15 10/05/23 20:00 10/05/23 19:49 90 10/05/23 19:49 90 10/05/23 19:45 10/05/23 19:30 10/05/23 19:16 10/05/23 19:00 10/05/23 18:45 10/05/23 18:31 10/05/23 18:15 10/05/23 18:00 10/05/23 17:49 50 10/05/23 17:45 10/05/23 17:31 10/05/23 17:15 10/05/23 17:00 10/05/23 17:00 35 10/05/23 16:55 10/05/23 16:50 10/05/23 16:45 10/05/23 16:43 10/05/23 16:40 15 10/05/23 16:36 10/05/23 16:31 Laboratory Results Laboratory Results WBC 5.88 K/ul (4.8-10.8) 10/05/23 16:51 RBC 3.59 M/uL (4.70-6.10) L 10/05/23 16:51 Hgb 11.0 g/dl (14.0-18.0) L 10/05/23 16:51 Hct 37.3 % (42.0-52.0) L 10/05/23 16:51 MCV 103.9 fL (80.0-100.0) H 10/05/23 16:51 MCH 30.6 pg (25.0-34.0) 10/05/23 16:51 MCHC 29.5 g/dL (32.0-36.0) L 10/05/23 16:51 RDW Std Deviation 58.8 fL (36.4-46.3) H 10/05/23 16:51 RDW Coeff of Anni 15.5 % (11.5-14.5) H 10/05/23 16:51 Plt Count 300 K/uL (130-400) 10/05/23 16:51 MPV 10.0 fL (9.4-12.4) 10/05/23 16:51 Immature Gran % (Auto) 0.3 % 10/05/23 16:51 Neut % (Auto) 92.5 % 10/05/23 16:51 Lymph % (Auto) 4.3 % 10/05/23 16:51 [place] % (Auto) 2.4 % 10/05/23 16:51 Eos % (Auto) 0.0 % 10/05/23 16:51 Baso % (Auto) 0.5 % 10/05/23 16:51 Neut # (Auto) 5.44 K/uL (1.40-6.50) 10/05/23 16:51 Lymph # (Auto) 0.25 K/uL (1.20-3.40) L 10/05/23 16:51 [place] # (Auto) 0.14 K/uL (0.11-0.59) 10/05/23 16:51 Eos # (Auto) 0.00 K/uL (0.00-0.50) 10/05/23 16:51 Baso # (Auto) 0.03 K/uL (0.00-0.20) 10/05/23 16:51 Immature Gran # (Auto) 0.02 K/uL (0.01-0.20) 10/05/23 16:51 Basophilic Stippling Occasional 10/05/23 16:51 Stomatocytes 1+ 10/05/23 16:51 APTT 31 Seconds (21-31) 10/05/23 16:51 PTT Ratio 1.1 10/05/23 16:51 ABG pCO2 103 mmHg (35-46) H 10/05/23 20:04 ABG pO2 116 mmHg (80-95) H 10/05/23 20:04 ABG HCO3 39 mmol/L (19-24) H 10/05/23 20:04 ABG O2 Saturation 98.3 % (90-95) H 10/05/23 20:04 ABG Base Excess 7.1 mEq/L (-9-1.8) H 10/05/23 20:04 Bird Test Pos (Pos) 10/05/23 20:04 VBG pH 7.19 (7.36-7.41) L 10/05/23 17:25 VBG pCO2 97 mmHg (38-50) H 10/05/23 17:25 VBG pO2 42 mmHg 10/05/23 17:25 VBG HCO3 37 mmol/L 10/05/23 17:25 VBG O2 Saturation 62.4 % 10/05/23 17:25 VBG Base Excess 5.3 mEq/L 10/05/23 17:25 Oxygen Given 15 10/05/23 20:04 Sodium 136 mmol/L (136-145) 10/05/23 16:51 Potassium 5.3 mmol/L (3.5-5.1) H 10/05/23 16:51 Chloride 97 mmol/L (98-107) L 10/05/23 16:51 Carbon Dioxide 35 mmol/L (21-32) H 10/05/23 16:51 Anion Gap 4 (3-11) 10/05/23 16:51 BUN 34 mg/dl (6-23) H 10/05/23 16:51 Creatinine 1.28 mg/dl (0.6-1.4) 10/05/23 16:51 Est Cr Clr Drug Dosing Not Reportable 10/05/23 16:51 Est GFR ( Amer) 58.8 ml/min 10/05/23 16:51 Est GFR (Non-Af Amer) 50.7 ml/min 10/05/23 16:51 BUN/Creatinine Ratio 26.6 (10-20) H 10/05/23 16:51 Glucose 185 mg/dl (70-99(Fasting)) H 10/05/23 16:51 Estimat Average Glucose 123 mg/dl 10/05/23 16:51 Hemoglobin A1c 5.9 % (4.5-5.6) H 10/05/23 16:51 Lactate 1.4 mmol/L (0.4-2.0) 10/05/23 16:51 Calcium 9.7 mg/dl (8.6-10.3) 10/05/23 16:51 Magnesium 2.5 mg/dl (1.7-2.4) H 10/05/23 16:51 Total Bilirubin 0.7 mg/dl (0.2-1.0) 10/05/23 16:51 Direct Bilirubin 0.2 mg/dl (0-0.2) 10/05/23 16:51 AST 17 U/L (13-39) 10/05/23 16:51 ALT 9 U/L (7-52) 10/05/23 16:51 Alkaline Phosphatase 79 U/L (34-104) 10/05/23 16:51 Troponin I High Sens 16.4 pg/ml (0-20) 10/05/23 16:51 Total Protein 7.7 gm/dl (6.0-8.3) 10/05/23 16:51 Albumin 3.8 gm/dl (3.4-5.0) 10/05/23 16:51 Procalcitonin 0.13 ng/ml (0-0.5) 10/05/23 16:51 Urine Color Yellow 10/05/23 17:01 Urine Appearance Cloudy (Clear) A 10/05/23 17:01 Urine pH 5.0 (4.5-7.5) 10/05/23 17:01 Ur Specific [place] 1.016 (1.000-1.030) 10/05/23 17:01 Urine Protein 1+ (Negative) H 10/05/23 17:01 Urine Glucose (UA) Negative (Negative) 10/05/23 17:01 Urine Ketones Negative (Negative) 10/05/23 17:01 Urine Blood 1+ (Negative) H 10/05/23 17:01 Urine Nitrite Negative (Negative) 10/05/23 17:01 Urine Bilirubin Negative (Negative) 10/05/23 17:01 Urine Urobilinogen Negative (Negative) 10/05/23 17:01 Ur Leukocyte Esterase Negative (Negative) 10/05/23 17:01 Urine WBC (Auto) 1-5 /hpf (0-5) 10/05/23 17:01 Urine RBC (Auto) 0-4 /hpf (0-4) 10/05/23 17:01 U Hyaline Cast (Auto) 1-5 /lpf (0-5) 10/05/23 17:01 U Epithel Cells (Auto) >30 /lpf (0-5) H 10/05/23 17:01 Urine Bacteria (Auto) Negative (Negative) 10/05/23 17:01 Granular Casts 1-5 /lpf (0) H 10/05/23 17:01 Urine Yeast Not Reportable 10/05/23 17:01 Adenovirus (PCR) Not Detected (NotDetected) 10/05/23 16:56 B. pertussis DNA (PCR) Not Detected (NotDetected) 10/05/23 16:56 B.parapertussis DNA PCR Not Detected (NotDetected) 10/05/23 16:56 C. pneumoniae DNA (PCR) Not Detected (NotDetected) 10/05/23 16:56 Coronavirus OC43 (PCR) Not Detected (NotDetected) 10/05/23 16:56 Coronavirus HKU1 (PCR) Not Detected (NotDetected) 10/05/23 16:56 Coronavirus 229E (PCR) Not Detected (NotDetected) 10/05/23 16:56 SARS-CoV-2 (PCR) Not Detected (NotDetected) 10/05/23 16:56 Coronavirus NL63 (PCR) Not Detected (NotDetected) 10/05/23 16:56 Human Metapneumovir PCR Not Detected (NotDetected) 10/05/23 16:56 Influenza Type A (PCR) Not Detected (NotDetected) 10/05/23 16:56 Influenza Type B (PCR) Not Detected (NotDetected) 10/05/23 16:56 M. pneumoniae (PCR) Not Detected (NotDetected) 10/05/23 16:56 Parainfluenza 1 (PCR) Not Detected (NotDetected) 10/05/23 16:56 Parainfluenza 2 (PCR) Not Detected (NotDetected) 10/05/23 16:56 Parainfluenza 3 (PCR) DETECTED (NotDetected) A 10/05/23 16:56 Parainfluenza 4 (PCR) Not Detected (NotDetected) 10/05/23 16:56 RSV (PCR) Not Detected (NotDetected) 10/05/23 16:56 Entero/Rhino (PCR) Not Detected (NotDetected) 10/05/23 16:56 Impressions Chest X-Ray 10/05/23 16:43 XR chest 1V portable CLINICAL HISTORY: Sepsis TECHNIQUE: Single frontal radiograph of the chest was obtained. Comparison: Comparison is made to chest radiograph 09/23/2023 FINDINGS: An implanted pacemaker is seen. Cardiomegaly is noted. Reticular interstitial opacities are seen. Blunting of the left costophrenic angle is seen. IMPRESSION: No evidence of pneumonia. Likely small left pleural effusion. ACT 112: Negative or not required by law. Electronically signed by: Thaddeus Khoury M.D. 10/05/2023 6:08 PM Diagnostic Findings EKG as per my interpretation :Rate 100, paced rhythm
[2023-10-05 20:43] LABS: pH ABG 7.19 (7.35-7.45)
[2023-10-05] MEDS ORDERED: ACETAMINOPHEN 325 MG TAB PO PRN (20:53)
[2023-10-05] MEDS ORDERED: PROMETHAZINE HCL 6.25 MG in SODIUM CHLORIDE 0.9% 50 ML IV PRN (20:55)
[2023-10-05] MEDS: NovoLIN-R INSULIN PER UNIT CHARGE IV STA (21:09)
[2023-10-05] MEDS: SODIUM CHLORIDE 0.9% 1,000 ML IV ONE (21:10)
[2023-10-05] MEDS: DEXTROSE 50% 50 ML SYRINGE IV ONE (21:10)
[2023-10-05 21:29] LABS: iSTAT Arterial Blood Gas HCO3 35 meg/L (19-24); iSTAT Arterial Blood Gas pCO2 92 mmHg (35-46); iSTAT Arterial Blood Gas pH 7.18 (7.35-7.45); iSTAT Arterial Blood Gas pO2 71 mmHg (80-95); iSTAT Carbon Dioxide 37 mmol/L (24-31); iSTAT Hematocrit 32 % (42-52); iSTAT Hemoglobin 10.9 g/dl (14.0-18.0); iSTAT Potassium 5.5 mmol/L (3.3-5.0); iSTAT Sodium 137 mmol/L (135-144)
[2023-10-05] MEDS: OPTIRAY 320 125ml IV ONE (21:29)
[2023-10-05] MEDS ORDERED: MELATONIN 3 MG TAB PO PRN (21:48)
[2023-10-05] MEDS ORDERED: POLYETHYLENE (MIRALAX) 17 GM PACK PO PRN (21:48)
[2023-10-05] MEDS: DOCUSATE SODIUM 100 MG CAP PO SCH (22:24)
[2023-10-05] MEDS: OLANZAPINE 2.5 MG TAB PO SCH (22:25)
[2023-10-05] MEDS: TAMSULOSIN HCL 0.4 MG CAP PO SCH (22:25)
[2023-10-05] MEDS: ICU Protocol for HYPERglycemia SCH (22:25)
--- NOTE | 2023-10-05 22:34 | CT Scan Report ---
Exam(s): CTA CHEST IV Amt: 119ml EXAM: CT Angiography Chest With Intravenous Contrast CLINICAL HISTORY: Reason for exam: cp sob. TECHNIQUE: Axial computed tomographic angiography images of the chest with intravenous contrast. CTDI is 22.46 mGy and DLP is 842.19 mGy-cm. Automated exposure control was utilized for the study. A dose lowering technique was utilized adhering to the principles of ALARA. MIP reconstructed images were created and reviewed. COMPARISON: No relevant prior studies available. FINDINGS: Pulmonary arteries: Unremarkable. No evidence of pulmonary embolus. Aorta: Moderate atherosclerotic disease of the thoracic aorta. Partially visualized abdominal aortic aneurysm measuring up to 4.[address] angiogram of the abdomen and pelvis for further evaluation. Lungs: Severe emphysematous changes, right greater than left with atelectasis/collapse of the left lower lobe and lingula region. No mass. Pleural space: Unremarkable. No significant effusion. No pneumothorax. Heart: Unremarkable. No cardiomegaly. No significant pericardial effusion. No evidence of RV dysfunction. Mediastinum: Mediastinal adenopathy, likely reactive. Bones/joints: Moderate degenerative changes of the thoracic and with old L1 compression fracture. Old L2 compression fracture. Chronic T8 and T12 compression fractures. No dislocation. Soft tissues: Unremarkable. Lymph nodes: See above. Tubes, lines and devices: Left-sided pacemaker. IMPRESSION: 1. No evidence of pulmonary embolus. 2. Partially visualized abdominal aortic aneurysm measuring up to 4.[address] angiogram of the abdomen and pelvis for further evaluation. 3. Severe emphysematous changes, right greater than left with atelectasis/collapse of the left lower lobe and lingula region Electronically signed by: Vickie Shelley MD 10/05/23 22:33 PM
[2023-10-05 23:22] LABS: iSTAT Allen Test Pass; iSTAT Art Bld Gas pCO2 Correct 90 mmHg (35-46); iSTAT Art Bld Gas pH Corrected 7.195 (7.35-7.45); iSTAT Arterial Blood Gas HCO3 35 meg/L (19-24); iSTAT Arterial Blood Gas pCO2 91 mmHg (35-46); iSTAT Arterial Blood Gas pH 7.19 (7.35-7.45); iSTAT Arterial Blood Gas pO2 59 mmHg (80-95); iSTAT Arterial Blood Gas pO2 C 58; iSTAT Carbon Dioxide 38 mmol/L (24-31); iSTAT FiO2 70 %; iSTAT Hematocrit 33 % (42-52); iSTAT Hemoglobin 11.2 g/dl (14.0-18.0); iSTAT Potassium 5.1 mmol/L (3.3-5.0); iSTAT Site R Radial; iSTAT Sodium 137 mmol/L (135-144)
[2023-10-05] MEDS: AZITHROMYCIN 500 MG in DEXTROSE 5% 250 ML IV SCH (23:48)
[2023-10-05] MEDS: CEFEPIME 2,000 MG in SYRINGE 0 ML IV SCH (23:49)
[2023-10-06] MEDS: ICU Protocol for HYPERglycemia SCH (00:54)
[2023-10-06] MEDS: Heparin IV Adult Wt-Based Standard *NO* INITIAL Bolus Protocol IV STA (00:55)
--- NOTE | 2023-10-06 02:40 | Critical Care Consultation ---
Date of Consultation October 05, 2023 Assessment & Plan (1) Acute on chronic respiratory failure with hypoxia and hypercapnia: Reason Critically Ill: 83-year-old male with history of severe COPD and recent admission for cellulitis of the lower extremity, now presents to the ICU with acute on chronic hypoxic/hypercapnic respiratory failure requiring continuous BiPAP, with BioFire positive for parainfluenza virus. Neuro - Encephalopathypatient exhibiting drowsiness and mild confusion, secondary to hypercapnia with CO2 90s. Expect to improve with correction of hypercapnia. See treatment below Cardiac - HTNcurrently normotensive. Continue amlodipine HLDcontinue statin AAAcoincidental finding on CTA chest of moderate-sized 4.2 cm AAA. Likely needs surveillance. Prevent excessive hypertension Respiratory - Acute on chronic hypoxic and hypercapnic respiratory failurepatient with severe COPD, bio fire positive for parainfluenza. Requiring continuous BiPAP. -CTA negative for PE and no consolidation. Severe emphysema changes with left atelectasis -See ID treatment below -Per conversation with family, patient would not want intubation. Will continue with BiPAP support and medical management -Continue high-dose steroid -Continue scheduled nebulizers -Follow-up a.m. chest x-ray and ABG -Continuous pulse ox monitoring GI - N.p.o. RENAL/LYTES - Creatinine within normal limits. Monitor routine BMPs and replete electrolytes as indicated - BPHpatient presented with Zepeda from [facility] due to urinary retention from last hospitalization. Continue Flomax when appropriate -Strict I's and O's ENDO - No history of diabetes or thyroid disease. ICU hyperglycemic protocol HEME - H&H stable, monitor routine CBC ID - Bio fire positive for parainfluenza. Continue with supportive care Afebrile, no leukocytosis, and Pro-Geovany within normal limits. No clear evidence of secondary bacterial infection but started on empiric antibiotic coverage given significance of disease -Urinalysis unremarkable -Blood cultures and sputum culture pending -Nasal MRSA negative LINES/IV ACCESS - Peripheral IV DVT PROPHYLAXIS - SCDs, subcu heparin CODE STATUS: DNR/DNI per conversation with family I have personally spent 115 minutes of critical care time in the direct management of this patient. This is a life/limb threatening event. This includes time spent evaluating patient, direct bedside care, chart review, placing orders, interpretation of diagnostic studies, discussion with consultants, patient, and family members, as well as other required patient management activities. This time is exclusive of all separately billable procedures, and teaching time and separate from and in addition to any other critical care service time. Thank you for allowing us to participate in the care of this patient. Please refer to my attending physician's documentation for any further recommendations. (2) Infection due to parainfluenza virus 3: (3) COPD with hypoxia: (4) Stenosis of both internal carotid arteries: (5) HTN (hypertension): (6) HLD (hyperlipidemia): (7) BPH (benign prostatic hyperplasia): History of Present Illness Attending Physician: Mack Louis MD History of Present Illness Patient is a 83-year-old male with past medical history significant for severe COPD (on supplemental oxygen as needed), HLD, HTN, BPH and recent admission for cellulitis when she was discharged to [facility] for rehab for which she now presents to the ER with respiratory failure. Patient was reported to have cough with shortness of breath for the past 2 days at [facility], which became significantly worse today. EMS noted patient to be on 6 L nasal cannula on arrival with oxygen saturation of 85% and he was placed on nonrebreather. On arrival to the emergency department patient was noted to be drowsy and have significant respiratory acidosis and was placed on BiPAP. He received IV Solu- Medrol and albuterol nebulizer. He is afebrile, without leukocytosis. Bio fire did result positive for parainfluenza virus. He underwent CTA chest which was negative for PE, but did show severe emphysema with right greater than left atelectasis/collapse of the left lower lobe and lingula region, and coincidental finding of 4.2cm AAA. Patient was transferred to ICU for further management. On arrival to the ICU, patient did not show improvement in hypercapnia. I did speak with the patient's over the phone who presented to the bedside shortly after with her son. We had a long conversation regarding the patient's CODE STATUS and plan of care, and they are aware that his prognosis is likely poor. Patient does have a living will, which did state that he would not want life support in the event of terminal illness. Upon discussion of the patient's current medical condition along with his previously disclosed wishes, patient's family made the patient DNR in the event of cardiac arrest, and stated he would not want intubation or mechanical ventilation. Per plan, they agreed to continue with current medical management at this time. If patient were to further decompensate or become distressed or uncomfortable, will further reevaluate and consider transitioning to comfort measures. Patient to remain in ICU for further management at this time. Allergies Allergy/AdvReac Type Severity Reaction Status Date / Time No Known Allergies Allergy Verified 10/05/23 18:07 Home Medications Medication Instructions Recorded Confirmed Type amlodipine 5 mg tablet (Norvasc) 5 mg PO QAM 03/20/18 10/05/23 History atorvastatin 40 mg tablet 40 mg PO QAM 10/22/22 10/05/23 History losartan 25 mg tablet 25 mg PO QAM 10/22/22 10/05/23 History albuterol sulfate 90 mcg/actuation 1 inh inhalation QID PRN Shortness 09/23/23 10/05/23 History aerosol inhaler Of Breath Or Wheezing dutasteride 0.5 mg capsule 0.5 mg PO QPM 09/23/23 10/05/23 History (Avodart) tamsulosin 0.4 mg capsule (Flomax) 0.4 mg PO HS 09/23/23 10/05/23 History aspirin 81 mg tablet,delayed 81 mg PO QAM 30 days #30 tabs 09/29/23 10/05/23 Rx release olanzapine 2.5 mg tablet 2.5 mg PO HS 7 days #7 tabs 09/29/23 10/05/23 Rx acetaminophen 325 mg tablet 650 mg PO Q4H PRN Pain 10/05/23 10/05/23 History (Tylenol) ammonium lactate 12 % lotion 1 applic topical Q12H 10/05/23 10/05/23 History bisacodyl 10 mg rectal suppository 10 mg WI DAILY PRN Constipation 10/05/23 10/05/23 History clobetasol 0.05 % topical cream 1 applic topical DAILY 10/05/23 10/05/23 History docusate sodium 100 mg capsule 100 mg PO BID 10/05/23 10/05/23 History heparin (porcine) 5,000 unit/mL 5,000 unit subcut Q12H 10/05/23 10/05/23 History injection solution ipratropium 0.5 mg-albuterol 3 mg 3 ml inhalation Q4H PRN Shortness 10/05/23 10/05/23 History (2.5 mg base)/3 mL nebulization Of Breath Or Wheezing soln magnesium hydroxide 400 mg/5 mL 30 ml PO DAILY PRN Constipation 10/05/23 10/05/23 History oral suspension (Milk of Magnesia) melatonin 3 mg tablet 3 mg PO HS PRN Insomnia 10/05/23 10/05/23 History ondansetron HCl 4 mg tablet 4 mg PO Q4H PRN NAUSEA/VOMITING 10/05/23 10/05/23 History polyethylene glycol 3350 17 17 g PO QDL PRN Constipation 10/05/23 10/05/23 History gram/dose oral powder (Miralax) sennosides 8.6 mg-docusate sodium 1 tab-cap PO QDL PRN Constipation 10/05/23 10/05/23 History 50 mg tablet (Senokot-S) sodium chloride 7 % for 4 ml inhalation BID 10/05/23 10/05/23 History nebulization (Hyper-Jose Eduardo) Patient History Medical History (Updated 10/06/23 @ 02:55 by RAEGAN Urrutia) HTN (hypertension) Asymptomatic bilateral carotid artery stenosis AAA (abdominal aortic aneurysm) without rupture Urinary symptom or sign Chronic respiratory failure with hypoxia Pulmonary nodule seen on imaging study Stable 1 cm solid right lower lobe pulmonary nodule as well as stable indeterminate solid lobulated 19 mm anterior mediastinal soft tissue mass Urinary retention CKD (chronic kidney disease), stage III Dyspnea on exertion Patient chronically on supplemental oxygen Emphysema lung BPH (benign prostatic hyperplasia) Psoriasis COPD (chronic obstructive pulmonary disease) Hx of Lyme disease Pacemaker 2014 ([employer]) SECONDARY TO COMPLETE HEART BLOCK/SSS; Hypertension 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 Surgical History S/P cardiac pacemaker procedure 2014 ([employer]) SECONDARY TO COMPLETE HEART BLOCK/SSS; LAST CHECK 02/04/18 Hx of colonoscopy Family History Other Cancer Social History Smoking Status: Former smoker Tobacco Type: Cigarettes Age Started Using Tobacco: 18; Age Quit Using Tobacco: 75; packs per day: 1; Second Hand Exposure: No; Do You Dip or Chew Tobacco: No; Hx Alcohol Use: No Hx Substance Use: No Preferred Language: Bengali Communication Ability: Effective Visual Impairment: No Limitations Hearing Ability: Normal Forging Dies Final Finisher Required: No Beliefs That Will Affect Care: None marital status: Current Living Situation: Rehab current occupational status: retired How many Children do You have: 2 How many Children do You have Comment: one son lives close and is able to assist with care, other son not involved Feels Safe at Home: Yes Diet: regular during the past year weight has: remained stable Assistive Devices: Denture - Upper and Denture - Lower Review of Systems Review of Systems: Unobtainable due to cognitive status Physical Exam Constitutional: + frail appearing; no acute distress Eyes: PERRL, conjunctivae normal, anicteric sclerae ENMT: external ear and nose normal, oropharynx normal Neck: trachea midline, no thyromegaly Respiratory: Lungs diminished bilaterally, no crackles or wheezes auscultated. No tachypnea, labored breathing, or use of accessory muscles. Currently on BiPAP mask. Cardiovascular: Heart Sounds: normal S1 and normal S2; no murmur Extremities: no edema Gastrointestinal (Abdomen): normal bowel sounds, soft, nontender, no hepatosplenomegaly Musculoskeletal: no cyanosis or clubbing, extremities motor strength 5/5 Skin: no rashes, warm and dry Neurologic: Drowsy. Confused. Follows commands. PERRLA. No focal motor deficits. Psychiatric: Orientation: oriented to person; + not oriented to place and + not oriented to time Genitourinary: Indwelling Zepeda catheter present Results & Data Results & Data Vital Signs (Past 12 Hours) Vital Signs Temp Pulse Pulse Resp BP Pulse Ox O2 Del Method 10/05/23 21:18 86 23 99 BiPAP 10/05/23 21:15 81 30 H 133/67 97 BiPAP 10/05/23 21:00 78 28 H 110/52 L 94 BiPAP 10/05/23 20:45 76 17 91/47 L 95 BiPAP 10/05/23 20:40 80 10/05/23 20:30 82 28 H 123/56 L 97 BiPAP 10/05/23 20:15 89 44 H 144/64 H 96 BiPAP 04/07/24 20:00 92 H 34 H 144/101 H 97 BiPAP 10/05/23 19:49 88 16 96 10/05/23 19:49 88 16 96 BiPAP 10/05/23 19:45 84 34 H 123/70 95 BiPAP 10/05/23 19:30 90 34 H 160/67 H 93 BiPAP 10/05/23 19:16 89 38 H 133/63 87 L BiPAP 10/05/23 19:00 88 30 H 127/60 95 BiPAP 10/05/23 18:45 86 34 H 147/63 H 95 BiPAP 10/05/23 18:31 85 26 H 153/64 H 97 BiPAP 10/05/23 18:15 84 20 88/46 L 91 BiPAP 10/05/23 18:00 82 20 95/48 L 94 BiPAP 10/05/23 17:49 10/05/23 17:45 88 34 H 122/54 L 97 BiPAP 10/05/23 17:31 98 H 28 H 117/71 89 L BiPAP 10/05/23 17:15 91 H 36 H 140/61 89 L BiPAP 10/05/23 17:00 96 H 36 H 139/70 93 BiPAP 10/05/23 17:00 93 H 37 H 99 10/05/23 16:55 80 L BiPAP 10/05/23 16:50 99 H 40 H 141/62 H 100 BiPAP 10/05/23 16:45 104 H 10/05/23 16:43 BiPAP 10/05/23 16:40 102 H 34 H 92 Non-rebreather 10/05/23 16:36 105 H 36 H 80 L Room Air 10/05/23 16:31 37.4 C 101 H 30 H 150/74 H 90 Room Air O2 Flow Rate FiO2 10/05/23 21:18 90 10/05/23 21:15 10/05/23 21:00 10/05/23 20:45 10/05/23 20:40 10/05/23 20:30 10/05/23 20:15 10/05/23 20:00 10/05/23 19:49 90 10/05/23 19:49 90 10/05/23 19:45 10/05/23 19:30 10/05/23 19:16 10/05/23 19:00 10/05/23 18:45 04/07/24 18:31 10/05/23 18:15 10/05/23 18:00 10/05/23 17:49 50 10/05/23 17:45 10/05/23 17:31 10/05/23 17:15 10/05/23 17:00 10/05/23 17:00 35 10/05/23 16:55 10/05/23 16:50 10/05/23 16:45 10/05/23 16:43 10/05/23 16:40 15 10/05/23 16:36 10/05/23 16:31 Coding Level of Care Code 01553 CRITICAL CARE EA ADD 30M Diagnoses Acute on chronic respiratory failure with hypoxia and hypercapnia J96.21; J96.22 Infection due to parainfluenza virus 3 B34.8 COPD with hypoxia J44.9; R09.02 Stenosis of both internal carotid arteries I65.23 Essential hypertension I10 Hypertension type: essential hypertension HLD (hyperlipidemia) E78.5 BPH (benign prostatic hyperplasia) N40.0 (5) HTN (hypertension) Hypertension type: essential hypertension Qualified Code(s): I10 - Essential (primary) hypertension
[2023-10-06] MEDS: methylPREDNISolone 60 MG in SYRINGE 0 ML IV SCH (03:09)
[2023-10-06] MEDS: IPRATROPIUM BROMIDE NEB SOLN 0.02% 0.5MG/2.5ML VIAL INH SCH (03:26)
[2023-10-06] MEDS: LEVALBUTEROL 1.25 MG/3 ML NEB NEB SCH (03:26)
[2023-10-06 04:25] LABS: Hematocrit (blood only) 33.4 % (42.0-52.0); Mean Corpuscular Hgb Conc 29.9 g/dL (32.0-36.0); Mean Corpuscular Volume 103.4 fL (80.0-100.0); Mean Platelet Volume 9.9 fL (9.4-12.4); Platelet Count 278 K/uL (130-400); RDW Coefficient of Variation 15.6 % (11.5-14.5); RDW Standard Deviation 58.6 fL (36.4-46.3); Red Blood Count 3.23 M/uL (4.70-6.10); White Blood Count 12.42 K/ul (4.8-10.8)
[2023-10-06 04:27] LABS: Est GFR (African American) 57.1 ml/min; Est GFR (Non-African American) 49.3 ml/min; Magnesium 2.6 mg/dl (1.7-2.4); Phosphorus 4.7 mg/dl (2.5-4.9); Potassium 5.4 mmol/L (3.5-5.1)
[2023-10-06 04:42] LABS: Basophils # (auto) 0.02 K/uL (0.00-0.20); Basophils % (auto) 0.2 %; Immature Granulocytes # (auto) 0.04 K/uL (0.01-0.20); Immature Granulocytes % (auto) 0.3 %; Lymphocytes # (auto) 0.23 K/uL (1.20-3.40); Lymphocytes % (auto) 1.9 %; Monocytes # (auto) 0.64 K/uL (0.11-0.59); Monocytes % (auto) 5.2 %; Neutrophils # (auto) 11.49 K/uL (1.40-6.50); Neutrophils % (auto) 92.4 %
[2023-10-06 05:20] LABS: iSTAT Allen Test Pass; iSTAT Art Bld Gas pCO2 Correct 88 mmHg (35-46); iSTAT Art Bld Gas pH Corrected 7.209 (7.35-7.45); iSTAT Arterial Blood Gas HCO3 35 meg/L (19-24); iSTAT Arterial Blood Gas pCO2 87 mmHg (35-46); iSTAT Arterial Blood Gas pH 7.21 (7.35-7.45); iSTAT Arterial Blood Gas pO2 250 mmHg (80-95); iSTAT Arterial Blood Gas pO2 C 251; iSTAT Carbon Dioxide 37 mmol/L (24-31); iSTAT FiO2 90 %; iSTAT Hematocrit 31 % (42-52); iSTAT Hemoglobin 10.5 g/dl (14.0-18.0); iSTAT Potassium 5.4 mmol/L (3.3-5.0); iSTAT Site L Radial; iSTAT Sodium 136 mmol/L (135-144)
[2023-10-06] MEDS: SODIUM CHLORIDE 0.9% 1,000 ML IV SCH (06:11)
--- NOTE | 2023-10-06 07:55 | XRay Report ---
XR chest 1V portable HISTORY: Respiratory failure. COMPARISON: Chest CTA 10/05/2023. FINDINGS: There is a left-sided dual-chamber pacemaker. The cardiac silhouette remains top normal in size. No pneumothorax. Emphysema again noted. No acute fractures. Left lower lobe consolidation persi sts. There is a trace left pleural effusion, unchanged. No evidence for pulmonary edema. IMPRESSION: 1. No significant change in the left lower lobe consolidation likely representing a pneumonia. This c ould be due to prior aspiration. 2. Trace left pleural effusion. 3. Emphysema. ACT 112: Negative or not required by law. Electronically signed by: Gene Grider M.D. 10/06/2023 7:54 AM
--- NOTE | 2023-10-06 08:44 | Critical Care Progress Note ---
Date of Service October 06, 2023 Assessment & Plan (1) Acute on chronic respiratory failure with hypoxia and hypercapnia: Plan: Reason Critically Ill: 83-year-old male with history of severe COPD and recent admission for cellulitis of the lower extremity, now presents to the ICU with acute on chronic hypoxic/hypercapnic respiratory failure requiring continuous BiPAP, with BioFire positive for parainfluenza virus. Neuro - Encephalopathyresolved Cardiac - HTNcurrently normotensive. Continue amlodipine HLDcontinue statin AAAcoincidental finding on CTA chest of moderate-sized 4.2 cm AAA. Likely needs surveillance. Prevent excessive hypertension Respiratory - Acute on chronic hypoxic and hypercapnic respiratory failurepatient with severe COPD, bio fire positive for parainfluenza. Trial off BiPAP -CTA negative for PE and no consolidation. Severe emphysema changes with left atelectasis -See ID treatment below -Per conversation with family, patient would not want intubation. Will continue with BiPAP support and medical management -Transition to oral prednisone taper -Continue scheduled nebulizers GI - If able to remain off BiPAP can try diet RENAL/LYTES - Creatinine within normal limits. Monitor routine BMPs and replete electrolytes as indicated - BPHpatient presented with [facility] from [facility] due to urinary retention from last hospitalization. Continue Flomax when appropriate -Strict I's and O's ENDO - No history of diabetes or thyroid disease. ICU hyperglycemic protocol HEME - H&H stable, monitor routine CBC ID - Bio fire positive for parainfluenza. Continue with supportive care Afebrile, no leukocytosis, and Pro-[place] within normal limits. No clear evidence of secondary bacterial infection but started on empiric antibiotic coverage given significance of disease -Urinalysis unremarkable -Blood cultures and sputum culture pending -Nasal MRSA negative LINES/IV ACCESS - Peripheral IV DVT PROPHYLAXIS - SCDs, subcu heparin CODE STATUS: DNR/DNI per conversation with family Dispo: can be downgraded out of ICU. (2) Infection due to parainfluenza virus 3: (3) COPD with hypoxia: (4) Stenosis of both internal carotid arteries: (5) HTN (hypertension): (6) HLD (hyperlipidemia): (7) BPH (benign prostatic hyperplasia): Admission and Anticipated Discharge Date Admission Date: October 05, 2023 Subjective Initially mildly somnolent this morning however greatly improved during this afternoon's evaluation. No complaints at this time. Physical Exam Physical Exam: General: Alert. nontoxic. Skin: Warm, dry, Head: Atraumatic, BiPAP mask in place Ears, nose, mouth and throat: airway patent Cardiovascular: Normal peripheral perfusion Respiratory: no respiratory distress Gastrointestinal: Non distended Musculoskeletal: No deformity Results & Data Results & Data Vital Signs (Past 12 Hours) Vital Signs Temp Pulse Pulse Resp BP BP Pulse Ox 10/06/23 08:00 37.4 C 93 H 35 H 99 10/06/23 08:00 153/70 H 10/06/23 08:00 10/06/23 08:00 10/06/23 07:33 81 20 90 10/06/23 07:33 85 20 89 L 10/06/23 07:30 37.4 C 83 28 H 89 L 10/06/23 07:30 123/56 L 10/06/23 07:00 112/54 L 10/06/23 07:00 37.4 C 82 20 94 10/06/23 05:03 20 99 10/06/23 04:50 37.3 C 85 19 98 10/06/23 04:40 37.4 C 86 23 98 10/06/23 04:30 37.4 C 86 22 99 10/06/23 04:30 133/59 L 10/06/23 04:20 37.4 C 86 25 H 99 10/06/23 04:10 37.5 C 84 19 99 10/06/23 04:00 115/51 L 10/06/23 04:00 37.5 C 81 18 99 10/06/23 03:50 37.5 C 85 26 H 98 10/06/23 03:40 37.6 C H 81 24 99 10/06/23 03:30 37.5 C 86 22 99 10/06/23 03:30 124/59 L 10/06/23 03:27 87 15 99 10/06/23 03:27 82 14 100 10/06/23 03:20 37.6 C H 83 18 100 10/06/23 03:10 37.6 C H 84 29 H 99 10/06/23 03:00 37.5 C 83 37 H 99 10/06/23 03:00 142/67 H 10/06/23 02:00 130/63 10/06/23 02:00 37.4 C 84 30 H 99 10/06/23 01:00 131/61 10/06/23 01:00 37.1 C 81 24 100 10/06/23 00:30 126/58 L 10/06/23 00:30 37.0 C 77 20 100 10/06/23 00:00 67 10/06/23 00:00 36.9 C 66 14 100 10/06/23 00:00 110/56 L 10/05/23 23:30 112/53 L 10/05/23 23:30 36.9 C 76 22 90 10/05/23 23:18 87 24 88 L 10/05/23 23:00 36.8 C 79 27 H 90 10/05/23 23:00 130/61 10/05/23 22:30 36.8 C 80 27 H 90 10/05/23 22:30 130/62 10/05/23 22:29 37.0 C 86 28 H 141/54 H 98 10/05/23 22:00 141/54 H 10/05/23 22:00 37.0 C 84 31 H 98 10/05/23 21:48 10/05/23 21:48 10/05/23 21:18 86 23 99 10/05/23 21:15 81 30 H 133/67 97 10/05/23 21:00 78 28 H 110/52 L 94 10/05/23 20:45 76 17 91/47 L 95 10/05/23 20:40 80 Pulse Ox O2 Del Method O2 Del Method FiO2 10/06/23 08:00 10/06/23 08:00 10/06/23 08:00 BiPAP 50 10/06/23 08:00 BiPAP 10/06/23 07:33 50 10/06/23 07:33 BiPAP 50 10/06/23 07:30 10/06/23 07:30 10/06/23 07:00 10/06/23 07:00 10/06/23 05:03 50 10/06/23 04:50 10/06/23 04:40 10/06/23 04:30 10/06/23 04:30 10/06/23 04:20 10/06/23 04:10 10/06/23 04:00 10/06/23 04:00 10/06/23 03:50 10/06/23 03:40 10/06/23 03:30 10/06/23 03:30 10/06/23 03:27 90 10/06/23 03:27 BiPAP 100 10/06/23 03:20 10/06/23 03:10 10/06/23 03:00 10/06/23 03:00 10/06/23 02:00 10/06/23 02:00 10/06/23 01:00 10/06/23 01:00 10/06/23 00:30 10/06/23 00:30 10/06/23 00:00 10/06/23 00:00 10/06/23 00:00 10/05/23 23:30 10/05/23 23:30 10/05/23 23:18 90 10/05/23 23:00 10/05/23 23:00 10/05/23 22:30 10/05/23 22:30 10/05/23 22:29 BiPAP 90 10/05/23 22:00 10/05/23 22:00 10/05/23 21:48 BiPAP 100 10/05/23 21:48 89 L BiPAP 10/05/23 21:18 BiPAP 90 10/05/23 21:15 BiPAP 10/05/23 21:00 BiPAP 10/05/23 20:45 BiPAP 10/05/23 20:40 Critical Care Results & Data Vital Signs (Past 12 Hours) Vital Signs Temp Pulse Pulse Resp BP BP Pulse Ox 10/06/23 08:00 37.4 C 93 H 35 H 99 10/06/23 08:00 153/70 H 10/06/23 08:00 10/06/23 08:00 10/06/23 07:33 81 20 90 10/06/23 07:33 85 20 89 L 10/06/23 07:30 37.4 C 83 28 H 89 L 10/06/23 07:30 123/56 L 10/06/23 07:00 112/54 L 10/06/23 07:00 37.4 C 82 20 94 10/06/23 05:03 20 99 10/06/23 04:50 37.3 C 85 19 98 10/06/23 04:40 37.4 C 86 23 98 10/06/23 04:30 37.4 C 86 22 99 10/06/23 04:30 133/59 L 10/06/23 04:20 37.4 C 86 25 H 99 10/06/23 04:10 37.5 C 84 19 99 10/06/23 04:00 115/51 L 10/06/23 04:00 37.5 C 81 18 99 10/06/23 03:50 37.5 C 85 26 H 98 10/06/23 03:40 37.6 C H 81 24 99 10/06/23 03:30 37.5 C 86 22 99 10/06/23 03:30 124/59 L 10/06/23 03:27 87 15 99 10/06/23 03:27 82 14 100 10/06/23 03:20 37.6 C H 83 18 100 10/06/23 03:10 37.6 C H 84 29 H 99 10/06/23 03:00 37.5 C 83 37 H 99 10/06/23 03:00 142/67 H 10/06/23 02:00 130/63 10/06/23 02:00 37.4 C 84 30 H 99 10/06/23 01:00 131/61 10/06/23 01:00 37.1 C 81 24 100 10/06/23 00:30 126/58 L 10/06/23 00:30 37.0 C 77 20 100 10/06/23 00:00 67 10/06/23 00:00 36.9 C 66 14 100 10/06/23 00:00 110/56 L 10/05/23 23:30 112/53 L 10/05/23 23:30 36.9 C 76 22 90 10/05/23 23:18 87 24 88 L 10/05/23 23:00 36.8 C 79 27 H 90 10/05/23 23:00 130/61 10/05/23 22:30 36.8 C 80 27 H 90 10/05/23 22:30 130/62 10/05/23 22:29 37.0 C 86 28 H 141/54 H 98 10/05/23 22:00 141/54 H 10/05/23 22:00 37.0 C 84 31 H 98 10/05/23 21:48 10/05/23 21:48 10/05/23 21:18 86 23 99 10/05/23 21:15 81 30 H 133/67 97 10/05/23 21:00 78 28 H 110/52 L 94 10/05/23 20:45 76 17 91/47 L 95 Pulse Ox O2 Del Method O2 Del Method FiO2 10/06/23 08:00 10/06/23 08:00 10/06/23 08:00 BiPAP 50 10/06/23 08:00 BiPAP 10/06/23 07:33 50 10/06/23 07:33 BiPAP 50 10/06/23 07:30 10/06/23 07:30 10/06/23 07:00 10/06/23 07:00 10/06/23 05:03 50 10/06/23 04:50 10/06/23 04:40 10/06/23 04:30 10/06/23 04:30 10/06/23 04:20 10/06/23 04:10 10/06/23 04:00 10/06/23 04:00 10/06/23 03:50 10/06/23 03:40 10/06/23 03:30 10/06/23 03:30 10/06/23 03:27 90 10/06/23 03:27 BiPAP 100 10/06/23 03:20 10/06/23 03:10 10/06/23 03:00 10/06/23 03:00 10/06/23 02:00 10/06/23 02:00 10/06/23 01:00 10/06/23 01:00 10/06/23 00:30 10/06/23 00:30 10/06/23 00:00 10/06/23 00:00 10/06/23 00:00 10/05/23 23:30 10/05/23 23:30 10/05/23 23:18 90 10/05/23 23:00 10/05/23 23:00 10/05/23 22:30 10/05/23 22:30 10/05/23 22:29 BiPAP 90 10/05/23 22:00 10/05/23 22:00 10/05/23 21:48 BiPAP 100 10/05/23 21:48 89 L BiPAP 10/05/23 21:18 BiPAP 90 10/05/23 21:15 BiPAP 10/05/23 21:00 BiPAP 10/05/23 20:45 BiPAP Lab & Micro Results (Past 24 Hours) RBC 3.23 M/uL (4.70-6.10) L 10/06/23 WBC 12.42 K/ul (4.8-10.8) H 10/06/23 Hgb 10.0 g/dl (14.0-18.0) L 10/06/23 Hct 33.4 % (42.0-52.0) L 10/06/23 MCV 103.4 fL (80.0-100.0) H 10/06/23 MCH 31.0 pg (25.0-34.0) 10/06/23 MCHC 29.9 g/dL (32.0-36.0) L 10/06/23 RDW Standard Deviation 58.6 fL (36.4-46.3) H 10/06/23 RDW Coefficient of Variation 15.6 % (11.5-14.5) H 10/06/23 Plt Count 278 K/uL (130-400) 10/06/23 MPV 9.9 fL (9.4-12.4) 10/06/23 Neutrophils (%) (Auto) 92.4 % 10/06/23 Lymphocytes (%) (Auto) 1.9 % 10/06/23 Monocytes # (Auto) 0.64 K/uL (0.11-0.59) H 10/06/23 Eosinophils # (Auto) 0.00 K/uL (0.00-0.50) 10/06/23 Immature Granulocyte % (Auto) 0.3 % 10/06/23 Neutrophils # (Auto) 11.49 K/uL (1.40-6.50) H 10/06/23 Lymphocytes # (Auto) 0.23 K/uL (1.20-3.40) L 10/06/23 Monocytes # (Auto) 0.64 K/uL (0.11-0.59) H 10/06/23 Eosinophils # (Auto) 0.00 K/uL (0.00-0.50) 10/06/23 Basophils # (Auto) 0.02 K/uL (0.00-0.20) 10/06/23 Immature Granulocyte # (Auto) 0.04 K/uL (0.01-0.20) 4 Basophilic Stippling Occasional 10/05/23 Stomatocytes 1+ 10/05/23 Na 136 mmol/L (136-145) 10/06/23 K 5.4 mmol/L (3.5-5.1) H 10/06/23 Cl 100 mmol/L (98-107) 10/06/23 CO2 32 mmol/L (21-32) 10/06/23 Anion Gap 4 (3-11) 10/06/23 BUN 34 mg/dl (6-23) H 10/06/23 Creatinine 1.31 mg/dl (0.6-1.4) 10/06/23 Estimated GFR ( Amer) 57.1 ml/min 10/06/23 Estimated GFR (Non-Af Amer) 49.3 ml/min 10/06/23 BUN/Creatinine Ratio 26.0 (10-20) H 10/06/23 Glu 131 mg/dl (70-99(Fasting)) H 10/06/23 Ca 9.0 mg/dl (8.6-10.3) 10/06/23 Phosphorus Level 4.7 mg/dl (2.5-4.9) 10/06/23 Total Bilirubin 0.7 mg/dl (0.2-1.0) 10/05/23 Direct Bilirubin 0.2 mg/dl (0-0.2) 10/05/23 AST 17 U/L (13-39) 10/05/23 ALT 9 U/L (7-52) 10/05/23 Alkaline Phosphatase 79 U/L (34-104) 10/05/23 TP 7.7 gm/dl (6.0-8.3) 10/05/23 Albumin 3.8 gm/dl (3.4-5.0) 10/05/23 Mg 2.6 mg/dl (1.7-2.4) H 10/06/23 03:47 Calcium Level 9.0 mg/dl (8.6-10.3) 10/06/23 03:47 Venous Blood pH 7.19 (7.36-7.41) L 10/05/23 17:25 Venous Blood Partial Pressure CO2 97 mmHg (38-50) H 10/05/23 17 :25 Venous Blood Partial Pressure O2 42 mmHg 10/05/23 17:25 Venous Blood HCO3 37 mmol/L 10/05/23 17:25 Venous Blood Base Excess 5.3 mEq/L 10/05/23 17:25 Venous Blood Oxygen Saturation 62.4 % 10/05/23 17:25 Arterial Blood pH 7.19 (7.35-7.45) L* 10/05/23 20:04 Arterial Blood Partial Pressure CO2 103 mmHg (35-46) H 10/05/23 20:04 Arterial Blood Partial Pressure O2 116 mmHg (80-95) H 10/05/23 20:04 Arterial Blood HCO3 39 mmol/L (19-24) H 10/05/23 20:04 Arterial Blood Base Excess 7.1 mEq/L (-9-1.8) H 10/05/23 20:04 Arterial Blood Oxygen Saturation 98.3 % (90-95) H 10/05/23 20:0 4 Blood Gas Oxygen Given 15 10/05/23 20:04 Bird Test Pass 10/06/23 10:09 Diagnostic Findings (Past 24 Hours) Chest X-Ray 10/05/23 16:43 XR chest 1V portable CLINICAL HISTORY: Sepsis TECHNIQUE: Single frontal radiograph of the chest was obtained. Comparison: Comparison is made to chest radiograph 09/23/2023 FINDINGS: An implanted pacemaker is seen. Cardiomegaly is noted. Reticular interstitial opacities are seen. Blunting of the left costophrenic angle is seen. IMPRESSION: No evidence of pneumonia. Likely small left pleural effusion. ACT 112: Negative or not required by law. Electronically signed by: Thaddeus Khoury M.D. 10/05/2023 6:08 PM Chest CTA 10/05/23 20:47 Exam(s): CTA CHEST IV Amt: 119ml EXAM: CT Angiography Chest With Intravenous Contrast CLINICAL HISTORY: Reason for exam: cp sob. TECHNIQUE: Axial computed tomographic angiography images of the chest with intravenous contrast. CTDI is 22.46 mGy and DLP is 842.19 mGy-cm. Automated exposure control was utilized for the study. A dose lowering technique was utilized adhering to the principles of ALARA. MIP reconstructed images were created and reviewed. COMPARISON: No relevant prior studies available. FINDINGS: Pulmonary arteries: Unremarkable. No evidence of pulmonary embolus. Aorta: Moderate atherosclerotic disease of the thoracic aorta. Partially visualized abdominal aortic aneurysm measuring up to 4.[address] angiogram of the abdomen and pelvis for further evaluation. Lungs: Severe emphysematous changes, right greater than left with atelectasis/collapse of the left lower lobe and lingula region. No mass. Pleural space: Unremarkable. No significant effusion. No pneumothorax. Heart: Unremarkable. No cardiomegaly. No significant pericardial effusion. No evidence of RV dysfunction. Mediastinum: Mediastinal adenopathy, likely reactive. Bones/joints: Moderate degenerative changes of the thoracic and with old L1 compression fracture. Old L2 compression fracture. Chronic T8 and T12 compression fractures. No dislocation. Soft tissues: Unremarkable. Lymph nodes: See above. Tubes, lines and devices: Left-sided pacemaker. IMPRESSION: 1. No evidence of pulmonary embolus. 2. Partially visualized abdominal aortic aneurysm measuring up to 4.[address] angiogram of the abdomen and pelvis for further evaluation. 3. Severe emphysematous changes, right greater than left with atelectasis/collapse of the left lower lobe and lingula region Electronically signed by: Vickie Shelley MD 10/05/23 22:33 PM Chest X-Ray 10/06/23 07:00 XR chest 1V portable HISTORY: Respiratory failure. COMPARISON: Chest CTA 10/05/2023. FINDINGS: There is a left-sided dual-chamber pacemaker. The cardiac silhouette remains top normal in size. No pneumothorax. Emphysema again noted. No acute fractures. Left lower lobe consolidation persists. There is a trace left pleural effusion, unchanged. No evidence for pulmonary edema. IMPRESSION: 1. No significant change in the left lower lobe consolidation likely representing a pneumonia. This could be due to prior aspiration. 2. Trace left pleural effusion. 3. Emphysema. ACT 112: Negative or not required by law. Electronically signed by: Gene Grider M.D. 10/06/2023 7:54 AM I & O Totals 24 Hours 10/05/23 10/06/23 10/07/23 06:59 06:59 06:59 Intake Total 856.800 / 856.800 Output Total 475 / 475 Balance 381.800 / 381.800 Cumulative 10/05/23 16:16 thru 10/06/23 06:14 Intake Total 856.800 Output Total 475 Balance 381.800 RT Ventilator Mngmt (Last Documented) Ventilator Ordered Settings Respiratory Rate 35 10/06/23 08:00 Fraction of Inspired Oxygen 50 10/06/23 08:00 Ventilator - PT Measurements Respiratory Rate 35 Coding Level of Care Code 90055 SUB INP/OBS CARE 3/50MIN Diagnoses Acute on chronic respiratory failure with hypoxia and hypercapnia J96.21; J96.22 Infection due to parainfluenza virus 3 B34.8 COPD with hypoxia J44.9; R09.02 Stenosis of both internal carotid arteries I65.23 Essential hypertension I10 Hypertension type: essential hypertension HLD (hyperlipidemia) E78.5 BPH (benign prostatic hyperplasia) N40.0 (5) HTN (hypertension) Hypertension type: essential hypertension Qualified Code(s): I10 - Essential (primary) hypertension
[2023-10-06] MEDS ORDERED: methylPREDNISolone 40 MG in SYRINGE 0 ML IV SCH (09:00)
[2023-10-06] MEDS: ASPIRIN 81 MG ECTAB PO SCH (10:10)
[2023-10-06] MEDS: ATORVASTATIN 40 MG TAB PO SCH (10:10)
[2023-10-06] MEDS: amLODIPine BESYLATE 5 MG TAB PO SCH (10:10)
[2023-10-06] MEDS: ENOXAPARIN INJ 30 MG/0.3 ML SYR SQ SCH (10:24)
[2023-10-06 10:25] LABS: iSTAT Allen Test Pass; iSTAT Art Bld Gas pCO2 Correct 57 mmHg (35-46); iSTAT Arterial Blood Gas HCO3 33 meg/L (19-24); iSTAT Arterial Blood Gas pCO2 56 mmHg (35-46); iSTAT Arterial Blood Gas pH 7.39 (7.35-7.45); iSTAT Arterial Blood Gas pO2 85 mmHg (80-95); iSTAT Arterial Blood Gas pO2 C 87; iSTAT Carbon Dioxide 35 mmol/L (24-31); iSTAT FiO2 50 %; iSTAT Hematocrit 30 % (42-52); iSTAT Hemoglobin 10.2 g/dl (14.0-18.0); iSTAT Potassium 5.4 mmol/L (3.3-5.0); iSTAT Site R Radial; iSTAT Sodium 134 mmol/L (135-144)
[2023-10-06] MEDS: predniSONE 50 MG TAB PO ONE (12:56)
--- NOTE | 2023-10-06 15:08 | Hospitalist Progress Note ---
Date of Service October 06, 2023 Assessment & Plan (1) Acute on chronic respiratory failure with hypoxia and hypercapnia: Plan: Acute on chronic respiratory failure with hypoxia and hypercapnia Parainfluenza infection Acute COPD exacerbation Atelectasis contributing as well H/O severe COPD Chronic oxygen dependency on home supplemental oxygen --CTA:No evidence of pulmonary embolus. Partially visualized abdominal aortic aneurysm measuring up to 4.[address] angiogram of the abdomen and pelvis for further evaluation. Severe emphysematous changes, right greater than left with atelectasis/collapse of the left lower lobe and lingula region -- BioFire positive for parainfluenza -- Normal procalcitonin --Blood culture pending --Continue cefepime, azithromycin, nebs Taper steroids as able Appreciate critical care input Continue BiPAP as needed Continue supplemental oxygen to keep saturations 88 to 92% Downgrade out of ICU as able Acute metabolic encephalopathy Secondary to above Mental status improved with BiPAP use Monitor and reorient frequently to minimize delirium Hyperkalemia Hold losartan Monitor potassium levels Monitor Abdominal aortic aneurysm Incidental finding on CT Monitor Hypertension Continue amlodipine Losartan held due to hyperkalemia Monitor BP Hyperlipidemia Continue statin Prediabetes HbA1c 5.9 Other chronic conditions: Complete heart block S/P PPM PVD S/P surgery BPH continue Flomax Chronic anemia Hb at baseline Past tobacco abuse Continue home medications as able DVT Px: Lovenox SQ Code Status DNI/DNR Admission and Anticipated Discharge Date Admission Date: October 05, 2023 Subjective Patient is seen and examined at bedside Mental status much improved, near baseline Discussed with patient's at bedside Remains on BiPAP Discussed with ICU team Denies any chest pain, nausea, vomiting, abdominal pain Dyspnea better No other complaints Review of Systems Review of Systems: All systems reviewed & are unremarkable except as noted in Subjective Physical Exam Physical Exam: Physical Exam: Vitals signs as noted above General Appearance:Thin, frail, chronic ill appearing, no apparent distress Head: normocephalic, Atraumatic Eyes: normal inspection, EOMI Neck: supple, Trachea midline Respiratory/Chest: Decreased breath sounds, CTA, No accessory muscle use Cardiovascular: S1, S2, No murmur Abdomen/GI:Soft, Non tender, Bowel sounds present Extremities/Musculoskeletal:normal inspection, no edema Neurologic/Psych:AAO, grossly no focal neurological deficits Skin: normal color, warm Results & Data Results & Data Vital Signs (Past 12 Hours) Vital Signs Temp Pulse Pulse Resp BP Pulse Ox O2 Del Method 10/06/23 12:38 92 H 24 92 10/06/23 12:35 91 H 20 92 BiPAP 10/06/23 11:00 125/56 L 10/06/23 11:00 37.5 C 86 20 96 10/06/23 10:30 136/74 10/06/23 10:30 37.5 C 89 21 96 10/06/23 10:23 89 21 96 10/06/23 10:00 127/90 10/06/23 10:00 37.4 C 90 23 95 10/06/23 09:30 134/57 L 10/06/23 09:30 37.3 C 82 29 H 95 10/06/23 09:00 114/54 L 10/06/23 09:00 37.3 C 81 28 H 91 10/06/23 08:30 37.4 C 83 26 H 93 10/06/23 08:30 106/52 L 10/06/23 08:00 BiPAP 10/06/23 08:00 37.4 C 93 H 35 H 99 10/06/23 08:00 153/70 H 10/06/23 08:00 BiPAP 10/06/23 08:00 10/06/23 07:33 81 20 90 10/06/23 07:33 85 20 89 L BiPAP 10/06/23 07:30 37.4 C 83 28 H 89 L 10/06/23 07:30 123/56 L 10/06/23 07:00 112/54 L 10/06/23 07:00 37.4 C 82 20 94 10/06/23 05:03 20 99 10/06/23 04:50 37.3 C 85 19 98 10/06/23 04:40 37.4 C 86 23 98 10/06/23 04:30 37.4 C 86 22 99 10/06/23 04:30 133/59 L 10/06/23 04:20 37.4 C 86 25 H 99 10/06/23 04:10 37.5 C 84 19 99 10/06/23 04:00 115/51 L 10/06/23 04:00 37.5 C 81 18 99 10/06/23 03:50 37.5 C 85 26 H 98 10/06/23 03:40 37.6 C H 81 24 99 10/06/23 03:30 37.5 C 86 22 99 10/06/23 03:30 124/59 L 10/06/23 03:27 87 15 99 10/06/23 03:27 82 14 100 BiPAP 10/06/23 03:20 37.6 C H 83 18 100 10/06/23 03:10 37.6 C H 84 29 H 99 O2 Del Method FiO2 10/06/23 12:38 50 10/06/23 12:35 50 10/06/23 11:00 10/06/23 11:00 10/06/23 10:30 10/06/23 10:30 10/06/23 10:23 50 10/06/23 10:00 10/06/23 10:00 10/06/23 09:30 10/06/23 09:30 10/06/23 09:00 10/06/23 09:00 10/06/23 08:30 10/06/23 08:30 10/06/23 08:00 50 10/06/23 08:00 10/06/23 08:00 10/06/23 08:00 50 10/06/23 08:00 BiPAP 10/06/23 07:33 50 10/06/23 07:33 50 10/06/23 07:30 10/06/23 07:30 10/06/23 07:00 10/06/23 07:00 10/06/23 05:03 50 10/06/23 04:50 10/06/23 04:40 10/06/23 04:30 10/06/23 04:30 10/06/23 04:20 10/06/23 04:10 10/06/23 04:00 10/06/23 04:00 10/06/23 03:50 10/06/23 03:40 10/06/23 03:30 10/06/23 03:30 10/06/23 03:27 90 10/06/23 03:27 100 10/06/23 03:20 10/06/23 03:10 Laboratory Results Short CBC 10/05/23 10/06/23 Range/Units 16:51 03:47 WBC 5.88 12.42 H (4.8-10.8) K/ul Hgb 11.0 L 10.0 L (14.0-18.0) g/dl Hct 37.3 L 33.4 L (42.0-52.0) % Plt Count 300 278 (130-400) K/uL BMP 10/05/23 10/05/23 10/05/23 16:51 20:04 22:53 Sodium 136 Potassium 5.3 H 5.5 H 5.2 H Chloride 97 L Carbon Dioxide 35 H BUN 34 H Creatinine 1.28 Glucose 185 H Calcium 9.7 10/06/23 03:47 Sodium 136 Potassium 5.4 H Chloride 100 Carbon Dioxide 32 BUN 34 H Creatinine 1.31 Glucose 131 H Calcium 9.0 Liver Function 10/05/23 Range/Units 16:51 Total Bilirubin 0.7 (0.2-1.0) mg/dl Direct Bilirubin 0.2 (0-0.2) mg/dl AST 17 (13-39) U/L ALT 9 (7-52) U/L Alkaline Phosphatase 79 (34-104) U/L Albumin 3.8 (3.4-5.0) gm/dl Urine 10/05/23 Range/Units 17:01 Urine Color Yellow Urine Appearance Cloudy A (Clear) Urine pH 5.0 (4.5-7.5) Ur Specific [place] 1.016 (1.000-1.030) Urine Protein 1+ H (Negative) Urine Glucose (UA) Negative (Negative)
[2023-10-06] MEDS ORDERED: bisacodyL 10 MG SUPP PR PRN (17:17)
--- NOTE | 2023-10-07 05:44 | Electrocardiogram Report ---
Test Reason : Blood Pressure : / mmHG Vent. Rate : 102 BPM Atrial Rate : 102 BPM P-R Int : 186 ms QRS Dur : 140 ms QT Int : 386 ms P-R-T Axes : 055 -77 095 degrees QTc Int : 503 ms Atrial-sensed ventricular-paced rhythm Abnormal ECG When compared with ECG of 23-SEP-2023 11:13, Vent. rate has increased BY 9 BPM Confirmed by Antonio Leger ([id number]) on 10/07/2023 5:44:18 AM Referred By: NO PCP Confirmed By:Antonio Leger
--- NOTE | 2023-10-07 06:11 | Electrocardiogram Report ---
Test Reason : Blood Pressure : / mmHG Vent. Rate : 087 BPM Atrial Rate : 087 BPM P-R Int : 192 ms QRS Dur : 162 ms QT Int : 428 ms P-R-T Axes : 072 -72 085 degrees QTc Int : 515 ms Atrial-sensed ventricular-paced rhythm Abnormal ECG When compared with ECG of 05-OCT-2023 16:34, Vent. rate has decreased BY 15 BPM Confirmed by Antonio Leger ([id number]) on 10/07/2023 6:10:56 AM Referred By: NO PCP Confirmed By:Antonio Leger
[2023-10-07 07:25] LABS: HCO3 VBG 35 mmol/L; Oxygen Saturation VBG 70.4 %; PCO2 VBG 71 mmHg (38-50); PO2 VBG 43 mmHg
[2023-10-07 07:28] LABS: Basophils # (auto) 0.01 K/uL (0.00-0.20); Basophils % (auto) 0.1 %; Hematocrit (blood only) 32.4 % (42.0-52.0); Hemoglobin 9.9 g/dl (14.0-18.0); Immature Granulocytes # (auto) 0.08 K/uL (0.01-0.20); Immature Granulocytes % (auto) 0.6 %; Lymphocytes # (auto) 0.28 K/uL (1.20-3.40); Mean Corpuscular Hemoglobin 31.1 pg (25.0-34.0); Mean Corpuscular Hgb Conc 30.6 g/dL (32.0-36.0); Mean Corpuscular Volume 101.9 fL (80.0-100.0); Mean Platelet Volume 9.7 fL (9.4-12.4); Monocytes # (auto) 1.21 K/uL (0.11-0.59); Monocytes % (auto) 8.6 %; Neutrophils # (auto) 12.47 K/uL (1.40-6.50); Neutrophils % (auto) 88.7 %; Platelet Count 284 K/uL (130-400); RDW Coefficient of Variation 15.2 % (11.5-14.5); RDW Standard Deviation 57.8 fL (36.4-46.3); Red Blood Count 3.18 M/uL (4.70-6.10); White Blood Count 14.05 K/ul (4.8-10.8)
[2023-10-07] MEDS: predniSONE 20 MG TAB PO SCH (07:37)
[2023-10-07 07:44] LABS: BUN Creatinine Ratio 34.1 (10-20); Calcium 9.2 mg/dl (8.6-10.3); Est GFR (African American) 55.1 ml/min; Est GFR (Non-African American) 47.5 ml/min; Magnesium 2.4 mg/dl (1.7-2.4); Phosphorus 4.2 mg/dl (2.5-4.9); Potassium 4.9 mmol/L (3.5-5.1)
[2023-10-07] MEDS: guaiFENesin 600 MG TABCR PO SCH (13:34)
--- NOTE | 2023-10-07 16:55 | Hospitalist Progress Note ---
Date of Service October 07, 2023 Assessment & Plan (1) Acute on chronic respiratory failure with hypoxia and hypercapnia: Plan: Acute on chronic respiratory failure with hypoxia and hypercapnia Parainfluenza infection Acute COPD exacerbation Atelectasis contributing as well H/O severe COPD Chronic oxygen dependency on home supplemental oxygen --CTA:No evidence of pulmonary embolus. Partially visualized abdominal aortic aneurysm measuring up to 4.[address] angiogram of the abdomen and pelvis for further evaluation. Severe emphysematous changes, right greater than left with atelectasis/collapse of the left lower lobe and lingula region -- BioFire positive for parainfluenza -- Normal procalcitonin --Blood culture negative to date --Continue cefepime, azithromycin, nebs Taper steroids as able Appreciate critical care input Continue BiPAP as needed and HS Continue supplemental oxygen to keep saturations 88 to 92% Consulted pulmonary as requested by family and patient Wean supplemental oxygen as able Added Mucinex, flutter Acute metabolic encephalopathy Secondary to above Monitor and reorient frequently to minimize delirium Mental status back to baseline Hyperkalemia Hold losartan Monitor potassium levels Monitor Abdominal aortic aneurysm Incidental finding on CT Monitor Hypertension Continue amlodipine Losartan held due to hyperkalemia Monitor BP Hyperlipidemia Continue statin Prediabetes HbA1c 5.9 Other chronic conditions: Complete heart block S/P PPM PVD S/P surgery BPH continue Flomax Chronic anemia Hb at baseline Past tobacco abuse Continue home medications as able DVT Px: Lovenox SQ Code Status DNI/DNR Admission and Anticipated Discharge Date Admission Date: October 05, 2023 Subjective Patient is seen and examined at bedside Admits to have cough with dyspnea on exertion today Discussed with patient's at bedside Saturating low 90s on 8 L supplemental oxygen Sitting in chair comfortably during my encounter Denies any chest pain, dizziness, nausea, vomiting, abdominal pain Mental status seem to be back to baseline Review of Systems Review of Systems: All systems reviewed & are unremarkable except as noted in Subjective Physical Exam Physical Exam: Physical Exam: Vitals signs as noted above General Appearance:Thin, frail, chronic ill appearing, no apparent distress Head: normocephalic, Atraumatic Eyes: normal inspection, EOMI Neck: supple, Trachea midline Respiratory/Chest: Decreased breath sounds, scattered wheezing, rhonchi, No accessory muscle use Cardiovascular: S1, S2, No murmur Abdomen/GI:Soft, Non tender, Bowel sounds present Extremities/Musculoskeletal:normal inspection, no edema Neurologic/Psych:AAO, grossly no focal neurological deficits Skin: normal color, warm Results & Data Results & Data Vital Signs (Past 12 Hours) Vital Signs Temp Pulse Resp BP BP Pulse Ox O2 Del Method 10/07/23 15:16 36.6 C 92 H 18 147/64 H 91 High Flow Nasal Cannula 10/07/23 13:40 85 17 93 Room Air 10/07/23 11:21 36.6 C 83 18 120/48 L 97 Nasal Cannula 10/07/23 08:00 High Flow Nasal Cannula 10/07/23 07:31 85 17 87 L Nasal Cannula 10/07/23 07:22 37.3 C 88 20 127/58 L 90 Room Air, Nasal Cannula O2 Flow Rate 10/07/23 15:16 8 10/07/23 13:40 7 10/07/23 11:21 8 10/07/23 08:00 8 10/07/23 07:31 5 10/07/23 07:22 5 Laboratory Results Short CBC 10/07/23 Range/Units 07:14 WBC 14.05 H (4.8-10.8) K/ul Hgb 9.9 L (14.0-18.0) g/dl Hct 32.4 L (42.0-52.0) % Plt Count 284 (130-400) K/uL BMP 10/07/23 07:14 Sodium 138 Potassium 4.9 Chloride 101 Carbon Dioxide 35 H BUN 46 H Creatinine 1.35 Glucose 108 H Calcium 9.2
[2023-10-07] MEDS: FINASTERIDE 5 MG TAB PO SCH (21:43)
[2023-10-08 07:24] LABS: Hemoglobin 9.8 g/dl (14.0-18.0); Mean Corpuscular Hemoglobin 31.5 pg (25.0-34.0); Mean Corpuscular Hgb Conc 31.6 g/dL (32.0-36.0); Mean Corpuscular Volume 99.7 fL (80.0-100.0); Mean Platelet Volume 9.7 fL (9.4-12.4); Platelet Count 266 K/uL (130-400); RDW Coefficient of Variation 15.1 % (11.5-14.5); RDW Standard Deviation 54.8 fL (36.4-46.3); Red Blood Count 3.11 M/uL (4.70-6.10); White Blood Count 8.52 K/ul (4.8-10.8)
[2023-10-08 07:57] LABS: BUN Creatinine Ratio 34.1 (10-20); Calcium 9.1 mg/dl (8.6-10.3); Creatinine Clr Calc Pharmacy 30.2 ml/min; Est GFR (African American) 55.1 ml/min; Est GFR (Non-African American) 47.5 ml/min; Magnesium 2.3 mg/dl (1.7-2.4); Potassium 4.7 mmol/L (3.5-5.1)
[2023-10-08] MEDS: SODIUM CHLOR 7% 4 ML NEB NEB SCH (11:10)
--- NOTE | 2023-10-08 11:15 | Hospitalist Progress Note ---
Date of Service October 08, 2023 Assessment & Plan (1) Acute on chronic respiratory failure with hypoxia and hypercapnia: Plan: Mr. Castillo is an 83 year old gentleman with medical history significant for complete heart block status post PPM, PVD status post surgery, hypertension, hyperlipidemia, chronic respiratory failure secondary to COPD on home O2, BPH, chronic anemia (baseline hemoglobin 10-11), past tobacco abuse who is admitted from [facility] 2/ encephalopathy and acute on chronic hypoxia/hypercapnia iso parainfluenza virus. Patient required ICU briefly for close airway monitoring on bipap. Pending pulm recommendations. #Acute on chronic respiratory failure with hypoxia and hypercapnia #Parainfluenza infection #Acute severe COPD exacerbation with emphysema #Chronic oxygen dependency on home supplemental oxygen, 2L at baseline --CTA:No evidence of pulmonary embolus. Partially visualized abdominal aortic aneurysm measuring up to 4.[address] angiogram of the abdomen and pelvis for further evaluation. Severe emphysematous changes, right greater than left with atelectasis/collapse of the left lower lobe and lingula region -- BioFire positive for parainfluenza -- Normal procalcitonin --Blood culture negative to date --Continue cefepime, azithromycin, nebs Taper steroids as able Continue BiPAP as needed and HS Continue supplemental oxygen to keep saturations 88 to 92% Consulted pulmonary as requested by family and patient Wean supplemental oxygen as able Continue Mucinex, flutter Added hypertonic nebs #Acute metabolic encephalopathy *resolved Secondary to above hypoxia/hypercapnia Monitor and reorient frequently to minimize delirium Mental status back to baseline #Hyperkalemia Hold losartan Monitor potassium levels Monitor #CKD III stable #Abdominal aortic aneurysm Incidental finding on CT 4.2 cm Monitor as OP #Hypertension #Complete heart block S/P PPM Continue amlodipine Losartan held due to hyperkalemia Monitor BP #Hyperlipidemia Continue statin #Prediabetes HbA1c 5.9 #PVD S/P surgery Statin as above #BPH continue Flomax #Acute on Chronic anemia Baseline 11-12, appears to be 9-10 recently No signs of bleeding at this time Anemia labs in am Past tobacco abuse Continue home medications as able DVT Px: Lovenox SQ Code Status DNI/DNR Admission and Anticipated Discharge Date Admission Date: October 05, 2023 Subjective NAEO Patient reports feeling well; he endorses come cough ongoing but no necessarily productive, reports some issue with "blowing air out" otherwise denies any concerns, despite continue O2 requirement Physical Exam Constitutional: WD/WN, vitals as above NC 5L Respiratory: chest sounds tight,no wheezing appreciated but notably diminished breath sounds diffusely Cardiovascular: RRR, no murmur, no edema Results & Data Results & Data Vital Signs (Past 12 Hours) Vital Signs Temp Pulse Pulse Resp BP Pulse Ox O2 Del Method 10/08/23 08:00 84 10/08/23 08:00 High Flow Nasal Cannula 10/08/23 07:55 36.5 C 93 H 20 138/71 92 Nasal Cannula 10/08/23 07:34 82 18 95 Nasal Cannula 10/08/23 03:43 36.4 C L 85 20 144/86 H 88 L Nasal Cannula 10/08/23 01:46 80 23 95 BiPAP 10/07/23 23:40 80 17 97 O2 Flow Rate FiO2 10/08/23 08:00 10/08/23 08:00 5 10/08/23 07:55 6 10/08/23 07:34 6 10/08/23 03:43 5.0 10/08/23 01:46 45 10/07/23 23:40 45 Laboratory Results Short CBC 10/08/23 Range/Units 06:57 WBC 8.52 (4.8-10.8) K/ul Hgb 9.8 L (14.0-18.0) g/dl Hct 31.0 L (42.0-52.0) % Plt Count 266 (130-400) K/uL BMP 10/08/23 06:57 Sodium 137 Potassium 4.7 Chloride 101 Carbon Dioxide 36 H BUN 46 H Creatinine 1.35 Glucose 92 Calcium 9.1 Medications Administered Home Medications Medication Instructions Recorded Confirmed Last Taken amlodipine 5 mg tablet (Norvasc) 5 mg PO QAM 03/20/18 10/05/23 10/05/23 atorvastatin 40 mg tablet 40 mg PO QAM 10/22/22 10/05/23 10/05/23 losartan 25 mg tablet 25 mg PO QAM 10/22/22 10/05/23 10/05/23 albuterol sulfate 90 mcg/actuation 1 inh inhalation QID PRN Shortness 09/23/23 10/05/23 10/05/23 14:30 aerosol inhaler Of Breath Or Wheezing dutasteride 0.5 mg capsule 0.5 mg PO QPM 09/23/23 10/05/23 10/04/23 (Avodart) tamsulosin 0.4 mg capsule (Flomax) 0.4 mg PO HS 09/23/23 10/05/23 10/04/23 aspirin 81 mg tablet,delayed 81 mg PO QAM 30 days #30 tabs 09/29/23 10/05/23 10/05/23 release olanzapine 2.5 mg tablet 2.5 mg PO HS 7 days #7 tabs 09/29/23 10/05/23 10/04/23 acetaminophen 325 mg tablet 650 mg PO Q4H PRN Pain 10/05/23 10/05/23 Unknown (Tylenol) ammonium lactate 12 % lotion 1 applic topical Q12H 10/05/23 10/05/23 10/05/23 06:00 bisacodyl 10 mg rectal suppository 10 mg MS DAILY PRN Constipation 10/05/23 10/05/23 Unknown clobetasol 0.05 % topical cream 1 applic topical DAILY 10/05/23 10/05/23 10/05/23 docusate sodium 100 mg capsule 100 mg PO BID 10/05/23 10/05/23 10/05/23 09:00 heparin (porcine) 5,000 unit/mL 5,000 unit subcut Q12H 10/05/23 10/05/23 10/05/23 08:30 injection solution ipratropium 0.5 mg-albuterol 3 mg 3 ml inhalation Q4H PRN Shortness 10/05/23 10/05/23 Unknown (2.5 mg base)/3 mL nebulization Of Breath Or Wheezing soln magnesium hydroxide 400 mg/5 mL 30 ml PO DAILY PRN Constipation 10/05/23 10/05/23 Unknown oral suspension (Milk of Magnesia) melatonin 3 mg tablet 3 mg PO HS PRN Insomnia 10/05/23 10/05/23 Unknown ondansetron HCl 4 mg tablet 4 mg PO Q4H PRN NAUSEA/VOMITING 10/05/23 10/05/23 Unknown polyethylene glycol 3350 17 17 g PO QDL PRN Constipation 10/05/23 10/05/23 Unknown gram/dose oral powder (Miralax) sennosides 8.6 mg-docusate sodium 1 tab-cap PO QDL PRN Constipation 10/05/23 10/05/23 Unknown 50 mg tablet (Senokot-S) sodium chloride 7 % for 4 ml inhalation BID 10/05/23 10/05/23 10/05/23 10:00 nebulization (Hyper-Jose Eduardo) Active Medications Generic Name Dose Route Start Last Admin Trade Name Freq PRN Reason Stop Dose Admin Amlodipine Besylate 5 mg 10/06/23 09:00 10/08/23 08:15 Amlodipine Besylate 5 Mg Tab PO 11/05/23 08:59 5 mg QAM TRESSA Administration Aspirin 81 mg 10/06/23 09:00 10/08/23 08:15 Aspirin 81 Mg Ectab PO 11/05/23 08:59 81 mg QAM TRESSA Administration Atorvastatin Calcium 40 mg 10/06/23 09:00 10/08/23 08:15 Atorvastatin 40 Mg Tab PO 11/05/23 08:59 40 mg QAM TRESSA Administration Docusate Sodium 100 mg 10/05/23 21:48 10/08/23 08:15 Docusate Sodium 100 Mg Cap PO 11/04/23 21:47 Not Given BID TRESSA Enoxaparin Sodium 30 mg 10/06/23 09:00 10/08/23 08:15 Enoxaparin Inj 30 Mg/0.3 Ml Syr SQ 11/05/23 08:59 30 mg QAM TRESSA Administration Finasteride 5 mg 10/07/23 21:00 10/07/23 21:43 Finasteride 5 Mg Tab PO 11/06/23 20:59 5 mg QPM TRESSA Administration Guaifenesin 600 mg 10/07/23 12:40 10/08/23 08:16 Guaifenesin 600 Mg Tabcr PO 11/06/23 12:39 600 mg Q12 TRESSA Administration Azithromycin 500 mg/ Dextrose 255 mls @ 125 mls/hr 10/05/23 23:00 10/08/23 01:18 IV 10/12/23 22:59 Infused Q24H TRESSA Infusion Cefepime HCl 2,000 mg/ Syringe 20 mls @ 5 mls/min 10/05/23 23:00 10/07/23 21:47 IV 10/12/23 22:59 5 mls/min Q12H TRESSA Administration Protocol Ipratropium Bates 0.5 mg 10/06/23 03:00 10/08/23 07:33 Ipratropium Bates Neb Soln 0.02% 0.5mg/2.5ml Vial INH 11/05/23 02:59 0.5 mg Q6R TRESSA Administration Levalbuterol HCl 1.25 mg 10/06/23 03:00 10/08/23 07:32 Levalbuterol 1.25 Mg/3 Ml Neb NEB 11/05/23 02:59 1.25 mg Q6R TRESSA Administration Olanzapine 2.5 mg 10/05/23 21:48 10/05/23 22:25 Olanzapine 2.5 Mg Tab PO 11/04/23 21:47 Not Given HS TRESSA Prednisone 40 mg 10/07/23 09:00 10/08/23 08:16 Prednisone 20 Mg Tab PO 10/09/23 09:01 40 mg DAILY TRESSA Administration Tamsulosin HCl 0.4 mg 10/05/23 21:48 10/07/23 21:40 Tamsulosin Hcl 0.4 Mg Cap PO 11/04/23 21:47 0.4 mg HS TRESSA Administration
--- NOTE | 2023-10-08 11:29 | Pulmonary Consultation ---
Date of Consultation October 08, 2023 Assessment & Plan (1) Acute on chronic respiratory failure with hypoxia and hypercapnia: (2) COPD with hypoxia: Plan Impression: 83-year-old male with very severe COPD admitted with hypoxemic and hypercarbic respiratory failure. He appears improving with noninvasive positive pressure ventilation, steroids, antibiotics, and bronchodilators. Recommendations: 1. COPD: Discontinue azithromycin IV and changed to 250 mg orally to complete 5 days. Continue prednisone taper. Will place on nebulized Perforomist, budesonide, and DuoNebs for now. 2. Hypoxemic hypercapnic respiratory failure: Would not try and target oxygen saturations much above 86 to 90%. The patient does qualify for home Trelegy ventilator if he is willing to use it going forward. 3. Recommend getting the patient up out of bed to the chair and ambulatory is much as possible. 4. Pneumonia: CT of the chest did show some basilar consolidation in the medial basilar segment of the left lower lobe. Currently on cefepime and azithromycin. Complete 5-day course, supportive care for parainfluenza 5. Agree with DNR status. Patient's lung disease would qualify him for potential home hospice if he wants to pursue a palliative care approach. Overall prognosis is guarded. Will see how he responds History of Present Illness Attending Physician: Macrina Maya MD History of Present Illness Asked by hospitalist to assist in evaluation management of this patient with obstructive lung disease admitted with hypoxemic hypercarbic respiratory failure. The patient is known to me from clinic. History is obtained from review electronic medical record as well as discussion with the patient. Patient is an 83-year-old male with known severe COPD and hypoxemic respiratory failure. He was last seen in the office back in November 2022. His handheld spirometry performed at that time showed an FEV1 of 0.53 L or 26% predicted. He is chronically on oxygen at 2 L/min. Patient was brought to the emergency room 10/05/2023. He was admitted the first week in September with cellulitis and discharged to [facility]. This admission he was sent from [facility] and became more short of breath which was fairly acute. He required oxygen at 6 L/min with oxygen saturations of only 85%. He confirmed DNR/DNI status and was treated with noninvasive positive pressure ventilation. He was admitted initially to the intensive care unit. Code discussion was confirmed and the patient was transferred to the floor. Pulmonary was consulted for additional evaluation management. Patient is currently awake and alert. He is mildly encephalopathic and has difficulty carrying on a conversation but does not appear to be in any respiratory distress. He does not believe that he used BiPAP last night. He does have some skin breakdown over the bridge of his nose related with fullface BiPAP. He does not report any shortness of breath, cough, or wheezing. He appears fairly comfortable currently. Allergies Allergy/AdvReac Type Severity Reaction Status Date / Time No Known Allergies Allergy Verified 10/05/23 18:07 Home Medications Medication Instructions Recorded Confirmed Type amlodipine 5 mg tablet (Norvasc) 5 mg PO QAM 03/20/18 10/05/23 History atorvastatin 40 mg tablet 40 mg PO QAM 10/22/22 10/05/23 History losartan 25 mg tablet 25 mg PO QAM 10/22/22 10/05/23 History albuterol sulfate 90 mcg/actuation 1 inh inhalation QID PRN Shortness 09/23/23 10/05/23 History aerosol inhaler Of Breath Or Wheezing dutasteride 0.5 mg capsule 0.5 mg PO QPM 09/23/23 10/05/23 History (Avodart) tamsulosin 0.4 mg capsule (Flomax) 0.4 mg PO HS 09/23/23 10/05/23 History aspirin 81 mg tablet,delayed 81 mg PO QAM 30 days #30 tabs 09/29/23 10/05/23 Rx release olanzapine 2.5 mg tablet 2.5 mg PO HS 7 days #7 tabs 09/29/23 10/05/23 Rx acetaminophen 325 mg tablet 650 mg PO Q4H PRN Pain 10/05/23 10/05/23 History (Tylenol) ammonium lactate 12 % lotion 1 applic topical Q12H 10/05/23 10/05/23 History bisacodyl 10 mg rectal suppository 10 mg NE DAILY PRN Constipation 10/05/23 10/05/23 History clobetasol 0.05 % topical cream 1 applic topical DAILY 10/05/23 10/05/23 History docusate sodium 100 mg capsule 100 mg PO BID 10/05/23 10/05/23 History heparin (porcine) 5,000 unit/mL 5,000 unit subcut Q12H 10/05/23 10/05/23 History injection solution ipratropium 0.5 mg-albuterol 3 mg 3 ml inhalation Q4H PRN Shortness 10/05/23 10/05/23 History (2.5 mg base)/3 mL nebulization Of Breath Or Wheezing soln magnesium hydroxide 400 mg/5 mL 30 ml PO DAILY PRN Constipation 10/05/23 10/05/23 History oral suspension (Milk of Magnesia) melatonin 3 mg tablet 3 mg PO HS PRN Insomnia 10/05/23 10/05/23 History ondansetron HCl 4 mg tablet 4 mg PO Q4H PRN NAUSEA/VOMITING 10/05/23 10/05/23 History polyethylene glycol 3350 17 17 g PO QDL PRN Constipation 10/05/23 10/05/23 History gram/dose oral powder (Miralax) sennosides 8.6 mg-docusate sodium 1 tab-cap PO QDL PRN Constipation 10/05/23 10/05/23 History 50 mg tablet (Senokot-S) sodium chloride 7 % for 4 ml inhalation BID 10/05/23 10/05/23 History nebulization (Hyper-Jose Eduardo) Patient History Medical History (Updated 10/06/23 @ 02:55 by RAEGAN Urrutia) HTN (hypertension) Asymptomatic bilateral carotid artery stenosis AAA (abdominal aortic aneurysm) without rupture Urinary symptom or sign Chronic respiratory failure with hypoxia Pulmonary nodule seen on imaging study Stable 1 cm solid right lower lobe pulmonary nodule as well as stable indeterminate solid lobulated 19 mm anterior mediastinal soft tissue mass Urinary retention CKD (chronic kidney disease), stage III Dyspnea on exertion Patient chronically on supplemental oxygen Emphysema lung BPH (benign prostatic hyperplasia) Psoriasis COPD (chronic obstructive pulmonary disease) Hx of Lyme disease Pacemaker 2015 ([employer]) SECONDARY TO COMPLETE HEART BLOCK/SSS; Hypertension 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 Surgical History S/P cardiac pacemaker procedure 2014 ([employer]) SECONDARY TO COMPLETE HEART BLOCK/SSS; LAST CHECK 02/04/18 Hx of colonoscopy Family History Other Cancer Social History Smoking Status: Former smoker Tobacco Type: Cigarettes Age Started Using Tobacco: 18; Age Quit Using Tobacco: 75; packs per day: 1; Second Hand Exposure: No; Do You Dip or Chew Tobacco: No; Hx Alcohol Use: No Hx Substance Use: No Preferred Language: Tajik Communication Ability: Effective Visual Impairment: No Limitations Hearing Ability: Normal Nurse Midwife Required: No Beliefs That Will Affect Care: None marital status: Current Living Situation: Rehab current occupational status: retired How many Children do You have: 2 How many Children do You have Comment: one son lives close and is able to assist with care, other son not involved Feels Safe at Home: Yes Diet: regular during the past year weight has: remained stable Assistive Devices: Walker Review of Systems Review of Systems: Please refer to hospitalist notes. No additions or deletions Physical Exam Constitutional: + frail appearing; no acute distress Neck: trachea midline, no thyromegaly Respiratory: no respiratory distress, no labored breathing, no cough and not tachypneic Auscultation: + rhonchi; no crackles and no wheezes Cardiovascular: RRR, no murmur, no edema Gastrointestinal (Abdomen): normal bowel sounds, soft, nontender, no hepatosplenomegaly Musculoskeletal: Extremities: extremities normal to inspection Skin: no rashes, warm and dry Neurologic: Nonfocal exam Lymphatic: no cervical lymphadenopathy Results & Data Results & Data Vital Signs (Past 12 Hours) Vital Signs Temp Pulse Pulse Resp BP Pulse Ox O2 Del Method 10/08/23 11:11 86 16 96 Nasal Cannula 10/08/23 08:00 84 10/08/23 08:00 High Flow Nasal Cannula 10/08/23 07:55 36.5 C 93 H 20 138/71 92 Nasal Cannula 10/08/23 07:34 82 18 95 Nasal Cannula 10/08/23 03:43 36.4 C L 85 20 144/86 H 88 L Nasal Cannula 10/08/23 01:46 80 23 95 BiPAP 10/07/23 23:40 80 17 97 O2 Flow Rate FiO2 10/08/23 11:11 7 10/08/23 08:00 10/08/23 08:00 5 10/08/23 07:55 6 10/08/23 07:34 6 10/08/23 03:43 5.0 10/08/23 01:46 45 10/07/23 23:40 45 Critical Care Results & Data Vital Signs (Past 12 Hours) Vital Signs Temp Pulse Pulse Resp BP Pulse Ox O2 Del Method 10/08/23 11:11 86 16 96 Nasal Cannula 10/08/23 08:00 84 10/08/23 08:00 High Flow Nasal Cannula 10/08/23 07:55 36.5 C 93 H 20 138/71 92 Nasal Cannula 10/08/23 07:34 82 18 95 Nasal Cannula 10/08/23 03:43 36.4 C L 85 20 144/86 H 88 L Nasal Cannula 10/08/23 01:46 80 23 95 BiPAP 10/07/23 23:40 80 17 97 O2 Flow Rate FiO2 10/08/23 11:11 7 10/08/23 08:00 10/08/23 08:00 5 10/08/23 07:55 6 10/08/23 07:34 6 10/08/23 03:43 5.0 10/08/23 01:46 45 10/07/23 23:40 45 Lab & Micro Results (Past 24 Hours) RBC 3.11 M/uL (4.70-6.10) L 10/08/23 WBC 8.52 K/ul (4.8-10.8) 10/08/23 Hgb 9.8 g/dl (14.0-18.0) L 10/08/23 Hct 31.0 % (42.0-52.0) L 10/08/23 MCV 99.7 fL (80.0-100.0) 10/08/23 MCH 31.5 pg (25.0-34.0) 10/08/23 MCHC 31.6 g/dL (32.0-36.0) L 10/08/23 RDW Standard Deviation 54.8 fL (36.4-46.3) H 10/08/23 RDW Coefficient of Variation 15.1 % (11.5-14.5) H 10/08/23 Plt Count 266 K/uL (130-400) 10/08/23 MPV 9.7 fL (9.4-12.4) 10/08/23 Na 137 mmol/L (136-145) 10/08/23 K 4.7 mmol/L (3.5-5.1) 10/08/23 Cl 101 mmol/L (98-107) 10/08/23 CO2 36 mmol/L (21-32) H 10/08/23 Anion Gap 0 (3-11) L 10/08/23 BUN 46 mg/dl (6-23) H 10/08/23 Creatinine 1.35 mg/dl (0.6-1.4) 10/08/23 Estimated GFR ( Amer) 55.1 ml/min 10/08/23 Estimated GFR (Non-Af Amer) 47.5 ml/min 10/08/23 BUN/Creatinine Ratio 34.1 (10-20) H 10/08/23 Glu 92 mg/dl (70-99(Fasting)) 10/08/23 Ca 9.1 mg/dl (8.6-10.3) 10/08/23 Mg 2.3 mg/dl (1.7-2.4) 10/08/23 06:57 Calcium Level 9.1 mg/dl (8.6-10.3) 10/08/23 06:57 Microbiology 10/05/23 16:51 Aerobic Blood Culture - Preliminary Blood No growth in Aerobic bottle after 48 hours. Anaerobic Blood Culture - Preliminary No growth in Anaerobic bottle after 48 hours. 10/05/23 17:17 Aerobic Blood Culture - Preliminary Blood No growth in Aerobic bottle after 48 hours. Anaerobic Blood Culture - Preliminary No growth in Anaerobic bottle after 48 hours. 10/05/23 17:01 Urine Culture - Final Urine,Clean Catch No growth - less than 1,000 colonies/mL. I & O Totals 24 Hours 10/07/23 10/08/23 10/09/23 06:59 06:59 06:59 Intake Total 1255 / 1255 755 / 755 Output Total 975 / 975 1200 / 1200 Balance 280 / 280 -445 / -445 Cumulative 10/05/23 16:16 thru 10/08/23 06:27 Intake Total 2866.800 Output Total 2650 Balance 216.800 RT Ventilator Mngmt (Last Documented) Ventilator Ordered Settings Respiratory Rate 16 10/08/23 11:11 Fraction of Inspired Oxygen 45 10/08/23 01:46 Ventilator - PT Measurements Respiratory Rate 16 PG Care Time/CCT Total # of Minutes Spent Total Time Spent with Patient: Total time spent is greater than 50% in coordination of care (as documented) at patient's floor/unit and/or counseling patient: Coding Level of Care Code 39193 INT INP/OBS CARE MIN Diagnoses Acute on chronic respiratory failure with hypoxia and hypercapnia J96.21; J96.22 COPD with hypoxia J44.9; R09.02
[2023-10-08] MEDS: ALBUT/IPRATROP 3MG/0.5MG NEB 3 ML VIAL NEB SCH (13:06)
[2023-10-08] MEDS: FORMOTEROL 20 MCG/2 ML VIAL NEB SCH (13:07)
[2023-10-08] MEDS: BUDESONIDE 0.5 MG/2 ML VIAL (PULMICORT) NEB SCH (20:18)
--- NOTE | 2023-10-09 07:37 | Pulmonology Progress Note ---
Date of Service October 09, 2023 Assessment & Plan (1) Acute on chronic respiratory failure with hypoxia and hypercapnia: (2) COPD with hypoxia: Plan Impression: 83-year-old male with very severe COPD admitted with hypoxemic and hypercarbic respiratory failure. He appears improving with steroids, antibiotics, and bronchodilators. Recommendations: 1. COPD: Complete 5-day course of azithromycin. Continue prednisone taper. Continue nebulized Perforomist, budesonide, and DuoNebs for now. 2. Hypoxemic hypercapnic respiratory failure: Would not try and target oxygen saturations much above 86 to 90%. The patient does qualify for home Trelegy ventilator if he is willing to use it going forward. Will check repeat venous blood gas and see if he can tolerate noninvasive positive pressure ventilation during the night 3. Recommend getting the patient up out of bed to the chair and ambulatory is much as possible. 4. Pneumonia: CT of the chest did show some basilar consolidation in the medial basilar segment of the left lower lobe. Currently on cefepime and azithromycin. Complete 5-day course, supportive care for parainfluenza 5. Agree with DNR status. Patient's lung disease would qualify him for potential home hospice if he wants to pursue a palliative care approach. Admission and Anticipated Discharge Date Admission Date: October 05, 2023 Subjective Patient seen and examined. EMR reviewed. The patient is awake and alert. He is more coherent this morning. He denies any respiratory problems. He states his breathing is fine. He did not use noninvasive positive pressure ventilation last evening. He is not coughing or expectorating phlegm. He denies any chest pain Review of Systems 2 Review of Systems: All systems reviewed & are unremarkable except as noted in Subjective Physical Exam 2 Constitutional: + frail appearing; no acute distress Neck: trachea midline, no thyromegaly Respiratory: no respiratory distress, no labored breathing, no cough and not tachypneic Auscultation: no crackles, no rhonchi and no wheezes Cardiovascular: RRR, no murmur, no edema Gastrointestinal (Abdomen): normal bowel sounds, soft, nontender, no hepatosplenomegaly Musculoskeletal: Extremities: extremities normal to inspection Skin: no rashes, warm and dry Lymphatic: no cervical lymphadenopathy Results & Data Results & Data Vital Signs (Past 12 Hours) Vital Signs Temp Pulse Pulse Resp BP Pulse Ox O2 Del Method 10/09/23 07:25 83 10/09/23 07:16 77 16 94 Nasal Cannula 10/09/23 03:37 36.5 C 77 16 152/69 H 97 Nasal Cannula 10/09/23 03:22 117 H 10/08/23 23:18 36.6 C 79 16 146/67 H 96 Nasal Cannula 10/08/23 23:15 77 10/08/23 20:25 73 19 98 BiPAP 10/08/23 20:22 73 19 98 10/08/23 20:00 Nasal Cannula O2 Flow Rate FiO2 10/09/23 07:25 10/09/23 07:16 4 10/09/23 03:37 4.0 10/09/23 03:22 10/08/23 23:18 4.0 10/08/23 23:15 10/08/23 20:25 45 10/08/23 20:22 45 10/08/23 20:00 Laboratory Results 10/08/23 06:57 10/08/23 06:57 Diagnostic Findings No new imaging PG Care Time/CCT Total # of Minutes Spent Total Time Spent with Patient: Total time spent is greater than 50% in coordination of care (as documented) at patient's floor/unit and/or counseling patient: Coding Level of Care Code 73925 SUB INP/OBS CARE 2/35MIN Diagnoses Acute on chronic respiratory failure with hypoxia and hypercapnia J96.21; J96.22 COPD with hypoxia J44.9; R09.02
[2023-10-09 08:39] LABS: Hematocrit (blood only) 33.4 % (42.0-52.0); Hemoglobin 10.5 g/dl (14.0-18.0); Mean Corpuscular Hemoglobin 30.7 pg (25.0-34.0); Mean Corpuscular Hgb Conc 31.4 g/dL (32.0-36.0); Mean Corpuscular Volume 97.7 fL (80.0-100.0); Mean Platelet Volume 9.8 fL (9.4-12.4); Platelet Count 265 K/uL (130-400); RDW Coefficient of Variation 14.6 % (11.5-14.5); RDW Standard Deviation 52.7 fL (36.4-46.3); Red Blood Count 3.42 M/uL (4.70-6.10); White Blood Count 6.92 K/ul (4.8-10.8)
[2023-10-09 09:02] LABS: BUN Creatinine Ratio 30.8 (10-20); Creatinine Clr Calc Pharmacy 34.9 ml/min; Est GFR (African American) 63.5 ml/min; Est GFR (Non-African American) 54.8 ml/min; Magnesium 2.1 mg/dl (1.7-2.4); Potassium 4.5 mmol/L (3.5-5.1)
[2023-10-09] MEDS: AZITHROMYCIN 250 MG TAB PO SCH (09:25)
--- NOTE | 2023-10-09 14:51 | Hospitalist Progress Note ---
Date of Service October 09, 2023 Assessment & Plan (1) Acute on chronic respiratory failure with hypoxia and hypercapnia: Plan: Mr. Castillo is an 83 year old gentleman with medical history significant for complete heart block status post PPM, PVD status post surgery, hypertension, hyperlipidemia, chronic respiratory failure secondary to COPD on home O2, BPH, chronic anemia (baseline hemoglobin 10-11), past tobacco abuse who is admitted from [facility] 2/ encephalopathy and acute on chronic hypoxia/hypercapnia iso parainfluenza virus. Patient required ICU briefly for close airway monitoring on bipap. Pulmonary recommended BIPAP, however, patient doesn't seem to tolerate. concerned over patient's mentation and memory; patient is improving subjectively, however, still with notable oxygen requirement. Long discussion was had with today. It was discussed that it can be difficult to recover from viral infection especially with existing lung disease/emphysema, as well as more complicated to recover when not able to comply with modalities like Bipap. Discussed continued relatively high oxygen requirement, as well as cognitive impairment/short term memory issues noted by . Patient pleasant, but forgetful. She reports patient being at baseline and completely independent. Discussed home hospice given lung disease and attempted to exam issues/concern with hypercapnia/hypoxia and the confusion that results--as well as the need for complying with bipap to help recover. She would like patient to trial as much as able and to trial rehab if able. really concerned because goal is home and she understands patient's tolerance will be limited for certain ongoing modalities. She would like to have another day to see progress. Plan for palliative discussion given severity of patient's COPD and to open door for conversation of perhaps palliative bridge to hospice etc as is in "shock" given decline of patient. #Acute on chronic respiratory failure with hypoxia and hypercapnia #Parainfluenza infection #Acute severe COPD exacerbation with emphysema #Chronic oxygen dependency on home supplemental oxygen, 2L at baseline --CTA:No evidence of pulmonary embolus. Partially visualized abdominal aortic aneurysm measuring up to 4.[address] angiogram of the abdomen and pelvis for further evaluation. Severe emphysematous changes, right greater than left with atelectasis/collapse of the left lower lobe and lingula region -- BioFire positive for parainfluenza -- Normal procalcitonin --Blood culture negative to date --Continue cefepime EOT 10/09, azithromycin 07/04, nebs Taper steroids as able Continue BiPAP as needed and HS Continue supplemental oxygen to keep saturations 88 to 92% Consulted pulmonary as requested by family and patient -Abx as above -VBG in am -Recommending trelegy ventilator or perhaps home hospice -Palliative consult Wean supplemental oxygen as able Continue Mucinex, flutter Continue hypertonic nebs #Acute metabolic encephalopathy *waxing/waning Secondary to above hypoxia/hypercapnia Monitor and reorient frequently to minimize delirium Mental status is improved, however, patient with notable short term memory deficit and inability to recall recent events through out day #Hyperkalemia Hold losartan Monitor potassium levels Monitor #CKD III stable #Abdominal aortic aneurysm Incidental finding on CT 4.2 cm Monitor as OP #Hypertension #Complete heart block S/P PPM Continue amlodipine Losartan held due to hyperkalemia Monitor BP #Hyperlipidemia Continue statin #Prediabetes HbA1c 5.9 #PVD S/P surgery Statin as above #BPH continue Flomax #Acute on Chronic anemia Baseline 11-12, appears to be 9-10 recently No signs of bleeding at this time Stable Past tobacco abuse Continue home medications as able DVT Px: Lovenox SQ Code Status DNI/DNR Admission and Anticipated Discharge Date Admission Date: October 05, 2023 Subjective Patient evaluated on multiple instances throughout day, remembers interactions, but doesn't recall content or other details of day States that he feeling fine, but cannot give details on if he had bowel movement or if he is eating Physical Exam Constitutional: WD/WN, vitals as above Respiratory: diminished, no distress Cardiovascular: RRR, no murmur, no edema Results & Data Results & Data Vital Signs (Past 12 Hours) Vital Signs Temp Pulse Pulse Pulse Resp BP BP 10/09/23 12:22 100 H 18 10/09/23 11:39 36.6 C 85 18 139/69 10/09/23 08:07 37.1 C 94 H 17 139/82 10/09/23 08:00 10/09/23 07:25 83 10/09/23 07:16 77 16 10/09/23 03:37 36.5 C 77 16 152/69 H 10/09/23 03:22 117 H Pulse Ox O2 Del Method O2 Flow Rate 10/09/23 12:22 92 Nasal Cannula 6 10/09/23 11:39 90 Nasal Cannula 7 10/09/23 08:07 86 L Nasal Cannula 3 10/09/23 08:00 High Flow Nasal Cannula 6 10/09/23 07:25 10/09/23 07:16 94 Nasal Cannula 4 10/09/23 03:37 97 Nasal Cannula 4.0 10/09/23 03:22 Laboratory Results Short CBC 10/09/23 Range/Units 08:10 WBC 6.92 (4.8-10.8) K/ul Hgb 10.5 L (14.0-18.0) g/dl Hct 33.4 L (42.0-52.0) % Plt Count 265 (130-400) K/uL BMP 10/09/23 08:10 Sodium 136 Potassium 4.5 Chloride 97 L Carbon Dioxide 38 H BUN 37 H Creatinine 1.20 Glucose 133 H Calcium 9.0 Medications Administered Home Medications Medication Instructions Recorded Confirmed Last Taken amlodipine 5 mg tablet (Norvasc) 5 mg PO QAM 03/20/18 10/05/23 10/05/23 atorvastatin 40 mg tablet 40 mg PO QAM 10/22/22 10/05/23 10/05/23 losartan 25 mg tablet 25 mg PO QAM 10/22/22 10/05/23 10/05/23 albuterol sulfate 90 mcg/actuation 1 inh inhalation QID PRN Shortness 09/23/23 10/05/23 10/05/23 14:30 aerosol inhaler Of Breath Or Wheezing dutasteride 0.5 mg capsule 0.5 mg PO QPM 09/23/23 10/05/23 10/04/23 (Avodart) tamsulosin 0.4 mg capsule (Flomax) 0.4 mg PO HS 09/23/23 10/05/23 10/04/23 aspirin 81 mg tablet,delayed 81 mg PO QAM 30 days #30 tabs 09/29/23 10/05/23 10/05/23 release olanzapine 2.5 mg tablet 2.5 mg PO HS 7 days #7 tabs 09/29/23 10/05/23 10/04/23 acetaminophen 325 mg tablet 650 mg PO Q4H PRN Pain 10/05/23 10/05/23 Unknown (Tylenol) ammonium lactate 12 % lotion 1 applic topical Q12H 10/05/23 10/05/23 10/05/23 06:00 bisacodyl 10 mg rectal suppository 10 mg MI DAILY PRN Constipation 10/05/23 10/05/23 Unknown clobetasol 0.05 % topical cream 1 applic topical DAILY 10/05/23 10/05/23 10/05/23 docusate sodium 100 mg capsule 100 mg PO BID 10/05/23 10/05/23 10/05/23 09:00 heparin (porcine) 5,000 unit/mL 5,000 unit subcut Q12H 10/05/23 10/05/23 10/05/23 08:30 injection solution ipratropium 0.5 mg-albuterol 3 mg 3 ml inhalation Q4H PRN Shortness 10/05/23 10/05/23 Unknown (2.5 mg base)/3 mL nebulization Of Breath Or Wheezing soln magnesium hydroxide 400 mg/5 mL 30 ml PO DAILY PRN Constipation 10/05/23 10/05/23 Unknown oral suspension (Milk of Magnesia) melatonin 3 mg tablet 3 mg PO HS PRN Insomnia 10/05/23 10/05/23 Unknown ondansetron HCl 4 mg tablet 4 mg PO Q4H PRN NAUSEA/VOMITING 10/05/23 10/05/23 Unknown polyethylene glycol 3350 17 17 g PO QDL PRN Constipation 10/05/23 10/05/23 Unknown gram/dose oral powder (Miralax) sennosides 8.6 mg-docusate sodium 1 tab-cap PO QDL PRN Constipation 10/05/23 10/05/23 Unknown 50 mg tablet (Senokot-S) sodium chloride 7 % for 4 ml inhalation BID 10/05/23 10/05/23 10/05/23 10:00 nebulization (Hyper-Jose Eduardo) Active Medications Generic Name Dose Route Start Last Admin Trade Name Freq PRN Reason Stop Dose Admin Albuterol 3 ml 10/08/23 13:00 10/09/23 12:22 Albut/Ipratrop 3mg/0.5mg Neb 3 Ml Vial NEB 11/07/23 12:59 3 ml TIDR TRESSA Administration Protocol Amlodipine Besylate 5 mg 10/06/23 09:00 10/09/23 09:24 Amlodipine Besylate 5 Mg Tab PO 11/05/23 08:59 5 mg QAM TRESSA Administration Aspirin 81 mg 10/06/23 09:00 10/09/23 09:25 Aspirin 81 Mg Ectab PO 11/05/23 08:59 81 mg QAM TRESSA Administration Atorvastatin Calcium 40 mg 10/06/23 09:00 10/09/23 09:26 Atorvastatin 40 Mg Tab PO 11/05/23 08:59 40 mg QAM TRESSA Administration Azithromycin 250 mg 10/09/23 09:00 10/09/23 09:25 Azithromycin 250 Mg Tab PO 10/13/23 09:01 250 mg QAM TRESSA Administration Budesonide 0.5 mg 10/08/23 19:00 10/09/23 07:13 Budesonide 0.5 Mg/2 Ml Vial (Pulmicort) NEB 11/07/23 18:59 0.5 mg BIDR TRESSA Administration Docusate Sodium 100 mg 10/05/23 21:48 10/09/23 09:25 Docusate Sodium 100 Mg Cap PO 11/04/23 21:47 100 mg BID TRESSA Administration Enoxaparin Sodium 30 mg 10/06/23 09:00 10/09/23 09:25 Enoxaparin Inj 30 Mg/0.3 Ml Syr SQ 11/05/23 08:59 30 mg QAM TRESSA Administration Finasteride 5 mg 10/07/23 21:00 10/08/23 20:01 Finasteride 5 Mg Tab PO 11/06/23 20:59 5 mg QPM TRESSA Administration Formoterol Fumarate 20 mcg 10/08/23 11:45 10/09/23 07:13 Formoterol 20 Mcg/2 Ml Vial NEB 11/07/23 11:44 20 mcg BIDR TRESSA Administration Guaifenesin 600 mg 10/07/23 12:40 10/09/23 09:25 Guaifenesin 600 Mg Tabcr PO 11/06/23 12:39 600 mg Q12 TRESSA Administration Cefepime HCl 2,000 mg/ Syringe 20 mls @ 5 mls/min 10/05/23 23:00 10/09/23 10:48 IV 10/10/23 22:59 5 mls/min Q12H TRESSA Administration Protocol Olanzapine 2.5 mg 10/05/23 21:48 10/05/23 22:25 Olanzapine 2.5 Mg Tab PO 11/04/23 21:47 Not Given HS TRESSA Sodium Chloride 4 ml 10/08/23 08:40 04/11/24 07:13 Sodium Chlor 7% 4 Ml Neb NEB 11/07/23 08:39 4 ml BIDR TRESSA Administration Tamsulosin HCl 0.4 mg 10/05/23 21:48 10/08/23 19:59 Tamsulosin Hcl 0.4 Mg Cap PO 11/04/23 21:47 0.4 mg HS TRESSA Administration
[2023-10-09] MEDS: AMMONIUM LACTATE 12% LOTION 225 GM BTL EXT SCH (20:46)
[2023-10-10 05:58] LABS: Base Excess VBG 12.5 mEq/L; HCO3 VBG 40 mmol/L; Oxygen Saturation VBG 62.9 %; PCO2 VBG 65 mmHg (38-50); PO2 VBG 38 mmHg
[2023-10-10 06:03] LABS: Hematocrit (blood only) 32.5 % (42.0-52.0); Hemoglobin 10.3 g/dl (14.0-18.0); Mean Corpuscular Hemoglobin 31.1 pg (25.0-34.0); Mean Corpuscular Hgb Conc 31.7 g/dL (32.0-36.0); Mean Corpuscular Volume 98.2 fL (80.0-100.0); Mean Platelet Volume 9.9 fL (9.4-12.4); Platelet Count 252 K/uL (130-400); RDW Coefficient of Variation 14.4 % (11.5-14.5); RDW Standard Deviation 52.1 fL (36.4-46.3); Red Blood Count 3.31 M/uL (4.70-6.10); White Blood Count 7.47 K/ul (4.8-10.8)
[2023-10-10 06:26] LABS: BUN Creatinine Ratio 32.5 (10-20); Calcium 8.8 mg/dl (8.6-10.3); Creatinine Clr Calc Pharmacy 35.1 ml/min; Est GFR (African American) 65.5 ml/min; Est GFR (Non-African American) 56.5 ml/min; Magnesium 2.1 mg/dl (1.7-2.4); Phosphorus 1.7 mg/dl (2.5-4.9); Potassium 4.5 mmol/L (3.5-5.1)
[2023-10-10] MEDS: predniSONE 10 MG TABLET PO SCH (08:05)
--- NOTE | 2023-10-10 08:16 | Pulmonology Progress Note ---
Date of Service October 10, 2023 Assessment & Plan (1) Acute on chronic respiratory failure with hypoxia and hypercapnia: (2) COPD with hypoxia: Plan Impression: 83-year-old male with very severe COPD admitted with hypoxemic and hypercarbic respiratory failure. He appears improving with steroids, antibiotics, and bronchodilators. He continues to refuse noninvasive positive pressure ventilation at night but his venous blood gas this morning demonstrates compensated chronic hypercapnic respiratory failure Recommendations: 1. COPD: Complete 5-day course of azithromycin. Continue prednisone taper. Continue nebulized Perforomist, budesonide, and DuoNebs for now. 2. Hypoxemic hypercapnic respiratory failure: Would not try and target oxygen saturations much above 86 to 90%. The patient does qualify for home Trelegy ventilator if he is willing to use it going forward. Reinforced to the patient that this would be the therapy designed to prevent additional hospitalizations and if he wishes to get better, he will need to be compliant with this at night. Forms were signed for Trelegy home ventilator. Patient has Chronic Hypercarbic Respiratory failure due to COPD. Pt has evidence for CO2 retention and requires noninvasive ventilation with volume targeted mode at home for optimal management. BiPAP was tried and patient still remains hypercapnic due to the inability to provide noninvasive ventilation of adequate degree. Continuous alarm systems and backup are required for optimal management due to power outage. This patient is at high risk for respiratory failure without noninvasive ventilation at home. This could prevent repeated hospital admissions and improve the quality of life for the patient. NIMV settings were completed on the home health care order 3. Recommend getting the patient up out of bed to the chair and ambulatory is much as possible. 4. Pneumonia: CT of the chest did show some basilar consolidation in the medial basilar segment of the left lower lobe. Patient's completed antibiotics and these will be discontinued today. Will transition him to azithromycin 3 times a week. Supportive care for parainfluenza 5. Agree with DNR status. Patient's lung disease would qualify him for potential home hospice if he wants to pursue a palliative care approach. Patient appears too frail to consider going home and I doubt his can take care of him. He would need SNF/rehab at a minimum prior to consideration of going home unless he goes home on home hospice Admission and Anticipated Discharge Date Admission Date: October 05, 2023 Subjective Patient seen and examined. EMR reviewed. Reviewed PT and OT notes as well as hospitalist notes. Patient states his breathing is doing okay. He states he used BiPAP last night however review of the notes from respiratory therapy indicates that the patient refused to wear BiPAP. Review of Systems 2 Review of Systems: All systems reviewed & are unremarkable except as noted in Subjective Physical Exam 2 Constitutional: + frail appearing; no acute distress Neck: trachea midline, no thyromegaly Respiratory: no respiratory distress, no labored breathing, no cough and not tachypneic Auscultation: no crackles, no rhonchi and no wheezes Cardiovascular: RRR, no murmur, no edema Gastrointestinal (Abdomen): normal bowel sounds, soft, nontender, no hepatosplenomegaly Musculoskeletal: Extremities: extremities normal to inspection Skin: no rashes, warm and dry Lymphatic: no cervical lymphadenopathy Results & Data Results & Data Vital Signs (Past 12 Hours) Vital Signs Temp Pulse Pulse Pulse Resp BP Pulse Ox 10/10/23 08:02 36.9 C 65 18 155/52 H 97 10/10/23 07:10 68 20 97 10/10/23 03:50 94 10/10/23 03:41 36.7 C 86 20 152/73 H 88 L 10/09/23 23:20 36.8 C 64 18 149/62 H 94 10/09/23 21:54 82 10/09/23 20:58 36.9 C 94 H 20 139/64 89 L 10/09/23 20:50 O2 Del Method O2 Flow Rate 10/10/23 08:02 Nasal Cannula 3 10/10/23 07:10 Nasal Cannula 4 10/10/23 03:50 Nasal Cannula 4 10/10/23 03:41 Nasal Cannula 3 10/09/23 23:20 Nasal Cannula 3 10/09/23 21:54 10/09/23 20:58 Nasal Cannula 3.0 10/09/23 20:50 High Flow Nasal Cannula 6 Laboratory Results 10/10/23 05:21 10/10/23 05:21 Venous blood gas this morning showed a pH 7.4 with a pCO2 of 65 Diagnostic Findings No new imaging PG Care Time/CCT Total # of Minutes Spent Total Time Spent with Patient: Total time spent is greater than 50% in coordination of care (as documented) at patient's floor/unit and/or counseling patient: Coding Level of Care Code 88386 SUB INP/OBS CARE MIN Diagnoses Acute on chronic respiratory failure with hypoxia and hypercapnia J96.21; J96.22 COPD with hypoxia J44.9; R09.02
[2023-10-10] MEDS: POT PHOSPHATE MONOBASIC W/ SOD TAB PO SCH (09:37)
--- NOTE | 2023-10-10 11:18 | Palliative Care Consultation ---
Date of Consultation October 10, 2023 Assessment & Plan (1) Dyspnea and respiratory abnormalities: (2) Weakness generalized: (3) Stage 4 very severe COPD by GOLD classification: (4) Cerebrovascular disease: (5) Cardiac pacemaker: (6) Mitral regurgitation: (7) Symptomatic stenosis of right carotid artery: (8) Palliative care by specialist: Met with pt at bedside, provided overview of Palliative Medicine, a subspecialty that provides specialized medical care for people living with a serious illness by offering a focus on quality of life. Palliative Medicine is often conflated with hospice: I advised patient/family that Palliative and hospice can be partners but we are not the same. It is important to understand the difference so that we may be informed, and not afraid. Palliative Medicine works to improve QOL through reduction of symptom burden/more control over their illness, for both the patient and family. Palliative medicine clinicians are board certified, specially-trained and another member of the patient's medical care team. We often provide an extra layer of support because our care is based on the needs of the patient, not the prognosis; as such, it's appropriate at any age/advancing stage of a serious illness and can be provided along with curative treatment. Palliative Medicine clinicians are also trained in advanced communication methodologies, to facilitate complex discussions about advanced illness planning, which are needed to help assure that the treatment choices m atch the patient's goals, aka delivering Goal Concordant care. Finally, we discussed that hospice is a visiting nurse service that focuses on care delivered at the very end of life for patients with terminal illness, with life expectancy less than 6 month. Plan * Rafa has not been decisional and had a tough time following a discussion attempt. He could not tell me about the nature of his lung disease or what brought him to the hospital. He then told me I should call his . * I called Mrs Castillo who was not at home and there was no answering machine. I will try again but if she comes this weekend, please ask her if she can meet with me on Friday anytime between 930-1pm. Thank you for allowing us to participate in the ongoing care of this patient. Please don't hesitate to call or page with any additional concerns. Dr. Candida David DNP Director, Palliative Care History of Present Illness Reason for Consultation: recommendation of home hospice per pulm Attending Physician: Macrina Maya MD History of Present Illness Mr. Cingle is admitted from [facility] with severe dyspnea. He has very advanced COPD and viral screen + parainfluenza,left lower lobe consolidation. Imaging revealed AAAcoincidental finding on CTA chest of moderate-sized 4.2 cm AAA, likely needs surveillance. Current treatment: Supplemental oxygen, IV methylprednisone, Duo Nebs, Mucinex, IV cefepime, Po azithromycin PMH: complete heart block status post PPM, PVD status post surgery, hypertension, hyperlipidemia, chronic respiratory failure secondary to COPD on home O2, BPH, chronic anemia (baseline hemoglobin 10-11), past tobacco abuse. 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 Allergies Allergy/AdvReac Type Severity Reaction Status Date / Time No Known Allergies Allergy Verified 10/05/23 18:07 Home Medications Medication Instructions Recorded Confirmed Type amlodipine 5 mg tablet (Norvasc) 5 mg PO QAM 03/20/18 10/05/23 History atorvastatin 40 mg tablet 40 mg PO QAM 10/22/22 10/05/23 History losartan 25 mg tablet 25 mg PO QAM 10/22/22 10/05/23 History albuterol sulfate 90 mcg/actuation 1 inh inhalation QID PRN Shortness 09/23/23 10/05/23 History aerosol inhaler Of Breath Or Wheezing dutasteride 0.5 mg capsule 0.5 mg PO QPM 09/23/23 10/05/23 History (Avodart) tamsulosin 0.4 mg capsule (Flomax) 0.4 mg PO HS 09/23/23 10/05/23 History aspirin 81 mg tablet,delayed 81 mg PO QAM 30 days #30 tabs 09/29/23 10/05/23 Rx release olanzapine 2.5 mg tablet 2.5 mg PO HS 7 days #7 tabs 09/29/23 10/05/23 Rx acetaminophen 325 mg tablet 650 mg PO Q4H PRN Pain 10/05/23 10/05/23 History (Tylenol) ammonium lactate 12 % lotion 1 applic topical Q12H 10/05/23 10/05/23 History bisacodyl 10 mg rectal suppository 10 mg ND DAILY PRN Constipation 10/05/23 0 10/05/23 History clobetasol 0.05 % topical cream 1 applic topical DAILY 10/05/23 10/05/23 History docusate sodium 100 mg capsule 100 mg PO BID 10/05/23 10/05/23 History heparin (porcine) 5,000 unit/mL 5,000 unit subcut Q12H 10/05/23 10/05/23 History injection solution ipratropium 0.5 mg-albuterol 3 mg 3 ml inhalation Q4H PRN Shortness 10/05/23 10/05/23 History (2.5 mg base)/3 mL nebulization Of Breath Or Wheezing soln magnesium hydroxide 400 mg/5 mL 30 ml PO DAILY PRN Constipation 10/05/23 10/05/23 History oral suspension (Milk of Magnesia) melatonin 3 mg tablet 3 mg PO HS PRN Insomnia 10/05/23 10/05/23 History ondansetron HCl 4 mg tablet 4 mg PO Q4H PRN NAUSEA/VOMITING 10/05/23 10/05/23 History polyethylene glycol 3350 17 17 g PO QDL PRN Constipation 10/05/23 10/05/23 History gram/dose oral powder (Miralax) sennosides 8.6 mg-docusate sodium 1 tab-cap PO QDL PRN Constipation 10/05/23 10/05/23 History 50 mg tablet (Senokot-S) sodium chloride 7 % for 4 ml inhalation BID 10/05/23 10/05/23 History nebulization (Hyper-Jose Eduardo) Patient History Medical History (Updated 10/10/23 @ 16:51 by Candida David, TANGELA) Palliative care by specialist Stage 4 very severe COPD by GOLD classification Weakness generalized Dyspnea and respiratory abnormalities HTN (hypertension) Asymptomatic bilateral carotid artery stenosis AAA (abdominal aortic aneurysm) without rupture Urinary symptom or sign Chronic respiratory failure with hypoxia Pulmonary nodule seen on imaging study Stable 1 cm solid right lower lobe pulmonary nodule as well as stable indeterminate solid lobulated 19 mm anterior mediastinal soft tissue mass Urinary retention CKD (chronic kidney disease), stage III Dyspnea on exertion Patient chronically on supplemental oxygen Emphysema lung BPH (benign prostatic hyperplasia) Psoriasis COPD (chronic obstructive pulmonary disease) Hx of Lyme disease Pacemaker 2014 ([employer]) SECONDARY TO COMPLETE HEART BLOCK/SSS; Hypertension 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 Beliefs That Will Affect Care: None marital status: Current Living Situation: Rehab current occupational status: retired How many Children do You have: 2 How many Children do You have Comment: one son lives close and is able to assist with care, other son not involved Feels Safe at Home: Yes Diet: regular during the past year weight has: remained stable Assistive Devices: Walker Review of Systems Review of Systems: Unobtainable due to cognitive status Physical Exam Physical Exam: Frail elderly male no acute distress sitting OOB to chair mild conversational dyspnea Bitemp wasting dentition fair Neck supple, no stridor Use of accessory muscles noted with prolonged discussion Chest diminished bilat, few rhonchi with intermittent cough S1S2 abd soft, non tender BS+ Generalized weakness, DELG[place]O Awake and alert to self, knows he is in the hospital and year is 2023, unsure of date, cannot recall HPI skin pale, scatt ecchymoses Results & Data Vital Signs (Past 12 Hours) Vital Signs Temp Pulse Pulse Resp BP Pulse Ox O2 Del Method 10/10/23 08:02 36.9 C 65 18 155/52 H 97 Nasal Cannula 10/10/23 07:10 68 20 97 Nasal Cannula 10/10/23 03:50 94 Nasal Cannula 10/10/23 03:41 36.7 C 86 20 152/73 H 88 L Nasal Cannula 10/09/23 23:20 36.8 C 64 18 149/62 H 94 Nasal Cannula O2 Flow Rate 10/10/23 08:02 3 10/10/23 07:10 4 10/10/23 03:50 4 10/10/23 03:41 3 10/09/23 23:20 3 Laboratory Results 10/10/23 10/09/23 10/08/23 Range/Units 05:21 08:10 06:57 WBC 7.47 6.92 8.52 (4.8-10.8) K/ul RBC 3.31 L 3.42 L 3.11 L (4.70-6.10) M/uL Hgb 10.3 L 10.5 L 9.8 L (14.0-18.0) g/dl POC Hgb (14.0-18.0) g/dl Hct 32.5 L 33.4 L 31.0 L (42.0-52.0) % POC Hct (42-52) % MCV 98.2 97.7 99.7 (80.0-100.0) fL MCH 31.1 30.7 31.5 (25.0-34.0) pg MCHC 31.7 L 31.4 L 31.6 L (32.0-36.0) g/dL RDW Std Deviation 52.1 H 52.7 H 54.8 H (36.4-46.3) fL RDW Coeff of Anni 14.4 14.6 H 15.1 H (11.5-14.5) % Plt Count 252 265 266 (130-400) K/uL MPV 9.9 9.8 9.7 (9.4-12.4) fL Immature Gran % (Auto) % Neut % (Auto) % Lymph % (Auto) % [place] % (Auto) % Eos % (Auto) % Baso % (Auto) % Neut # (Auto) (1.40-6.50) K/uL Lymph # (Auto) (1.20-3.40) K/uL [place] # (Auto) (0.11-0.59) K/uL Eos # (Auto) (0.00-0.50) K/uL Baso # (Auto) (0.00-0.20) K/uL Immature Gran # (Auto) (0.01-0.20) K/uL Basophilic Stippling Stomatocytes APTT (21-31) Seconds PTT Ratio Sample Site POC pH (7.35-7.45) POC pCO2 (35-46) mmHg POC pO2 (80-95) mmHg POC HCO3 (19-24) cadence/L POC Total CO2 (24-31) mmol/L POC Base Excess (-9-1.8) cadence/L ABG pH (7.35-7.45) ABG pH (Temp Correct) (7.35-7.45) ABG pCO2 (35-46) mmHg ABG pCO2 (Temp Corrct (35-46) mmHg ABG pO2 (80-95) mmHg POC ABG pO2 at Pt Temp ABG HCO3 (19-24) mmol/L POC ABG O2 Sat (90-95) % ABG O2 Saturation (90-95) % ABG Base Excess (-9-1.8) mEq/L Bird Test (Pos) VBG pH 7.40 (7.36-7.41) VBG pCO2 65 H (38-50) mmHg VBG pO2 38 mmHg VBG HCO3 40 mmol/L VBG O2 Saturation 62.9 % VBG Base Excess 12.5 mEq/L Oxygen Given O2 Delivery Device POC O2 Rate POC FiO2 % IPAP POC Sodium (135-144) mmol/L Sodium 136 136 137 (136-145) mmol/L POC Potassium (3.3-5.0) mmol/L Potassium 4.5 4.5 4.7 (3.5-5.1) mmol/L Chloride 97 L 97 L 101 (98-107) mmol/L Carbon Dioxide 37 H 38 H 36 H (21-32) mmol/L Anion Gap 2 L 1 L 0 L (3-11) BUN 38 H 37 H 46 H (6-23) mg/dl Creatinine 1.17 1.20 1.35 (0.6-1.4) mg/dl Est Cr Clr Drug Dosing 35.1 34.9 30.2 Est GFR ( Amer) 65.5 63.5 55.1 ml/min Est GFR (Non-Af Amer) 56.5 54.8 47.5 ml/min BUN/Creatinine Ratio 32.5 H 30.8 H 34.1 H (10-20) Glucose 89 133 H 92 (70-99(Fasting)) mg/dl POC Glucose (70-99) mg/dl Estimat Average Glucose mg/dl Hemoglobin A1c (4.5-5.6) % Lactate (0.4-2.0) mmol/L Calcium 8.8 9.0 9.1 (8.6-10.3) mg/dl Phosphorus 1.7 L (2.5-4.9) mg/dl Magnesium 2.1 2.1 2.3 (1.7-2.4) mg/dl Total Bilirubin (0.2-1.0) mg/dl Direct Bilirubin (0-0.2) mg/dl AST (13-39) U/L ALT (7-52) U/L Alkaline Phosphatase (34-104) U/L Troponin I High Sens (0-20) pg/ml B-Natriuretic Peptide (0-100) pg/ml Total Protein (6.0-8.3) gm/dl Albumin (3.4-5.0) gm/dl Procalcitonin (0-0.5) ng/ml Urine Color Urine Appearance (Clear) Urine pH (4.5-7.5) Ur Specific [place] (1.000-1.030) Urine Protein (Negative) Urine Glucose (UA) (Negative) Urine Ketones (Negative) Urine Blood (Negative) Urine Nitrite (Negative) Urine Bilirubin (Negative) Urine Urobilinogen (Negative) Ur Leukocyte Esterase (Negative) Urine WBC (Auto) (0-5) /hpf Urine RBC (Auto) (0-4) /hpf U Hyaline Cast (Auto) (0-5) /lpf U Epithel Cells (Auto) (0-5) /lpf Urine Bacteria (Auto) (Negative) Granular Casts (0) /lpf Urine Yeast Nasal Screen MRSA (PCR) (Negative) Adenovirus (PCR) (NotDetected) B. pertussis DNA (PCR) (NotDetected) B.parapertussis DNA PCR (NotDetected) C. pneumoniae DNA (PCR) (NotDetected) Coronavirus OC43 (PCR) (NotDetected) Coronavirus HKU1 (PCR) (NotDetected) Coronavirus 229E (PCR) (NotDetected) SARS-CoV-2 (PCR) (NotDetected) Coronavirus NL63 (PCR) (NotDetected) Human Metapneumovir PCR (NotDetected) Influenza Type A (PCR) (NotDetected) Influenza Type B (PCR) (NotDetected) M. pneumoniae (PCR) (NotDetected) Parainfluenza 1 (PCR) (NotDetected) Parainfluenza 2 (PCR) (NotDetected) Parainfluenza 3 (PCR) (NotDetected) Parainfluenza 4 (PCR) (NotDetected) RSV (PCR) (NotDetected) Entero/Rhino (PCR) (NotDetected) 10/07/23 10/06/23 10/06/23 Range/Units 07:14 11:53 10:09 WBC 14.05 H (4.8-10.8) K/ul RBC 3.18 L (4.70-6.10) M/uL Hgb 9.9 L (14.0-18.0) g/dl POC Hgb 10.2 L (14.0-18.0) g/dl Hct 32.4 L (42.0-52.0) % POC Hct 30 L (42-52) % MCV 101.9 H (80.0-100.0) fL MCH 31.1 (25.0-34.0) pg MCHC 30.6 L (32.0-36.0) g/dL RDW Std Deviation 57.8 H (36.4-46.3) fL RDW Coeff of Anni 15.2 H (11.5-14.5) % Plt Count 284 (130-400) K/uL MPV 9.7 (9.4-12.4) fL Immature Gran % (Auto) 0.6 % Neut % (Auto) 88.7 % Lymph % (Auto) 2.0 % [place] % (Auto) 8.6 % Eos % (Auto) 0.0 % Baso % (Auto) 0.1 % Neut # (Auto) 12.47 H (1.40-6.50) K/uL Lymph # (Auto) 0.28 L (1.20-3.40) K/uL [place] # (Auto) 1.21 H (0.11-0.59) K/uL Eos # (Auto) 0.00 (0.00-0.50) K/uL Baso # (Auto) 0.01 (0.00-0.20) K/uL Immature Gran # (Auto) 0.08 (0.01-0.20) K/uL Basophilic Stippling Stomatocytes APTT (21-31) Seconds PTT Ratio Sample Site R Radial POC pH 7.39 (7.35-7.45) POC pCO2 56 H (35-46) mmHg POC pO2 85 (80-95) mmHg POC HCO3 33 H (19-24) cadence/L POC Total CO2 35 H (24-31) mmol/L POC Base Excess 8.0 H (-9-1.8) cadence/L ABG pH (7.35-7.45) ABG pH (Temp Correct) 7.380 (7.35-7.45) ABG pCO2 (35-46) mmHg ABG pCO2 (Temp Corrct 57 H (35-46) mmHg ABG pO2 (80-95) mmHg POC ABG pO2 at Pt Temp 87 ABG HCO3 (19-24) mmol/L POC ABG O2 Sat 96.0 H (90-95) % ABG O2 Saturation (90-95) % ABG Base Excess (-9-1.8) mEq/L Bird Test Pass (Pos) VBG pH 7.30 L (7.36-7.41) VBG pCO2 71 H (38-50) mmHg VBG pO2 43 mmHg VBG HCO3 35 mmol/L VBG O2 Saturation 70.4 % VBG Base Excess 6.0 mEq/L Oxygen Given O2 Delivery Device BIPAP POC O2 Rate 20 POC FiO2 50 % IPAP 20 POC Sodium 134 L (135-144) mmol/L Sodium 138 (136-145) mmol/L POC Potassium 5.4 H (3.3-5.0) mmol/L Potassium 4.9 (3.5-5.1) mmol/L Chloride 101 (98-107) mmol/L Carbon Dioxide 35 H (21-32) mmol/L Anion Gap 2 L (3-11) BUN 46 H (6-23) mg/dl Creatinine 1.35 (0.6-1.4) mg/dl Est Cr Clr Drug Dosing 31.0 Est GFR ( Amer) 55.1 ml/min Est GFR (Non-Af Amer) 47.5 ml/min BUN/Creatinine Ratio 34.1 H (10-20) Glucose 108 H (70-99(Fasting)) mg/dl POC Glucose 153 H (70-99) mg/dl Estimat Average Glucose mg/dl Hemoglobin A1c (4.5-5.6) % Lactate (0.4-2.0) mmol/L Calcium 9.2 (8.6-10.3) mg/dl Phosphorus 4.2 (2.5-4.9) mg/dl Magnesium 2.4 (1.7-2.4) mg/dl Total Bilirubin (0.2-1.0) mg/dl Direct Bilirubin (0-0.2) mg/dl AST (13-39) U/L ALT (7-52) U/L Alkaline Phosphatase (34-104) U/L Troponin I High Sens (0-20) pg/ml B-Natriuretic Peptide (0-100) pg/ml Total Protein (6.0-8.3) gm/dl Albumin (3.4-5.0) gm/dl Procalcitonin (0-0.5) ng/ml Urine Color Urine Appearance (Clear) Urine pH (4.5-7.5) Ur Specific [place] (1.000-1.030) Urine Protein (Negative) Urine Glucose (UA) (Negative) Urine Ketones (Negative) Urine Blood (Negative) Urine Nitrite (Negative) Urine Bilirubin (Negative) Urine Urobilinogen (Negative) Ur Leukocyte Esterase (Negative) Urine WBC (Auto) (0-5) /hpf Urine RBC (Auto) (0-4) /hpf U Hyaline Cast (Auto) (0-5) /lpf U Epithel Cells (Auto) (0-5) /lpf Urine Bacteria (Auto) (Negative) Granular Casts (0) /lpf Urine Yeast Nasal Screen MRSA (PCR) (Negative) Adenovirus (PCR) (NotDetected) B. pertussis DNA (PCR) (NotDetected) B.parapertussis DNA PCR (NotDetected) C. pneumoniae DNA (PCR) (NotDetected) Coronavirus OC43 (PCR) (NotDetected) Coronavirus HKU1 (PCR) (NotDetected) Coronavirus 229E (PCR) (NotDetected) SARS-CoV-2 (PCR) (NotDetected) Coronavirus NL63 (PCR) (NotDetected) Human Metapneumovir PCR (NotDetected) Influenza Type A (PCR) (NotDetected) Influenza Type B (PCR) (NotDetected) M. pneumoniae (PCR) (NotDetected) Parainfluenza 1 (PCR) (NotDetected) Parainfluenza 2 (PCR) (NotDetected) Parainfluenza 3 (PCR) (NotDetected) Parainfluenza 4 (PCR) (NotDetected) RSV (PCR) (NotDetected) Entero/Rhino (PCR) (NotDetected) 10/06/23 10/06/23 10/06/23 Range/Units 05:28 05:01 03:47 WBC 12.42 H (4.8-10.8) K/ul RBC 3.23 L (4.70-6.10) M/uL Hgb 10.0 L (14.0-18.0) g/dl POC Hgb 10.5 L (14.0-18.0) g/dl Hct 33.4 L (42.0-52.0) % POC Hct 31 L (42-52) % MCV 103.4 H (80.0-100.0) fL MCH 31.0 (25.0-34.0) pg MCHC 29.9 L (32.0-36.0) g/dL RDW Std Deviation 58.6 H (36.4-46.3) fL RDW Coeff of Anni 15.6 H (11.5-14.5) % Plt Count 278 (130-400) K/uL MPV 9.9 (9.4-12.4) fL Immature Gran % (Auto) 0.3 % Neut % (Auto) 92.4 % Lymph % (Auto) 1.9 % [place] % (Auto) 5.2 % Eos % (Auto) 0.0 % Baso % (Auto) 0.2 % Neut # (Auto) 11.49 H (1.40-6.50) K/uL Lymph # (Auto) 0.23 L (1.20-3.40) K/uL [place] # (Auto) 0.64 H (0.11-0.59) K/uL Eos # (Auto) 0.00 (0.00-0.50) K/uL Baso # (Auto) 0.02 (0.00-0.20) K/uL Immature Gran # (Auto) 0.04 (0.01-0.20) K/uL Basophilic Stippling Stomatocytes APTT (21-31) Seconds PTT Ratio Sample Site L Radial POC pH 7.21 L (7.35-7.45) POC pCO2 87 H (35-46) mmHg POC pO2 250 H (80-95) mmHg POC HCO3 35 H (19-24) cadence/L POC Total CO2 37 H (24-31) mmol/L POC Base Excess 7.0 H (-9-1.8) cadence/L ABG pH (7.35-7.45) ABG pH (Temp Correct) 7.209 L (7.35-7.45) ABG pCO2 (35-46) mmHg ABG pCO2 (Temp Corrct 88 H (35-46) mmHg ABG pO2 (80-95) mmHg POC ABG pO2 at Pt Temp 251 ABG HCO3 (19-24) mmol/L POC ABG O2 Sat 100.0 H (90-95) % ABG O2 Saturation (90-95) % ABG Base Excess (-9-1.8) mEq/L Bird Test Pass (Pos) VBG pH (7.36-7.41) VBG pCO2 (38-50) mmHg VBG pO2 mmHg VBG HCO3 mmol/L VBG O2 Saturation % VBG Base Excess mEq/L Oxygen Given O2 Delivery Device BIPAP POC O2 Rate 16 POC FiO2 90 % IPAP 20 POC Sodium 136 (135-144) mmol/L Sodium 136 (136-145) mmol/L POC Potassium 5.4 H (3.3-5.0) mmol/L Potassium 5.4 H (3.5-5.1) mmol/L Chloride 100 (98-107) mmol/L Carbon Dioxide 32 (21-32) mmol/L Anion Gap 4 (3-11) BUN 34 H (6-23) mg/dl Creatinine 1.31 (0.6-1.4) mg/dl Est Cr Clr Drug Dosing 32.0 Est GFR ( Amer) 57.1 ml/min Est GFR (Non-Af Amer) 49.3 ml/min BUN/Creatinine Ratio 26.0 H (10-20) Glucose 131 H (70-99(Fasting)) mg/dl POC Glucose 127 H (70-99) mg/dl Estimat Average Glucose mg/dl Hemoglobin A1c (4.5-5.6) % Lactate (0.4-2.0) mmol/L Calcium 9.0 (8.6-10.3) mg/dl Phosphorus 4.7 (2.5-4.9) mg/dl Magnesium 2.6 H (1.7-2.4) mg/dl Total Bilirubin (0.2-1.0) mg/dl Direct Bilirubin (0-0.2) mg/dl AST (13-39) U/L ALT (7-52) U/L Alkaline Phosphatase (34-104) U/L Troponin I High Sens (0-20) pg/ml B-Natriuretic Peptide (0-100) pg/ml Total Protein (6.0-8.3) gm/dl Albumin (3.4-5.0) gm/dl Procalcitonin (0-0.5) ng/ml Urine Color Urine Appearance (Clear) Urine pH (4.5-7.5) Ur Specific [place] (1.000-1.030) Urine Protein (Negative) Urine Glucose (UA) (Negative) Urine Ketones (Negative) Urine Blood (Negative) Urine Nitrite (Negative) Urine Bilirubin (Negative) Urine Urobilinogen (Negative) Ur Leukocyte Esterase (Negative) Urine WBC (Auto) (0-5) /hpf Urine RBC (Auto) (0-4) /hpf U Hyaline Cast (Auto) (0-5) /lpf U Epithel Cells (Auto) (0-5) /lpf Urine Bacteria (Auto) (Negative) Granular Casts (0) /lpf Urine Yeast Nasal Screen MRSA (PCR) (Negative) Adenovirus (PCR) (NotDetected) B. pertussis DNA (PCR) (NotDetected) B.parapertussis DNA PCR (NotDetected) C. pneumoniae DNA (PCR) (NotDetected) Coronavirus OC43 (PCR) (NotDetected) Coronavirus HKU1 (PCR) (NotDetected) Coronavirus 229E (PCR) (NotDetected) SARS-CoV-2 (PCR) (NotDetected) Coronavirus NL63 (PCR) (NotDetected) Human Metapneumovir PCR (NotDetected) Influenza Type A (PCR) (NotDetected) Influenza Type B (PCR) (NotDetected) M. pneumoniae (PCR) (NotDetected) Parainfluenza 1 (PCR) (NotDetected) Parainfluenza 2 (PCR) (NotDetected) Parainfluenza 3 (PCR) (NotDetected) Parainfluenza 4 (PCR) (NotDetected) RSV (PCR) (NotDetected) Entero/Rhino (PCR) (NotDetected) 10/06/23 10/05/23 10/05/23 Range/Units 00:41 23:08 22:53 WBC (4.8-10.8) K/ul RBC (4.70-6.10) M/uL Hgb (14.0-18.0) g/dl POC Hgb 11.2 L (14.0-18.0) g/dl Hct (42.0-52.0) % POC Hct 33 L (42-52) % MCV (80.0-100.0) fL MCH (25.0-34.0) pg MCHC (32.0-36.0) g/dL RDW Std Deviation (36.4-46.3) fL RDW Coeff of Anni (11.5-14.5) % Plt Count (130-400) K/uL MPV (9.4-12.4) fL Immature Gran % (Auto) % Neut % (Auto) % Lymph % (Auto) % [place] % (Auto) % Eos % (Auto) % Baso % (Auto) % Neut # (Auto) (1.40-6.50) K/uL Lymph # (Auto) (1.20-3.40) K/uL [place] # (Auto) (0.11-0.59) K/uL Eos # (Auto) (0.00-0.50) K/uL Baso # (Auto) (0.00-0.20) K/uL Immature Gran # (Auto) (0.01-0.20) K/uL Basophilic Stippling Stomatocytes APTT (21-31) Seconds PTT Ratio Sample Site R Radial POC pH 7.19 L* (7.35-7.45) POC pCO2 91 H (35-46) mmHg POC pO2 59 L (80-95) mmHg POC HCO3 35 H (19-24) cadence/L POC Total CO2 38 H (24-31) mmol/L POC Base Excess 7.0 H (-9-1.8) cadence/L ABG pH (7.35-7.45) ABG pH (Temp Correct) 7.195 L* (7.35-7.45) ABG pCO2 (35-46) mmHg ABG pCO2 (Temp Corrct 90 H (35-46) mmHg ABG pO2 (80-95) mmHg POC ABG pO2 at Pt Temp 58 ABG HCO3 (19-24) mmol/L POC ABG O2 Sat 81.0 L (90-95) % ABG O2 Saturation (90-95) % ABG Base Excess (-9-1.8) mEq/L Bird Test Pass (Pos) VBG pH (7.36-7.41) VBG pCO2 (38-50) mmHg VBG pO2 mmHg VBG HCO3 mmol/L VBG O2 Saturation % VBG Base Excess mEq/L Oxygen Given O2 Delivery Device BIPAP POC O2 Rate 15 POC FiO2 70 % IPAP 20 POC Sodium 137 (135-144) mmol/L Sodium (136-145) mmol/L POC Potassium 5.1 H (3.3-5.0) mmol/L Potassium 5.2 H (3.5-5.1) mmol/L Chloride (98-107) mmol/L Carbon Dioxide (21-32) mmol/L Anion Gap (3-11) BUN (6-23) mg/dl Creatinine (0.6-1.4) mg/dl Est Cr Clr Drug Dosing Est GFR ( Amer) ml/min Est GFR (Non-Af Amer) ml/min BUN/Creatinine Ratio (10-20) Glucose (70-99(Fasting)) mg/dl POC Glucose 111 H (70-99) mg/dl Estimat Average Glucose mg/dl Hemoglobin A1c (4.5-5.6) % Lactate (0.4-2.0) mmol/L Calcium (8.6-10.3) mg/dl Phosphorus (2.5-4.9) mg/dl Magnesium (1.7-2.4) mg/dl Total Bilirubin (0.2-1.0) mg/dl Direct Bilirubin (0-0.2) mg/dl AST (13-39) U/L ALT (7-52) U/L Alkaline Phosphatase (34-104) U/L Troponin I High Sens (0-20) pg/ml B-Natriuretic Peptide (0-100) pg/ml Total Protein (6.0-8.3) gm/dl Albumin (3.4-5.0) gm/dl Procalcitonin (0-0.5) ng/ml Urine Color Urine Appearance (Clear) Urine pH (4.5-7.5) Ur Specific [place] (1.000-1.030) Urine Protein (Negative) Urine Glucose (UA) (Negative) Urine Ketones (Negative) Urine Blood (Negative) Urine Nitrite (Negative) Urine Bilirubin (Negative) Urine Urobilinogen (Negative) Ur Leukocyte Esterase (Negative) Urine WBC (Auto) (0-5) /hpf Urine RBC (Auto) (0-4) /hpf U Hyaline Cast (Auto) (0-5) /lpf U Epithel Cells (Auto) (0-5) /lpf Urine Bacteria (Auto) (Negative) Granular Casts (0) /lpf Urine Yeast Nasal Screen MRSA (PCR) (Negative) Adenovirus (PCR) (NotDetected) B. pertussis DNA (PCR) (NotDetected) B.parapertussis DNA PCR (NotDetected) C. pneumoniae DNA (PCR) (NotDetected) Coronavirus OC43 (PCR) (NotDetected) Coronavirus HKU1 (PCR) (NotDetected) Coronavirus 229E (PCR) (NotDetected) SARS-CoV-2 (PCR) (NotDetected) Coronavirus NL63 (PCR) (NotDetected) Human Metapneumovir PCR (NotDetected) Influenza Type A (PCR) (NotDetected) Influenza Type B (PCR) (NotDetected) M. pneumoniae (PCR) (NotDetected) Parainfluenza 1 (PCR) (NotDetected) Parainfluenza 2 (PCR) (NotDetected) Parainfluenza 3 (PCR) (NotDetected) Parainfluenza 4 (PCR) (NotDetected) RSV (PCR) (NotDetected) Entero/Rhino (PCR) (NotDetected) 10/05/23 10/05/23 10/05/23 Range/Units 21:10 20:04 17:25 WBC (4.8-10.8) K/ul RBC (4.70-6.10) M/uL Hgb (14.0-18.0) g/dl POC Hgb 10.9 L (14.0-18.0) g/dl Hct (42.0-52.0) % POC Hct 32 L (42-52) % MCV (80.0-100.0) fL MCH (25.0-34.0) pg MCHC (32.0-36.0) g/dL RDW Std Deviation (36.4-46.3) fL RDW Coeff of Anni (11.5-14.5) % Plt Count (130-400) K/uL MPV (9.4-12.4) fL Immature Gran % (Auto) % Neut % (Auto) % Lymph % (Auto) % [place] % (Auto) % Eos % (Auto) % Baso % (Auto) % Neut # (Auto) (1.40-6.50) K/uL Lymph # (Auto) (1.20-3.40) K/uL [place] # (Auto) (0.11-0.59) K/uL Eos # (Auto) (0.00-0.50) K/uL Baso # (Auto) (0.00-0.20) K/uL Immature Gran # (Auto) (0.01-0.20) K/uL Basophilic Stippling Stomatocytes APTT (21-31) Seconds PTT Ratio Sample Site POC pH 7.18 L* (7.35-7.45) POC pCO2 92 H (35-46) mmHg POC pO2 71 L (80-95) mmHg POC HCO3 35 H (19-24) cadence/L POC Total CO2 37 H (24-31) mmol/L POC Base Excess 6.0 H (-9-1.8) cadence/L ABG pH 7.19 L* (7.35-7.45) ABG pH (Temp Correct) (7.35-7.45) ABG pCO2 103 H (35-46) mmHg ABG pCO2 (Temp Corrct (35-46) mmHg ABG pO2 116 H (80-95) mmHg POC ABG pO2 at Pt Temp ABG HCO3 39 H (19-24) mmol/L POC ABG O2 Sat 88.0 L (90-95) % ABG O2 Saturation 98.3 H (90-95) % ABG Base Excess 7.1 H (-9-1.8) mEq/L Bird Test Pos (Pos) VBG pH 7.19 L (7.36-7.41) VBG pCO2 97 H (38-50) mmHg VBG pO2 42 mmHg VBG HCO3 37 mmol/L VBG O2 Saturation 62.4 % VBG Base Excess 5.3 mEq/L Oxygen Given 15 O2 Delivery Device POC O2 Rate POC FiO2 % IPAP POC Sodium 137 (135-144) mmol/L Sodium (136-145) mmol/L POC Potassium 5.5 H (3.3-5.0) mmol/L Potassium 5.5 H (3.5-5.1) mmol/L Chloride (98-107) mmol/L Carbon Dioxide (21-32) mmol/L Anion Gap (3-11) BUN (6-23) mg/dl Creatinine (0.6-1.4) mg/dl Est Cr Clr Drug Dosing Est GFR ( Amer) ml/min Est GFR (Non-Af Amer) ml/min BUN/Creatinine Ratio (10-20) Glucose (70-99(Fasting)) mg/dl POC Glucose (70-99) mg/dl Estimat Average Glucose mg/dl Hemoglobin A1c (4.5-5.6) % Lactate (0.4-2.0) mmol/L Calcium (8.6-10.3) mg/dl Phosphorus (2.5-4.9) mg/dl Magnesium (1.7-2.4) mg/dl Total Bilirubin (0.2-1.0) mg/dl Direct Bilirubin (0-0.2) mg/dl AST (13-39) U/L ALT (7-52) U/L Alkaline Phosphatase (34-104) U/L Troponin I High Sens (0-20) pg/ml B-Natriuretic Peptide 81 (0-100) pg/ml Total Protein (6.0-8.3) gm/dl Albumin (3.4-5.0) gm/dl Procalcitonin (0-0.5) ng/ml Urine Color Urine Appearance (Clear) Urine pH (4.5-7.5) Ur Specific [place] (1.000-1.030) Urine Protein (Negative) Urine Glucose (UA) (Negative) Urine Ketones (Negative) Urine Blood (Negative) Urine Nitrite (Negative) Urine Bilirubin (Negative) Urine Urobilinogen (Negative) Ur Leukocyte Esterase (Negative) Urine WBC (Auto) (0-5) /hpf Urine RBC (Auto) (0-4) /hpf U Hyaline Cast (Auto) (0-5) /lpf U Epithel Cells (Auto) (0-5) /lpf Urine Bacteria (Auto) (Negative) Granular Casts (0) /lpf Urine Yeast Nasal Screen MRSA (PCR) Negative (Negative) Adenovirus (PCR) (NotDetected) B. pertussis DNA (PCR) (NotDetected) B.parapertussis DNA PCR (NotDetected) C. pneumoniae DNA (PCR) (NotDetected) Coronavirus OC43 (PCR) (NotDetected) Coronavirus HKU1 (PCR) (NotDetected) Coronavirus 229E (PCR) (NotDetected) SARS-CoV-2 (PCR) (NotDetected) Coronavirus NL63 (PCR) (NotDetected) Human Metapneumovir PCR (NotDetected) Influenza Type A (PCR) (NotDetected) Influenza Type B (PCR) (NotDetected) M. pneumoniae (PCR) (NotDetected) Parainfluenza 1 (PCR) (NotDetected) Parainfluenza 2 (PCR) (NotDetected) Parainfluenza 3 (PCR) (NotDetected) Parainfluenza 4 (PCR) (NotDetected) RSV (PCR) (NotDetected) Entero/Rhino (PCR) (NotDetected) 10/05/23 10/05/23 10/05/23 Range/Units 17:01 16:56 16:51 WBC 5.88 (4.8-10.8) K/ul RBC 3.59 L (4.70-6.10) M/uL Hgb 11.0 L (14.0-18.0) g/dl POC Hgb (14.0-18.0) g/dl Hct 37.3 L (42.0-52.0) % POC Hct (42-52) % MCV 103.9 H (80.0-100.0) fL MCH 30.6 (25.0-34.0) pg MCHC 29.5 L (32.0-36.0) g/dL RDW Std Deviation 58.8 H (36.4-46.3) fL RDW Coeff of Anni 15.5 H (11.5-14.5) % Plt Count 300 (130-400) K/uL MPV 10.0 (9.4-12.4) fL Immature Gran % (Auto) 0.3 % Neut % (Auto) 92.5 % Lymph % (Auto) 4.3 % [place] % (Auto) 2.4 % Eos % (Auto) 0.0 % Baso % (Auto) 0.5 % Neut # (Auto) 5.44 (1.40-6.50) K/uL Lymph # (Auto) 0.25 L (1.20-3.40) K/uL [place] # (Auto) 0.14 (0.11-0.59) K/uL Eos # (Auto) 0.00 (0.00-0.50) K/uL Baso # (Auto) 0.03 (0.00-0.20) K/uL Immature Gran # (Auto) 0.02 (0.01-0.20) K/uL Basophilic Stippling Occasional Stomatocytes 1+ APTT 31 (21-31) Seconds PTT Ratio 1.1 Sample Site POC pH (7.35-7.45) POC pCO2 (35-46) mmHg POC pO2 (80-95) mmHg POC HCO3 (19-24) cadence/L POC Total CO2 (24-31) mmol/L POC Base Excess (-9-1.8) cadence/L ABG pH (7.35-7.45) ABG pH (Temp Correct) (7.35-7.45) ABG pCO2 (35-46) mmHg ABG pCO2 (Temp Corrct (35-46) mmHg ABG pO2 (80-95) mmHg POC ABG pO2 at Pt Temp ABG HCO3 (19-24) mmol/L POC ABG O2 Sat (90-95) % ABG O2 Saturation (90-95) % ABG Base Excess (-9-1.8) mEq/L Bird Test (Pos) VBG pH (7.36-7.41) VBG pCO2 (38-50) mmHg VBG pO2 mmHg VBG HCO3 mmol/L VBG O2 Saturation % VBG Base Excess mEq/L Oxygen Given O2 Delivery Device POC O2 Rate POC FiO2 % IPAP POC Sodium (135-144) mmol/L Sodium 136 (136-145) mmol/L POC Potassium (3.3-5.0) mmol/L Potassium 5.3 H (3.5-5.1) mmol/L Chloride 97 L (98-107) mmol/L Carbon Dioxide 35 H (21-32) mmol/L Anion Gap 4 (3-11) BUN 34 H (6-23) mg/dl Creatinine 1.28 (0.6-1.4) mg/dl Est Cr Clr Drug Dosing Not Reportable Est GFR ( Amer) 58.8 ml/min Est GFR (Non-Af Amer) 50.7 ml/min BUN/Creatinine Ratio 26.6 H (10-20) Glucose 185 H (70-99(Fasting)) mg/dl POC Glucose (70-99) mg/dl Estimat Average Glucose 123 mg/dl Hemoglobin A1c 5.9 H (4.5-5.6) % Lactate 1.4 (0.4-2.0) mmol/L Calcium 9.7 (8.6-10.3) mg/dl Phosphorus (2.5-4.9) mg/dl Magnesium 2.5 H (1.7-2.4) mg/dl Total Bilirubin 0.7 (0.2-1.0) mg/dl Direct Bilirubin 0.2 (0-0.2) mg/dl AST 17 (13-39) U/L ALT 9 (7-52) U/L Alkaline Phosphatase 79 (34-104) U/L Troponin I High Sens 16.4 (0-20) pg/ml B-Natriuretic Peptide (0-100) pg/ml Total Protein 7.7 (6.0-8.3) gm/dl Albumin 3.8 (3.4-5.0) gm/dl Procalcitonin 0.13 (0-0.5) ng/ml Urine Color Yellow Urine Appearance Cloudy A (Clear) Urine pH 5.0 (4.5-7.5) Ur Specific [place] 1.016 (1.000-1.030) Urine Protein 1+ H (Negative) Urine Glucose (UA) Negative (Negative) Urine Ketones Negative (Negative) Urine Blood 1+ H (Negative) Urine Nitrite Negative (Negative) Urine Bilirubin Negative (Negative) Urine Urobilinogen Negative (Negative) Ur Leukocyte Esterase Negative (Negative) Urine WBC (Auto) 1-5 (0-5) /hpf Urine RBC (Auto) 0-4 (0-4) /hpf U Hyaline Cast (Auto) 1-5 (0-5) /lpf U Epithel Cells (Auto) >30 H (0-5) /lpf Urine Bacteria (Auto) Negative (Negative) Granular Casts 1-5 H (0) /lpf Urine Yeast Not Reportable Nasal Screen MRSA (PCR) (Negative) Adenovirus (PCR) Not Detected (NotDetected) B. pertussis DNA (PCR) Not Detected (NotDetected) B.parapertussis DNA PCR Not Detected (NotDetected) C. pneumoniae DNA (PCR) Not Detected (NotDetected) Coronavirus OC43 (PCR) Not Detected (NotDetected) Coronavirus HKU1 (PCR) Not Detected (NotDetected) Coronavirus 229E (PCR) Not Detected (NotDetected) SARS-CoV-2 (PCR) Not Detected (NotDetected) Coronavirus NL63 (PCR) Not Detected (NotDetected) Human Metapneumovir PCR Not Detected (NotDetected) Influenza Type A (PCR) Not Detected (NotDetected) Influenza Type B (PCR) Not Detected (NotDetected) M. pneumoniae (PCR) Not Detected (NotDetected) Parainfluenza 1 (PCR) Not Detected (NotDetected) Parainfluenza 2 (PCR) Not Detected (NotDetected) Parainfluenza 3 (PCR) DETECTED A (NotDetected) Parainfluenza 4 (PCR) Not Detected (NotDetected) RSV (PCR) Not Detected (NotDetected) Entero/Rhino (PCR) Not Detected (NotDetected) Diagnostic Findings PFTs 2020: very severe obstructive defect with Fev1 26% Chest X-Ray 10/05/23 16:43 XR chest 1V portable CLINICAL HISTORY: Sepsis TECHNIQUE: Single frontal radiograph of the chest was obtained. Comparison: Comparison is made to chest radiograph 09/23/2023 FINDINGS: An implanted pacemaker is seen. Cardiomegaly is noted. Reticular interstitial opacities are seen. Blunting of the left costophrenic angle is seen. IMPRESSION: No evidence of pneumonia. Likely small left pleural effusion. ACT 112: Negative or not required by law. Electronically signed by: Thaddeus Khoury M.D. 10/05/2023 6:08 PM Chest CTA 10/05/23 20:47 Exam(s): CTA CHEST IV Amt: 119ml EXAM: CT Angiography Chest With Intravenous Contrast CLINICAL HISTORY: Reason for exam: cp sob. TECHNIQUE: Axial computed tomographic angiography images of the chest with intravenous contrast. CTDI is 22.46 mGy and DLP is 842.19 mGy-cm. Automated exposure control was utilized for the study. A dose lowering technique was utilized adhering to the principles of ALARA. MIP reconstructed images were created and reviewed. COMPARISON: No relevant prior studies available. FINDINGS: Pulmonary arteries: Unremarkable. No evidence of pulmonary embolus. Aorta: Moderate atherosclerotic disease of the thoracic aorta. Partially visualized abdominal aortic aneurysm measuring up to 4.[address] angiogram of the abdomen and pelvis for further evaluation. Lungs: Severe emphysematous changes, right greater than left with atelectasis/collapse of the left lower lobe and lingula region. No mass. Pleural space: Unremarkable. No significant effusion. No pneumothorax. Heart: Unremarkable. No cardiomegaly. No significant pericardial effusion. No evidence of RV dysfunction. Mediastinum: Mediastinal adenopathy, likely reactive. Bones/joints: Moderate degenerative changes of the thoracic and with old L1 compression fracture. Old L2 compression fracture. Chronic T8 and T12 compression fractures. No dislocation. Soft tissues: Unremarkable. Lymph nodes: See above. Tubes, lines and devices: Left-sided pacemaker. IMPRESSION: 1. No evidence of pulmonary embolus. 2. Partially visualized abdominal aortic aneurysm measuring up to 4.[address] angiogram of the abdomen and pelvis for further evaluation. 3. Severe emphysematous changes, right greater than left with atelectasis/collapse of the left lower lobe and lingula region Electronically signed by: Vickie Shelley MD 10/05/23 22:33 PM Chest X-Ray 10/06/23 07:00 XR chest 1V portable HISTORY: Respiratory failure. COMPARISON: Chest CTA 10/05/2023. FINDINGS: There is a left-sided dual-chamber pacemaker. The cardiac silhouette remains top normal in size. No pneumothorax. Emphysema again noted. No acute fractures. Left lower lobe consolidation persists. There is a trace left pleural effusion, unchanged. No evidence for pulmonary edema. IMPRESSION: 1. No significant change in the left lower lobe consolidation likely representing a pneumonia. This could be due to prior aspiration. 2. Trace left pleural effusion. 3. Emphysema. ACT 112: Negative or not required by law. Electronically signed by: Gene Grider M.D. 10/06/2023 7:54 AM PG Care Time/CCT Total # of Minutes Spent Total Time Spent with Patient: Total time spent is greater than 50% in coordination of care (as documented) at patient's floor/unit and/or counseling patient: I spent 65 minutes overall addressing this case: 20 min in medical data review/discussion with referring provider(s) and/or preparation for the visit 20 min in direct interaction with the patient/exam 00 min in Advance Care Planning/Goals of Care discussions as detailed above in note (must be >16min) 10 min in subsequent review and synthesis of assessment and plan 15 min communicating with other providers regarding the patient's case: Dr Maya [place] [address] IN/OBS CONSULT LVL 4,60M Patient Type New History Comprehensive Exam Comprehensive Medical Decision Making High Complexity Diagnoses Dyspnea and respiratory abnormalities R06.00; R06.89 Weakness generalized R53.1 Stage 4 very severe COPD by GOLD classification J44.9 Cerebrovascular disease I67.9 Cardiac pacemaker Z95.0 Mitral regurgitation I34.0 Symptomatic stenosis of right carotid artery I65.21 Palliative care by specialist Z51.5
--- NOTE | 2023-10-10 12:42 | Hospitalist Progress Note ---
Date of Service October 10, 2023 Assessment & Plan (1) Acute on chronic respiratory failure with hypoxia and hypercapnia: Plan: Mr. Castillo is an 83 year old gentleman with medical history significant for complete heart block status post PPM, PVD status post surgery, hypertension, hyperlipidemia, chronic respiratory failure secondary to COPD on home O2, BPH, chronic anemia (baseline hemoglobin 10-11), past tobacco abuse who is admitted from [facility] 2/2 encephalopathy and acute on chronic hypoxia/hypercapnia iso parainfluenza virus. Patient required ICU briefly for close airway monitoring on bipap. Pulmonary recommended BIPAP, however, patient doesn't seem to tolerate. concerned over patient's mentation and memory; patient is improving subjectively, however, still with notable oxygen requirement. Long discussion was had with 10/08 It was discussed that it can be difficult to recover from viral infection especially with existing lung disease/emphysema, as well as more complicated to recover when not able to comply with modalities like Bipap. Discussed continued relatively high oxygen requirement, as well as cognitive impairment/short term memory issues noted by . Patient pleasant, but forgetful. She reports patient being at baseline and completely independent. Discussed home hospice given lung disease and attempted to exam issues/concern with hypercapnia/hypoxia and the confusion that results--as well as the need for complying with bipap to help recover. She would like patient to trial as much as able and to trial rehab if able. really concerned because goal is home and she understands patient's tolerance will be limited for certain ongoing modalities. Antibiotics to discontinue today. Palliative on consult for discussion regarding overall state of care for patient and solidify goals for patient regarding comfort, in addition to expectations. Will appreciate further recommendations. #Acute on chronic respiratory failure with hypoxia and hypercapnia #Parainfluenza infection #Acute severe COPD exacerbation with emphysema #Chronic oxygen dependency on home supplemental oxygen, 2L at baseline --CTA:No evidence of pulmonary embolus. Partially visualized abdominal aortic aneurysm measuring up to 4.[address] angiogram of the abdomen and pelvis for further evaluation. Severe emphysematous changes, right greater than left with atelectasis/collapse of the left lower lobe and lingula region -- BioFire positive for parainfluenza -- Normal procalcitonin --Blood culture negative to date --Continue cefepime EOT 10/09 --Azithromycin 3xwk Taper steroids as able Continue BiPAP as needed and HS Continue supplemental oxygen to keep saturations 88 to 92% Consulted pulmonary as requested by family and patient -completed abx -VBG c/w hypercapnia -Recommending trelegy ventilator: request filed per pulm -Palliative consult to discuss and help cope Wean supplemental oxygen as able Continue Mucinex, flutter Continue hypertonic nebs #Acute metabolic encephalopathy *waxing/waning Secondary to above hypoxia/hypercapnia Monitor and reorient frequently to minimize delirium Mental status is improved, however, patient with notable short term memory deficit and inability to recall recent events through out day #Hyperkalemia Will discontinue losartan given stable blood pressure. Monitor potassium levels Monitor #CKD III stable #Abdominal aortic aneurysm Incidental finding on CT 4.2 cm Monitor as OP #Hypertension #Complete heart block S/P PPM Continue amlodipine Losartan discontinued Monitor BP #Hyperlipidemia Continue statin #Prediabetes HbA1c 5.9 #PVD S/P surgery Statin as above #BPH continue Flomax #Acute on Chronic anemia Baseline 11-12, appears to be 9-10 recently No signs of bleeding at this time Stable Past tobacco abuse Continue home medications as able DVT Px: Lovenox SQ Code Status DNI/DNR Admission and Anticipated Discharge Date Admission Date: October 05, 2023 Subjective NAEO Patient pleasant, awake, and alert to self. States he feels well and doesn't know if he "should feel a certain way" Denies chest pain, SOB, pain, or other acute issues on exam Physical Exam Constitutional: WD/WN, vitals as above Respiratory: diminished bilaterally, Cardiovascular: RRR, no murmur, no edema Gastrointestinal (Abdomen): normal bowel sounds, soft, nontender, no hepatosplenomegaly Results & Data Results & Data Vital Signs (Past 12 Hours) Vital Signs Temp Pulse Pulse Resp BP Pulse Ox O2 Del Method 10/10/23 10:37 36.8 C 90 20 136/67 93 Nasal Cannula 10/10/23 08:02 36.9 C 65 18 155/52 H 97 Nasal Cannula 10/10/23 08:00 Nasal Cannula 10/10/23 07:10 68 20 97 Nasal Cannula 10/10/23 03:50 94 Nasal Cannula 10/10/23 03:41 36.7 C 86 20 152/73 H 88 L Nasal Cannula O2 Flow Rate 10/10/23 10:37 6 10/10/23 08:02 3 10/10/23 08:00 4 10/10/23 07:10 4 10/10/23 03:50 4 10/10/23 03:41 3 Laboratory Results Short CBC 10/10/23 Range/Units 05:21 WBC 7.47 (4.8-10.8) K/ul Hgb 10.3 L (14.0-18.0) g/dl Hct 32.5 L (42.0-52.0) % Plt Count 252 (130-400) K/uL BMP 10/10/23 05:21 Sodium 136 Potassium 4.5 Chloride 97 L Carbon Dioxide 37 H BUN 38 H Creatinine 1.17 Glucose 89 Calcium 8.8 Medications Administered Home Medications Medication Instructions Recorded Confirmed Last Taken amlodipine 5 mg tablet (Norvasc) 5 mg PO QAM 03/20/18 10/05/23 10/05/23 atorvastatin 40 mg tablet 40 mg PO QAM 10/22/22 10/05/23 10/05/23 losartan 25 mg tablet 25 mg PO QAM 10/22/22 10/05/23 10/05/23 albuterol sulfate 90 mcg/actuation 1 inh inhalation QID PRN Shortness 09/23/23 10/05/23 10/05/23 14:30 aerosol inhaler Of Breath Or Wheezing dutasteride 0.5 mg capsule 0.5 mg PO QPM 09/23/23 10/05/23 10/04/23 (Avodart) tamsulosin 0.4 mg capsule (Flomax) 0.4 mg PO HS 09/23/23 10/05/23 10/04/23 aspirin 81 mg tablet,delayed 81 mg PO QAM 30 days #30 tabs 09/29/23 10/05/23 10/05/23 release olanzapine 2.5 mg tablet 2.5 mg PO HS 7 days #7 tabs 09/29/23 10/05/23 10/04/23 acetaminophen 325 mg tablet 650 mg PO Q4H PRN Pain 10/05/23 10/05/23 Unknown (Tylenol) ammonium lactate 12 % lotion 1 applic topical Q12H 10/05/23 10/05/23 10/05/23 06:00 bisacodyl 10 mg rectal suppository 10 mg IN DAILY PRN Constipation 10/05/23 10/05/23 Unknown clobetasol 0.05 % topical cream 1 applic topical DAILY 10/05/23 10/05/23 10/05/23 docusate sodium 100 mg capsule 100 mg PO BID 10/05/23 10/05/23 10/05/23 09:00 heparin (porcine) 5,000 unit/mL 5,000 unit subcut Q12H 10/05/23 10/05/23 10/05/23 08:30 injection solution ipratropium 0.5 mg-albuterol 3 mg 3 ml inhalation Q4H PRN Shortness 10/05/23 10/05/23 Unknown (2.5 mg base)/3 mL nebulization Of Breath Or Wheezing soln magnesium hydroxide 400 mg/5 mL 30 ml PO DAILY PRN Constipation 10/05/23 10/05/23 Unknown oral suspension (Milk of Magnesia) melatonin 3 mg tablet 3 mg PO HS PRN Insomnia 10/05/23 10/05/23 Unknown ondansetron HCl 4 mg tablet 4 mg PO Q4H PRN NAUSEA/VOMITING 10/05/23 10/05/23 Unknown polyethylene glycol 3350 17 17 g PO QDL PRN Constipation 10/05/23 10/05/23 Unknown gram/dose oral powder (Miralax) sennosides 8.6 mg-docusate sodium 1 tab-cap PO QDL PRN Constipation 10/05/23 10/05/23 Unknown 50 mg tablet (Senokot-S) sodium chloride 7 % for 4 ml inhalation BID 10/05/23 10/05/23 10/05/23 10:00 nebulization (Hyper-Jose Eduardo) Active Medications Generic Name Dose Route Start Last Admin Trade Name Freq PRN Reason Stop Dose Admin Albuterol 3 ml 10/08/23 13:00 10/10/23 07:10 Albut/Ipratrop 3mg/0.5mg Neb 3 Ml Vial NEB 11/07/23 12:59 Not Given [facility] Protocol Amlodipine Besylate 5 mg 10/06/23 09:00 10/10/23 08:05 Amlodipine Besylate 5 Mg Tab PO 11/05/23 08:59 5 mg QAM TRESSA Administration Aspirin 81 mg 10/06/23 09:00 10/10/23 08:05 Aspirin 81 Mg Ectab PO 11/05/23 08:59 81 mg QAM TRESSA Administration Atorvastatin Calcium 40 mg 10/06/23 09:00 10/10/23 08:05 Atorvastatin 40 Mg Tab PO 11/05/23 08:59 40 mg QAM TRESSA Administration Budesonide 0.5 mg 10/08/23 19:00 10/10/23 07:10 Budesonide 0.5 Mg/2 Ml Vial (Pulmicort) NEB 11/07/23 18:59 0.5 mg BIDR TRESSA Administration Docusate Sodium 100 mg 10/05/23 21:48 10/10/23 08:06 Docusate Sodium 100 Mg Cap PO 11/04/23 21:47 100 mg BID TRESSA Administration Enoxaparin Sodium 30 mg 10/06/23 09:00 10/10/23 08:06 Enoxaparin Inj 30 Mg/0.3 Ml Syr SQ 11/05/23 08:59 30 mg QAM TRESSA Administration Finasteride 5 mg 10/07/23 21:00 10/09/23 20:49 Finasteride 5 Mg Tab PO 11/06/23 20:59 5 mg QPM TRESSA Administration Formoterol Fumarate 20 mcg 10/08/23 11:45 10/10/23 07:10 Formoterol 20 Mcg/2 Ml Vial NEB 11/07/23 11:44 20 mcg BIDR TRESSA Administration Guaifenesin 600 mg 10/07/23 12:40 10/10/23 08:04 Guaifenesin 600 Mg Tabcr PO 11/06/23 12:39 600 mg Q12 TRESSA Administration Cefepime HCl 2,000 mg/ Syringe 20 mls @ 5 mls/min 10/05/23 23:00 10/10/23 11:25 IV 10/10/23 22:59 5 mls/min Q12H TRESSA Administration Protocol Lactic Acid 1 gm 10/09/23 21:00 10/10/23 09:37 Ammonium Lactate 12% Lotion 225 Gm Btl EXT 11/08/23 20:59 1 gm BID TRESSA Administration Olanzapine 2.5 mg 10/05/23 21:48 10/05/23 22:25 Olanzapine 2.5 Mg Tab PO 11/04/23 21:47 Not Given HS TRESSA Potassium Phosphate 2 tab 10/10/23 09:00 10/10/23 09:37 Pot Phosphate Monobasic W/ Sod Tab PO 11/09/23 08:59 2 tab QID TRESSA Administration Prednisone 30 mg 10/10/23 09:00 10/10/23 08:05 Prednisone 10 Mg Tablet PO 10/12/23 09:01 30 mg DAILY TRESSA Administration Sodium Chloride 4 ml 10/08/23 08:40 10/10/23 07:10 Sodium Chlor 7% 4 Ml Neb NEB 11/07/23 08:39 4 ml BIDR TRESSA Administration Tamsulosin HCl 0.4 mg 10/05/23 21:48 10/09/23 20:46 Tamsulosin Hcl 0.4 Mg Cap PO 11/04/23 21:47 0.4 mg HS TRESSA Administration
--- NOTE | 2023-10-11 08:20 | Pulmonology Progress Note ---
Date of Service October 11, 2023 Assessment & Plan (1) Acute on chronic respiratory failure with hypoxia and hypercapnia: (2) COPD with hypoxia: Plan Impression: 83-year-old male with very severe COPD admitted with hypoxemic and hypercarbic respiratory failure. He is improving with steroids, antibiotics, and bronchodilators. He tolerated AVAPS last evening without difficulty and this should be pursued going forward given his chronic hypercapnia. Recommendations: 1. COPD: Complete 5-day course of azithromycin. Continue prednisone taper. Continue nebulized Perforomist, budesonide, and DuoNebs for now. 2. Hypoxemic hypercapnic respiratory failure: Would not try and target oxygen saturations much above 86 to 90%. The patient is using noninvasive positive pressure ventilation at night. This is medically necessary. He is compliant with the device and achieving a clinical benefit from it. Forms were signed for [facility] home ventilator. Patient has Chronic Hypercarbic Respiratory failure due to COPD. Pt has evidence for CO2 retention and requires noninvasive ventilation with volume targeted mode at home for optimal management. BiPAP was tried and patient still remains hypercapnic due to the inability to provide noninvasive ventilation of adequate degree. Continuous alarm systems and backup are required for optimal management due to power outage. This patient is at high risk for respiratory failure without noninvasive ventilation at home. This could prevent repeated hospital admissions and improve the quality of life for the patient. NIMV settings were completed on the home health care order 3. Recommend getting the patient up out of bed to the chair and ambulatory is much as possible. 4. Pneumonia: CT of the chest did show some basilar consolidation in the medial basilar segment of the left lower lobe. Patient's completed antibiotics. Given the severity of his COPD, azithromycin 3 times a week may be warranted to decrease exacerbations and hospitalizations. Supportive care for parainfluenza 5. Agree with DNR status. Patient's lung disease would qualify him for potential home hospice if he wants to pursue a palliative care approach. Palliative discussions in progress Patient appears too frail to consider going home and I doubt his can take care of him. He would need SNF/rehab at a minimum prior to consideration of going home unless he goes home on home hospice Patient appears to have achieved significant benefit from inpatient hospitalization. Disposition deferred to hospitalist. I would be happy to see him back in the outpatient clinic for pulmonary follow-up Admission and Anticipated Discharge Date Admission Date: October 05, 2023 Subjective Patient seen and examined. EMR reviewed. The patient reports that he was compliant with noninvasive positive pressure ventilation all night last evening. He states he tolerated it well and slept well. He thinks his breathing is better this morning. He is eating breakfast. He is anxious to discuss the next phase of his care. He is not coughing, wheezing, or expectorating phlegm. He states he was up and around yesterday. Review of Systems 2 Review of Systems: All systems reviewed & are unremarkable except as noted in Subjective Physical Exam 2 Constitutional: + frail appearing; no acute distress Neck: trachea midline, no thyromegaly Respiratory: no respiratory distress, no labored breathing, no cough and not tachypneic Auscultation: no crackles, no rhonchi and no wheezes Cardiovascular: RRR, no murmur, no edema Gastrointestinal (Abdomen): normal bowel sounds, soft, nontender, no hepatosplenomegaly Musculoskeletal: Extremities: extremities normal to inspection Skin: no rashes, warm and dry Lymphatic: no cervical lymphadenopathy Results & Data Results & Data Vital Signs (Past 12 Hours) Vital Signs Temp Pulse Pulse Pulse Resp BP Pulse Ox 10/11/23 07:37 36.6 C 85 20 151/75 H 100 10/11/23 07:09 74 18 85 L 10/11/23 03:24 73 29 H 96 10/11/23 03:00 36.9 C 76 24 129/81 97 10/11/23 00:00 36.9 C 79 24 137/71 85 L 10/10/23 22:53 78 25 H 95 10/10/23 21:59 76 10/10/23 21:45 O2 Del Method O2 Flow Rate FiO2 10/11/23 07:37 Nasal Cannula 6 10/11/23 07:09 Nasal Cannula 4 10/11/23 03:24 45 10/11/23 03:00 Nasal Cannula 10/11/23 00:00 Nasal Cannula 10/10/23 22:53 45 10/10/23 21:59 10/10/23 21:45 High Flow Nasal Cannula 4 Laboratory Results 10/10/23 05:21 10/10/23 05:21 Diagnostic Findings No new imaging PG Care Time/CCT Total # of Minutes Spent Total Time Spent with Patient: Total time spent is greater than 50% in coordination of care (as documented) at patient's floor/unit and/or counseling patient: Coding Level of Care Code 96866 SUB INP/OBS CARE MIN Diagnoses Acute on chronic respiratory failure with hypoxia and hypercapnia J96.21; J96.22 COPD with hypoxia J44.9; R09.02
--- NOTE | 2023-10-11 12:02 | Hospitalist Progress Note ---
Date of Service October 11, 2023 Assessment & Plan (1) Acute on chronic respiratory failure with hypoxia and hypercapnia: Plan: Mr. Castillo is an 83 year old gentleman with medical history significant for complete heart block status post PPM, PVD status post surgery, hypertension, hyperlipidemia, chronic respiratory failure secondary to COPD on home O2, BPH, chronic anemia (baseline hemoglobin 10-11), past tobacco abuse who is admitted from [facility] 2/2 encephalopathy and acute on chronic hypoxia/hypercapnia iso parainfluenza virus. Patient required ICU briefly for close airway monitoring on bipap. Pulmonary recommended BIPAP, however, patient doesn't seem to tolerate. concerned over patient's mentation and memory; patient is improving subjectively, however, still with notable oxygen requirement. Long discussion was had with 10/08 It was discussed that it can be difficult to recover from viral infection especially with existing lung disease/emphysema, as well as more complicated to recover when not able to comply with modalities like Bipap. Discussed continued relatively high oxygen requirement, as well as cognitive impairment/short term memory issues noted by . Patient pleasant, but forgetful. She reports patient being at baseline and completely independent. Discussed home hospice given lung disease and attempted to exam issues/concern with hypercapnia/hypoxia and the confusion that results--as well as the need for complying with bipap to help recover. She would like patient to trial as much as able and to trial rehab if able. really concerned because goal is home and she understands patient's tolerance will be limited for certain ongoing modalities. Off antibiotics as of 10/09. Patient was able to wear mask overnight and more cognizant/aware today. Around 30 minutes was spent with at bedside discussing options. wants patient to go to rehab but afraid of another virus. Son wants patient to go home comfortably. is hopeful for return of "full functionality" states she would like to meet with palliative on 10/12 at 1030am. Plan to meet with son in room on Friday at 1pm. #Acute on chronic respiratory failure with hypoxia and hypercapnia #Parainfluenza infection #Acute severe COPD exacerbation with emphysema #Chronic oxygen dependency on home supplemental oxygen, 2L at baseline --CTA:No evidence of pulmonary embolus. Partially visualized abdominal aortic aneurysm measuring up to 4.[address] angiogram of the abdomen and pelvis for further evaluation. Severe emphysematous changes, right greater than left with atelectasis/collapse of the left lower lobe and lingula region -- BioFire positive for parainfluenza -- Normal procalcitonin --Blood culture negative to date --Continue cefepime EOT 10/09 --Azithromycin 3xwk Taper steroids as able Continue BiPAP as needed and HS Continue supplemental oxygen to keep saturations 88 to 92% Consulted pulmonary as requested by family and patient -completed abx -VBG c/w hypercapnia -Recommending trelegy ventilator: request filed per pulm -Palliative consult to discuss and help cope Wean supplemental oxygen as able Continue Mucinex, flutter Continue hypertonic nebs #Acute metabolic encephalopathy *waxing/waning Secondary to above hypoxia/hypercapnia Monitor and reorient frequently to minimize delirium Mental status is improved, however, patient with notable short term memory deficit and inability to recall recent events through out day #Hyperkalemia Will discontinue losartan given stable blood pressure. Monitor potassium levels Monitor #CKD III stable #Abdominal aortic aneurysm Incidental finding on CT 4.2 cm Monitor as OP #Hypertension #Complete heart block S/P PPM Continue amlodipine Losartan discontinued Monitor BP #Hyperlipidemia Continue statin #Prediabetes HbA1c 5.9 #PVD S/P surgery Statin as above #Urinary retention #BPH continue Flomax Zepeda in place, void trial today #Acute on Chronic anemia Baseline 11-12, appears to be 9-10 recently No signs of bleeding at this time Stable Past tobacco abuse Continue home medications as able DVT Px: Lovenox SQ Code Status DNI/DNR Admission and Anticipated Discharge Date Admission Date: October 05, 2023 Subjective NAEO Reported wore mask all evening without complaints Denies any new concerns Eager for void trial without catheter Physical Exam Constitutional: WD/WN, vitals as above Respiratory: diminshed bilaterally Cardiovascular: RRR, no murmur, no edema Results & Data Results & Data Vital Signs (Past 12 Hours) Vital Signs Temp Pulse Pulse Pulse Resp BP Pulse Ox 10/11/23 08:51 10/11/23 07:37 36.6 C 85 20 151/75 H 100 10/11/23 07:09 74 18 85 L 10/11/23 03:24 73 29 H 96 10/11/23 03:00 36.9 C 76 24 129/81 97 10/11/23 00:00 36.9 C 79 24 137/71 85 L O2 Del Method O2 Flow Rate FiO2 10/11/23 08:51 Nasal Cannula 6 10/11/23 07:37 Nasal Cannula 6 10/11/23 07:09 Nasal Cannula 4 10/11/23 03:24 45 10/11/23 03:00 Nasal Cannula 10/11/23 00:00 Nasal Cannula Medications Administered Home Medications Medication Instructions Recorded Confirmed Last Taken amlodipine 5 mg tablet (Norvasc) 5 mg PO QAM 03/20/18 10/05/23 10/05/23 atorvastatin 40 mg tablet 40 mg PO QAM 10/22/22 10/05/23 10/05/23 losartan 25 mg tablet 25 mg PO QAM 10/22/22 10/05/23 10/05/23 albuterol sulfate 90 mcg/actuation 1 inh inhalation QID PRN Shortness 09/23/23 10/05/23 10/05/23 14:30 aerosol inhaler Of Breath Or Wheezing dutasteride 0.5 mg capsule 0.5 mg PO QPM 09/23/23 10/05/23 10/04/23 (Avodart) tamsulosin 0.4 mg capsule (Flomax) 0.4 mg PO HS 09/23/23 10/05/23 10/04/23 aspirin 81 mg tablet,delayed 81 mg PO QAM 30 days #30 tabs 09/29/23 10/05/23 10/05/23 release olanzapine 2.5 mg tablet 2.5 mg PO HS 7 days #7 tabs 09/29/23 10/05/23 10/04/23 acetaminophen 325 mg tablet 650 mg PO Q4H PRN Pain 10/05/23 10/05/23 Unknown (Tylenol) ammonium lactate 12 % lotion 1 applic topical Q12H 10/05/23 10/05/23 10/05/23 06:00 bisacodyl 10 mg rectal suppository 10 mg NM DAILY PRN Constipation 10/05/23 10/05/23 Unknown clobetasol 0.05 % topical cream 1 applic topical DAILY 10/05/23 10/05/23 10/05/23 docusate sodium 100 mg capsule 100 mg PO BID 10/05/23 10/05/23 10/05/23 09:00 heparin (porcine) 5,000 unit/mL 5,000 unit subcut Q12H 10/05/23 10/05/23 10/05/23 08:30 injection solution ipratropium 0.5 mg-albuterol 3 mg 3 ml inhalation Q4H PRN Shortness 10/05/23 Unknown (2.5 mg base)/3 mL nebulization Of Breath Or Wheezing soln magnesium hydroxide 400 mg/5 mL 30 ml PO DAILY PRN Constipation 10/05/23 10/05/23 Unknown oral suspension (Milk of Magnesia) melatonin 3 mg tablet 3 mg PO HS PRN Insomnia 10/05/23 10/05/23 Unknown ondansetron HCl 4 mg tablet 4 mg PO Q4H PRN NAUSEA/VOMITING 10/05/23 10/05/23 Unknown polyethylene glycol 3350 17 17 g PO QDL PRN Constipation 10/05/23 10/05/23 Unknown gram/dose oral powder (Miralax) sennosides 8.6 mg-docusate sodium 1 tab-cap PO QDL PRN Constipation 10/05/23 10/05/23 Unknown 50 mg tablet (Senokot-S) sodium chloride 7 % for 4 ml inhalation BID 10/05/23 10/05/23 10/05/23 10:00 nebulization (Hyper-Jose Eduardo) Active Medications Generic Name Dose Route Start Last Admin Trade Name Freq PRN Reason Stop Dose Admin Albuterol 3 ml 10/08/23 13:00 10/11/23 07:08 Albut/Ipratrop 3mg/0.5mg Neb 3 Ml Vial NEB 11/07/23 12:59 Not Given TIDR [facility] Protocol Amlodipine Besylate 5 mg 10/06/23 09:00 10/11/23 08:44 Amlodipine Besylate 5 Mg Tab PO 11/05/23 08:59 5 mg QAM TRESSA Administration Aspirin 81 mg 10/06/23 09:00 10/11/23 08:45 Aspirin 81 Mg Ectab PO 11/05/23 08:59 81 mg QAM TRESSA Administration Atorvastatin Calcium 40 mg 10/06/23 09:00 10/11/23 08:45 Atorvastatin 40 Mg Tab PO 11/05/23 08:59 40 mg QAM TRESSA Administration Budesonide 0.5 mg 10/08/23 19:00 10/11/23 07:08 Budesonide 0.5 Mg/2 Ml Vial (Pulmicort) NEB 11/07/23 18:59 0.5 mg BIDR TRESSA Administration Docusate Sodium 100 mg 10/05/23 21:48 10/11/23 08:44 Docusate Sodium 100 Mg Cap PO 11/04/23 21:47 100 mg BID TRESSA Administration Enoxaparin Sodium 30 mg 10/06/23 09:00 10/11/23 08:44 Enoxaparin Inj 30 Mg/0.3 Ml Syr SQ 11/05/23 08:59 30 mg QAM TRESSA Administration Finasteride 5 mg 10/07/23 21:00 10/10/23 21:41 Finasteride 5 Mg Tab PO 11/06/23 20:59 5 mg QPM TRESSA Administration Formoterol Fumarate 20 mcg 10/08/23 11:45 10/11/23 07:08 Formoterol 20 Mcg/2 Ml Vial NEB 11/07/23 11:44 20 mcg BIDR TRESSA Administration Guaifenesin 600 mg 10/07/23 12:40 10/11/23 08:44 Guaifenesin 600 Mg Tabcr PO 11/06/23 12:39 600 mg Q12 TRESSA Administration Lactic Acid 1 gm 10/09/23 21:00 10/11/23 08:46 Ammonium Lactate 12% Lotion 225 Gm Btl EXT 11/08/23 20:59 1 gm BID TRESSA Administration Olanzapine 2.5 mg 10/05/23 21:48 10/05/23 22:25 Olanzapine 2.5 Mg Tab PO 11/04/23 21:47 Not Given HS TRESSA Potassium Phosphate 2 tab 10/10/23 09:00 10/11/23 08:46 Pot Phosphate Monobasic W/ Sod Tab PO 11/09/23 08:59 2 tab QID TRESSA Administration Prednisone 30 mg 10/10/23 09:00 10/11/23 08:45 Prednisone 10 Mg Tablet PO 10/12/23 09:01 30 mg DAILY TRESSA Administration Sodium Chloride 4 ml 10/08/23 08:40 10/11/23 07:08 Sodium Chlor 7% 4 Ml Neb NEB 11/07/23 08:39 4 ml BIDR TRESSA Administration Tamsulosin HCl 0.4 mg 10/05/23 21:48 10/10/23 21:39 Tamsulosin Hcl 0.4 Mg Cap PO 11/04/23 21:47 0.4 mg HS TRESSA Administration
--- NOTE | 2023-10-12 07:56 | Pulmonology Progress Note ---
Date of Service October 12, 2023 Assessment & Plan (1) Acute on chronic respiratory failure with hypoxia and hypercapnia: (2) COPD with hypoxia: Plan Impression: 83-year-old male with very severe COPD admitted with hypoxemic and hypercarbic respiratory failure. He is improving with steroids, antibiotics, and bronchodilators. He tolerated AVAPS last evening without difficulty and this should be pursued going forward given his chronic hypercapnia. Recommendations: 1. COPD: Complete 5-day course of azithromycin. Continue prednisone taper. Continue nebulized Perforomist, budesonide, and DuoNebs for now. 2. Hypoxemic hypercapnic respiratory failure: Would not try and target oxygen saturations much above 86 to 90%. The patient is using noninvasive positive pressure ventilation at night. This is medically necessary. He is compliant with the device and achieving a clinical benefit from it. Forms were signed for [facility] home ventilator. Patient has Chronic Hypercarbic Respiratory failure due to COPD. Pt has evidence for CO2 retention and requires noninvasive ventilation with volume targeted mode at home for optimal management. BiPAP was tried and patient still remains hypercapnic due to the inability to provide noninvasive ventilation of adequate degree. Continuous alarm systems and backup are required for optimal management due to power outage. This patient is at high risk for respiratory failure without noninvasive ventilation at home. This could prevent repeated hospital admissions and improve the quality of life for the patient. NIMV settings were completed on the home health care order 3. Recommend getting the patient up out of bed to the chair and ambulatory is much as possible. 4. Pneumonia: Status post completion of a full course of antibiotics for pneumonia. Supportive care for parainfluenza 5. Agree with DNR status. Patient's lung disease would qualify him for potential home hospice if he wants to pursue a palliative care approach. Palliative discussions in progress Patient appears too frail to consider going home and I doubt his can take care of him. He would need SNF/rehab at a minimum prior to consideration of going home unless he goes home on home hospice Patient appears to have achieved significant benefit from inpatient hospitalization. This point time the patient has received maximal benefit from inpatient hospitalization and were pending disposition. Pulmonary will sign off. Again I would be happy to see him back in the outpatient clinic for follow-up. Feel free to contact us with questions or concerns Admission and Anticipated Discharge Date Admission Date: October 05, 2023 Subjective Patient seen and examined. EMR reviewed. The patient reports he is doing well. He reportedly was up to chair yesterday. He use noninvasive positive pressure ventilation. He thinks his breathing is doing well currently. He is tolerating a diet. He denies chest pain or palpitations. No new constitutional complaints. Review of Systems 2 Review of Systems: All systems reviewed & are unremarkable except as noted in Subjective Physical Exam 2 Constitutional: + frail appearing; no acute distress Neck: trachea midline, no thyromegaly Respiratory: no respiratory distress, no labored breathing, no cough and not tachypneic Auscultation: no crackles, no rhonchi and no wheezes Cardiovascular: RRR, no murmur, no edema Gastrointestinal (Abdomen): normal bowel sounds, soft, nontender, no hepatosplenomegaly Musculoskeletal: Extremities: extremities normal to inspection Skin: no rashes, warm and dry Lymphatic: no cervical lymphadenopathy Results & Data Results & Data Vital Signs (Past 12 Hours) Vital Signs Temp Pulse Pulse Pulse Resp BP Pulse Ox 10/12/23 07:31 37.0 C 84 18 169/80 H 92 10/12/23 06:56 92 H 18 90 10/12/23 02:34 36.6 C 69 18 135/78 97 10/12/23 02:05 71 19 94 10/11/23 22:42 36.5 C 61 18 140/66 96 10/11/23 22:24 67 10/11/23 21:50 10/11/23 21:49 75 21 93 O2 Del Method O2 Flow Rate FiO2 10/12/23 07:31 High Flow Nasal Cannula 10/12/23 06:56 Nasal Cannula 5 10/12/23 02:34 BiPAP 10/12/23 02:05 45 10/11/23 22:42 Nasal Cannula 6 10/11/23 22:24 10/11/23 21:50 Nasal Cannula 6 10/11/23 21:49 45 Laboratory Results 10/10/23 05:21 Diagnostic Findings No new imaging PG Care Time/CCT Total # of Minutes Spent Total Time Spent with Patient: Total time spent is greater than 50% in coordination of care (as documented) at patient's floor/unit and/or counseling patient: Coding Level of Care Code 99433 SUB INP/OBS CARE 2/35MIN Diagnoses Acute on chronic respiratory failure with hypoxia and hypercapnia J96.21; J96.22 COPD with hypoxia J44.9; R09.02
[2023-10-12 08:22] LABS: Hematocrit (blood only) 33.6 % (42.0-52.0); Hemoglobin 10.8 g/dl (14.0-18.0); Mean Corpuscular Hgb Conc 32.1 g/dL (32.0-36.0); Mean Corpuscular Volume 96.6 fL (80.0-100.0); Platelet Count 249 K/uL (130-400); RDW Coefficient of Variation 14.7 % (11.5-14.5); RDW Standard Deviation 51.6 fL (36.4-46.3); Red Blood Count 3.48 M/uL (4.70-6.10); White Blood Count 7.81 K/ul (4.8-10.8)
[2023-10-12 08:28] LABS: BUN Creatinine Ratio 26.1 (10-20); Calcium 8.5 mg/dl (8.6-10.3); Creatinine Clr Calc Pharmacy 35.8 ml/min; Est GFR (African American) 69.8 ml/min; Est GFR (Non-African American) 60.2 ml/min; Potassium 3.9 mmol/L (3.5-5.1)
--- NOTE | 2023-10-12 12:41 | Hospitalist Progress Note ---
Date of Service October 12, 2023 Assessment & Plan (1) Acute on chronic respiratory failure with hypoxia and hypercapnia: Plan: Mr. Castillo is an 83 year old gentleman with medical history significant for complete heart block status post PPM, PVD status post surgery, hypertension, hyperlipidemia, chronic respiratory failure secondary to COPD on home O2, BPH, chronic anemia (baseline hemoglobin 10-11), past tobacco abuse who is admitted from [facility] 2/2 encephalopathy and acute on chronic hypoxia/hypercapnia iso parainfluenza virus. Patient required ICU briefly for close airway monitoring on bipap. Pulmonary recommended BIPAP, however, patient doesn't seem to tolerate. concerned over patient's mentation and memory; patient is improving subjectively, however, still with notable oxygen requirement. Long discussion was had with 10/08 It was discussed that it can be difficult to recover from viral infection especially with existing lung disease/emphysema, as well as more complicated to recover when not able to comply with modalities like Bipap. Discussed continued relatively high oxygen requirement, as well as cognitive impairment/short term memory issues noted by . Patient pleasant, but forgetful. She reports patient being at baseline and completely independent. Discussed home hospice given lung disease and attempted to exam issues/concern with hypercapnia/hypoxia and the confusion that results--as well as the need for complying with bipap to help recover. She would like patient to trial as much as able and to trial rehab if able. really concerned because goal is home and she understands patient's tolerance will be limited for certain ongoing modalities. Off antibiotics as of 10/09. Patient was able to wear mask overnight and more cognizant/aware today. On 10/10, around 30 minutes was spent with at [facility] discussing options. wants patient to go to rehab but afraid of another virus. is hopeful for return of "full functionality" states she would like to meet with palliative on 10/12 at 1030am. On 10/12, met with son at bedside. Conversation with son revealed clear understanding of situation and desire for trial of rehab; however, would like to still speak to palliative to understand "process" and ensure patient's is on same page for safe discharge plan. Potential for discharge tomorrow to [facility] contingent on conversations. #Acute on chronic respiratory failure with hypoxia and hypercapnia #Parainfluenza infection #Acute severe COPD exacerbation with emphysema #Chronic oxygen dependency on home supplemental oxygen, 2L at baseline --CTA:No evidence of pulmonary embolus. Partially visualized abdominal aortic aneurysm measuring up to 4.[address] angiogram of the abdomen and pelvis for further evaluation. Severe emphysematous changes, right greater than left with atelectasis/collapse of the left lower lobe and lingula region -- BioFire positive for parainfluenza -- Normal procalcitonin --Blood culture negative to date --Continue cefepime EOT 10/09 --Azithromycin 3xwk Taper steroids as able Continue AVAPS as needed and HS Continue supplemental oxygen to keep saturations 88 to 92% Consulted pulmonary as requested by family and patient -completed abx -VBG c/w hypercapnia -Recommending trelegy ventilator: request filed per pulm -Palliative consult to discuss and help cope on 1030am 10/12 -Home order for trelegy completed by Dr Negron -OP follow up with Pulm upon discharge Wean supplemental oxygen as able Continue Mucinex, flutter Continue hypertonic nebs Encourage OOB and in chair #Acute metabolic encephalopathy *waxing/, waning Secondary to above hypoxia/hypercapnia Monitor and reorient frequently to minimize delirium Mental status is improved, however, patient with notable short term memory deficit and inability to recall recent events through out day #Hyperkalemia discontinued losartan given stable blood pressure. Monitor potassium levels Monitor #CKD III stable #Abdominal aortic aneurysm Incidental finding on CT 4.2 cm Monitor as OP #Hypertension #Complete heart block S/P PPM Continue amlodipine Losartan discontinued Monitor BP #Hyperlipidemia Continue statin #Prediabetes HbA1c 5.9 #PVD S/P surgery Statin as above #Urinary retention #BPH continue Flomax Zepeda in place, void trial today #Acute on Chronic anemia Baseline 11-12, appears to be 9-10 recently No signs of bleeding at this time Stable Past tobacco abuse Continue home medications as able DVT Px: Lovenox SQ Code Status DNI/DNR Admission and Anticipated Discharge Date Admission Date: October 05, 2023 Subjective NAEO, tolerating new mask with bipap much easier Denies any acute concerns; short term memory poor, but much more alert to self and ~situation Void trial successful, though incontinent Physical Exam Constitutional: WD/WN, vitals as above Respiratory: diminished bilaterally Gastrointestinal (Abdomen): normal bowel sounds, soft, nontender, no hepatosplenomegaly Results & Data Results & Data Vital Signs (Past 12 Hours) Vital Signs Temp Pulse Pulse Pulse Resp BP Pulse Ox 10/12/23 11:18 36.9 C 88 19 133/63 90 10/12/23 08:09 10/12/23 07:31 37.0 C 84 18 169/80 H 92 10/12/23 06:56 92 H 18 90 10/12/23 02:34 36.6 C 69 18 135/78 97 10/12/23 02:05 71 19 94 O2 Del Method O2 Flow Rate FiO2 10/12/23 11:18 High Flow Nasal Cannula 10/12/23 08:09 High Flow Nasal Cannula 5 10/12/23 07:31 High Flow Nasal Cannula 10/12/23 06:56 Nasal Cannula 5 10/12/23 02:34 BiPAP 10/12/23 02:05 45 Laboratory Results Short CBC 10/12/23 Range/Units 07:24 WBC 7.81 (4.8-10.8) K/ul Hgb 10.8 L (14.0-18.0) g/dl Hct 33.6 L (42.0-52.0) % Plt Count 249 (130-400) K/uL BMP 10/12/23 07:24 Sodium 138 Potassium 3.9 Chloride 95 L Carbon Dioxide 39 H BUN 29 H Creatinine 1.11 Glucose 87 Calcium 8.5 L Medications Administered Home Medications Medication Instructions Recorded Confirmed Last Taken amlodipine 5 mg tablet (Norvasc) 5 mg PO QAM 03/20/18 10/05/23 10/05/23 atorvastatin 40 mg tablet 40 mg PO QAM 10/22/22 10/05/23 10/05/23 losartan 25 mg tablet 25 mg PO QAM 10/22/22 10/05/23 10/05/23 albuterol sulfate 90 mcg/actuation 1 inh inhalation QID PRN Shortness 09/23/23 10/05/23 10/05/23 14:30 aerosol inhaler Of Breath Or Wheezing dutasteride 0.5 mg capsule 0.5 mg PO QPM 09/23/23 10/05/23 10/04/23 (Avodart) tamsulosin 0.4 mg capsule (Flomax) 0.4 mg PO 09/23/23 10/05/2310/03/24 aspirin 81 mg tablet,delayed 81 mg PO QAM 30 days #30 tabs 09/29/23 10/05/23 10/05/23 release olanzapine 2.5 mg tablet 2.5 mg PO HS 7 days #7 tabs 09/29/23 10/05/23 10/04/23 acetaminophen 325 mg tablet 650 mg PO Q4H PRN Pain 10/05/23 10/05/23 Unknown (Tylenol) ammonium lactate 12 % lotion 1 applic topical Q12H 10/05/23 10/05/23 10/05/23 06:00 bisacodyl 10 mg rectal suppository 10 mg OR DAILY PRN Constipation 10/05/23 10/05/23 Unknown clobetasol 0.05 % topical cream 1 applic topical DAILY 10/05/23 10/05/23 10/05/23 docusate sodium 100 mg capsule 100 mg PO BID 10/05/23 10/05/23 10/05/23 09:00 heparin (porcine) 5,000 unit/mL 5,000 unit subcut Q12H 10/05/23 10/05/23 10/05/23 08:30 injection solution ipratropium 0.5 mg-albuterol 3 mg 3 ml inhalation Q4H PRN Shortness 10/05/23 10/05/23 Unknown (2.5 mg base)/3 mL nebulization Of Breath Or Wheezing soln magnesium hydroxide 400 mg/5 mL 30 ml PO DAILY PRN Constipation 10/05/23 10/05/23 Unknown oral suspension (Milk of Magnesia) melatonin 3 mg tablet 3 mg PO HS PRN Insomnia 10/05/23 10/05/23 Unknown ondansetron HCl 4 mg tablet 4 mg PO Q4H PRN NAUSEA/VOMITING 10/05/23 10/05/23 Unknown polyethylene glycol 3350 17 17 g PO QDL PRN Constipation 10/05/23 10/05/23 Unknown gram/dose oral powder (Miralax) sennosides 8.6 mg-docusate sodium 1 tab-cap PO QDL PRN Constipation 10/05/23 10/05/23 Unknown 50 mg tablet (Senokot-S) sodium chloride 7 % for 4 ml inhalation BID 10/05/23 10/05/23 10/05/23 10:00 nebulization (Hyper-Jose Eduardo) Active Medications Generic Name Dose Route Start Last Admin Trade Name Guiq PRN Reason Stop Dose Admin Albuterol 3 ml 10/08/23 13:00 10/12/23 12:48 Albut/Ipratrop 3mg/0.5mg Neb 3 Ml Vial NEB 11/07/23 12:59 3 ml TIDR TRESSA Administration Protocol Amlodipine Besylate 5 mg 10/06/23 09:00 10/12/23 08:04 Amlodipine Besylate 5 Mg Tab PO 11/05/23 08:59 5 mg QAM TRESSA Administration Aspirin 81 mg 10/06/23 09:00 10/12/23 08:05 Aspirin 81 Mg Ectab PO 11/05/23 08:59 81 mg QAM TRESSA Administration Atorvastatin Calcium 40 mg 10/06/23 09:00 10/12/23 08:05 Atorvastatin 40 Mg Tab PO 11/05/23 08:59 40 mg QAM TRESSA Administration Budesonide 0.5 mg 10/08/23 19:00 10/12/23 06:54 Budesonide 0.5 Mg/2 Ml Vial (Pulmicort) [facility] 11/07/23 18:59 0.5 mg BIDR TRESSA Administration Docusate Sodium 100 mg 10/05/23 21:48 10/12/23 08:04 Docusate Sodium 100 Mg Cap PO 11/04/23 21:47 100 mg BID TRESSA Administration Enoxaparin Sodium 30 mg 10/06/23 09:00 10/12/23 08:06 Enoxaparin Inj 30 Mg/0.3 Ml Syr SQ 11/05/23 08:59 30 mg QAM TRESSA Administration Finasteride 5 mg 10/07/23 21:00 10/11/23 21:49 Finasteride 5 Mg Tab PO 11/06/23 20:59 5 mg QPM TRESSA Administration Formoterol Fumarate 20 mcg 10/08/23 11:45 10/12/23 06:54 Formoterol 20 Mcg/2 Ml Vial NEB 11/07/23 11:44 20 mcg BIDR TRESSA Administration Guaifenesin 600 mg 10/07/23 12:40 10/12/23 08:04 Guaifenesin 600 Mg Tabcr PO 11/06/23 12:39 600 mg Q12 TRESSA Administration Lactic Acid 1 gm 10/09/23 21:00 10/12/23 08:05 Ammonium Lactate 12% Lotion 225 Gm Btl EXT 11/08/23 20:59 1 gm BID TRESSA Administration Olanzapine 2.5 mg 10/05/23 21:48 10/05/23 22:25 Olanzapine 2.5 Mg Tab PO 11/04/23 21:47 Not Given HS TRESSA Potassium Phosphate 2 tab 10/10/23 09:00 10/12/23 12:57 Pot Phosphate Monobasic W/ Sod Tab PO 11/09/23 08:59 2 tab QID TRESSA Administration Sodium Chloride 4 ml 10/08/23 08:40 10/12/23 06:54 Sodium Chlor 7% 4 Ml Neb NEB 11/07/23 08:39 4 ml BIDR TRESSA Administration Tamsulosin HCl 0.4 mg 10/05/23 21:48 10/11/23 21:48 Tamsulosin Hcl 0.4 Mg Cap PO 11/04/23 21:47 0.4 mg HS TRESSA Administration
[2023-10-13 07:54] LABS: Hematocrit (blood only) 34.4 % (42.0-52.0); Hemoglobin 10.8 g/dl (14.0-18.0); Mean Corpuscular Hemoglobin 30.9 pg (25.0-34.0); Mean Corpuscular Hgb Conc 31.4 g/dL (32.0-36.0); Mean Corpuscular Volume 98.3 fL (80.0-100.0); Mean Platelet Volume 9.7 fL (9.4-12.4); Platelet Count 241 K/uL (130-400); RDW Coefficient of Variation 15.1 % (11.5-14.5); RDW Standard Deviation 54.3 fL (36.4-46.3); White Blood Count 12.22 K/ul (4.8-10.8)
[2023-10-13] MEDS: predniSONE 20 MG TAB PO SCH (08:07)
[2023-10-13 08:19] LABS: BUN Creatinine Ratio 26.4 (10-20); Calcium 8.7 mg/dl (8.6-10.3); Creatinine Clr Calc Pharmacy 33.5 ml/min; Est GFR (African American) 60.5 ml/min; Est GFR (Non-African American) 52.2 ml/min
[2023-10-13] MEDS: LOSARTAN POTASSIUM 25 MG TAB PO SCH (09:11)
--- NOTE | 2023-10-13 13:06 | Discharge Summary ---
Discharge Summary Date of Service October 13, 2023 Notes For Next Care Provider Medication Changes From Visit -Prednisone 10mg steroid taper: Please take 20mg (2 tablets) for 2 more days, then 10 mg (1 tablet) for 3 days, then 5mg (0.5) tablet for 3 days. -Mucinex 600mg two times daily Admission HPI Per Admitting Provider History obtained from patient, family, and records. Limited history from patient secondary to disorientation. Medical history significant for complete heart block status post PPM, PVD status post surgery, hypertension, hyperlipidemia, chronic respiratory failure secondary to COPD on home O2, BPH, chronic anemia (baseline hemoglobin 10-11), past tobacco abuse. Last confinement 2 weeks ago for LLE cellulitis in the setting of psoriasis status post antibiotic Rx. Patient also started on Zyprexa for delirium during confinement. Patient discharged to [facility]. Patient noted to have congestion symptoms yesterday. Scheduled discharge to home was deferred. Patient noted to have worsening hypoxemia, wheezing and confusion at rehab facility today. Chest pain as per patient complaint. O2 sats 80s. Worsening symptoms despite steroid and neb treatment administration at rehab facility. O2 sats 80s upon arrival at the ER. BiPAP and IV heparin for presumptive PE initiated at the ER. Medical History as above Surgical History : PPM, hernia repair, thromboendarterectomy Family History : Cancer Personal/Social history : Past tobacco abuse, no EtOH intake Admission Exam Per Admitting Provider CONSTITUTIONAL: thin, elderly, vitals as above, generally appears uncomfortable. EYES: periorbital erythema is present, normal conjunctivae, no scleral icterus ENT: external ear and nose normal, MMM NECK: trachea midline RESPIRATORY: clear to auscultation bilaterally, no crackles, rales or wheezes, normal respiratory effort CARDIOVASCULAR: regular rate and rhythm, S1 and 2 heard without murmurs, gallops or rubs, no JVD, no peripheral edema CHEST: inspection of chest was normal GASTROINTESTINAL: soft, nontender, ND, no guarding MUSCULOSKELETAL: strength 5/5 throughout, head is normocephalic and atraumatic SKIN: warm and dry, scaly erythematous plaques on most extremity extensor surfaces and there is more severe confluent erythema on the distal LLE and distal LUE. THere is severe erythema and psoriatic involvement of the hands. There is a petechial rash extending up in to the medial thigh. LLE is very painful to touch. No swelling is present. There is warmth to LLE>RLE and LUE>RUE. NEUROLOGIC: CN 2-12 grossly intact, no sensory deficit, normal cognition, normal speech, no tremor PSYCHIATRIC: alert cooperative and oriented to person, place and time. Principal Dx & Hospital Course #1 = Principal Diagnosis (1) Acute on chronic respiratory failure with hypoxia and hypercapnia: Mr. Castillo is an 83 year old gentleman with medical history significant for complete heart block status post PPM, PVD status post surgery, hypertension, hyperlipidemia, chronic respiratory failure secondary to COPD on home O2, BPH, chronic anemia (baseline hemoglobin 10-11), past tobacco abuse who is admitted from [facility] 2/ encephalopathy and acute on chronic hypoxia/hypercapnia iso parainfluenza virus. Patient required ICU briefly for close airway monitoring on bipap. Pulmonary recommended BIPAP, however, patient doesn't seem to tolerate. concerned over patient's mentation and memory; patient is improving subjectively, however, still with notable oxygen requirement. Long discussion was had with 10/08 It was discussed that it can be difficult to recover from viral infection especially with existing lung disease/emphysema, as well as more complicated to recover when not able to comply with modalities like Bipap. Discussed continued relatively high oxygen requirement, as well as cognitive impairment/short term memory issues noted by . Patient pleasant, but forgetful. She reports patient being at baseline and completely independent. Discussed home hospice given lung disease and attempted to exam issues/concern with hypercapnia/hypoxia and the confusion that results--as well as the need for complying with bipap to help recover. She would like patient to trial as much as able and to trial rehab if able. really concerned because goal is home and she understands patient's tolera nce will be limited for certain ongoing modalities. Off antibiotics as of 10/09. Patient was able to wear mask overnight and more cognizant/aware today. On 10/10, around 30 minutes was spent with at bedside discussing options. wants patient to go to rehab but afraid of another virus. is hopeful for return of "full functionality" states she would like to meet with palliative on 10/12 at 1030am. On 10/11, met with son at bedside. Conversation with son revealed clear understanding of situation and desire for trial of rehab; however, would like to still speak to palliative to understand "process" and ensure patient's is on same page for safe discharge plan. On 10/12, family met with palliative as outline in palliative note. Patient to trial for rehab and discuss home hospice. #Acute on chronic respiratory failure with hypoxia and hypercapnia #Parainfluenza infection #Acute severe COPD exacerbation with emphysema #Chronic oxygen dependency on home supplemental oxygen, 2L at baseline --CTA:No evidence of pulmonary embolus. Partially visualized abdominal aortic aneurysm measuring up to 4.[address] angiogram of the abdomen and pelvis for further evaluation. Severe emphysematous changes, right greater than left with atelectasis/collapse of the left lower lobe and lingula region -- BioFire positive for parainfluenza -- Normal procalcitonin --Blood culture negative to date --discontinued cefepime and Azithromycin course 10/09 Taper steroids as able: 20mg x 2 more days, then 10mg x 3days, then 5mg x 3 days Continue AVAPS as needed and -Home health ordered submitted by Dr. Negron Continue supplemental oxygen to keep saturations 86 to 90% Consulted pulmonary as requested by family and patient -completed abx -VBG c/w hypercapnia - trelegy ventilator: request filed per pulm -Palliative consult to discuss and help cope -Long discussion facilitated with palliative on 10/12: trial of rehab then likley home with hospice -Home order for trelegy completed by Dr Negron -OP follow up with Pulm upon discharge Wean supplemental oxygen as able Continue Mucinex, flutter valve #Acute metabolic encephalopathy *waxing/, waning Secondary to above hypoxia/hypercapnia Monitor and reorient frequently to minimize delirium Mental status is improved, however, patient with notable short term memory deficit and inability to recall recent events through out day likely to exacerbate with hypercapnia. #Hyperkalemia*resolved Monitor with routine labs #CKD III stable #Abdominal aortic aneurysm Incidental finding on CT 4.2 cm Monitor as OP #Hypertension #Complete heart block S/P PPM Continue amlodipine Losartan resumed #Hyperlipidemia Continue statin #Prediabetes HbA1c 5.9 #PVD S/P surgery Statin as above #Urinary retention #BPH continue Flomax and dutasteride Void trial successful 10/10 #Acute on Chronic anemia*stable Baseline 11-12, appears to be 9-10 recently No signs of bleeding at this time Stable Discharge Exam Constitutional WD/WN, vitals as above Cardiovascular RRR, no murmur, no edema Gastrointestinal (Abdomen) normal bowel sounds, soft, nontender, no hepatosplenomegaly Updated Medication List Medication Instructions Recorded Confirmed Type amlodipine 5 mg tablet (Norvasc) 5 mg PO QAM 03/20/18 10/05/23 History atorvastatin 40 mg tablet 40 mg PO QAM 10/22/22 10/05/23 History losartan 25 mg tablet 25 mg PO QAM 10/22/22 10/05/23 History albuterol sulfate 90 mcg/actuation 1 inh inhalation QID PRN Shortness 09/23/23 10/05/23 History aerosol inhaler Of Breath Or Wheezing dutasteride 0.5 mg capsule 0.5 mg PO QPM 09/23/23 10/05/23 History (Avodart) tamsulosin 0.4 mg capsule (Flomax) 0.4 mg PO HS 09/23/23 10/05/23 History aspirin 81 mg tablet,delayed 81 mg PO QAM 30 days #30 tabs 09/29/23 10/05/23 Rx release olanzapine 2.5 mg tablet 2.5 mg PO HS 7 days #7 tabs 09/29/23 10/05/23 Rx acetaminophen 325 mg tablet 650 mg PO Q4H PRN Pain 10/05/23 10/05/23 History (Tylenol) ammonium lactate 12 % lotion 1 applic topical Q12H 10/05/23 10/05/23 History bisacodyl 10 mg rectal suppository 10 mg HI DAILY PRN Constipation 10/05/23 10/05/23 History clobetasol 0.05 % topical cream 1 applic topical DAILY 10/05/23 10/05/23 History docusate sodium 100 mg capsule 100 mg PO BID 10/05/23 10/05/23 History ipratropium 0.5 mg-albuterol 3 mg 3 ml inhalation Q4H PRN Shortness 10/05/23 10/05/23 History (2.5 mg base)/3 mL nebulization Of Breath Or Wheezing soln magnesium hydroxide 400 mg/5 mL 30 ml PO DAILY PRN Constipation 10/05/23 10/05/23 History oral suspension (Milk of Magnesia) melatonin 3 mg tablet 3 mg PO HS PRN Insomnia 10/05/23 10/05/23 History ondansetron HCl 4 mg tablet 4 mg PO Q4H PRN NAUSEA/VOMITING 10/05/23 10/05/23 History polyethylene glycol 3350 17 17 g PO QDL PRN Constipation 10/05/23 10/05/23 History gram/dose oral powder (Miralax) sennosides 8.6 mg-docusate sodium 1 tab-cap PO QDL PRN Constipation 10/05/23 10/05/23 History 50 mg tablet (Senokot-S) sodium chloride 7 % for 4 ml inhalation BID 10/05/23 10/05/23 History nebulization (Hyper-Jose Eduardo) guaifenesin 600 mg tablet, 600 mg PO Q12 #60 tabs 10/13/23 Rx extended release 12 hr (Mucinex) prednisone 10 mg tablet 10 mg PO DAILY #9 tabs 10/13/23 Rx Hospital Stay Data Consultations 10/05/23 19:18 ED Decision to Admit Stat 10/05/23 21:48 Consult Demolition Engineer Routine 10/07/23 14:41 Consult Pulmonology Routine 10/09/23 14:45 Consult Palliative Care Routine Diagnostic Imagining Performed 10/05/23 20:47 CT angio chest PE protocol Stat Discharge Instructions Given to Patient (Per Discharging Provider) You were admitted for confusion and found to have acute hypercapnia and hypoxia due to COPD and parainfluenza virus. Your goal oxygen levels are 86% to 90%. You will need to continue using noninvasive positive pressure ventilation at night. This is medically necessary. Forms were signed for [facility] home ventilator and will be arranged for set up at your home. You will continue your home inhalers. Final oxygen requirements will be assessed at rehab. Please see the following medication adjustments: -Prednisone 10mg steroid taper: Please take 20mg (2 tablets) for 2 more days, then 10 mg (1 tablet) for 3 days, then 5mg (0.5) tablet for 3 days. -Mucinex 600mg two times daily Your other home medications were able to be resumed as previously prescribed. Total Time Total Time Spent Total Time Spent (In Minutes): 45
--- NOTE | 2023-10-13 14:28 | Palliative Family Discussion ---
Date of Service October 13, 2023 Patient Directed Conference ACP FAMILY MEETING Time of [id number] Participants: Candida David DNP Patient participation: no/intermittent confusion Patient Support System: and son Other Healthcare Provider Participation: None Meeting Location: private exam room on 2 S Advanced Directive available: yes-son provided virtual copy of pt AD which indicates election of DNR/DNI, does not want CPR or artificial means of life support The patient's surrogate medical decision maker participated: yes and son A face to face ACP family meeting was held for EDNA BRANHAM. This meeting was necessary for determining the appropriate course of treatment. Topics of Discussion Topics of Discussion: 1. 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 We reviewed the nature of COPD: the ATS and ERS define COPD as a preventable and treatable disease state characterized by airflow limitation that is not fully reversible. The airflow limitation is usually progressive and associated with a chronic inflammatory response of the lungs to noxious particles or gases. COPD is incurable and will worsen over time. Sometimes when patients stop smoking, the progression will slow down, but all COPD over time will get worse. Medications become less effective and do not work as well; in general these patients experience a significant decline in QOL. Patients with COPD constitute a large group of symptomatic patients with a common, chronic, and generally progressive respiratory disorder. Recent studies indicate that patients in this group, on the whole, receive less palliative care in their terminal phase than patients with lung cancer. We discussed that Palliative care can begin when a patient becomes symptomatic and is usually concurrent with restorative and life-prolonging care. Palliative care is titrated, analogous to curative/restorative care, to meet the needs of the patient and family in accord with their preferences. We will help manage their symptoms and assist with goals of care discussions. We spoke about his PFT from a few years ago with FEV1 26%, very severe obstructive disease. We spoke about the newer complications of heart failure, viral illness and cellulitis along with inc cognitive impairments which have been progressing over time. We discussed the COPD hospice guidelines I discussed the option of adding hospice to her care: we spoke about how hospice and palliative care provide an extra layer of support for managing the symptoms of COPD. They improve quality of life for patients and their families by addressing social, spiritual and practical issues. I have provided education about the option of hospice for advanced COPD, noting that living with COPD can be difficult franc as disease progresses/PS declines plus we know it can be equally challenging for caregivers, but you don't have to face the challenges alone. We discussed how hospice and palliative care both offer relief from the pain and symptoms of COPD. Both can address the mental, social and spiritual needs of a patient. In fact, hospice is a type of palliative care during the final stage of life. I advised there are hospice eligibility guidelines for COPD/lung disease as follows: Major characteristics a. Dyspnea at rest and/or with minimal exertion while on oxygen therapy b. Dyspnea unresponsive or poorly responsive to bronchodilator therapy c. Progression of chronic pulmonary disease as evidenced by one or more of the following: d. Frequent use of medical services, including hospitalizations, ED visits and/or physician outpatient visits, due to symptoms of pulmonary disease e. Frequent episodes of bronchitis or pneumonia f. Unintentional weight loss of >=10 percent body weight over the preceding six months g. Progressive inability to independently perform various activities of daily living (ADLs) or an increasing dependency with ADLs, resulting in a progressively lower performance status Other important critical factors h. Cor pulmonale i. Continuous chronic oxygen therapy j. Resting tachycardia > 100/minute k. Steroid-dependent l. Cyanosis Abnormal laboratory findings 2. While these laboratory studies may be helpful to the clinician when considering patient appropriateness for hospice services, they are not required for patient admission. a. FEV1 <=30 percent predicted post-bronchodilator b. Serial decreases in FEV1 of at least 40 ml/year over several years c. PO2 <=55 on room air d. O2 sat. <=88 percent on room air e. Persistent hypercarbia (PCO2) >=50 mm HG 2. Individually, apart from cellulitis, none of his medical issues are curable. They will continue to chronically progress and worsen over time leading to more compromise and weakness. We spoke about his AD and reaffirms pt would not want life support measures. She knows the bipap was a life support intervention and notes she does not regret agreeing to it, as pt had verbalized feeling afraid and asking for help so she felt a 1-2 day trial of BIPAP was worth trying to see if it could help him improve. I advised there was nothing wrong with a time limited trial and that interventions like NIV are designed to be temporizing ad help buy time while giving other interventions such as Abtx or diuretics a chance to help. 3. wants the rehab trial, understands it may not do much but is hopeful it might help a little bit. She then wants him home with addition of hospice: We discussed the goals of hospice as a patient service and the goals of care; we discussed EOL trajectories and transitions franc the emotional impact of realizing mortality as a concrete reality from prior abstract considerations. Pt was reassured that no matter where they are along this trajectory, they are not alone - their medical team will remain by their side through their journey. Discussed the pros/cons of accepting help when especially weakened and distressed by pain-which would also help provide relief/decrease caregiver burden/strain. I provided education about the hospice benefit: an interdisciplinary program offered by nurses, nurses aides, social workers, chaplains and a medical claims examiner for patients with a terminal condition and a life expectancy of less than 6 months. This is covered by Medicare at 100%/no out of pocket expense to patient and all meds/supplies needed by patient for the reason they are on hospice are paid for/covered by hospice. The goal is assure quality of life of the patient in their home setting (home, alf, inpatient hospice setting) by providing symptoms management, psychosocial and spiritual support. However, they cannot offer 24 hours care and if the family is unable to provide that care, they will have to consider personal care with out of pocket cost vs. alf placement. We discussed the goals of hospice as a patient service and the goals of care; we discussed EOL trajectories and transitions franc the emotional impact of realizing mortality as a concrete reality from prior abstract considerations. Pt was reassured that no matter whe re they are along this trajectory, they are not alone - their medical team will remain by their side through their journey. Discussed the pros/cons of accepting help when especially weakened and distressed by pain-which would also help provide relief/decrease caregiver burden/strain. 4. Advised and son hospice would need to be set p AFTER rehab and heNF teams would need to do this as part of his dc planning from [facility] Other Content of Meetin. Opportunity given for participants to speak and ask questions. 2. Participants were assured of attention to patient comfort. 3. Reassurance provided. 4. Support was provided for informed, good-william decisions. 5. Emotions expressed by family were acknowledged and addressed. 6. Follow-up OP Pall med clinic offered and contact information provided. 7. Plan of Care: wants a 3 day rehab trial then home with hospice. Advised hospice will need to be arranged by SNF social media director as it is happening after hospital DC Time Involved in Meeting: I spent60 minutes overall addressing this case in a face to face ACP discussion with and son. Primary team updated Thank you for allowing us to participate in the ongoing care of this patient. Please don't hesitate to call or page with any additional concerns. Dr. Candida David DNP Director, Palliative Care
[2023-10-16] MEDS ORDERED: predniSONE 10 MG TABLET PO SCH (09:00)
[2023-10-19] MEDS ORDERED: predniSONE 5 MG TAB PO SCH (09:00)
== END 2023-10-13 16:04 | DRG 193 ==
LOC: ED 16:28 → SUATTDRO 20:51 → 1E 20:51 → 2S 10-06 17:22